=== PATIENT | male | born 1945 | race Caucasian/White ===

== ENCOUNTER → 2023-11-04 11:15 | Outpatient (REF) | payer OTHER, SELFPAY | LOC: HWRAD 11:15 | PROVIDERS: ATTENDING PHYSICIAN Nurse Practitioner Primary Care; FAMILY PHYSICIAN Internal Medicine Geriatric Medicine | DX: D46.9 Myelodysplastic syndrome, unspecified (principal); C15.5 Malignant neoplasm of lower third of esophagus; C78.7 Secondary malignant neoplasm of liver and intrahepatic bile duct; C78.00 Secondary malignant neoplasm of unspecified lung; D50.9 Iron deficiency anemia, unspecified | CPT/HCPCS: 71046 ==

== ENCOUNTER → 2023-11-13 09:12 | Outpatient (REF) | payer OTHER, SELFPAY | LOC: RCS 09:12 | PROVIDERS: ATTENDING PHYSICIAN Internal Medicine Hematology & Oncology; FAMILY PHYSICIAN Internal Medicine Geriatric Medicine | DX: D46.9 Myelodysplastic syndrome, unspecified (principal); C15.5 Malignant neoplasm of lower third of esophagus; C78.7 Secondary malignant neoplasm of liver and intrahepatic bile duct; C78.00 Secondary malignant neoplasm of unspecified lung; D50.9 Iron deficiency anemia, unspecified | CPT/HCPCS: 93306; 93356 ==

== ENCOUNTER → 2024-02-06 07:49 | Outpatient (REF) | payer OTHER, SELFPAY | LOC: WOUND 07:49 | PROVIDERS: ATTENDING PHYSICIAN Surgery; FAMILY PHYSICIAN Internal Medicine Geriatric Medicine | DX: S00.03XA Contusion of scalp, initial encounter (principal); R58 Hemorrhage, not elsewhere classified; I48.0 Paroxysmal atrial fibrillation; J44.9 Chronic obstructive pulmonary disease, unspecified; Z87.891 Personal history of nicotine dependence; W19.XXXA Unspecified fall, initial encounter | CPT/HCPCS: 99203 ==

== ENCOUNTER 2024-02-06 08:41 | Emergency (ER) | payer OTHER, SELFPAY ==
[2024-02-06 08:45] VITALS: BP 172/89
--- NOTE | 2024-02-06 09:57 | ED.SKININJ ---
HPI-Injury
General
Chief Complaint: Skin Problem
Source: patient and spouse
Exam Limitations: none
Time Seen by Provider: 02/06/24 09:39
Nursing documentation reviewed up to this point in time: agreed with
Travel History
Have you had any contact with someone who has COVID-19?: No
Do you have any symptoms of coronavirus? Fever > 100 degrees, chills, cough, shortness of breath, sore throat, loss of taste or smell, muscle aches, or headache?: No
History of Present Illness-Injury
Initial Injury comments:
78-year-old male with history of atrial fibs on [facility] presents with a hematoma of the left posterior scalp.
1 month ago had an injury where he basically 'scalped' himself in the area with large flap laceration and was seen at [facility], sutures applied, he was hospitalized and went to rehab in [facility], sutures removed and has been doing well since
until 01/19 when the area started swelling. Has been followed by [facility] and today, because it was oozing blood, C sent him here for evaluation. Pt and state this a.m. it was 'dripping blood' denies significant bleeding otherwise.
Past History
Past History
ED Past Medical History: Arrthythmia (atrial fibrillation), CAD, COPD, HTN, Other (streptococcal sepsis, paraspinal abscess), Other (GI bleed s/p polypectomy 2017 s/p embolization of ileocecal branch of SMA) and Other (gout); Negative Cancer
ED Past Surgical History: Orthopedic (C7 cadaveric implant, laminectomy anterior approach) and Other (Parathyroid adenoma resection); Negative Cardiac
Social History
Tobacco: Former smoker
Alcohol: Occasional
Drug: None
Personal:
Living: with family
Employment: Employed
Family History
Family History: CAD and Cancer; Negative Diabetes, Hypertension or Asthma
Review of Systems
Review of Systems
Allergies reviewed?: Yes
All Other Systems: ROS reviewed and negative except as documented in HPI and ROS
Constitutional: Denies fever or fatigue
Respiratory: Denies trouble breathing
Cardiac: Denies chest pain
ABD/GI: Denies abdominal pain or nausea
Skin: Reports other (hematoma scalp, not getting bigger in past 24 hours. Oozing small amount this a.m. prompting this visit)
Neurological: Denies dizzy or headache
Phy Exam
Physical Exam
Physical Exam:
GENERAL: No acute distress. A&Ox3.
CONSTITUTIONAL: Afebrile.
EYES: PERRL, conjunctivae normal
ENMT: moist mucus membranes, Pharynx nl
RESPIRATORY: Regular respirations, nonlabored, lungs clear.
CARDIOVASCULAR: Regular rate and rhythm, no murmurs, no rubs.
GI: Soft, nontender, normal BS
MUSCULOSKELETAL: Moves with ease. Well perfused.
SKIN: Warm, dry, pink, there is a 4 cm high by 5 cm wide hematoma on the left posterior scalp
PSYCH: Normal mood and affect. Well kept, interactive and appropriate
NEUROLOGIC: Awake, alert and oriented. No focal neurological deficits
Course
Vital Signs
Initial and Last Documented VS:
Initial Vital Signs
Temp Pulse Resp BP Pulse Ox
98.0 F 74 20 172/89 96
02/06/24 08:45 02/06/24 08:45 02/06/24 08:45 02/06/24 08:45 02/06/24 08:45
Last Documented Vital Signs
Temp Pulse Resp BP Pulse Ox
98 F 70 19 158/89 95
02/06/24 10:07 02/06/24 10:07 02/06/24 10:07 02/06/24 10:07 02/06/24 10:07
MDM/Problems Addressed
Differential Diagnosis Includes:
hematoma, cellulitis
MDM/Problems Addressed:
78-year-old male with history of atrial fibs on Eliquis presents with a hematoma of the left posterior scalp.
1 month ago had an injury where he basically 'scalped' himself in the area with large flap laceration and was seen at [facility], sutures applied, he was hospitalized and went to rehab in [facility], sutures removed and has been doing well since
until 01/19 when the area started swelling. Has been followed by [facility] and today, because it was oozing blood, C sent him here for evaluation. Pt and state this a.m. it was 'dripping blood' denies significant bleeding otherwise.
Both state the wound is no bigger in past 24 hours.
Explained how to hold pressure on bleeding wound x 3 and return if unable to control bleeding
Both are comfortable going home with these instructions
No need for intervention at this time such as imaging, or wound revision
*Critical Care Note
Total Time (30-74mins, 75-104mins- exclusive of procedures): Not Applicable
ED Attending Note
-
Portions of this chart may have been created with voice recognition software.� Occasional wrong word or��sound alike� substitutions may have occurred due to the inherent limitations of voice recognition software.
Discharge Plan
Departure
Patient Disposition: Home (Routine Discharge)
Date of Disposition: 02/06/24
Time of Disposition: 09:53
Patient with high blood pressure during this ER visit?: No
Condition: Good
Discharge Problem:
Bleeding from wound, Hematoma of scalp
Instructions: Hematoma
Prescriptions:
No Action
allopurinol 300 MG tablet
300 mg PO DAILY
cholecalciferol (vitamin D3) 2,000 UNITS tablet
2,000 units PO DAILY
Eliquis 5 MG tablet
5 mg PO BID 0RF
cyanocobalamin (vitamin B-12) 1,000 MCG tablet
1,000 mcg PO DAILY
albuterol sulfate [Proventil HFA] 90 MCG/PUFF HFA aerosol inhaler
1 puff inhalation Q4HPRN PRN (Reason: copd)
multivitamin with folic acid [Tab-A-Estrella] 1 TABLET tablet
1 tab PO DAILY
pantoprazole 40 MG tablet,delayed release (DR/EC)
40 mg PO DAILY Qty: 30 0RF
polyethylene glycol 3350 17 GRAMS powder in packet
17 grams PO DAILY
carvedilol 12.5 MG tablet
12.5 mg PO BID
furosemide 20 MG tablet
20 mg PO DAILY
acetaminophen 500 mg Tablet
1,000 mg PO BID
sucralfate 100 mg/mL suspension
10 ml PO DAILY
ferrous sulfate 220 mg (44 mg iron)/5 mL elixir
299.2 mg PO BID
Trelegy Ellipta 200-62.5-25 mcg Blister With Device
1 inh INHALATION R DAILY
tamsulosin 0.4 mg Capsule
0.4 mg PO DAILY Qty: 30 0RF
ciprofloxacin HCl 500 mg tablet
500 mg PO BID Qty: 14 0RF
Referrals:
Marlen Jarrell MD [Family Provider] - As needed
Activity Restrictions/Additional Instructions:
As we discussed, since no bleeding now, just leave it alone and observe.
For the next 2 days cold compress 15 minutes every hour while awake to constrict blood vessels and avoid bleeding
If after 2 days no further bleeding warm compress 15 minutes 4 times a day to bring fresh blood to the area and carry the old clotted blood away.
Whenever it oozes blood, stop the warm compress and do the cold compress as described above for the next 24 hours
Return here at any time if the area is getting bigger or won't stop bleeding with direct pressure for 15 minutes straight x 3 tries as we discussed
Interventions
Interventions:
*ED COVID-19 Vaccine History Last Done: 02/06/24 08:56
*Nursing Disposition Last Done: 02/06/24 10:07
ED-Skin Assessment Last Done: 02/06/24 09:22
Discharge Date and Time
Discharge Date/Time: 02/06/24 10:10
Print Language: CITIZEN OF [place]
[2024-02-06 10:07] VITALS: BP 158/89
== END 2024-02-06 10:10 | disposition home or self-care (01) ==
LOC: EMR 08:41
PROVIDERS: EMERGENCY PHYSICIAN Emergency Medicine; FAMILY PHYSICIAN Internal Medicine Geriatric Medicine
DX: S00.03XA Contusion of scalp, initial encounter (principal); S00.00XA Unspecified superficial injury of scalp, initial encounter; R58 Hemorrhage, not elsewhere classified; X58.XXXA Exposure to other specified factors, initial encounter; Z87.891 Personal history of nicotine dependence
CPT/HCPCS: 99282

== ENCOUNTER → 2024-02-24 08:46 | Outpatient (REF) | payer OTHER, SELFPAY | LOC: HWRAD 08:46 | PROVIDERS: ATTENDING PHYSICIAN Internal Medicine Hematology & Oncology; FAMILY PHYSICIAN Internal Medicine Geriatric Medicine | DX: D46.9 Myelodysplastic syndrome, unspecified (principal); C15.5 Malignant neoplasm of lower third of esophagus; C78.7 Secondary malignant neoplasm of liver and intrahepatic bile duct; C78.00 Secondary malignant neoplasm of unspecified lung; D50.9 Iron deficiency anemia, unspecified | CPT/HCPCS: 71260; 74177; Q9967 ==

== ENCOUNTER 2024-03-15 18:28 | Emergency (ER) | payer OTHER, SELFPAY ==
[2024-03-15 18:45] VITALS: BP 155/91
[2024-03-15 18:59] LABS: % Basophils 0.9 % (0-2); % Eosinophils 3.2 % (0-6); % Immature Granulocytes 0.5 % (0-0.5); % Lymphocytes 31.5 % (20.5-51.1); % Monocytes 9.4 % (1.7-9.3); % Neutrophils 54.5 % (42.2-75.2); Absolute Basophils 0.1 10^3/uL (0-0.2); Absolute Eosinophils 0.2 10^3/uL (0-0.7); Absolute Lymphocytes 1.8 10^3/uL (1.2-3.4); Absolute Monocytes 0.6 10^3/uL (0.1-0.6); Absolute Neutrophils 3.2 10^3/uL (1.4-6.5); Hematocrit 36.9 % (39.0-52.0); Hemoglobin 12.3 g/dL (13.0-18.0); Mean Corp Hgb Conc. 33.3 g/dL (33.0-37.0); Mean Corpuscular Hgb 32.5 pg (27.0-31.0); Mean Corpuscular Volume 97.4 fL (80.0-94.0); Mean Platelet Volume 12.4 fL (7.4-10.4); Nucleated Red Blood Cells % 0.9 % (-); Platelet Count 103 10^3/uL (130-400); Red Blood Cell Count 3.79 10^6/uL (4.70-6.10); Red Cell Dist. Width 17.1 % (11.5-14.5); White Blood Cell Count 5.9 10^3/uL (4.8-10.8)
[2024-03-15 19:19] LABS: ALT (SGPT) 13 U/L (0-50); AST (SGOT) 28 U/L (17-59); Albumin 4.2 g/dl (3.5-5.0); Alkaline Phosphatase 74 U/L (38-126); Blood Urea Nitrogen 21 mg/dl (9-20); Carbon Dioxide 27 mmol/L (22-30); Chloride 104 mmol/L (98-107); Glucose 107 mg/dl (70-99); Potassium 3.8 mmol/L (3.5-5.1); Sodium 139 mmol/L (135-145); Total Bilirubin 1.9 mg/dl (0.2-1.3); Total Protein 6.8 g/dl (6.3-8.2); eGFR > 60.00
--- NOTE | 2024-03-15 21:18 | ED.GENMED ---
History of Present Illness
General
Chief Complaint: Skin Problem
Source: patient and spouse
Exam Limitations: none
Time Seen by Provider: 03/15/24 20:41
Nursing documentation reviewed up to this point in time: agreed with
History of Present Illness
History of Present Illness:
Patient who recently completed 10-day course of doxycycline for left lower leg infection, presents to ED secondary to continual ankle swelling, along with painful swelling noted on top of his foot as well as right lower leg. In addition, patient
also has bruising noted over his left second and third toe, without any known trauma, but does not report any pain. Patient has history of atrial fibrillation and is taking Eliquis daily. Denies fever or chills. Denies nausea or vomiting. Denies
loss of appetite. Patient and report that initial skin opening with infection, now has resolved over lateral aspect of his left lower leg.
Past History
Past History
ED Past Medical History: Arrthythmia (atrial fibrillation), CAD, COPD, HTN, Other (streptococcal sepsis, paraspinal abscess), Other (GI bleed s/p polypectomy 2017 s/p embolization of ileocecal branch of SMA) and Other (gout); Negative Cancer
ED Past Surgical History: Orthopedic (C7 cadaveric implant, laminectomy anterior approach) and Other (Parathyroid adenoma resection); Negative Cardiac
Social History
Tobacco: Former smoker
Alcohol: Occasional
Drug: None
Personal:
Living: with family
Employment: Employed
Family History
Family History: CAD and Cancer; Negative Diabetes, Hypertension or Asthma
Review of Systems
Review of Systems
Allergies reviewed?: Yes
All Other Systems: ROS reviewed and negative except as documented in HPI and ROS
Constitutional: Reports no symptoms; Denies fever or chills
ABD/GI: Reports no symptoms
Musculoskeletal: Reports other (Foot pain with swelling)
Skin: Reports no symptoms
Neurological: Reports no symptoms
Phy Exam
Physical Exam
Physical Exam:
Physical Exam
General: no apparent distress, not acutely ill. afebrile
Head: nc/at. eomi
Neck: supple. no meningeal signs.
Neuro: alert and oriented. no focal neurological deficits
Skin: ecchymosis noted over dorsal aspect of left 2nd/3rd phalanx, without tenderness.
Psychiatric: well kept. interactive and cooperative
Extremities: LLE edema with mild erythema noted over b/l malleolus with tender lymph nodes. no calf tenderness.
Course
Orders/Labs/Results
Orders:
Orders
03/15/24 18:54
Complete Blood Count/With Diff Urgent
Comprehensive Metabolic Panel Urgent
03/15/24 21:29
Doxycycline [Vibramycin] 50 mg PO NOW STA
Abnormal Lab Results
03/15/24
18:54
RBC 3.79 L 10^6/uL
(4.70-6.10)
Hgb 12.3 L g/dL
(13.0-18.0)
Hct 36.9 L %
(39.0-52.0)
MCV 97.4 H fL
(80.0-94.0)
MCH 32.5 H pg
(27.0-31.0)
RDW 17.1 H %
(11.5-14.5)
Plt Count 103 L 10^3/uL
(130-400)
MPV 12.4 H fL
(7.4-10.4)
Monocytes % 9.4 H %
(1.7-9.3)
BUN 21 H mg/dl
(9-20)
Glucose 107 H mg/dl
(70-99)
Total Bilirubin 1.9 H mg/dl
(0.2-1.3)
03/15/24 18:54
03/15/24 18:54
Vital Signs
Initial and Last Documented VS:
Initial Vital Signs
Temp Pulse Resp BP Pulse Ox
98.4 F 80 16 155/91 98
03/15/24 18:45 03/15/24 18:45 03/15/24 18:45 03/15/24 18:45 03/15/24 18:45
Last Documented Vital Signs
Temp Pulse Resp BP Pulse Ox
98.4 F 72 18 169/85 98
03/15/24 18:45 03/15/24 21:47 03/15/24 21:47 03/15/24 21:47 03/15/24 21:47
MDM/Problems Addressed
MDM/Problems Addressed:
Ecchymosis noted over his left toes, likely secondary to minor trauma, in light of patient taking Eliquis. Tender lymph nodes noted along with mild erythema and swelling over the left lower extremity, consistent with likely incompletely treated
infection. As such, decision made to extend doxycycline for another 7 days, along with PCP follow-up later this week.
*Critical Care Note
Total Time (30-74mins, 75-104mins- exclusive of procedures): Not Applicable
ED Attending Note
-
Portions of this chart may have been created with voice recognition software.� Occasional wrong word or��sound alike� substitutions may have occurred due to the inherent limitations of voice recognition software.
Discharge Plan
Departure
Patient Disposition: Home (Routine Discharge)
Date of Disposition: 03/15/24
Time of Disposition: 21:22
Patient with high blood pressure during this ER visit?: Yes
Discharge Problem:
Cellulitis
Instructions: Cellulitis (Skin Infection), Adult (DC)
Prescriptions:
New
doxycycline hyclate 100 mg tablet
100 mg PO BID Qty: 13 0RF
No Action
allopurinol 300 MG tablet
300 mg PO DAILY
cholecalciferol (vitamin D3) 2,000 UNITS tablet
2,000 units PO DAILY
Eliquis 5 MG tablet
5 mg PO BID 0RF
cyanocobalamin (vitamin B-12) 1,000 MCG tablet
1,000 mcg PO DAILY
albuterol sulfate [Proventil HFA] 90 MCG/PUFF HFA aerosol inhaler
1 puff inhalation Q4HPRN PRN (Reason: copd)
multivitamin with folic acid [Tab-A-Estrella] 1 TABLET tablet
1 tab PO DAILY
pantoprazole 40 MG tablet,delayed release (DR/EC)
40 mg PO DAILY Qty: 30 0RF
polyethylene glycol 3350 17 GRAMS powder in packet
17 grams PO DAILY
carvedilol 12.5 MG tablet
12.5 mg PO BID
furosemide 20 MG tablet
20 mg PO DAILY
acetaminophen 500 mg Tablet
1,000 mg PO BID
sucralfate 100 mg/mL suspension
10 ml PO DAILY
ferrous sulfate 220 mg (44 mg iron)/5 mL elixir
299.2 mg PO BID
Trelegy Ellipta 200-62.5-25 mcg Blister With Device
1 inh INHALATION R DAILY
tamsulosin 0.4 mg Capsule
0.4 mg PO DAILY Qty: 30 0RF
ciprofloxacin HCl 500 mg tablet
500 mg PO BID Qty: 14 0RF
Referrals:
Marlen Jarrell MD [Family Provider] -
Activity Restrictions/Additional Instructions:
As discussed, please follow-up with your primary care physician for reevaluation later this week. Your prescription has been sent electronically to [facility] pharmacy on [address] in [place].
Interventions
Interventions:
*Risk Screen - Suicide Last Done: 03/15/24 19:45
*General Assessment Last Done: 03/15/24 19:45
*Neglect/Abuse Screening Last Done: 03/15/24 19:45
ED- Fall Risk Assessment Last Done: 03/15/24 22:05
*ED COVID-19 Vaccine History Last Done: 03/15/24 19:45
*Nursing Disposition Last Done: 03/15/24 22:05
ED-Skin Assessment Last Done: 03/15/24 19:45
Discharge Date and Time
Discharge Date/Time: 03/15/24 22:06
Print Language: [place]
[2024-03-15 21:47] VITALS: BP 169/85
[2024-03-15] MEDS: VIBRAMYCIN 50 MG PO (21:57)
== END 2024-03-15 22:06 | disposition home or self-care (01) ==
LOC: EMR 18:28
PROVIDERS: EMERGENCY PHYSICIAN Emergency Medicine; FAMILY PHYSICIAN Internal Medicine Geriatric Medicine
DX: L03.116 Cellulitis of left lower limb (principal); Z79.01 Long term (current) use of anticoagulants; I10 Essential (primary) hypertension; Z87.891 Personal history of nicotine dependence
CPT/HCPCS: 99283; 80053; 85025

== ENCOUNTER → 2024-04-05 08:27 | Outpatient (REF) | payer OTHER, SELFPAY | LOC: RCS 08:27 | PROVIDERS: ATTENDING PHYSICIAN Nurse Practitioner Family; FAMILY PHYSICIAN Internal Medicine Geriatric Medicine; OTHER PHYSICIAN Internal Medicine Cardiovascular Disease; REFERRING PHYSICIAN Internal Medicine Hematology & Oncology | DX: D46.9 Myelodysplastic syndrome, unspecified (principal); C15.5 Malignant neoplasm of lower third of esophagus; C78.7 Secondary malignant neoplasm of liver and intrahepatic bile duct; C78.00 Secondary malignant neoplasm of unspecified lung; D50.9 Iron deficiency anemia, unspecified | CPT/HCPCS: 93306 ==

== ENCOUNTER → 2024-07-06 10:56 | Outpatient (REF) | payer OTHER, SELFPAY | LOC: HWRAD 10:56 | PROVIDERS: ATTENDING PHYSICIAN Internal Medicine Hematology & Oncology; FAMILY PHYSICIAN Internal Medicine Geriatric Medicine | DX: D46.9 Myelodysplastic syndrome, unspecified (principal); C15.5 Malignant neoplasm of lower third of esophagus; C78.7 Secondary malignant neoplasm of liver and intrahepatic bile duct; C78.00 Secondary malignant neoplasm of unspecified lung; D50.9 Iron deficiency anemia, unspecified | CPT/HCPCS: 71260; 74177; Q9967 ==

== ENCOUNTER → 2024-07-13 10:57 | Outpatient (REF) | payer OTHER, SELFPAY | LOC: HWRCS 10:57 | PROVIDERS: ATTENDING PHYSICIAN Nurse Practitioner Primary Care; FAMILY PHYSICIAN Internal Medicine Geriatric Medicine | DX: D46.9 Myelodysplastic syndrome, unspecified (principal); C15.5 Malignant neoplasm of lower third of esophagus; C78.7 Secondary malignant neoplasm of liver and intrahepatic bile duct; D50.9 Iron deficiency anemia, unspecified; C78.00 Secondary malignant neoplasm of unspecified lung | CPT/HCPCS: 93306 ==

== ENCOUNTER 2024-07-25 23:45 | Emergency (ER) | payer OTHER, SELFPAY ==
[2024-07-25 23:48] VITALS: BP 165/96
[2024-07-25 23:52] VITALS: BMI 28.3
[2024-07-26] VITALS: BP 166/94
[2024-07-26 00:56] LABS: Urine Albumin 3+ (Neg - Trace); Urine Bilirubin Negative (Negative); Urine Character Bloody (Clear); Urine Color Red; Urine Glucose Negative (Negative); Urine Ketone Trace (Negative); Urine Leukocyte Negative (Negative); Urine Nitrite Negative (Negative); Urine Occult Blood 4+ (Negative); Urine Specific Gravity 1.015 (<1.030); Urine Urobilinogen Negative (Neg - 1+)
[2024-07-26 01:00] VITALS: BP 174/105
[2024-07-26 01:04] LABS: Urine Red Blood Cell >100 /HPF (0-2)
--- NOTE | 2024-07-26 01:40 | ED.GENMED ---
History of Present Illness
General
Chief Complaint: Urinary Symptoms
Source: patient, spouse and previous hospital records
Time Seen by Provider: 07/26/24 01:24
Nursing documentation reviewed up to this point in time: agreed with
History of Present Illness
History of Present Illness:
This is a 78-year-old gentleman who resides at [facility] independent living with his . He has history of paroxysmal atrial fibrillation chronically maintained on Eliquis. History of esophageal carcinoma as well as myelodysplastic syndrome,
currently well-controlled on immunotherapy which he receives every 3 weeks.
He does have a history of urinary tract infections and was treated for UTI in December of this year as well as January and then May. He does follow with urology and was recently started on Hiprex 2 days ago after being evaluated by urologist last
week and noting strong/foul smelling urine over the past week or 2 ago. He was unable to provide a urine sample during visit with the urologist last week.
He presents tonight with complaints of gross hematuria, dark red to maroon in color which began around 6 PM. He denies passing clots, denies difficulty urinating, no dysuria nor hesitancy, no abdominal pain nor back pain or flank pain. He has not
had a fever nor chills. No dizziness nor lightheadedness.
He has had no falls.
Past History
Past History
ED Past Medical History: Arrthythmia (atrial fibrillation), CAD, COPD, HTN, Other (streptococcal sepsis, paraspinal abscess), Other (GI bleed s/p polypectomy 2017 s/p embolization of ileocecal branch of SMA) and Other (gout); Negative Cancer
ED Past Surgical History: Orthopedic (C7 cadaveric implant, laminectomy anterior approach) and Other (Parathyroid adenoma resection); Negative Cardiac
Social History
Tobacco: Former smoker
Alcohol: Occasional
Drug: None
Personal:
Living: with family
Employment: Retired
Family History
Family History: CAD and Cancer; Negative Diabetes, Hypertension or Asthma
Phy Exam
Physical Exam
Physical Exam:
GENERAL: 78-year-old gentleman appears somewhat older than stated age, bright and alert, pleasant, appears in no acute distress. is accompanying.
EYE: Conjunctiva dark pink, anicteric
NECK: Supple, nontender, no meningismus, no significant adenopathy.
ENT: oral mucosa is moist. No rhinorrhea.
CARDIAC: Regular rate and rhythm. no murmur.
LUNGS: Clear breath sounds bilaterally, no acute respiratory distress, no wheezes/rales/rhonchi
ABDOMEN: Soft, nondistended, without focal tenderness, no r/g, no cvat. normoactive BS.
NEUROLOGICAL: Alert and oriented x3, no focal neuro deficits.
SKIN: Warm and dry, normal color, skin intact. No rash.
MUSCULOSKELETAL: No C/C/E. peripheral pulses are full and equal b/l. No palpable tenderness.
PSYCH: Normal and appropriate interaction.
Course
Orders/Labs/Results
Orders:
Orders
07/26/24 00:51
Urinalysis Reflex To Culture Urgent
Date Specimen was Collected: 07/26/24
Time Specimen was Collected: 00:50
Urine Microscopic Reflex Cult Urgent
07/26/24 01:39
Doxycycline [Vibramycin] 100 mg PO NOW STA
Abnormal Lab Results
07/26/24
00:51
Urine Ketones Trace A
(Negative)
Ur Occult Blood Reflex 4+ A
(Negative)
Urine RBC >100 A /HPF
(0-2)
Urine Albumin (Reflex) 3+ A
(Neg - Trace)
Vital Signs
Initial and Last Documented VS:
Initial Vital Signs
Temp Pulse Resp BP Pulse Ox
97.9 F 75 18 165/96 96
07/25/24 23:48 07/25/24 23:48 07/25/24 23:48 07/25/24 23:48 07/25/24 23:48
Last Documented Vital Signs
Temp Pulse Resp BP Pulse Ox
97.9 F 75 18 174/105 96
07/25/24 23:48 07/25/24 23:48 07/25/24 23:48 07/26/24 01:00 07/26/24 01:30
MDM/Problems Addressed
Differential Diagnosis Includes:
Patient presents with acute, gross hematuria. Passing dark maroon urine without evidence of clots.
He does have history of UTIs and according to urine has had a foul odor over the past week or 2. I suspect that gross hematuria may be hemorrhagic cystitis in nature.
He is maintained on Eliquis thus at increased risk for bleeding however reassuring that he has had no obstructive symptoms. And no symptoms of upper tract infection, no fever nor flank pain, no abdominal pain.
No symptoms of symptomatic anemia and overall is well in appearance.
Urinalysis shows greater than 100 RBCs. Unable to evaluate for WBCs/bacteria due to number of RBCs.
Urine culture is pending.
Will treat for potential UTI with a 1 week course of doxycycline.
Discussed importance of remaining well-hydrated on a daily basis.
Prompt follow-up with urology for recheck.
Return precautions discussed.
Chronic conditions affecting care: HTN, Arrhythmia and Immunosuppressed (Myelodysplastic disorder, esophageal CA-maintained on immunotherapy)
*Pulse Oximetry
Patient hypoxic: no
*Critical Care Note
Total Time (30-74mins, 75-104mins- exclusive of procedures): Not Applicable
ED Attending Note
-
Portions of this chart may have been created with voice recognition software.� Occasional wrong word or��sound alike� substitutions may have occurred due to the inherent limitations of voice recognition software.
Discharge Plan
Departure
Patient Disposition: Home (Routine Discharge)
Date of Disposition: 07/26/24
Time of Disposition: 01:41
Patient with high blood pressure during this ER visit?: No
Condition: Good
Discharge Problem:
Gross hematuria
Instructions: Blood in the Urine (Hematuria), Adult (DC)
Prescriptions:
New
doxycycline monohydrate 100 mg capsule
100 mg PO BID Qty: 14 1RF
No Action
allopurinol 300 MG tablet
300 mg PO DAILY
cholecalciferol (vitamin D3) 2,000 UNITS tablet
2,000 units PO DAILY
Eliquis 5 MG tablet
5 mg PO BID 0RF
cyanocobalamin (vitamin B-12) 1,000 MCG tablet
1,000 mcg PO DAILY
albuterol sulfate [Proventil HFA] 90 MCG/PUFF HFA aerosol inhaler
1 puff inhalation Q4HPRN PRN (Reason: copd)
multivitamin with folic acid [Tab-A-Estrella] 1 TABLET tablet
1 tab PO DAILY
pantoprazole 40 MG tablet,delayed release (DR/EC)
40 mg PO DAILY Qty: 30 0RF
polyethylene glycol 3350 17 GRAMS powder in packet
17 grams PO DAILY
carvedilol 12.5 MG tablet
12.5 mg PO BID
furosemide 20 MG tablet
20 mg PO DAILY
acetaminophen 500 mg Tablet
1,000 mg PO BID
sucralfate 100 mg/mL suspension
10 ml PO DAILY
ferrous sulfate 220 mg (44 mg iron)/5 mL elixir
299.2 mg PO BID
Trelegy Ellipta 200-62.5-25 mcg Blister With Device
1 inh INHALATION R DAILY
tamsulosin 0.4 mg Capsule
0.4 mg PO DAILY Qty: 30 0RF
ciprofloxacin HCl 500 mg tablet
500 mg PO BID Qty: 14 0RF
doxycycline hyclate 100 mg tablet
100 mg PO BID Qty: 13 0RF
Referrals:
Marlen Jarrell MD [Family Provider] -
Activity Restrictions/Additional Instructions:
Stay well-hydrated on a daily basis.
You have been prescribed doxycycline 100 mg to take twice daily over the next week for presumed urinary tract infection.
Urine culture is pending. This should be resulted within the next 2 to 3 days.
Follow-up with your neurologist this week for recheck.
If you develop fever or inability to void accompanied with lower abdominal pain/pressure, prompt return to the ER for further evaluation.
Interventions
Interventions:
*Risk Screen - Suicide Last Done: 07/25/24 23:48
*General Assessment Last Done: 07/25/24 23:48
*Neglect/Abuse Screening Last Done: 07/25/24 23:48
*ED COVID-19 Vaccine History Last Done: 07/25/24 23:48
ED-Male Genitourinary Assessment Last Done: 07/25/24 23:54
Discharge Date and Time
Print Language: [place]
[2024-07-26] MEDS: VIBRAMYCIN 100 MG PO (01:49)
== END 2024-07-26 02:10 | disposition home or self-care (01) ==
LOC: EMR 23:45
PROVIDERS: EMERGENCY PHYSICIAN Emergency Medicine; FAMILY PHYSICIAN Internal Medicine Geriatric Medicine
DX: R31.0 Gross hematuria (principal); I10 Essential (primary) hypertension; I48.0 Paroxysmal atrial fibrillation; Z79.01 Long term (current) use of anticoagulants; Z87.891 Personal history of nicotine dependence; D46.9 Myelodysplastic syndrome, unspecified; Z87.440 Personal history of urinary (tract) infections
CPT/HCPCS: 99283; 81003; 81015

== ENCOUNTER 2024-08-22 14:36 | Inpatient (IN) | payer OTHER, SELFPAY ==
[2024-08-22] VITALS (11 sets, daily range): BP systolic 100–139; BP diastolic 53–67; BMI 30.1
--- NOTE | 2024-08-22 11:01 | ED.GENMED ---
History of Present Illness
General
Chief Complaint: Urinary Symptoms
Source: patient
Time Seen by Provider: 08/22/24 10:51
History of Present Illness
History of Present Illness:
79yoM with a history of esophageal cancer, myelodysplastic syndrome, atrial fibrillation, COPD, and frequent UTIs presenting via EMS for evaluation of a fever. Patient arrives from [facility]. A majority of history is provided by at
bedside. Patient has a history of frequent UTIs and just finished a 10-day course of Levaquin on 08/07/2024. Patient has been generally weak recently. He started to seem disoriented beginning last night. states he was having trouble with
some coordination earlier today which prompted her to call EMS. His blood pressure has apparently been low since yesterday and his home antihypertensive dose was held last night. Patient was febrile to 101 for EMS and he was noted to be
hypotensive. He received 300 cc IV fluid bolus with improvement of his blood pressure. Patient's only current complaint is a cough.
Past History
Past History
ED Past Medical History: Arrthythmia (atrial fibrillation), CAD, COPD, HTN, Other (streptococcal sepsis, paraspinal abscess), Other (GI bleed s/p polypectomy 2017 s/p embolization of ileocecal branch of SMA) and Other (gout); Negative Cancer
ED Past Surgical History: Orthopedic (C7 cadaveric implant, laminectomy anterior approach) and Other (Parathyroid adenoma resection); Negative Cardiac
Social History
Tobacco: Former smoker
Alcohol: Occasional
Drug: None
Personal:
Living: with family
Employment: Retired
Family History
Family History: CAD and Cancer; Negative Diabetes, Hypertension or Asthma
Phy Exam
General Physical Exam
General Presentation: no apparent distress
General Skin: warm and dry
General Habitus: elderly
General Mental: alert
ENT Exam
ENT Exam: normocephalic
Cardiovascular Exam
Cardiovascular Exam: regular rate/rhythm
Pulmonary Exam
Pulmonary Exam: lungs clear, no respiratory distress, no rales, no crackles and no rhonchi
Gastrointestinal Exam
Gastrointestinal Exam: non tender, soft and non distended
Neurological Exam
Neurological Exam: alert
Skin Exam
Skin Exam: normal color and warm/dry
Psychiatric Exam
Psychiatric Exam: normal mood/affect
Sepsis
Sepsis Screening
Sepsis Assessment: Sepsis
Sepsis Screen
Sepsis Screen: Sepsis
Date: 08/22/24
Time: 16:12
Course
Orders/Labs/Results
Orders:
Orders
08/22/24 10:58
Cardiac Monitoring- Treatment ONCE
Straight cath- Treatment ONCE
08/22/24 10:59
Electrocardiogram (*1) Urgent
Reason for Study: Other
Other Reason for Exam: sepsis
EKG- Treatment ONCE
CR Chest - 2 Views Urgent
Comment:
Reason For Exam: Cough, fever
08/22/24 11:04
COVID-19 Antigen Urgent
Source: Nasal Swab
Complete Blood Count/With Diff Urgent
Lactate Level [Lactic Acid] Urgent
Troponin I Urgent
Blood Culture Q30M
EVARISTO Source: Blood/Venous
Specimen Description:
Blood Culture Q30M
EVARISTO Source: Blood/Venous
Specimen Description:
Influenza A+B Rapid Molecular Urgent
EVARISTO Source: Nasal Swab
Specimen Description:
08/22/24 11:08
Urinalysis Reflex To Culture Urgent
Date Specimen was Collected: 08/22/24
Time Specimen was Collected: 11:06
Urine Microscopic Reflex Cult Urgent
Urine Culture Urgent
EVARISTO Source: U
Specimen Description:
Date Specimen was Collected: 08/22/24
Time Specimen was Collected: 11:06
08/22/24 12:14
CefTRIAXone [Rocephin] 2,000 mg IV NOW STA
08/22/24 12:26
Cefepime HCl [Maxipime] 2,000 mg IV NOW STA
08/22/24 12:36
Comprehensive Metabolic Panel Routine
08/22/24 14:03
Admit/Transfer Patient As Directed
Co-Sign Provider:
Level of Care: Inpatient admission
Assign to:: Medical/Surgical
Physician / Group: yudith
Diagnosis: sepsis uti
Reason for Hospitalization: sepsis uti
Expected length of stay greater than two midnights?: Yes
ELOS- Estimated Length of Stay in days: 2
I certify the patient meets the requirements for IP care: Yes
08/22/24 14:04
Code Status As Directed
Resuscitation Status: Do not resuscitate
Reached after discussion with pt or family/Healthcare POA: Yes
DNR Bracelet Application ONCE
PRN Pain Medication Management As Directed
May give lesser potent ordered pain med per pt: Yes
preference::
Protocol:: Medication orders for pain may be administered in a
manner that supports deferring to patient preference
when the pt is:
- Requesting an ordered lesser potent pain medication.
Least to most potent pain medications are defined
as: acetaminophen < NSAID < tramadol < opioids
(morphine, oxycodone, hydromorphone).
- Requesting a lesser dose of the same medication IF
ORDERED.
- Requesting a less intrusive route of administration
if both routes are prescribed by the provider (PO <
IV).
08/22/24 Dinner
Regular
At Your Request: Full Participation
08/22/24 15:12
Acetaminophen [Tylenol] 650 mg PO Q4HPRN PRN
08/22/24 16:01
0.9% Sodium Chloride 1000 ml [Nss] 1,000 ml IV 70 mls/hr
CefTRIAXone [Rocephin] 1,000 mg IV Q24H
08/22/24 16:01
Activity As Directed
Activity Level: As Tolerated
Pneumatic Compression Sleeves As Directed
Type: Knee high
Vital Signs As Directed
Frequency: Per unit guidelines
DX Deep Vein Thrombosis Video Routine
08/22/24 18:00
Cholecalciferol (Vitamin D3) [VITAMIN D3 (cholecalciferol)] 50 mcg PO DAILY
Multivitamin [Theragran] 1 tablet PO DAILY
alfuzosin 10 mg PO QPM
08/22/24 20:00
Carvedilol [Coreg] 3.125 mg PO BID
08/23/24 06:00
Complete Blood Count/With Diff IN AM
Comprehensive Metabolic Panel IN AM
08/23/24 08:00
Allopurinol [Zyloprim] 300 mg PO DAILY
Cyanocobalamin [Vitamin B-12] 1,000 mcg PO DAILY
Finasteride [Proscar] 5 mg PO DAILY
Midodrine [ProAmatine] 2.5 mg PO DAILY
Pantoprazole [Protonix] 40 mg PO DAILY
ferrous sulfate 299.2 mg PO DAILY
zuluzijarhh-mwaakspil-uwwfuohm [Trelegy Ellipta] 1 inh INH R DAILY
psyllium 1 packet PO DAILY
Abnormal Lab Results
08/22/24 08/22/24 08/22/24
11:04 11:08 12:36
RBC 2.80 L 10^6/uL
(4.70-6.10)
Hgb 9.9 L g/dL
(13.0-18.0)
Hct 32.0 L %
(39.0-52.0)
MCV 114.3 H fL
(80.0-94.0)
MCH 35.4 H pg
(27.0-31.0)
MCHC 30.9 L g/dL
(33.0-37.0)
RDW 16.4 H %
(11.5-14.5)
Plt Count 107 L 10^3/uL
(130-400)
MPV 12.3 H fL
(7.4-10.4)
Abs Immat Gran (auto) 0.1 H 10^3/uL
(0-0.05)
Absolute Neuts (auto) 9.3 H 10^3/uL
(1.4-6.5)
Absolute Lymphs (auto) 0.5 L 10^3/uL
(1.2-3.4)
Immature Gran % 0.8 H %
(0-0.5)
Neutrophils % 87.9 H %
(42.2-75.2)
Lymphocytes % 4.6 L %
(20.5-51.1)
BUN 37 H mg/dl
(9-20)
Glucose 105 H mg/dl
(70-99)
Total Bilirubin 4.6 H mg/dl
(0.2-1.3)
Total Protein 6.0 L g/dl
(6.3-8.2)
Albumin 3.4 L g/dl
(3.5-5.0)
Ur Occult Blood Reflex 4+ A
(Negative)
Urine Nitrite (Reflex) Positive A
(Negative)
Urine Bilirubin 1+ A
(Negative)
Leukocyte Esterase Rfl 2+ A
(Negative)
Urine RBC >100 A /HPF
(0-2)
Urine WBC (Reflex) 50-60 A /HPF
(0-5)
Urine Bacteria (Reflex) Moderate A
(Negative)
Urine Albumin (Reflex) 2+ A
(Neg - Trace)
08/22/24 11:04
08/22/24 12:36
Vital Signs
Initial and Last Documented VS:
Initial Vital Signs
Pulse Resp BP Pulse Ox
86 26 105/53 95
08/22/24 10:52 08/22/24 10:52 08/22/24 10:52 08/22/24 10:52
Last Documented Vital Signs
Pulse Resp BP Pulse Ox
88 20 139/67 95
08/22/24 15:45 08/22/24 15:45 08/22/24 15:30 08/22/24 15:45
MDM/Problems Addressed
Differential Diagnosis Includes:
79yoM here with generalized weakness and disorientation starting last night. Hx of frequent UTIs. He was febrile to 101 on EMS arrival and hypotensive. He received 300cc IV fluid bolus prehospital. BP 105/53 on arrival. Rectal temp 101.2 on arrival.
He is non-toxic appearing. Differential diagnosis includes but is not limited to: UTI, pneumonia, viral illness, sepsis
Initial ED plan: Check septic workup including blood cultures, COVID/result, UA, and chest x-ray.
*Critical Care Note
Total Time (30-74mins, 75-104mins- exclusive of procedures): Not Applicable
Update Note
Update Note:
White count and lactate normal. UA is nitrite positive with 2+ leukocytes. Chest x-ray is clear. IV cefepime ordered and patient admitted for further management.
ED Attending Note
-
Portions of this chart may have been created with voice recognition software.� Occasional wrong word or��sound alike� substitutions may have occurred due to the inherent limitations of voice recognition software.
Discharge Plan
Departure
Patient Disposition: Admit
Date of Disposition: 08/22/24
Time of Disposition: 13:28
Presentation/result/management discussed w/ accepting MD/DO: Hospitalist
Discharge Problem:
Urinary tract infection, Fever
Interventions
Interventions:
*Risk Screen - Suicide Last Done: 08/22/24 10:58
*General Assessment Last Done: 08/22/24 10:58
*Neglect/Abuse Screening Last Done: 08/22/24 10:58
ED- Fall Risk Assessment Last Done: 08/22/24 11:01
*ED COVID-19 Vaccine History Last Done: 08/22/24 10:58
*Nursing Disposition Last Done: 08/22/24 15:58
ED-Male Genitourinary Assessment Last Done: 08/22/24 11:02
Discharge Date and Time
Discharge Date/Time: 08/22/24 16:07
[2024-08-22 11:36] LABS: % Basophils 0.6 % (0-2); % Eosinophils 0.4 % (0-6); % Immature Granulocytes 0.8 % (0-0.5); % Lymphocytes 4.6 % (20.5-51.1); % Monocytes 5.7 % (1.7-9.3); % Neutrophils 87.9 % (42.2-75.2); Absolute Basophils 0.1 10^3/uL (0-0.2); Absolute Immature Granulocytes 0.1 10^3/uL (0-0.05); Absolute Lymphocytes 0.5 10^3/uL (1.2-3.4); Absolute Monocytes 0.6 10^3/uL (0.1-0.6); Absolute Neutrophils 9.3 10^3/uL (1.4-6.5); Hemoglobin 9.9 g/dL (13.0-18.0); Mean Corp Hgb Conc. 30.9 g/dL (33.0-37.0); Mean Corpuscular Hgb 35.4 pg (27.0-31.0); Mean Corpuscular Volume 114.3 fL (80.0-94.0); Mean Platelet Volume 12.3 fL (7.4-10.4); Nucleated Red Blood Cells % 0.2 % (-); Platelet Count 107 10^3/uL (130-400); Red Cell Dist. Width 16.4 % (11.5-14.5); White Blood Cell Count 10.5 10^3/uL (4.8-10.8)
[2024-08-22 11:56] LABS: COVID-19 Antigen Negative (Negative)
[2024-08-22 12:01] LABS: Lactic Acid 1.4 mmol/L (0.7-2.0)
[2024-08-22 12:06] LABS: Urine Albumin 2+ (Neg - Trace); Urine Bilirubin 1+ (Negative); Urine Character Slightly Cloudy (Clear); Urine Color Yellow; Urine Glucose Negative (Negative); Urine Ketone Negative (Negative); Urine Leukocyte 2+ (Negative); Urine Nitrite Positive (Negative); Urine Occult Blood 4+ (Negative); Urine Urobilinogen Negative (Neg - 1+)
[2024-08-22 12:21] LABS: Urine Squamous Cell None seen /LPF (Few)
[2024-08-22 12:22] LABS: Urine Bacteria Moderate (Negative); Urine Red Blood Cell >100 /HPF (0-2); Urine White Cell 50-60 /HPF (0-5)
[2024-08-22] MEDS: MAXIPIME 2000 MG IV (12:28)
[2024-08-22 13:05] LABS: ALT (SGPT) 13 U/L (0-50); AST (SGOT) 22 U/L (17-59); Albumin 3.4 g/dl (3.5-5.0); Alkaline Phosphatase 70 U/L (38-126); Blood Urea Nitrogen 37 mg/dl (9-20); Calcium 8.4 mg/dl (8.4-10.2); Carbon Dioxide 26 mmol/L (22-30); Chloride 104 mmol/L (98-107); Estimated Creatinine Clearance 63 ml/min; Glucose 105 mg/dl (70-99); Potassium 3.8 mmol/L (3.5-5.1); Sodium 136 mmol/L (135-145); Total Bilirubin 4.6 mg/dl (0.2-1.3); eGFR > 60.00
[2024-08-22 13:40] LABS: Troponin I < 0.012 ng/ml
--- NOTE | 2024-08-22 14:07 | HPS.HSE ---
Family Physician
-
Family Physician: Marlen Jarrell
Chief Complaint
-
confusion, fever
History of Present Illness
79-year-old male history of paroxysmal atrial fibrillation on Eliquis, hypertension, myelodysplastic syndrome, COPD, metastatic esophageal cancer, nephrolithiasis, iron deficiency anemia, GERD, frequent UTIs, gout, GI bleeding status post
polypectomy 2017, embolization of ileocecal branch of SMA, presenting for fever, disorientation and weakness. Patient arrives from [facility].
Patient has a history of frequent UTIs just finished 10-day course of Levaquin on 08/07. Patient has been generally weak and started feeling disoriented starting last night. states that he was having trouble with coordination earlier today
prompted her to call EMS. Blood pressure has been low since yesterday and he did not take antihypertensive medication last night. He had fever 101 for EMS and was noted to be hypotensive. He received 300 cc of IV fluids improvement in blood
pressure.
Patient complaining of burning with urination. He had episode of bloody urination in the ER. He had blood in the urine he had urine infection at the end of July. No vomiting or diarrhea.
Patient complains of cough at this time which is chronic. No sore throat. No chest pain or shortness of breath.
Patient does not smoke or drink alcohol
Medical History
Past Medical History
Past Medical History: Reports Other (paroxysmal atrial fibrillation on Eliquis, hypertension, myelodysplastic syndrome, COPD, metastatic esophageal cancer, nephrolithiasis, iron deficiency anemia, GERD, frequent UTIs, gout, GI bleeding status post
polypectomy 2017, embolization of ileocecal branch of SMA)
Past Surgical History: Reports Other ( Orthopedic (C7 cadaveric implant, laminectomy anterior approach) and Other (Parathyroid adenoma resection))
Social History
Tobacco: Non-smoker
Alcohol: None
Drug: None
Family History
Family History: Not pertinent
Allergies / Home Medications
Allergies reflects when Allergies were last updated in [facility].
Home Medications with original date entered in [facility]
Allergy/Medication List:
Allergies
Allergy/AdvReac Type Severity Reaction Status Date / Time
No Known Allergies Allergy Verified 07/25/24 23:48
Home Medications
allopurinol 300 mg tablet 300 mg PO DAILY Gout 09/02/10
cholecalciferol (vitamin D3) 50 mcg (2,000 unit) tablet 2,000 units PO DAILY Supplement 12/28/18
apixaban 5 mg tablet (Eliquis) 5 mg PO BID 01/07/19
cyanocobalamin (vitamin B-12) 1,000 mcg tablet 1,000 mcg PO DAILY Supplement 02/01/20
multivitamin with folic acid 400 mcg tablet (Tab-A-Estrella) 1 tab PO DAILY Supplement 04/14/20
pantoprazole 40 mg tablet,delayed release 40 mg PO DAILY #30 tabs 06/05/21
furosemide 20 mg tablet 20 mg PO DAILYPRN PRN swelling 12/12/21
acetaminophen 500 mg tablet 1,000 mg PO TID PAIN/FEVER 06/08/22
ferrous sulfate 220 mg (44 mg iron)/5 mL oral elixir 299.2 mg PO DAILY Supplement 06/08/22
fluticasone fur. 200 mcg-umeclid 62.5 mcg-vilant 25 mcg inhalat.powder (Trelegy Ellipta) 1 inh inhalation R DAILY Lung/breathing issues 06/08/22
alfuzosin 10 mg tablet,extended release 24 hr 10 mg PO QPM 08/22/24
carvedilol 3.125 mg tablet (Coreg) 3.125 mg PO BID 08/22/24
finasteride 5 mg tablet 5 mg PO DAILY 08/22/24
methenamine hippurate 1 gram tablet 1 g PO QPM 08/22/24
midodrine 2.5 mg tablet 2.5 mg PO DAILY 08/22/24
psyllium 1 packet PO DAILY 08/22/24
Review of Systems
-
History Source: Patient
A 12 point ROS was completed and negative except as noted: Yes
Constitutional: Reports No Symptoms
EENT: Reports No Symptoms
Respiratory: Reports No Symptoms
Cardiac: Reports No Symptoms
Abdomen/GI: Reports No Symptoms
: Reports See HPI
Musculoskeletal: Reports No Symptoms
Skin: Reports No Symptoms
Neurological: Reports No Symptoms
Endocrine: Reports No Symptoms
Hematologic/Lymphatic: Reports No Symptoms
Psych: Reports No Symptoms
Physical Exam
Vital Signs
Vital Signs
Pulse Resp BP Pulse Ox
88 26 118/58 95
08/22/24 13:15 08/22/24 13:15 08/22/24 13:00 08/22/24 13:15
Physical Exam
General: Well Developed, Well Nourished and No Apparent Distress
HEENT: NormoCephalic, Moist mucous membranes and Atraumatic
Respiratory: Clear
Cardiac: S1/S2 and Regular Rhythm; No Murmur or Rub
GI: Soft, Non Tender, Non Distended and Normal Bowel Sounds; No Organomegaly
Rectal: Deferred by Provider
Musculoskeletal: No Clubbing, No Cyanosis and No Edema
Skin: No Rash
Neuro: Nonfocal/grossly intact
Laboratory Results
-
08/22/24 11:04
08/22/24 12:36
Laboratory Results
Lactic Acid 1.4 mmol/L (0.7-2.0) 08/22/24 11:04
Total Bilirubin 4.6 mg/dl (0.2-1.3) H 08/22/24 12:36
AST 22 U/L (17-59) 08/22/24 12:36
ALT 13 U/L (0-50) 08/22/24 12:36
Alkaline Phosphatase 70 U/L (38-126) 08/22/24 12:36
Troponin I < 0.012 ng/ml 08/22/24 11:04
Data Reviewed
-
Lab Data: Labs Reviewed by me
Old Records: Reviewed
Impression/Plan
-
IMPRESSION:
PLAN:
# Sepsis (fever, tachypnea, hypotension,) secondary to urinary tract infection with hematuria
-IV fluids
-Check urine culture, blood cultures
-Hold Lasix
-Ceftriaxone
-Hold Eliquis for now
BPH
-Continue alfuzosin, finasteride
Chronic cough
COPD
-Chest x-ray unremarkable
-COVID and influenza negative
-Continue Trelegy Ellipta
History of myelodysplastic syndrome
Chronic thrombocytopenia
-Platelets of 107 improved from as low as 55
History of iron deficiency anemia
-Hemoglobin stable
Paroxysmal atrial fibrillation
-Hold Eliquis for now
-Continue Coreg
Chronic lower extremity edema
-Hold Lasix
Essential hypertension
History of orthostatic hypotension
-Continue midodrine
Metastatic esophageal cancer
Nephrolithiasis
GERD
-Continue Protonix
Gout
-Continue allopurinol
History of GI bleeding status post polypectomy in 2017, embolization of ileocecal branch of SMA
DNR/DNI
DVT prophylaxis�SCDs
Regular diet
[2024-08-22] MEDS: TYLENOL 650 MG PO (15:24)
[2024-08-22] MEDS: NSS 1000 IV (17:00)
[2024-08-22] MEDS: VITAMIN D3 (cholecalciferol) 50 MCG PO (17:11)
[2024-08-22] MEDS: FLOMAX 0.4 MG PO (17:11)
[2024-08-22] MEDS: THERAGRAN 1 TABLET PO (17:11)
[2024-08-22] MEDS: METAMUCIL, KONSYL 1 PACKET PO (17:12)
[2024-08-22] MEDS: STERILE WATER FOR INJECTION 10 ML IV (21:16)
[2024-08-22] MEDS: COREG 3.125 MG PO (21:16)
[2024-08-22] MEDS: ROCEPHIN 1000 MG IV (21:16)
[2024-08-23] MEDS: TYLENOL 650 MG PO ×2 (00:09→15:15)
[2024-08-23] MEDS: NSS 1000 IV ×2 (05:34→20:25)
[2024-08-23 06:00] VITALS: BMI 28.9
[2024-08-23 06:56] LABS: % Basophils 0.5 % (0-2); % Eosinophils 0.5 % (0-6); % Immature Granulocytes 0.8 % (0-0.5); % Lymphocytes 6.9 % (20.5-51.1); % Monocytes 3.9 % (1.7-9.3); % Neutrophils 87.4 % (42.2-75.2); Absolute Basophils 0.1 10^3/uL (0-0.2); Absolute Eosinophils 0.1 10^3/uL (0-0.7); Absolute Immature Granulocytes 0.1 10^3/uL (0-0.05); Absolute Lymphocytes 0.7 10^3/uL (1.2-3.4); Absolute Monocytes 0.4 10^3/uL (0.1-0.6); Absolute Neutrophils 8.6 10^3/uL (1.4-6.5); Hematocrit 29.6 % (39.0-52.0); Hemoglobin 9.5 g/dL (13.0-18.0); Mean Corp Hgb Conc. 32.1 g/dL (33.0-37.0); Mean Corpuscular Hgb 35.3 pg (27.0-31.0); Nucleated Red Blood Cells % 0 % (-); Red Blood Cell Count 2.69 10^6/uL (4.70-6.10); Red Cell Dist. Width 15.9 % (11.5-14.5); White Blood Cell Count 9.8 10^3/uL (4.8-10.8)
[2024-08-23 07:07] LABS: ALT (SGPT) 13 U/L (0-50); AST (SGOT) 24 U/L (17-59); Albumin 3.1 g/dl (3.5-5.0); Alkaline Phosphatase 67 U/L (38-126); Blood Urea Nitrogen 37 mg/dl (9-20); Calcium 8.2 mg/dl (8.4-10.2); Carbon Dioxide 28 mmol/L (22-30); Chloride 105 mmol/L (98-107); Estimated Creatinine Clearance 62 ml/min; Glucose 101 mg/dl (70-99); Potassium 3.9 mmol/L (3.5-5.1); Sodium 139 mmol/L (135-145); Total Bilirubin 3.2 mg/dl (0.2-1.3); Total Protein 5.7 g/dl (6.3-8.2); eGFR > 60.00
[2024-08-23 07:41] LABS: Mean Platelet Volume 12.3 fL (7.4-10.4); Platelet Count 75 10^3/uL (130-400)
[2024-08-23 07:50] VITALS: BP 139/71
[2024-08-23] MEDS: SYMBICORT 160/4.5 MCG INHALER 2 PUFF INH ×2 (08:11→20:08)
[2024-08-23] MEDS: SPIRIVA RESPIMAT 2.5 MCG 2 PUFF INH (08:11)
--- NOTE | 2024-08-23 09:07 | W.PN.HOSP.TC ---
Today's Communication/Plan
-
IV antibiotics. ID eval
Assessment / Plan
Assessment / Plan
Physical exam:
General: Acute on chronically ill
HEENT: Normocephalic, Atraumatic and Moist Mucous Membranes
Respiratory: Clear to Auscultation; Negative Wheezes, Rales or Rhonchi
Cardiac: Regular Rhythm and S1/S2
GI: Soft, Nontender and Nondistended
Musculoskeletal: No Clubbing, No Cyanosis and No Edema
Neuro: Awake, Alert and Oriented
Psych: Calm
A/P:
Sepsis due to ESBL E. coli bacteremia and UTI in a patient immunocompromised:
Start IV ertapenem today
Stop ceftriaxone
Follow-up final sensitivity on cultures
ID consult
Hematuria:
Holding Eliquis
Monitoring hemoglobin
Metastatic esophageal cancer:
Last chemotherapy a few weeks ago
Follows up with oncology as outpatient
Myelodysplastic syndrome:
Monitor cbc
Paroxysmal atrial fibrillation:
Holding a/c
Cont rate control
DVT prophylaxis:
SCDs
CODE STATUS:
DNR
Total time spent on today's encounter was 52 minutes which included time spent in counseling the patient/family regarding diagnosis and treatment plan as listed above, goals of care, and symptom management. Case was discussed with nursing staff,
specialists, and care coordinators/case management. All labs and imaging personally reviewed by me. Remainder the time spent in detailed review of previous records, lab data, imaging, and other medical provider documentation.
Anticipated Discharge: > 48 hours
Subjective/Interval History
-
Date of Service: August 23, 2024
Patient feels weak overall. Had some transient hematuria. Afebrile today.
Objective Data
-
Labs:
Laboratory Results
08/23/24
06:13
WBC 9.8
Hgb 9.5 L
Hct 29.6 L
Plt Count 75 L D
Sodium 139
Potassium 3.9
Chloride 105
Carbon Dioxide 28
BUN 37 H
Creatinine 1.0
Glucose 101 H
Calcium 8.2 L
Total Bilirubin 3.2 H
AST 24
ALT 13
Alkaline Phosphatase 67
Vital Signs:
Vital Signs
Temp Pulse Resp BP Pulse Ox
100.1 F 94 15 139/71 94
08/23/24 07:50 08/23/24 08:12 08/23/24 08:12 08/23/24 07:50 08/23/24 08:12
I&O
08/22/24 08/23/24 08/24/24
06:59 06:59 06:59
Output Total 200 / 200
Balance -200 / -200
[2024-08-23] MEDS: ZYLOPRIM 300 MG PO (09:52)
[2024-08-23] MEDS: PROTONIX 40 MG PO (09:52)
[2024-08-23] MEDS: METAMUCIL, KONSYL 1 PACKET PO (09:52)
[2024-08-23] MEDS: VITAMIN B-12 1000 MCG PO (09:53)
[2024-08-23] MEDS: PROSCAR 5 MG PO (09:53)
[2024-08-23] MEDS: FEOSOL 325 MG PO (09:53)
[2024-08-23] MEDS: THERAGRAN 1 TABLET PO (09:53)
[2024-08-23] MEDS: ProAmatine 2.5 MG PO (09:53)
[2024-08-23] MEDS: COREG 3.125 MG PO ×2 (09:53→20:24)
[2024-08-23] MEDS: VITAMIN D3 (cholecalciferol) 50 MCG PO (09:54)
--- NOTE | 2024-08-23 12:39 | CM ---
CM reviewed chart, patient seen bedside, initial assessment completed. Patient resides at [facility] with his . Patient reports using a walker for ambulation, denies VN, reports history of [facility] in past. Patient
PCP Marlen Jarrell, pharmacy [facility] ([facility] Patient has prescription coverage. Message left with [facility] to confirm patient is from ID. CM will continue to follow for all discharge planning needs.
Plan; return to [facility] when stable.
[2024-08-23] MEDS: INVANZ 60 MG IV (13:13)
--- NOTE | 2024-08-23 13:40 | CON.ID ---
Consultation
-
Date/Time Consultation Requested: 08/23/24 12:53
Date/Time Consultation Performed: 08/23/24 13:41
Requesting Provider: Dr Alcazar
Performing Provider: Dr Landin
Reason for Consultation: ESBL ecoli bacteremia/uti
Chief Complaint / Past History
Chief Complaint
confusion, fever
History of Present Illness
Mr Ngo is a 79 year old male with history of MDS, metastatic esophageal cancer, COPD who presented here 08/22 for dysuria, weakness and disorientation. No vomiting or diarrhea. He also noted hypotension at home and held his home
antihypertensives. Then he developed a fever to 101 and called EMS. He has [address] en route with EMS. Has a chronic cough which is unchanged. o chest pain or shortness of breath.
Since arrival here he has been febrile to 100.8, bp stable, HRs normal, wbc initially 10.5 and today 9.8, hgb 9.5, plt 75, L shift is noted, cr 1.0 t bili 3.2, ast 23, alt 13, alk phos 67, urine >100 rbc and 50-60 wbc/hpf with moderate bacteria,
covid ag negative, CXR: bibasilar atelectasis, previous CT c/a/p 07/06/24: nonobstructing lower pole right renal calculus, 08/22 urine culture 100 K E coli, 08/22 blood cultures ESBL E coli; 06/08 100K e coli sesnsitive to quinolones, resistant to
bactrim, Noted to have blood in the urine.
Past History
Additional Past Medical History:
paroxysmal atrial fibrillation on Eliquis, hypertension, myelodysplastic syndrome, COPD, metastatic esophageal cancer, nephrolithiasis, iron deficiency anemia, GERD, frequent UTIs, gout, GI bleeding status post polypectomy 2017, embolization of
ileocecal branch of SMA
Additional Past Surgical History:
(C7 cadaveric implant, laminectomy anterior approach) and Other (Parathyroid adenoma resection)
Allergy History:
No Known Allergies Allergy (Verified 07/25/24 23:48)
Medications Reviewed: Yes
Social History
Tobacco: Non-Smoker
Alcohol: None
Drug: None
Family History
Family History: Not Pertinent
Review of Systems
Review of Systems
General: Fever
All systems: All other systems were reviewed and were negative
Vital Signs
Temp Pulse Resp BP Pulse Ox
99.8 F 94 15 139/71 94
08/23/24 13:07 08/23/24 08:12 08/23/24 08:12 08/23/24 07:50 08/23/24 08:12
Physical Exam
Physical Exam
Constitutional: No Acute Distress and Chronically Ill
Cardiovascular: Regular Rate and S1/S2; Negative Murmur or Rub
Pulmonary: Clear and Symmetric; Negative Wheezes, Rales or Rhonchi
Gastrointestinal: Soft, Non Tender, Non Distended and Normal Bowel Sounds
Skin: Warm, Dry and Jaundice; Negative Rash
Lab / Diagnostic Study Results
08/23/24 06:13
08/23/24 06:13
Abs Immat Gran (auto) 0.1 10^3/uL (0-0.05) H 08/23/24 06:13
Absolute Neuts (auto) 8.6 10^3/uL (1.4-6.5) H 08/23/24 06:13
Absolute Lymphs (auto) 0.7 10^3/uL (1.2-3.4) L 08/23/24 06:13
Absolute Monos (auto) 0.4 10^3/uL (0.1-0.6) 08/23/24 06:13
Absolute Basos (auto) 0.1 10^3/uL (0-0.2) 08/23/24 06:13
Immature Gran % 0.8 % (0-0.5) H 08/23/24 06:13
Neutrophils % 87.4 % (42.2-75.2) H 08/23/24 06:13
Lymphocytes % 6.9 % (20.5-51.1) L 08/23/24 06:13
Monocytes % 3.9 % (1.7-9.3) 08/23/24 06:13
Eosinophils % 0.5 % (0-6) 08/23/24 06:13
Basophils % 0.5 % (0-2) 08/23/24 06:13
Lactic Acid 1.4 mmol/L (0.7-2.0) 08/22/24 11:04
Ur Squamous Epith Cells None seen /LPF (Few) 08/22/24 11:08
Microbiology Results
Micro:
08/22/24 11:08 Urine Culture - Preliminary
Urine Escherichia coli
08/22/24 11:04 Blood Culture - Preliminary
Blood/Venous Escherichia coli - ESBL
Gram Stain - Preliminary
08/22/24 11:04 Blood Culture - Preliminary
Blood/Venous Positive culture in progress
Gram Stain - Final
08/22/24 11:04 Influenza Types A & B (ALFREDA) - Final
Nasal Swab Negative for Influenza A & B, NAAT
Negative results must be combined with clinical observations
and patient history.
Nucleic Acid Amplification test (NAAT)performed on the
[employer] NOW platform.
Assessment / Plan
ESBL E coli UTI
ESBL E coli bacteremia due to UTI
Fever - resolved
H/o of nonobstructing renal stone
Mild Jaundice
Port in place
- awaiting final sensitivities on the E coli
- source is urine
- has a port - currently accessed and functional
- repeat blood cultures x2 in the am
- QTc 435
- agree with ertapenem
[2024-08-23 15:32] VITALS: BP 116/55
[2024-08-23] MEDS: FLOMAX 0.4 MG PO (18:10)
[2024-08-23] MEDS: DESENEX/MITRAZOL/ZEASORB 1 APPLIC TOPICAL (20:25)
[2024-08-23 23:00] VITALS: BP 130/73
[2024-08-23 23:34] VITALS: BP 130/73
[2024-08-24 05:42] LABS: % Basophils 0.7 % (0-2); % Eosinophils 0.2 % (0-6); % Immature Granulocytes 0.9 % (0-0.5); % Lymphocytes 10.1 % (20.5-51.1); % Monocytes 5.3 % (1.7-9.3); % Neutrophils 83.4 % (42.2-75.2); Absolute Lymphocytes 0.5 10^3/uL (1.2-3.4); Absolute Monocytes 0.2 10^3/uL (0.1-0.6); Absolute Neutrophils 3.6 10^3/uL (1.4-6.5); Hematocrit 26.3 % (39.0-52.0); Hemoglobin 8.7 g/dL (13.0-18.0); Mean Corpuscular Hgb 35.4 pg (27.0-31.0); Mean Corpuscular Volume 107.3 fL (80.0-94.0); Mean Platelet Volume 11.9 fL (7.4-10.4); Nucleated Red Blood Cells % 0 % (-); Platelet Count 77 10^3/uL (130-400); Red Blood Cell Count 2.46 10^6/uL (4.70-6.10); Red Cell Dist. Width 15.7 % (11.5-14.5); White Blood Cell Count 4.4 10^3/uL (4.8-10.8)
[2024-08-24 05:59] LABS: Blood Urea Nitrogen 33 mg/dl (9-20); Calcium 7.9 mg/dl (8.4-10.2); Carbon Dioxide 24 mmol/L (22-30); Chloride 108 mmol/L (98-107); Estimated Creatinine Clearance 69 ml/min; Glucose 116 mg/dl (70-99); Potassium 3.8 mmol/L (3.5-5.1); Sodium 139 mmol/L (135-145); eGFR > 60.00
[2024-08-24 06:00] VITALS: BMI 28.9
[2024-08-24] MEDS: SYMBICORT 160/4.5 MCG INHALER 2 PUFF INH ×2 (07:40→20:14)
[2024-08-24] MEDS: SPIRIVA RESPIMAT 2.5 MCG 2 PUFF INH (07:40)
[2024-08-24 07:58] VITALS: BP 122/66
[2024-08-24] MEDS: THERAGRAN 1 TABLET PO (08:06)
[2024-08-24] MEDS: METAMUCIL, KONSYL 1 PACKET PO (08:06)
[2024-08-24] MEDS: ZYLOPRIM 300 MG PO (08:08)
[2024-08-24] MEDS: VITAMIN D3 (cholecalciferol) 50 MCG PO (08:08)
[2024-08-24] MEDS: VITAMIN B-12 1000 MCG PO (08:08)
[2024-08-24] MEDS: COREG 3.125 MG PO ×2 (08:08→20:24)
[2024-08-24] MEDS: PROTONIX 40 MG PO (08:08)
[2024-08-24] MEDS: FEOSOL 325 MG PO (08:08)
[2024-08-24] MEDS: ProAmatine 2.5 MG PO (08:09)
[2024-08-24] MEDS: PROSCAR 5 MG PO (08:09)
[2024-08-24] MEDS: DESENEX/MITRAZOL/ZEASORB 1 APPLIC TOPICAL ×2 (08:10→20:24)
--- NOTE | 2024-08-24 09:00 | PN.CDI ---
CDI
- -
CDI:
Physician Documentation Request
Admit Date: 08/22/24 14:36
Dear Doctor Ottoniel,
Clinical Indicators:
Patient admitted with sepsis and UTI.
08/23 ED Report, 'Patient has been generally weak recently. He started to seem disoriented beginning last night. states he was having trouble with some coordination earlier today which prompted her to call EMS'
08/22, 08/23 Nursing Assessments: Confused, slow speech
08/23 PN, 'Patient feels weak overall.'
Based on the above, could you clarify which, if any of the following, is the most likely etiology of the confusion/altered mental status.
Acute Metabolic Encephalopathy due to UTI/sepsis.
Weakness only
Other
Use of terms such as suspected, likely, concern for, or probable (associated with a specific diagnosis that is being evaluated, monitored, or treated as if it exists) are acceptable and can be coded in the inpatient setting, when documented at the
time of discharge.
Thank you,
Heather Gill RN BSN
CDI Specialist
available via tiger text
Please use your independent medical judgment in providing your response.
[2024-08-24] MEDS: INVANZ 60 MG IV (09:53)
[2024-08-24] MEDS: NSS 1000 IV (09:55)
--- NOTE | 2024-08-24 09:58 | W.PN.ID1 ---
Date of Service
Date of Service: August 24, 2024
Today's Communication
c/w ertapenem
add oral vanc bid
Assessment / Plan
ESBL E coli UTI
ESBL E coli bacteremia due to UTI
Fever - resolved
H/o of nonobstructing renal stone
Mild Jaundice
MDS
H/o esophageal cancer - metastatic
Port in place
- awaiting final sensitivities on the E coli
- source is urine
- has a port - currently accessed and functional
- colonized with C difficile - will start prophylaxis - oral vanc 125 mg po bid
- repeat blood cultures x2 no growth to date
- QTc 435
- agree with ertapenem
Chief Complaint
-: Fever and Bacteremia
Subjective / Review of Systems
fevers resolved overnight
bp stable
no events overnight
Vital Signs / Physical Exam
Vital Signs
Vital Signs
Temp Pulse Resp BP Pulse Ox
98.1 F 79 18 122/66 94
08/24/24 07:58 08/24/24 08:09 08/24/24 07:58 08/24/24 08:09 08/24/24 07:58
Physical Exam
Constitutional: No Acute Distress
Cardiovascular: Regular Rate and S1/S2; Negative Murmur or Rub
Pulmonary: Clear and Symmetric; Negative Wheezes or Rales
Gastrointestinal: Soft, Non Tender, Non Distended and Normal Bowel Sounds
Skin: Warm and Dry; Negative Rash or Jaundice
Objective Data
Lab Data
Lab Results
08/24/24 05:15
08/24/24 05:15
Estimated Creat Clear 69 ml/min 08/24/24 05:15
Lactic Acid 1.4 mmol/L (0.7-2.0) 08/22/24 11:04
Total Bilirubin 3.2 mg/dl (0.2-1.3) H 08/23/24 06:13
AST 24 U/L (17-59) 08/23/24 06:13
ALT 13 U/L (0-50) 08/23/24 06:13
Alkaline Phosphatase 67 U/L (38-126) 08/23/24 06:13
Most recent labs reviewed.
Micro Results:
08/24/24 07:49 Blood Culture - Pending
Blood/Venous
08/24/24 07:02 Blood Culture - Pending
Blood/Venous
08/22/24 11:08 Urine Culture - Preliminary
Urine Escherichia coli
08/22/24 11:04 Blood Culture - Preliminary
Blood/Venous Escherichia coli - ESBL
Gram Stain - Preliminary
08/22/24 11:04 Blood Culture - Preliminary
Blood/Venous Positive culture in progress
Gram Stain - Final
08/22/24 11:04 Influenza Types A & B (ALFREDA) - Final
Nasal Swab Negative for Influenza A & B, NAAT
Negative results must be combined with clinical observations
and patient history.
Nucleic Acid Amplification test (NAAT)performed on the
[employer] platform.
--- NOTE | 2024-08-24 10:46 | W.PN.HOSP.TC ---
Addendum entered and electronically signed by Terry Alcazar MD 08/24/24 16:47:
Acute Metabolic Encephalopathy due to UTI/sepsis.
Original Note:
Today's Communication/Plan
-
IV antibiotics. Resume anticoagulation.
Assessment / Plan
Assessment / Plan
Physical exam:
General: Acute on chronically ill
HEENT: Normocephalic, Atraumatic and Moist Mucous Membranes
Respiratory: Clear to Auscultation; Negative Wheezes, Rales or Rhonchi
Cardiac: Regular Rhythm and S1/S2
GI: Soft, Nontender and Nondistended
Musculoskeletal: No Clubbing, No Cyanosis and No Edema
Neuro: Awake, Alert and Oriented
Psych: Calm
A/P:
Sepsis due to ESBL E. coli bacteremia and UTI in a patient immunocompromised:
Started IV ertapenem yesterday on 08/23
Stopped ceftriaxone
Follow-up final sensitivity on cultures
ID consult appreciated
Discussed with at bedside yesterday
Hematuria:
Improved
Holding Eliquis but can resume tonight
Monitoring hemoglobin
Metastatic esophageal cancer:
Last chemotherapy a few weeks ago
Follows up with oncology as outpatient
Myelodysplastic syndrome:
Monitor cbc
Paroxysmal atrial fibrillation:
Holding a/c
Cont rate control
DVT prophylaxis:
SCDs plus Eliquis
CODE STATUS:
DNR
Total time spent on today's encounter was 52 minutes which included time spent in counseling the patient/family regarding diagnosis and treatment plan as listed above, goals of care, and symptom management. Case was discussed with nursing staff,
specialists, and care coordinators/case management. All labs and imaging personally reviewed by me. Remainder the time spent in detailed review of previous records, lab data, imaging, and other medical provider documentation.
Anticipated Discharge: 24 - 48 hours
Subjective/Interval History
-
Date of Service: August 24, 2024
Patient feels better overall. Tmax yesterday of 102.2 Fahrenheit. Afebrile today.
Objective Data
-
Labs:
Laboratory Results
08/24/24
05:15
WBC 4.4 L
Hgb 8.7 L
Hct 26.3 L
Plt Count 77 L
Sodium 139
Potassium 3.8
Chloride 108 H
Carbon Dioxide 24
BUN 33 H
Creatinine 0.9
Glucose 116 H
Calcium 7.9 L
Vital Signs:
Vital Signs
Temp Pulse Resp BP Pulse Ox
98.1 F 79 18 122/66 94
08/24/24 07:58 08/24/24 08:09 08/24/24 07:58 08/24/24 08:09 08/24/24 07:58
I&O
08/23/24 08/24/24 08/25/24
06:59 06:59 06:59
Intake Total 2650 / 2650
Output Total 200 / 200
Balance -200 / -200 2650 / 2650
--- NOTE | 2024-08-24 11:01 | CM ---
CM reviewed chart, patient seen bedside with . CM offered VN to patient, patient and declining at this time, report they will contact their PCP to order VN services at [facility] if they change their mind. confirms patient has a
walker, wheelchair, and shower chair at home. Patient remains on IV antibiotics. CM will continue to follow for all discharge planning needs.
Plan; home with
--- NOTE | 2024-08-24 14:49 | PTCARENOTE ---
patient having multiple loose stools, MD Alcazar notified, new orders for stool collection, rule out CDIFF. will continue to monitor.
[2024-08-24 15:42] VITALS: BP 126/67
[2024-08-24] MEDS: FLOMAX 0.4 MG PO (17:20)
[2024-08-24] MEDS: FIRVANQ 125 MG PO (20:19)
[2024-08-24] MEDS: ELIQUIS 5 MG PO (20:24)
[2024-08-24 23:45] VITALS: BP 120/64
[2024-08-25 05:16] VITALS: BMI 28.9
[2024-08-25 05:30] LABS: % Basophils 0.3 % (0-2); % Eosinophils 1.9 % (0-6); % Immature Granulocytes 1.1 % (0-0.5); % Lymphocytes 15.1 % (20.5-51.1); % Monocytes 6.3 % (1.7-9.3); % Neutrophils 75.3 % (42.2-75.2); Absolute Eosinophils 0.1 10^3/uL (0-0.7); Absolute Lymphocytes 0.6 10^3/uL (1.2-3.4); Absolute Monocytes 0.2 10^3/uL (0.1-0.6); Absolute Neutrophils 2.9 10^3/uL (1.4-6.5); Hematocrit 27.6 % (39.0-52.0); Hemoglobin 8.9 g/dL (13.0-18.0); Mean Corp Hgb Conc. 32.2 g/dL (33.0-37.0); Mean Corpuscular Volume 108.7 fL (80.0-94.0); Mean Platelet Volume 12.3 fL (7.4-10.4); Nucleated Red Blood Cells % 0 % (-); Platelet Count 69 10^3/uL (130-400); Red Blood Cell Count 2.54 10^6/uL (4.70-6.10); Red Cell Dist. Width 15.6 % (11.5-14.5); White Blood Cell Count 3.8 10^3/uL (4.8-10.8)
[2024-08-25 05:43] LABS: Blood Urea Nitrogen 31 mg/dl (9-20); Calcium 7.9 mg/dl (8.4-10.2); Carbon Dioxide 22 mmol/L (22-30); Chloride 110 mmol/L (98-107); Estimated Creatinine Clearance 88 ml/min; Glucose 107 mg/dl (70-99); Potassium 3.5 mmol/L (3.5-5.1); Sodium 137 mmol/L (135-145); eGFR > 60.00
[2024-08-25 07:31] VITALS: BP 129/66
[2024-08-25] MEDS: SYMBICORT 160/4.5 MCG INHALER 2 PUFF INH ×2 (08:15→19:57)
[2024-08-25] MEDS: SPIRIVA RESPIMAT 2.5 MCG 2 PUFF INH (08:15)
--- NOTE | 2024-08-25 09:10 | W.PN.HOSP.TC ---
Today's Communication/Plan
-
IV antibiotics
Assessment / Plan
Assessment / Plan
Physical exam:
General: Acute on chronically ill
HEENT: Normocephalic, Atraumatic and Moist Mucous Membranes
Respiratory: Clear to Auscultation; Negative Wheezes, Rales or Rhonchi
Cardiac: Regular Rhythm and S1/S2
GI: Soft, Nontender and Nondistended
Musculoskeletal: No Clubbing, No Cyanosis and No Edema
Neuro: Awake, Alert and Oriented
Psych: Calm
A/P:
Sepsis due to ESBL E. coli bacteremia and UTI in a patient immunocompromised:
Started IV ertapenem on 08/23
Isolation
Stopped ceftriaxone
Follow-up blood cultures from 08/24 no growth
ID consult appreciated
Discussed with at bedside today on 08/25
PT OT eval
Acute diarrhea:
Norovirus +
C. difficile antigen positive and toxin negative
Supportive care
Isolation
On Vancomycin prophylactically 125 mg twice a day per ID.
Hematuria:
Resolved
Tolerating Eliquis
Monitoring hemoglobin
Metastatic esophageal cancer:
Last chemotherapy a few weeks ago
Follows up with oncology as outpatient
Myelodysplastic syndrome:
Monitor cbc
Paroxysmal atrial fibrillation:
Restarted a/c of Eliquis 5 mg twice a day
Cont rate control, carvedilol 3.125 mg twice a day
DVT prophylaxis:
SCDs plus Eliquis
CODE STATUS:
DNR
Total time spent on today's encounter was 52 minutes which included time spent in counseling the patient/family regarding diagnosis and treatment plan as listed above, goals of care, and symptom management. Case was discussed with nursing staff,
specialists, and care coordinators/case management. All labs and imaging personally reviewed by me. Remainder the time spent in detailed review of previous records, lab data, imaging, and other medical provider documentation.
Anticipated Discharge: 24 - 48 hours
Subjective/Interval History
-
Date of Service: August 25, 2024
Patient with some diarrhea. Generalized weakness. Afebrile.
Objective Data
-
Labs:
Laboratory Results
08/25/24
04:24
WBC 3.8 L
Hgb 8.9 L
Hct 27.6 L
Plt Count 69 L
Sodium 137
Potassium 3.5
Chloride 110 H
Carbon Dioxide 22
BUN 31 H
Creatinine 0.7
Glucose 107 H
Calcium 7.9 L
Vital Signs:
Vital Signs
Temp Pulse Resp BP Pulse Ox
97.8 F 73 16 129/66 96
08/25/24 07:31 08/25/24 08:17 08/25/24 08:17 08/25/24 07:31 08/25/24 08:17
I&O
08/24/24 08/25/24 08/26/24
06:59 06:59 06:59
Intake Total 2650 / 2650 1919
Balance 2650 / 2650 1919
[2024-08-25] MEDS: ProAmatine 2.5 MG PO (09:30)
[2024-08-25] MEDS: THERAGRAN 1 TABLET PO (09:31)
[2024-08-25] MEDS: ELIQUIS 5 MG PO ×2 (09:31→21:49)
[2024-08-25] MEDS: ZYLOPRIM 300 MG PO (09:31)
[2024-08-25] MEDS: VITAMIN D3 (cholecalciferol) 50 MCG PO (09:31)
[2024-08-25] MEDS: FEOSOL 325 MG PO (09:31)
[2024-08-25] MEDS: COREG 3.125 MG PO ×2 (09:31→21:50)
[2024-08-25] MEDS: METAMUCIL, KONSYL 1 PACKET PO (09:32)
[2024-08-25] MEDS: VITAMIN B-12 1000 MCG PO (09:32)
[2024-08-25] MEDS: FIRVANQ 125 MG PO ×2 (09:32→21:50)
[2024-08-25] MEDS: PROSCAR 5 MG PO (09:32)
[2024-08-25] MEDS: PROTONIX 40 MG PO (09:32)
[2024-08-25] MEDS: DESENEX/MITRAZOL/ZEASORB 1 APPLIC TOPICAL ×2 (09:36→21:49)
[2024-08-25] MEDS: INVANZ 60 MG IV (09:37)
--- NOTE | 2024-08-25 10:41 | CM ---
CM reviewed chart, patient positive Norovirus. Patient seen bedside with , requesting PT to evaluate patient, TT to Hospitalist with request. Patient remains on IV antibiotics. CM will continue to follow for all discharge planning needs.
Plan; return to [facility] [place] with when stable, watch for PT recommendations, watch for IV antibiotic needs.
[2024-08-25 15:41] VITALS: BP 138/75
[2024-08-25] MEDS: FLOMAX 0.4 MG PO (17:19)
--- NOTE | 2024-08-25 17:42 | W.PN.ID1 ---
Date of Service
Date of Service: August 25, 2024
Today's Communication
- c/w ertapenem until norovirus resolved, then likely switch to bactrim
Assessment / Plan
ESBL E coli UTI
ESBL E coli bacteremia due to UTI
Fever - resolved
H/o of nonobstructing renal stone
Mild Jaundice
MDS
H/o esophageal cancer - metastatic
Port in place
- norovirus - supportive care
- enhanced contact precautions
- awaiting final sensitivities on the E coli
- source is urine
- has a port - currently accessed and functional
- colonized with C difficile - will start prophylaxis - oral vanc 125 mg po bid
- repeat blood cultures x2 no growth to date
- QTc 435
- c/w ertapenem until norovirus resolved, then likely switch to bactrim
Chief Complaint
-: Fever and Bacteremia
Subjective / Review of Systems
afebrile
bp stable
developed diarrhea - there is a norovirus outbreak on this floor, found to have norovirus
Vital Signs / Physical Exam
Vital Signs
Vital Signs
Temp Pulse Resp BP Pulse Ox
98.4 F 76 20 138/75 97
08/25/24 15:41 08/25/24 15:41 08/25/24 15:41 08/25/24 15:41 08/25/24 15:41
Physical Exam
Constitutional: No Acute Distress
Cardiovascular: Regular Rate
Pulmonary: Symmetric and Non Labored
Gastrointestinal: Non Distended
Neurological: Awake
Objective Data
Lab Data
Lab Results
08/25/24 04:24
08/25/24 04:24
Estimated Creat Clear 88 ml/min 08/25/24 04:24
Lactic Acid 1.4 mmol/L (0.7-2.0) 08/22/24 11:04
Total Bilirubin 3.2 mg/dl (0.2-1.3) H 08/23/24 06:13
AST 24 U/L (17-59) 08/23/24 06:13
ALT 13 U/L (0-50) 08/23/24 06:13
Alkaline Phosphatase 67 U/L (38-126) 08/23/24 06:13
Most recent labs reviewed.
Urine Culture Final 08/25/24-854
CC: 100,000 CFU/ML Escherichia coli - ESBL MDRO
Isolation Precautions Required
Called to [id number] on 08/25/24 at 0854 by [place] [id number]
*Presumptive Multi drug resistant organism isolated.
Suggest Infectious Disease consult.
Organism 1 Escherichia coli - ESBL
1. Escherichia coli - ESBL
M.I.C. RX
--------- ---
Amoxicillin/Potas. Clavulanate 16/8 I
Ampicillin >16 R
Ampicillin/Sulbactam >16/8 R
Aztreonam >16 R
Cefazolin >16 R
Cefepime >16 R
Ceftazidime >16 R
Ceftriaxone >2 R
Ertapenem <=0.5 S
Ciprofloxacin >2 R
Gentamicin >8 R
Meropenem <=1 S
Nitrofurantoin-Urine Only <=32 S
Piperacillin/Tazobactam 64 I
Tetracycline >8 R
Tobramycin >8 R
Trimethoprim/Sulfamethoxazole <=2/38 S
Micro Results:
08/25/24 05:16 - Final
Feces/Stool Positive for Norovirus GII
08/22/24 11:08 Urine Culture - Final
Urine Escherichia coli - ESBL
08/22/24 11:04 Blood Culture - Final
Blood/Venous Escherichia coli - ESBL
Gram Stain - Final
08/22/24 11:04 Blood Culture - Preliminary
Blood/Venous Escherichia coli - ESBL
Gram Stain - Preliminary
08/24/24 07:49 Blood Culture - Preliminary
Blood/Venous No Growth in 24 hours- Final report to follow
08/24/24 07:02 Blood Culture - Preliminary
Blood/Venous No Growth in 24 hours- Final report to follow
08/24/24 14:56 C. difficile GDH Antigen & Toxins - Final
Feces/Stool C. difficile antigen positive, toxin negative.
Clostridium difficile present, but toxin not detected.
Patient may be a carrier, colonized with nontoxinogenic
strain or the level of toxin in sample is below detection
limits. This information should be used in conjunction with
the patient's clinical history.
08/22/24 11:04 Influenza Types A & B (ALFREDA) - Final
Nasal Swab Negative for Influenza A & B, NAAT
Negative results must be combined with clinical observations
and patient history.
Nucleic Acid Amplification test (NAAT)performed on the
[employer] platform.
[2024-08-26] VITALS: BP 134/74
[2024-08-26 06:00] VITALS: BMI 28.6
[2024-08-26] MEDS: SPIRIVA RESPIMAT 2.5 MCG 2 PUFF INH (07:14)
[2024-08-26] MEDS: SYMBICORT 160/4.5 MCG INHALER 2 PUFF INH ×2 (07:14→19:48)
[2024-08-26] MEDS: FIRVANQ 125 MG PO ×2 (07:48→20:46)
[2024-08-26] MEDS: METAMUCIL, KONSYL 1 PACKET PO (07:48)
[2024-08-26] MEDS: PROSCAR 5 MG PO (07:49)
[2024-08-26] MEDS: ZYLOPRIM 300 MG PO (07:49)
[2024-08-26] MEDS: FEOSOL 325 MG PO (07:49)
[2024-08-26] MEDS: PROTONIX 40 MG PO (07:49)
[2024-08-26] MEDS: VITAMIN B-12 1000 MCG PO (07:49)
[2024-08-26] MEDS: VITAMIN D3 (cholecalciferol) 50 MCG PO (07:50)
[2024-08-26] MEDS: ELIQUIS 5 MG PO ×2 (07:50→20:46)
[2024-08-26] MEDS: THERAGRAN 1 TABLET PO (07:50)
[2024-08-26 07:57] VITALS: BP 141/68
[2024-08-26] MEDS: COREG 3.125 MG PO ×2 (07:58→20:46)
[2024-08-26] MEDS: ProAmatine PO (07:59)
[2024-08-26] MEDS: DESENEX/MITRAZOL/ZEASORB 1 APPLIC TOPICAL ×2 (08:14→20:49)
--- NOTE | 2024-08-26 08:39 | W.PN.HOSP.TC ---
Today's Communication/Plan
-
Antibiotics.
Assessment / Plan
Assessment / Plan
Physical exam:
General: Acute on chronically ill
HEENT: Normocephalic, Atraumatic and Moist Mucous Membranes
Respiratory: Clear to Auscultation; Negative Wheezes, Rales or Rhonchi
Cardiac: Regular Rhythm and S1/S2
GI: Soft, Nontender and Nondistended
Musculoskeletal: No Clubbing, No Cyanosis and No Edema
Neuro: Awake, Alert and Oriented
Psych: Calm
A/P:
Sepsis due to ESBL E. coli bacteremia and UTI in a patient immunocompromised:
Started IV ertapenem on 08/23
Isolation
Stopped ceftriaxone
Follow-up blood cultures from 08/24 no growth
ID consult appreciated
Discussed with at bedside yesterday
PT OT eval--> PT recommended skilled rehab yesterday
Acute diarrhea:
Norovirus +
C. difficile antigen positive and toxin negative
Supportive care
Isolation
On Vancomycin prophylactically 125 mg twice a day per ID.
Hematuria:
Resolved
Tolerating Eliquis
Monitoring hemoglobin
Metastatic esophageal cancer:
Last chemotherapy a few weeks ago
Follows up with oncology as outpatient
Myelodysplastic syndrome:
Monitor cbc
Paroxysmal atrial fibrillation:
Restarted a/c of Eliquis 5 mg twice a day
Cont rate control, carvedilol 3.125 mg twice a day
DVT prophylaxis:
SCDs plus Eliquis
CODE STATUS:
DNR
Anticipated Discharge: 24 - 48 hours
Subjective/Interval History
-
Date of Service: August 26, 2024
Patient with generalized weakness. Still having some diarrhea. Afebrile
Objective Data
-
Vital Signs:
Vital Signs
Temp Pulse Resp BP Pulse Ox
98.0 F 75 18 141/68 95
08/26/24 07:57 08/26/24 07:57 08/26/24 07:57 08/26/24 07:58 08/26/24 07:57
I&O
08/25/24 08/26/24 08/27/24
06:59 06:59 06:59
Intake Total 1919 580 / 580
Output Total 50 / 50
Balance 1919 530 / 530
[2024-08-26] MEDS: INVANZ 60 MG IV (09:50)
[2024-08-26 12:08] VITALS: BP 133/67
--- NOTE | 2024-08-26 14:42 | W.PN.ID1 ---
Date of Service
Date of Service: August 26, 2024
Today's Communication
- switched to bactrim through 09/05
- colonized with C difficile - c/w prophylaxis - oral vanc 125 mg po bid while on bactrim through 09/05
Assessment / Plan
ESBL E coli UTI
ESBL E coli bacteremia due to UTI
Fever - resolved
H/o of nonobstructing renal stone
Mild Jaundice
MDS
H/o esophageal cancer - metastatic
Port in place
- norovirus - supportive care
- enhanced contact precautions
- ESBL E coli
- source is urine
- repeat blood cultures clearing
- has a port - currently accessed and functional
- switched to bactrim through 09/05
- colonized with C difficile - c/w prophylaxis - oral vanc 125 mg po bid while on bactrim through 09/05
Chief Complaint
-: Fever and Bacteremia
Subjective / Review of Systems
afebrile
bp stable
stools becoming formed
Vital Signs / Physical Exam
Vital Signs
Vital Signs
Temp Pulse Resp BP Pulse Ox
98.0 F 75 18 141/68 95
08/26/24 07:57 08/26/24 07:57 08/26/24 07:57 08/26/24 07:58 08/26/24 07:57
Physical Exam
Constitutional: No Acute Distress
Cardiovascular: Regular Rate and S1/S2; Negative Murmur or Rub
Pulmonary: Clear and Symmetric; Negative Wheezes or Rales
Gastrointestinal: Soft, Non Tender, Non Distended and Normal Bowel Sounds
Skin: Warm and Dry; Negative Rash or Jaundice
Objective Data
Lab Data
Lab Results
08/25/24 04:24
08/25/24 04:24
Estimated Creat Clear 88 ml/min 08/25/24 04:24
Lactic Acid 1.4 mmol/L (0.7-2.0) 08/22/24 11:04
Total Bilirubin 3.2 mg/dl (0.2-1.3) H 08/23/24 06:13
AST 24 U/L (17-59) 08/23/24 06:13
ALT 13 U/L (0-50) 08/23/24 06:13
Alkaline Phosphatase 67 U/L (38-126) 08/23/24 06:13
Most recent labs reviewed.
Micro Results:
08/24/24 07:49 Blood Culture - Preliminary
Blood/Venous No Growth in 48 hours- Final report to follow
08/24/24 07:02 Blood Culture - Preliminary
Blood/Venous No Growth in 48 hours- Final report to follow
08/25/24 05:16 - Final
Feces/Stool Positive for Norovirus GII
08/22/24 11:08 Urine Culture - Final
Urine Escherichia coli - ESBL
08/22/24 11:04 Blood Culture - Final
Blood/Venous Escherichia coli - ESBL
Gram Stain - Final
08/22/24 11:04 Blood Culture - Preliminary
Blood/Venous Escherichia coli - ESBL
Gram Stain - Preliminary
08/24/24 14:56 C. difficile GDH Antigen & Toxins - Final
Feces/Stool C. difficile antigen positive, toxin negative.
Clostridium difficile present, but toxin not detected.
Patient may be a carrier, colonized with nontoxinogenic
strain or the level of toxin in sample is below detection
limits. This information should be used in conjunction with
the patient's clinical history.
08/22/24 11:04 Influenza Types A & B (ALFREDA) - Final
Nasal Swab Negative for Influenza A & B, NAAT
Negative results must be combined with clinical observations
and patient history.
Nucleic Acid Amplification test (NAAT)performed on the
[employer] platform.
[2024-08-26 15:00] VITALS: BP 139/74
--- NOTE | 2024-08-26 16:07 | CM ---
CM reviewed chart, positive for Norovirus. Call placed to patients , Carmina, to discuss PT/OT recommendation of SNF. agreeable to Ros[facility] Alonzo, referral placed in [facility], message to Monse, liaison at [facility] to determine bed
availability. aware that she may need to explore additional facilities if [facility] does not have any beds. CM will continue to follow for all discharge planning needs.
Plan; hopefully [facility] SNF pending bed availability/patient discharge.
[2024-08-26] MEDS: FLOMAX 0.4 MG PO (17:27)
[2024-08-26 23:30] VITALS: BP 146/76
[2024-08-27 06:00] VITALS: BMI 28.7
[2024-08-27 06:31] LABS: % Basophils 0.4 % (0-2); % Eosinophils 4.2 % (0-6); % Immature Granulocytes 3.1 % (0-0.5); % Lymphocytes 22.8 % (20.5-51.1); % Neutrophils 60.5 % (42.2-75.2); Absolute Eosinophils 0.2 10^3/uL (0-0.7); Absolute Immature Granulocytes 0.2 10^3/uL (0-0.05); Absolute Lymphocytes 1.1 10^3/uL (1.2-3.4); Absolute Monocytes 0.4 10^3/uL (0.1-0.6); Absolute Neutrophils 2.9 10^3/uL (1.4-6.5); Hematocrit 28.1 % (39.0-52.0); Hemoglobin 8.9 g/dL (13.0-18.0); Mean Corp Hgb Conc. 31.7 g/dL (33.0-37.0); Mean Corpuscular Volume 107.3 fL (80.0-94.0); Mean Platelet Volume 12.1 fL (7.4-10.4); Nucleated Red Blood Cells % 0 % (-); Platelet Count 106 10^3/uL (130-400); Red Blood Cell Count 2.62 10^6/uL (4.70-6.10); Red Cell Dist. Width 15.7 % (11.5-14.5); White Blood Cell Count 4.8 10^3/uL (4.8-10.8)
[2024-08-27 07:10] VITALS: BP 156/84
[2024-08-27 07:12] LABS: Blood Urea Nitrogen 18 mg/dl (9-20); Calcium 8.1 mg/dl (8.4-10.2); Carbon Dioxide 23 mmol/L (22-30); Chloride 109 mmol/L (98-107); Estimated Creatinine Clearance 103 ml/min; Glucose 91 mg/dl (70-99); Potassium 3.1 mmol/L (3.5-5.1); Sodium 139 mmol/L (135-145); eGFR > 60.00
[2024-08-27] MEDS: SYMBICORT 160/4.5 MCG INHALER 2 PUFF INH ×2 (08:07→20:19)
[2024-08-27] MEDS: SPIRIVA RESPIMAT 2.5 MCG 2 PUFF INH (08:07)
--- NOTE | 2024-08-27 09:07 | W.PN.HOSP.TC ---
Addendum entered and electronically signed by Terry Alcazar MD 08/27/24 15:31:
Hypokalemia
Original Note:
Today's Communication/Plan
-
Continue antibiotics. Discharge planning
Assessment / Plan
Assessment / Plan
Physical exam:
General: Chronically ill
HEENT: Normocephalic, Atraumatic and Moist Mucous Membranes
Respiratory: Clear to Auscultation; Negative Wheezes, Rales or Rhonchi
Cardiac: Regular Rhythm and S1/S2
GI: Soft, Nontender and Nondistended
Musculoskeletal: No Clubbing, No Cyanosis and No Edema
Neuro: Awake, Alert and Oriented
Psych: Calm
A/P:
Sepsis due to ESBL E. coli bacteremia and UTI in a patient immunocompromised:
Started IV ertapenem on 08/23 and currently on oral Bactrim.
Isolation
Stopped ceftriaxone
Follow-up blood cultures from 08/24 no growth
ID consult appreciated
Discussed with at bedside today
PT OT eval--> PT recommended skilled rehab
verification manager for discharge disposition
Acute diarrhea:
Norovirus +
C. difficile antigen positive and toxin negative
Supportive care
Isolation
On Vancomycin prophylactically 125 mg twice a day per ID.
Hematuria:
Resolved
Tolerating Eliquis
Monitoring hemoglobin
Metastatic esophageal cancer:
Last chemotherapy a few weeks ago
Follows up with oncology as outpatient
Myelodysplastic syndrome:
Monitor cbc
Paroxysmal atrial fibrillation:
Restarted a/c of Eliquis 5 mg twice a day
Cont rate control, carvedilol 3.125 mg twice a day
DVT prophylaxis:
SCDs plus Eliquis
CODE STATUS:
DNR
Anticipated Discharge: Today
Subjective/Interval History
-
Date of Service: August 27, 2024
No new complaints. Afebrile
Objective Data
-
Labs:
Laboratory Results
08/27/24 08/27/24
05:32 05:33
WBC 4.8
Hgb 8.9 L
Hct 28.1 L
Plt Count 106 L D
Sodium 139
Potassium 3.1 L
Chloride 109 H
Carbon Dioxide 23
BUN 18
Creatinine 0.6 L
Glucose 91
Calcium 8.1 L
Vital Signs:
Vital Signs
Temp Pulse Resp BP Pulse Ox
98.1 F 73 18 156/84 97
08/27/24 07:10 08/27/24 07:10 08/27/24 07:10 08/27/24 07:10 08/27/24 07:10
I&O
08/26/24 08/27/24 08/28/24
06:59 06:59 06:59
Intake Total 580 / 580
Output Total 50 / 50 150 / 150
Balance 530 / 530 -150 / -150
--- NOTE | 2024-08-27 10:12 | W.PN.ID1 ---
Date of Service
Date of Service: August 27, 2024
Today's Communication
- switched to bactrim through 09/05
- colonized with C difficile - c/w prophylaxis - oral vanc 125 mg po bid while on bactrim through 09/05
stable for dc from ID perspective
Assessment / Plan
ESBL E coli UTI
ESBL E coli bacteremia due to UTI
H/o of nonobstructing renal stone
MDS
H/o esophageal cancer - metastatic
Port in place
- norovirus - resolved - continue enhanced contact precautions while in house
- repeat blood cultures clearing
- switched to bactrim through 09/05
- colonized with C difficile - c/w prophylaxis - oral vanc 125 mg po bid while on bactrim through 09/05
stable for dc from ID perspective
Chief Complaint
-: Fever and Bacteremia
Subjective / Review of Systems
afebrile
bp stable
no events overnight
Vital Signs / Physical Exam
Vital Signs
Vital Signs
Temp Pulse Resp BP Pulse Ox
98.1 F 73 18 156/84 97
08/27/24 07:10 08/27/24 07:10 08/27/24 07:10 08/27/24 07:10 08/27/24 07:10
Physical Exam
Constitutional: No Acute Distress and Chronically Ill
Cardiovascular: Regular Rate
Pulmonary: Clear, Symmetric and Non Labored; Negative Wheezes or Rales
Gastrointestinal: Soft, Non Tender and Non Distended
Genito-Urinary: Negative Suprapubic Tenderness
Skin: Warm and Dry; Negative Rash or Jaundice
Neurological: Awake
Objective Data
Lab Data
Lab Results
08/27/24 05:32
08/27/24 05:33
Estimated Creat Clear 103 ml/min 08/27/24 05:33
Lactic Acid 1.4 mmol/L (0.7-2.0) 08/22/24 11:04
Total Bilirubin 3.2 mg/dl (0.2-1.3) H 08/23/24 06:13
AST 24 U/L (17-59) 08/23/24 06:13
ALT 13 U/L (0-50) 08/23/24 06:13
Alkaline Phosphatase 67 U/L (38-126) 08/23/24 06:13
Most recent labs reviewed.
Micro Results:
08/24/24 07:49 Blood Culture - Preliminary
Blood/Venous No Growth in 72 hours- Final report to follow
08/24/24 07:02 Blood Culture - Preliminary
Blood/Venous No Growth in 72 hours- Final report to follow
08/25/24 05:16 - Final
Feces/Stool Positive for Norovirus GII
08/22/24 11:08 Urine Culture - Final
Urine Escherichia coli - ESBL
08/22/24 11:04 Blood Culture - Final
Blood/Venous Escherichia coli - ESBL
Gram Stain - Final
08/22/24 11:04 Blood Culture - Preliminary
Blood/Venous Escherichia coli - ESBL
Gram Stain - Preliminary
08/24/24 14:56 C. difficile GDH Antigen & Toxins - Final
Feces/Stool C. difficile antigen positive, toxin negative.
Clostridium difficile present, but toxin not detected.
Patient may be a carrier, colonized with nontoxinogenic
strain or the level of toxin in sample is below detection
limits. This information should be used in conjunction with
the patient's clinical history.
08/22/24 11:04 Influenza Types A & B (ALFREDA) - Final
Nasal Swab Negative for Influenza A & B, NAAT
Negative results must be combined with clinical observations
and patient history.
Nucleic Acid Amplification test (NAAT)performed on the
[employer] platform.
[2024-08-27] MEDS: PROSCAR 5 MG PO (10:54)
[2024-08-27] MEDS: METAMUCIL, KONSYL 1 PACKET PO (10:54)
[2024-08-27] MEDS: FIRVANQ 125 MG PO ×2 (10:54→20:47)
[2024-08-27] MEDS: ELIQUIS 5 MG PO ×2 (10:55→20:46)
[2024-08-27] MEDS: BACTRIM DS 800 MG/160 MG 1 TABLET PO ×2 (10:55→20:47)
[2024-08-27] MEDS: ZYLOPRIM 300 MG PO (10:55)
[2024-08-27] MEDS: THERAGRAN 1 TABLET PO (10:55)
[2024-08-27] MEDS: PROTONIX 40 MG PO (10:55)
[2024-08-27] MEDS: FEOSOL 325 MG PO (10:55)
[2024-08-27] MEDS: KCL 40 MEQ PO (10:56)
[2024-08-27] MEDS: VITAMIN D3 (cholecalciferol) 50 MCG PO (10:56)
[2024-08-27] MEDS: VITAMIN B-12 1000 MCG PO (10:56)
[2024-08-27] MEDS: ProAmatine PO (10:57)
[2024-08-27] MEDS: COREG 3.125 MG PO ×2 (10:57→20:46)
[2024-08-27] MEDS: DESENEX/MITRAZOL/ZEASORB 1 APPLIC TOPICAL ×2 (10:57→20:47)
[2024-08-27 11:00] VITALS: BP 132/72
--- NOTE | 2024-08-27 12:50 | CM ---
Addendum entered by Leola Barros RN 08/27/24 16:29:
[facility] [phone] weekend contact.Needs Covid test . AMbulance set up for 10:30 am 08/28/24.
Original Note:
indicated ready for dc.
Spoke with Monse at [facility] . she said he has a bed tomorrow Sat.
He will need Covid test prior to dc.
Rosa messina [facility] will obtain auth for tomorrow.
Ambulance medical nec form completed.
[facility]
report [phone]
fax [phone]
PLAN To [facility] 08/28/24 after Covid test
--- NOTE | 2024-08-27 13:05 | PN.CDI ---
CDI
- -
CDI:
Physician Documentation Request
Admit Date: 08/22/24 14:36
Dear Doctor Ottoniel,
Clinical Indicators:
Patient admitted with sepsis and UTI.
08/27 KCl 40 meq po x 1 dose.
Potassium level:
08/27/24
05:33
Potassium 3.1 L
Based on the above, could you clarify in the progress notes, the appropriate diagnosis, if significant, that supports the above abnormalities and additional evaluation, monitoring and/or treatment rendered:
Hypokalemia
Abnormal lab value, clinically insignificant
Other
Use of terms such as suspected, likely, concern for, or probable (associated with a specific diagnosis that is being evaluated, monitored, or treated as if it exists) are acceptable and can be coded in the inpatient setting, when documented at the
time of discharge.
Thank you,
Heather Gill RN BSN
CDI Specialist
available via tiger text
Please use your independent medical judgment in providing your response.
[2024-08-27 15:00] VITALS: BP 149/75
[2024-08-27] MEDS: FLOMAX 0.4 MG PO (17:33)
[2024-08-27 17:59] LABS: COVID-19 Antigen Negative (Negative)
[2024-08-27 23:00] VITALS: BP 132/72
[2024-08-28 06:00] VITALS: BMI 27.6
[2024-08-28 07:15] VITALS: BP 144/77
[2024-08-28] MEDS: SYMBICORT 160/4.5 MCG INHALER 2 PUFF INH (07:54)
[2024-08-28] MEDS: SPIRIVA RESPIMAT 2.5 MCG 2 PUFF INH (07:54)
--- NOTE | 2024-08-28 09:09 | W.DCSUMMARY ---
Discharge Summary
Discharge Data
Date of Admission: 08/22/24
Date of Discharge: 08/28/24
-
Pending Results: No
Hospital Course
Patient is 79 years old male with history of metastatic esophageal cancer, MDS, presented to the hospital with sepsis due to ESBL E. coli UTI and bacteremia. He was treated with IV antibiotics. ID was consulted. He had follow-up blood cultures
that were sterile. He also had some diarrhea and he had C. difficile antigen positive but toxin negative and norovirus positive. He was also treated with oral vancomycin prophylactically. Patient hemodynamic improved substantially and he has
remained afebrile. ID has cleared him for discharge. PT OT recommended rehab and he has been accepted to skilled rehab. He will be discharged in relatively stable condition today.
Discharge duration: 35 minutes
Discharge Plan
-
Patient Disposition: [facility]
Discharge Diagnosis/Procedures: Sepsis. Spectrum beta-lactamase Escherichia coli bacteremia and urinary tract infection. Metastatic esophageal cancer. Myelodysplastic syndrome. Paroxysmal atrial fibrillation.
Diet: Low Cholesterol
Activity: As tolerated
Blood Work: Please PCP to order CBC, BMP within 1 week
Referrals:
Marlen Jarrell MD [Family Provider] - in less than 1 week
Prescriptions:
New
sulfamethoxazole-trimethoprim 800-160 mg Tablet
1 tab PO BID 9 Days Qty: 18 0RF
vancomycin 50 mg/mL Recon Soln
125 mg PO BID 9 Days Qty: 45 0RF
Continued
allopurinol 300 MG tablet
300 mg PO DAILY
cholecalciferol (vitamin D3) 2,000 UNITS tablet
2,000 units PO DAILY
cyanocobalamin (vitamin B-12) 1,000 MCG tablet
1,000 mcg PO DAILY
multivitamin with folic acid [Tab-A-Estrella] 1 TABLET tablet
1 tab PO DAILY
pantoprazole 40 MG tablet,delayed release (DR/EC)
40 mg PO DAILY Qty: 30 0RF
furosemide 20 MG tablet
20 mg PO DAILYPRN PRN (Reason: swelling)
acetaminophen 500 mg Tablet
1,000 mg PO TID
ferrous sulfate 220 mg (44 mg iron)/5 mL elixir
299.2 mg PO DAILY
Trelegy Ellipta 200-62.5-25 mcg Blister With Device
1 inh INHALATION R DAILY
psyllium Packet
1 packet PO DAILY
carvedilol [Coreg] 3.125 mg Tablet
3.125 mg PO BID
methenamine hippurate 1 gram Tablet
1 g PO QPM
midodrine 2.5 mg Tablet
2.5 mg PO DAILY
finasteride 5 mg Tablet
5 mg PO DAILY
alfuzosin 10 mg Tablet Extended Release 24 Hr
10 mg PO QPM
Eliquis 5 MG tablet
5 mg PO BID
Discharge Orders:
Discharge Patient (As Directed); Ordered 08/27/24
Ordered By: Terry Alcazar
Discharge Date and Time
Discharge Date/Time: 08/28/24 10:49
Print Language: TURKMEN
[2024-08-28] MEDS: BACTRIM DS 800 MG/160 MG 1 TABLET PO (09:37)
[2024-08-28] MEDS: DESENEX/MITRAZOL/ZEASORB 1 APPLIC TOPICAL (09:38)
[2024-08-28] MEDS: FIRVANQ 125 MG PO (09:40)
[2024-08-28] MEDS: METAMUCIL, KONSYL 1 PACKET PO (09:40)
[2024-08-28] MEDS: FEOSOL 325 MG PO (09:40)
[2024-08-28] MEDS: ELIQUIS 5 MG PO (09:41)
[2024-08-28] MEDS: PROTONIX 40 MG PO (09:41)
[2024-08-28] MEDS: THERAGRAN 1 TABLET PO (09:41)
[2024-08-28] MEDS: VITAMIN B-12 1000 MCG PO (09:42)
[2024-08-28] MEDS: PROSCAR 5 MG PO (09:42)
[2024-08-28] MEDS: VITAMIN D3 (cholecalciferol) 50 MCG PO (09:42)
[2024-08-28] MEDS: ProAmatine 2.5 MG PO (09:49)
[2024-08-28] MEDS: ZYLOPRIM 300 MG PO (09:50)
[2024-08-28] MEDS: COREG 3.125 MG PO (09:50)
--- NOTE | 2024-08-28 09:58 | W.PN.HOSP.TC ---
Today's Communication/Plan
-
discharge planning today
Assessment / Plan
Assessment / Plan
Physical exam:
General: Chronically ill
HEENT: Normocephalic, Atraumatic and Moist Mucous Membranes
Respiratory: Clear to Auscultation; Negative Wheezes, Rales or Rhonchi
Cardiac: Regular Rhythm and S1/S2
GI: Soft, Nontender and Nondistended
Musculoskeletal: No Clubbing, No Cyanosis and No Edema
Neuro: Awake, Alert and Oriented
Psych: Calm
A/P:
Sepsis due to ESBL E. coli bacteremia and UTI in a patient immunocompromised:
Started IV ertapenem on 08/23 and currently on oral Bactrim.
Isolation
Stopped ceftriaxone
Follow-up blood cultures from 08/24 no growth
ID consult appreciated
Discussed with at bedside today
PT OT eval--> PT recommended skilled rehab
business process manager for discharge disposition
Acute diarrhea:
Norovirus +
C. difficile antigen positive and toxin negative
Supportive care
Isolation
On Vancomycin prophylactically 125 mg twice a day per ID.
Hematuria:
Resolved
Tolerating Eliquis
Monitoring hemoglobin
Metastatic esophageal cancer:
Last chemotherapy a few weeks ago
Follows up with oncology as outpatient
Myelodysplastic syndrome:
Monitor cbc
Paroxysmal atrial fibrillation:
Restarted a/c of Eliquis 5 mg twice a day
Cont rate control, carvedilol 3.125 mg twice a day
DVT prophylaxis:
SCDs plus Eliquis
CODE STATUS:
DNR
Anticipated Discharge: Today
Subjective/Interval History
-
Date of Service: August 28, 2024
no new complaints
Objective Data
-
Vital Signs:
Vital Signs
Temp Pulse Resp BP Pulse Ox
98.0 F 80 18 142/80 97
08/28/24 07:15 08/28/24 09:50 08/28/24 07:58 08/28/24 09:50 08/28/24 07:58
I&O
08/27/24 08/28/24 08/29/24
06:59 06:59 06:59
Intake Total 840 / 840
Output Total 150 / 150 650 / 650
Balance -150 / -150 190 / 190
--- NOTE | 2024-08-28 10:45 | PTCARENOTE ---
Ambulance came to transport patient to [facility] via stretcher. Report called to Rosita. Port de-accessed, iv removed, all belongings with pt including dentures.
--- NOTE | 2024-08-28 11:19 | CM ---
CM reviewed chart, patient scheduled for 10:30 a.m. transport to [facility]. CM will continue to follow for all discharge planning needs.
Plan; [facility], 10:30 a.m. ambulance transport
Rosario Alonzo
Report [phone]
== END 2024-08-28 10:49 | DRG 871 ==
LOC: 4 WEST ACU 14:36
PROVIDERS: Physician Assistant; ADMITTING PHYSICIAN Hospitalist; ATTENDING PHYSICIAN Hospitalist; CONSULT PHYSICIAN Student in an Organized Health Care Education/Training Program; EMERGENCY PHYSICIAN Student in an Organized Health Care Education/Training Program; FAMILY PHYSICIAN Internal Medicine Geriatric Medicine
DX: A41.51 Sepsis due to Escherichia coli [E. coli] (principal); G93.41 Metabolic encephalopathy; N39.0 Urinary tract infection, site not specified; C15.9 Malignant neoplasm of esophagus, unspecified; R17 Unspecified jaundice; D84.9 Immunodeficiency, unspecified; D46.9 Myelodysplastic syndrome, unspecified; I48.0 Paroxysmal atrial fibrillation; R65.20 Severe sepsis without septic shock; E87.6 Hypokalemia
CPT/HCPCS: 51701; 71046; 80048; 80053; 81003; 81015; 83605; 84484; 85025; 87040; 87086; 87088; 87149; 87186; 87205; 87324; 87449; 87502; 87798; 87811; 93005; 94640; 96374; 97116; 97163; 97166; 97535; 99285; J1335

== ENCOUNTER → 2024-10-11 15:40 | Outpatient (REF) | payer OTHER, SELFPAY | LOC: HWRAD 15:40 | PROVIDERS: ATTENDING PHYSICIAN Internal Medicine Geriatric Medicine | DX: R10.32 Left lower quadrant pain (principal) | CPT/HCPCS: 73502 ==

== ENCOUNTER 2024-10-13 18:49 | Observation (INO) | payer OTHER, SELFPAY ==
[2024-10-13] VITALS (20 sets, daily range): BP systolic 113–167; BP diastolic 66–90; PULSE 88; O2SAT 95; BMI 29.3
--- NOTE | 2024-10-13 12:02 | ED.GENMED ---
History of Present Illness
General
Chief Complaint: Abdominal Pain
Source: patient
Time Seen by Provider: 10/13/24 11:56
History of Present Illness
History of Present Illness:
79-year-old male with past medical history of atrial fibrillation, CHF, COPD, hypertension, hyperlipidemia presenting to the emergency department for evaluation of left-sided groin pain that started this past Friday evening, gradually worsened to
the point now patient is unable to ambulate secondary to the pain. Patient normally ambulates with a walker or cane but states he cannot even do this. Saw primary care provider but is unable to tell me about much details or what exactly the
primary care provider did, notes that he was given some type of medication for pain but unable to recollect what. Patient denies any falls despite noted areas of ecchymosis to his bilateral thighs and left upper extremity. He Is unsure about any
use of anticoagulants, Eliquis noted on his medication list. Patient without any other concerns at this time.
Past History
Past History
ED Past Medical History: Arrthythmia (atrial fibrillation), CAD, Cancer, CHF, COPD, CVA, HTN, Hypercholesterolemia, Other (streptococcal sepsis, paraspinal abscess), Other (GI bleed s/p polypectomy 2017 s/p embolization of ileocecal branch of SMA)
and Other (gout)
ED Past Surgical History: Orthopedic (C7 cadaveric implant, laminectomy anterior approach) and Other (Parathyroid adenoma resection); Negative Cardiac
Social History
Tobacco: Former smoker
Alcohol: Occasional
Drug: None
Personal:
Living: with family
Employment: Retired
Family History
Family History: CAD and Cancer; Negative Diabetes, Hypertension or Asthma
Review of Systems
Review of Systems
All Other Systems: ROS reviewed and negative except as documented in HPI and ROS
Phy Exam
Physical Exam
Physical Exam:
GENERAL: Alert , in no apparent distress, appears older than stated age, soft-spoken
HEAD: Normocephalic atraumatic
EYE: Clear conjunctiva
NECK: Supple
ENT: o/p clr, mildly dry mucous membranes
CARDIAC: Regular rate and rhythm .
LUNGS: Clear breath sounds bilaterally, no acute respiratory distress, no wheezes/rales/rhonchi
ABDOMEN: Soft, without focal tenderness, no r/g, no cvat
NEUROLOGICAL: Alert and oriented
SKIN: Warm and dry, scattered areas of older appearing ecchymosis to proximal left humerus and bilateral inner thighs
MUSCULOSKELETAL: trace non-pitting edema bilateral lower legs below the knee. Patient able to lift RLE off bed without assistance or difficulty. Patient is unable to ROM his LLE at the hip/pelvis/knee 2/2 pain/weakness. Extremities are otherwise
warm and well perfused. CR < 2 sec. Sensation grossly intact to light touch
PSYCH: Normal and appropriate interaction.
Course
Orders/Labs/Results
Orders:
Orders
10/13/24 12:00
Case Management Consult ONCE
Case Management Consult: Discharge Planning
CR Hip - LT w/wo Pel 2-3 Vw* Urgent
Comment:
Reason For Exam: pain, difficulty walking
Include a pelvis x-ray?: Yes
US Periph Venous LOWER Ext LT Urgent
Comment:
Reason For Exam: pain, ambulatory difficulties
10/13/24 12:02
Basic Metabolic Panel Urgent
Complete Blood Count/With Diff Urgent
Physical Therapy Consult [Pt Eval And Treat] Urgent
Activity Level: Ambulate
10/13/24 13:06
Urinalysis Reflex To Culture Urgent
Date Specimen was Collected: 10/13/24
Time Specimen was Collected: 12:22
Urine Microscopic Reflex Cult Urgent
Urine Culture Urgent
EVARISTO Source: U
Specimen Description:
Date Specimen was Collected: 10/13/24
Time Specimen was Collected: 12:22
10/13/24 14:29
CT Lower Ext W/o Iv Cont Lt Urgent
Comment:
Reason For Exam: left hip/pelvic pain
10/13/24 15:24
CefTRIAXone [Rocephin] 1,000 mg IV NOW STA
10/13/24 18:24
Admit/Transfer Patient As Directed
Co-Sign Provider:
Level of Care: Observation services
Assign to:: Telemetry
Physician / Group: Hospitalist
Diagnosis: Psoas/Iliacus Hematoma
Reason for Telemetry: Arrhythmia
Date to Stop Telemetry: 10/16/24
Time to Stop Telemetry: 11:00
ELOS- Estimated Length of Stay in days: 2
10/13/24 18:25
PRN Pain Medication Management As Directed
May give lesser potent ordered pain med per pt: Yes
preference::
Protocol:: Medication orders for pain may be administered in a
manner that supports deferring to patient preference
when the pt is:
- Requesting an ordered lesser potent pain medication.
Least to most potent pain medications are defined
as: acetaminophen < NSAID < tramadol < opioids
(morphine, oxycodone, hydromorphone).
- Requesting a lesser dose of the same medication IF
ORDERED.
- Requesting a less intrusive route of administration
if both routes are prescribed by the provider (PO <
IV).
10/13/24 18:30
Acetaminophen [Tylenol] 1,000 mg PO NOW STA
Acetaminophen [Tylenol] 500 mg .ROUTE .STK-MED ONE
10/13/24 18:54
Blood Culture Q30M
EVARISTO Source: Blood/Venous
Specimen Description:
Blood Culture Q30M
EVARISTO Source: Blood/Venous
Specimen Description:
10/13/24 20:44
Carvedilol [Coreg] 3.125 mg PO BID
Docusate Sodium [Colace] 100 mg PO DAILYPRN PRN
Polyethylene Glycol Powder [Miralax] 17 grams PO DAILYPRN PRN
10/13/24 20:44
Compression Sleeves [Pneumatic Compression Sleeves] As Directed
Type: Knee high
DX Deep Vein Thrombosis Video Routine
10/13/24 22:00
Acetaminophen [Tylenol] 1,000 mg PO TID
10/14/24 08:00
Allopurinol [Zyloprim] 300 mg PO DAILY
Cholecalciferol (Vitamin D3) [VITAMIN D3 (cholecalciferol)] 50 mcg PO DAILY
Cyanocobalamin [Vitamin B-12] 1,000 mcg PO DAILY
Ferrous Sulfate [Feosol] 325 mg PO DAILY
Finasteride [Proscar] 5 mg PO DAILY
Methenamine Hippurate [Hiprex] 1 gram PO DAILY
Midodrine [ProAmatine] 2.5 mg PO DAILY
Multivitamin [Theragran] 1 tablet PO DAILY
Pantoprazole [Protonix] 40 mg PO DAILY
fhazjcdwdck-brcsyhilb-cnfsxfak [Trelegy Ellipta] 1 inh INH R DAILY
10/14/24 18:00
Tamsulosin [Flomax] 0.4 mg PO QPM
10/16/24 11:00
DC Protocol for Telemetry ONCE
Abnormal Lab Results
10/13/24 10/13/24
12:02 13:06
RBC 2.97 L 10^6/uL
(4.70-6.10)
Hgb 9.9 L g/dL
(13.0-18.0)
Hct 30.5 L %
(39.0-52.0)
MCV 102.7 H fL
(80.0-94.0)
MCH 33.3 H pg
(27.0-31.0)
MCHC 32.5 L g/dL
(33.0-37.0)
RDW 15.3 H %
(11.5-14.5)
MPV 11.6 H fL
(7.4-10.4)
Abs Immat Gran (auto) 0.1 H 10^3/uL
(0-0.05)
Immature Gran % 1.4 H %
(0-0.5)
Lymphocytes % 20.0 L %
(20.5-51.1)
Monocytes % 9.6 H %
(1.7-9.3)
BUN 30 H mg/dl
(9-20)
Ur Occult Blood Reflex 4+ A
(Negative)
Leukocyte Esterase Rfl 1+ A
(Negative)
Urine RBC 50-60 A /HPF
(0-2)
Urine WBC (Reflex) 11-15 A /HPF
(0-5)
Urine Bacteria (Reflex) Few A
(Negative)
Urine Albumin (Reflex) 2+ A
(Neg - Trace)
10/13/24 12:02
10/13/24 12:02
Vital Signs
Initial and Last Documented VS:
Initial Vital Signs
Pulse Resp BP Pulse Ox
82 24 166/77 94
10/13/24 11:54 10/13/24 11:54 10/13/24 11:54 10/13/24 11:54
Last Documented Vital Signs
Temp Pulse Resp BP Pulse Ox
99.0 F 100 18 169/86 94
10/14/24 15:42 10/14/24 15:42 10/14/24 15:42 10/14/24 15:42 10/14/24 15:42
MDM/Problems Addressed
Differential Diagnosis Includes:
muscle strain, fracture, contusion, DVT, PVD/PAD, hernia, anemia, electrolyte derangement
MDM/Problems Addressed:
79-year-old male presenting the ER for evaluation of left hip/groin pain that has been ongoing since Friday evening. Patient denies any falls however there is noted areas of ecchymosis to the left upper extremity and bilateral inner thighs.
Patient having difficulty with range of motion in the left lower extremity at the level of the hip/pelvis and knee. Will obtain x-ray of the pelvis and hip to further evaluate. Ultrasound ordered to rule out DVT. Labs ordered. Patient lives at
home with his 's at [facility] but in the independent living facility. If patient is unable to ambulate he may need rehab to regain strength. Case management and physical therapy consultations ordered.
*Radiology
Radiology exam reviewed: radiology read reviewed (CT findings noted for left hip/pelvic hematoma)
*Pulse Oximetry
Patient hypoxic: no
*Critical Care Note
Total Time (30-74mins, 75-104mins- exclusive of procedures): Not Applicable
Data Reviewed
Review of Other/Old Records Reveals: Labs, Records and Discharge Summary (Recent admission here at the end of August. Was discharged at that time to half-way facility. patient with E. coli bacteremia/UTI. )
Patient Management
Discussion with other providers: Other (Physical therapy and case management)
Escalation/DeEscalation of care consider admission/obs:
1:45 PM: Patient's imaging is unremarkable for any acute pathologies. Lab findings noted for mild anemia however this is improved today from last visit. Chemistry unremarkable. Urinalysis concerning for possible urinary tract infection although
patient without any urinary symptoms. Awaiting physical therapy and case management consultation for ultimate disposition planning with ultimate anticipation that patient will need further rehab.
3:30 PM: Seen by physical therapy who recommends patient be admitted to rehab. I did add on a CT scan of patient's left lower extremity/pelvic area to ensure no fracture although patient and are insistent he did not have any falls. CT
findings noted however patient and still are adamant patient did not fall. Hemoglobin is improved from last discharge which is encouraging that patient is not having any active bleeding/no extravasation seen on CT. Case management came to see
the patient and they will be unable to place the patient to a rehab facility today, they will be able to get to rehab tomorrow. Plan for admission here until then for patient's safety. Will cover for possible UTI with Rocephin. Hospitalist team
accepts for continued evaluation and treatment.
ED Attending Note
-
Portions of this chart may have been created with voice recognition software.� Occasional wrong word or��sound alike� substitutions may have occurred due to the inherent limitations of voice recognition software.
Discharge Plan
Departure
Patient Disposition: Admit
Date of Disposition: 10/13/24
Time of Disposition: 15:24
Presentation/result/management discussed w/ accepting MD/DO: Hospitalist
Discharge Problem:
Weakness, Acute UTI
Interventions
Interventions:
*Risk Screen - Suicide Last Done: 10/14/24 00:40
*General Assessment Last Done: 10/13/24 11:59
*Neglect/Abuse Screening Last Done: 10/13/24 11:54
ED- Fall Risk Assessment Last Done: 10/13/24 11:54
*ED COVID-19 Vaccine History Last Done: 10/14/24 00:40
*Nursing Disposition Last Done: 10/14/24 00:02
NE-Barawb-Uzzsbkncml Assessment Last Done: 10/13/24 12:00
Discharge Date and Time
Discharge Date/Time: 10/14/24 00:04
[2024-10-13 12:16] LABS: % Basophils 0.6 % (0-2); % Eosinophils 1.7 % (0-6); % Immature Granulocytes 1.4 % (0-0.5); % Monocytes 9.6 % (1.7-9.3); % Neutrophils 66.7 % (42.2-75.2); Absolute Eosinophils 0.1 10^3/uL (0-0.7); Absolute Immature Granulocytes 0.1 10^3/uL (0-0.05); Absolute Lymphocytes 1.3 10^3/uL (1.2-3.4); Absolute Monocytes 0.6 10^3/uL (0.1-0.6); Absolute Neutrophils 4.4 10^3/uL (1.4-6.5); Hematocrit 30.5 % (39.0-52.0); Hemoglobin 9.9 g/dL (13.0-18.0); Mean Corp Hgb Conc. 32.5 g/dL (33.0-37.0); Mean Corpuscular Hgb 33.3 pg (27.0-31.0); Mean Corpuscular Volume 102.7 fL (80.0-94.0); Mean Platelet Volume 11.6 fL (7.4-10.4); Nucleated Red Blood Cells % 1.1 % (-); Platelet Count 148 10^3/uL (130-400); Red Blood Cell Count 2.97 10^6/uL (4.70-6.10); Red Cell Dist. Width 15.3 % (11.5-14.5); White Blood Cell Count 6.6 10^3/uL (4.8-10.8)
[2024-10-13 12:31] LABS: Blood Urea Nitrogen 30 mg/dl (9-20); Calcium 9.2 mg/dl (8.4-10.2); Carbon Dioxide 30 mmol/L (22-30); Chloride 100 mmol/L (98-107); Estimated Creatinine Clearance 77 ml/min; Glucose 97 mg/dl (70-99); Sodium 137 mmol/L (135-145); eGFR > 60.00
[2024-10-13 13:21] LABS: Urine Albumin 2+ (Neg - Trace); Urine Bilirubin Negative (Negative); Urine Character Slightly Cloudy (Clear); Urine Color Yellow; Urine Glucose Negative (Negative); Urine Ketone Negative (Negative); Urine Leukocyte 1+ (Negative); Urine Nitrite Negative (Negative); Urine Occult Blood 4+ (Negative); Urine Specific Gravity 1.025 (<1.030); Urine Urobilinogen 1+ (Neg - 1+)
[2024-10-13 13:53] LABS: Urine Squamous Cell 0-2 /LPF (Few)
[2024-10-13 13:54] LABS: Urine Bacteria Few (Negative); Urine Red Blood Cell 50-60 /HPF (0-2)
--- NOTE | 2024-10-13 14:58 | CM ---
Addendum entered by Lauren Mercado 10/13/24 16:23:
Plan; Skilled placement at [facility] [place] tomorrow. Needs COVID test completed.
Addendum entered by Lauren Mercado 10/13/24 15:02:
PCP: Dr Marlen Jarrell
Pharmacy: [facility].
Original Note:
art framing manager reviewed patient's chart and met with patient and spouse, patient lives with spouse at [facility] apartments, patient was independent with adl's and used a cane or walker with ambulation. Patient was seen by physical therapy and
recommendation is for skilled placement, options review with patient and spouse and they have selected [facility], referral sent to [facility]. Per admissions they can accept patient at the [facility], [place].
Plan; Skilled placement at [facility], will obtain Auth.
[2024-10-13] MEDS: ROCEPHIN 1000 MG IV (15:35)
--- NOTE | 2024-10-13 16:55 | HPS.HSE ---
Family Physician
-
Family Physician: Luis Angel Bobby MD
Chief Complaint
-
LLE Weakness/L Hip Pain
History of Present Illness
Tapan Ngo is a 79 yea old male with a past medical history of A-Fib, h/o esophageal cancer (s/p radiation 2020) with mets to Liver and Lung (s/p chemotherapy) on maintenance chemo, COPD, essential hypertension, hyperlipidemia, gout, BPH who
presented to the [facility] for complaints of worsening LLE weakness and Left Hip Pain since .
States that he was recently discharged to SNF where completed 2 weeks of PT following a hospital admission for complicated UTI/Norovirus. He returned from on September 11 with home PT/OT/VN. Per his , he continued to improved until this past
10/07/2024 when he began having weakness lifting his left leg and pain in the hip. They were not sure if the pain was related to the physical therapy and so they continued PT. However, the pain and weakness did not improve and on Friday they
spoke to a doctor who recommended he come in. Of note, the patient's began to notice red colored urine for which a UA was done by the nursing staff, but which did not show infection at that time. He has a history of ESBL UTI at . Today he
reports some dysuria. he denies discharge, ben blood in the urine, flank pain.
states he had a fall with PT back in August but nothing within the last few weeks. He is on a chronic maintenance chemo infusion, though the cannot recall the name.
He reports no recent fevers, chills, numbness/tingling, chest pain, shortness of breath, headache, lightheadedness, dizziness palpitations.
Medical History
Past Medical History
Past Medical History: Reports Arrhythmia, Cancer, COPD, HTN and Hypercholesterolemia
Additional Past Medical History:
Rest as above
Past Surgical History: Reports Other
Additional Past Surgical History:
Radiation for Esophageal Cancer
Social History
Tobacco: Former Smoker
Alcohol: Occasional
Drug: None
Personal:
Living: With Family
Employment: Retired
Family History
Family History: Not pertinent
Allergies / Home Medications
Allergies reflects when Allergies were last updated in [employer].
Home Medications with original date entered in [employer]
Allergy/Medication List:
Allergies
Allergy/AdvReac Type Severity Reaction Status Date / Time
No Known Allergies Allergy Verified 10/13/24 11:53
Home Medications
allopurinol 300 mg tablet 300 mg PO DAILY Gout 09/02/10
cholecalciferol (vitamin D3) 50 mcg (2,000 unit) tablet 2,000 units PO DAILY Supplement 12/28/18
cyanocobalamin (vitamin B-12) 1,000 mcg tablet 1,000 mcg PO DAILY Supplement 02/01/20
multivitamin with folic acid 400 mcg tablet (Tab-A-Estrella) 1 tab PO DAILY Supplement 04/14/20
pantoprazole 40 mg tablet,delayed release 40 mg PO DAILY #30 tabs 06/05/21
furosemide 20 mg tablet 20 mg PO DAILYPRN PRN swelling 12/12/21
acetaminophen 500 mg tablet 1,000 mg PO TID PAIN/FEVER 06/08/22
alfuzosin 10 mg tablet,extended release 24 hr 10 mg PO QPM Urinary Issue 08/22/24
carvedilol 3.125 mg tablet (Coreg) 3.125 mg PO BID Blood Pressure 08/22/24
finasteride 5 mg tablet 5 mg PO DAILY Urinary Issue 08/22/24
methenamine hippurate 1 gram tablet 1 g PO DAILY Urinary Issue 08/22/24
midodrine 2.5 mg tablet 2.5 mg PO DAILY Blood Pressure 08/22/24
apixaban 5 mg tablet (Eliquis) 5 mg PO BID Blood Clot Prevention/Tx 08/23/24
docusate sodium 100 mg capsule (Colace) 100 mg PO DAILYPRN PRN CONSTIPATION 10/13/24
ferrous sulfate 325 mg (65 mg iron) tablet 325 mg PO DAILY 10/13/24
fluticasone fur. 100 mcg-umeclid 62.5 mcg-vilant 25 mcg inhalat.powder (Trelegy Ellipta) 1 inh inhalation R DAILY 10/13/24
oxycodone 5 mg tablet 2.5 mg PO BIDPRN PRN severe pains 10/13/24
polyethylene glycol 3350 17 gram oral powder packet (Miralax) 17 g PO DAILYPRN PRN constipation 10/13/24
Review of Systems
-
History Source: Patient
A 12 point ROS was completed and negative except as noted: Yes
Constitutional: Denies Fever, Fatigue, Night Sweats or Chills
EENT: Denies Sore Throat or Runny Nose
Respiratory: Denies Cough or Trouble Breathing
Cardiac: Denies Chest Pain, Palpitations or Syncope
Abdomen/GI: Denies Abdominal Pain, Nausea, Vomiting or Diarrhea
: Reports Dysuria and Difficulty Voiding; Denies Frequency or Flank Pain
Musculoskeletal: Reports Joint Pain and Muscle Pain; Denies Joint Swelling or Edema
Skin: Denies Itching or Rash
Neurological: Denies Dizzy, Headache, Weakness or Numbness
Endocrine: Denies Polyuria or Polydipsia
Hematologic/Lymphatic: Denies Bleeding
Psych: Reports Calm
Physical Exam
Vital Signs
Vital Signs
Temp Pulse Resp BP Pulse Ox
98.3 F 89 22 146/76 95
10/13/24 11:55 10/13/24 16:30 10/13/24 16:30 10/13/24 15:30 10/13/24 16:30
Physical Exam
General: Well Developed, Well Nourished, No Apparent Distress, Comfortable and Conversant; No Pain
HEENT: NormoCephalic, Anicteric, Moist mucous membranes, Atraumatic, PERRLA, [place] Conjunctivae, Nose Appears Normal and Ears Appear Normal
Respiratory: Clear; No Wheezes, Rales or Rhonchi
Cardiac: S1/S2 and Irregular Rhythm; No Murmur or Rub
GI: Soft, Non Tender, Non Distended and Normal Bowel Sounds
Musculoskeletal: No Clubbing, No Cyanosis, No Edema and Other (Internal rotation and passive flexion from 120-90 degrees elicit painful response. Deep palpation to the L inguinal region elicits severe pain. patient is unable to elicit active motion
of the left leg due to pain. )
Skin: Warm, Dry and Other (BL ecchymotic macules on the posterior thigh which are nontender to palpation.)
Neuro: AO x 3 and Other (Sensation in BL LE intact and symmetrical.)
Laboratory Results
-
10/13/24 12:02
10/13/24 12:02
Impression/Plan
-
79 year old male
#Intramuscular Hematoma
#LLE Weakness
#L Hip Pain
- Hip XR negative for fx. LE Venous Doppler negative for DVT. CT showing 2.4x1.6x10cm hematoma posterior to L psoas & 5.1x6.6x10cm intramuscular hematoma of the L iliacus extending into the Iliopsoas muscle
- Holding Eliquis
- Seen by PT/OT, recommending acute rehab. manager personnel selection notified, authorization pending.
#UTI, symptomatic
- Patient complaining of dysuria, change in urine color. Prior colonization for ESBL in urine culture
- UA showing RBCs, WBCs, few bacteria. Culture pending.
- given x1 dose ceftriaxone in ED.
- ID consulted; rec blood cultures.
#H/o Chronic UTI - c/w methenamine
#Atrial Fibrillation, type unspecified
- Holding Eliquis now for bleeding.
- c/w
#Orthostatic Hypotension - c/w midodrine 2.5mg qd
#Questionable History of HF?
- states he has no history of heart failure, took Lasix for a short course and has not taken it since. Is not on it regularly. No signs of fluid overload on exam today. Last Echo in our system (07/2024) showed EF of 55-60%.
- Will hold Lasix.
#COPD - c/w Elipta
#Anemia, likely Iron Deficiency
- Hgb on admission 9.9, repeat 10.3. Holding Eliquis. Transfuse if Hgb <7
- C/w PO iron
# Essential Hypertension - c/w carvedilol
#Gout - c/w allopurinol
#Urinary Retention - C/w Flomax
#BPH - c/w Finasteride
#Vitamin D Deficiency - c/w vitamin D3
#Vitamin B12 Deficiency - c/w B12
Diet - Regular
GI PPx - c/w Protonix 40mg PO
DVT PPx - SCDs
Code Status - DNR
--- NOTE | 2024-10-13 17:36 | W.PN.UPDATE ---
Update Note
Progress Note Update
Seen and examined by me independently in collaboration with the FP resident Tapan Luciano.
Past medical history/social history/medication/allergies reviewed.
Lab data and imaging data reviewed.
Patient presents with left hip pain on movement and discovered to have a left psoas and iliacus muscle hematomas. He is on Eliquis. He denies any trauma. But there is bruising in the posterior left thigh and also medial left thigh. He thinks
that is because of transfers to the wheelchair. He is also currently involved with physical therapy. No prior history of spontaneous hematomas or obvious external bleeding. He has a large area of bruising in the left upper outer area which he had
when he bumped into the thinks recently. No recent changes to the dose of Eliquis.
He is currently on maintenance IV chemotherapy of unknown agent for his history of metastatic esophageal cancer. Will check with his oncologist tomorrow to see if there is any issues of spontaneous hematomas or if there is any history of mental
status is elsewhere.
In meantime we will hold Eliquis for at least 2 days. Manage pain with medication. Continue with physical therapy who are recommending rehab currently.
He is on AC for afib.
He also complains of dysuria and he is got a positive urinalysis. He has a history of recurrent UTIs on methenamine prophylaxis. He also has a history of ESBL E. coli which was recently isolated in the urine. While waiting for the culture I would
treat with antibiotics as his current symptomatic UTI. Consult ID for choice of antibiotics.
Discussed with regarding the findings, treatment plan.
DNR per patient wishes and at bedside confirms that.
[2024-10-13] MEDS: TYLENOL 1000 MG PO (18:32)
[2024-10-13 21:05] LABS: COVID-19 Antigen Negative (Negative)
[2024-10-13] MEDS: COREG 3.125 MG PO (23:10)
[2024-10-13] MEDS: TYLENOL PO (23:10)
[2024-10-14 00:37] VITALS: BP 146/82; BMI 27.7
[2024-10-14 03:37] VITALS: BP 144/79
[2024-10-14 07:17] VITALS: BP 146/77
[2024-10-14] MEDS: SYMBICORT 80/4.5 MCG INHALER 2 PUFF INH (07:59)
[2024-10-14] MEDS: SPIRIVA RESPIMAT 2.5 MCG 2 PUFF INH (07:59)
[2024-10-14 08:02] LABS: % Basophils 0.5 % (0-2); % Immature Granulocytes 1.2 % (0-0.5); % Monocytes 7.3 % (1.7-9.3); Absolute Eosinophils 0.1 10^3/uL (0-0.7); Absolute Immature Granulocytes 0.1 10^3/uL (0-0.05); Absolute Lymphocytes 0.8 10^3/uL (1.2-3.4); Absolute Monocytes 0.4 10^3/uL (0.1-0.6); Absolute Neutrophils 4.6 10^3/uL (1.4-6.5); Hematocrit 30.1 % (39.0-52.0); Hemoglobin 9.5 g/dL (13.0-18.0); Mean Corp Hgb Conc. 31.6 g/dL (33.0-37.0); Mean Corpuscular Hgb 32.8 pg (27.0-31.0); Mean Corpuscular Volume 103.8 fL (80.0-94.0); Mean Platelet Volume 11.9 fL (7.4-10.4); Nucleated Red Blood Cells % 1.2 % (-); Platelet Count 137 10^3/uL (130-400); Red Cell Dist. Width 15.3 % (11.5-14.5)
[2024-10-14] MEDS: VITAMIN D3 (cholecalciferol) 50 MCG PO (08:22)
[2024-10-14 08:23] LABS: ALT (SGPT) 22 U/L (0-50); AST (SGOT) 36 U/L (17-59); Albumin 3.2 g/dl (3.5-5.0); Alkaline Phosphatase 102 U/L (38-126); Blood Urea Nitrogen 22 mg/dl (9-20); Calcium 8.8 mg/dl (8.4-10.2); Carbon Dioxide 32 mmol/L (22-30); Chloride 102 mmol/L (98-107); Estimated Creatinine Clearance 80 ml/min; Glucose 93 mg/dl (70-99); Potassium 4.5 mmol/L (3.5-5.1); Sodium 138 mmol/L (135-145); Total Bilirubin 2.4 mg/dl (0.2-1.3); eGFR > 60.00
[2024-10-14] MEDS: TYLENOL 1000 MG PO ×2 (08:23→15:36)
[2024-10-14] MEDS: COREG 3.125 MG PO (08:23)
[2024-10-14] MEDS: FEOSOL 325 MG PO (08:23)
[2024-10-14] MEDS: PROTONIX 40 MG PO (08:27)
[2024-10-14] MEDS: ZYLOPRIM 300 MG PO (08:27)
[2024-10-14] MEDS: VITAMIN B-12 1000 MCG PO (08:27)
[2024-10-14] MEDS: PROSCAR 5 MG PO (08:27)
[2024-10-14] MEDS: ProAmatine 2.5 MG PO (08:27)
[2024-10-14] MEDS: THERAGRAN 1 TABLET PO (08:31)
[2024-10-14] MEDS: HIPREX 1 GRAM PO (08:31)
[2024-10-14 11:31] VITALS: BP 126/61
--- NOTE | 2024-10-14 11:33 | CM ---
CM reviewed chart, patient seen bedside with , discussed plan for discharge to [facility] today. Patient and agreeable, patient scheduled for 4:00 p.m. ambulance transport. Monse at [facility] updated. CM will continue to follow
for all discharge planning needs.
Plan; [facility], 4:00 p.m. ambulance transport
[facility]
Report: [phone]
--- NOTE | 2024-10-14 12:13 | W.PN.HOSP.TC ---
Today's Communication/Plan
-
DC
Assessment / Plan
Assessment / Plan
#Intramuscular Hematoma
#L Hip Pain-acute onset-atraumatic per history. Their questions around the atraumatic nature due to bruising of left inner thigh and posterior thigh. No falls according to patient.
- Hip XR negative for fx. LE Venous Doppler negative for DVT. CT showing 2.4x1.6x10cm hematoma posterior to L psoas & 5.1x6.6x10cm intramuscular hematoma of the L iliacus extending into the Iliopsoas muscle
- Holding Eliquis for 2 more days and resume.
- Seen by PT/OT, recommending acute rehab. telephonic nurse case manager notified, authorization obtained today.
-Follow-up H&H is stable
#UTI, symptomatic
- Patient complaining of dysuria, change in urine color. Prior colonization for ESBL in urine culture
- UA showing RBCs, WBCs, few bacteria. Urine culture is negative.
-Repeat UA in a week and if persistent abnormality follow-up with urologist.
#H/o Chronic UTI - c/w methenamine
#Atrial Fibrillation, type unspecified
- Holding Eliquis now for bleeding.
# History of orthostatic Hypotension - c/w midodrine 2.5mg qd
#Questionable History of HF?
- states he has no history of heart failure, took Lasix for a short course and has not taken it since. Is not on it regularly. No signs of fluid overload on exam today. Last Echo in our system (07/2024) showed EF of 55-60%.
- Will hold Lasix.
#COPD - c/w Elipta
#Anemia, likely Iron Deficiency
- Hgb on admission 9.9, repeat 10.3. Holding Eliquis. Transfuse if Hgb <7
- C/w PO iron
# Essential Hypertension - c/w carvedilol
#Gout - c/w allopurinol
#Urinary Retention - C/w Flomax
#BPH - c/w Finasteride
#Vitamin D Deficiency - c/w vitamin D3
#Vitamin B12 Deficiency - c/w B12
Diet - Regular
Code Status - DNR
Medically stable for discharge
Anticipated Discharge: Today
Subjective/Interval History
-
Date of Service: October 14, 2024
Still with pain on left hip flexion. No new symptoms.
Denies any back pain.
Denies any dizziness.
No dysuria complaints today. Denies any frequency. No fever chills
Objective Data
-
Labs:
Laboratory Results
10/14/24
07:32
WBC 6.0
Hgb 9.5 L
Hct 30.1 L
Plt Count 137
Sodium 138
Potassium 4.5
Chloride 102
Carbon Dioxide 32 H
BUN 22 H
Creatinine 0.8
Glucose 93
Calcium 8.8
Total Bilirubin 2.4 H
AST 36
ALT 22
Alkaline Phosphatase 102
Vital Signs:
Vital Signs
Temp Pulse Resp BP Pulse Ox
98.8 F 85 18 126/61 93
10/14/24 11:31 10/14/24 11:31 10/14/24 11:31 10/14/24 11:31 10/14/24 11:31
I&O
10/13/24 10/14/24 10/15/24
06:59 06:59 06:59
Output Total 200 / 200 300 / 300
Balance -200 / -200 -300 / -300
Review of Systems
-
Respiratory: Denies Trouble Breathing
Cardiac: Denies Chest Pain
Abdomen/GI: Denies Abdominal Pain, Nausea or Vomiting
Physical Exam
-
General: No Apparent Distress
HEENT: Moist Mucous Membranes
Respiratory: Clear to Auscultation
Cardiac: Regular Rhythm and S1/S2
GI: Soft, Nontender, Nondistended and Normal Bowel Sounds
Musculoskeletal: Edema, Left Lower Extrem (left ankle edema trace. Left inner and posterior thigh bruising like yesterday)
Neuro: AO x 3
Psych: Calm
Data Reviewed
-
Labs: Labs Reviewed by me
--- NOTE | 2024-10-14 12:24 | W.DCSUMMARY ---
Discharge Summary
Discharge Data
Date of Admission: 10/13/24
Date of Discharge: 10/14/24
-
Pending Results: No
Hospital Course
Primary diagnosis:
Left flank pain secondary left psoas and iliac us muscle hematoma-atraumatic; patient on Eliquis
Abnormal urinalysis
History of recurrent UTIs on antibiotic prophylaxis
Secondary diagnosis:
Atrial fibrillation type unspecified
History of orthostatic hypotension
History of CHF
COPD
Essential hypertension
History of esophageal cancer
Hospital course:
79-year-old gentleman presents with 4 days of left-sided hip pain and was having difficulty ambulating. Further testing revealed 2.4x1.6x10cm hematoma posterior to L psoas & 5.1x6.6x10cm intramuscular hematoma of the L iliacus extending into the
Iliopsoas muscle. He denies any falls or trauma but he had some evidence of bruising of left inner thigh and the left posterior mid thigh. He does use wheelchair unclear if he had any known fall related trauma. He is on Eliquis for atrial
fibrillation. His H&H was stable. His Eliquis was kept on hold and advised to keep it on hold till Friday and then resume.
He was complaining of some intermittent dysuria and had a urinalysis which was positive for some pyuria and hematuria but urine cultures were negative. He had no fever or white count. He has a history of chronic UTIs and on antibiotic prophylaxis
on follows with local urologist. Advised him to repeat another urine analysis 1 or 2 weeks and if hematuria or pyuria getting worse to follow-up with urology again.
He was seen by PT OT who recommended rehab and he was discharged today there.
Discharge Plan
-
Patient Disposition: Snf/SNF
Discharge Diagnosis/Procedures: Left leg pain secondary to left psoas and iliac us muscle hematomas suspect secondary to Eliquis
Diet: 2 Gram Sodium
Activity: As tolerated
Driving Restrictions: No driving
Bathing Restrictions: None
Others Tests: Urine analysis with culture in 1-2 weeks and if still abnormal see a urologist
Other Services: PT
Referrals:
Luis Angel Bobby MD [Family Provider] -
Prescriptions:
Continued
allopurinol 300 MG tablet
300 mg PO DAILY
cholecalciferol (vitamin D3) 2,000 UNITS tablet
2,000 units PO DAILY
cyanocobalamin (vitamin B-12) 1,000 MCG tablet
1,000 mcg PO DAILY
multivitamin with folic acid [Tab-A-Estrella] 1 TABLET tablet
1 tab PO DAILY
pantoprazole 40 MG tablet,delayed release (DR/EC)
40 mg PO DAILY Qty: 30 0RF
furosemide 20 MG tablet
20 mg PO DAILYPRN PRN (Reason: swelling)
acetaminophen 500 mg Tablet
1,000 mg PO TID
carvedilol [Coreg] 3.125 mg Tablet
3.125 mg PO BID
methenamine hippurate 1 gram Tablet
1 g PO DAILY
midodrine 2.5 mg Tablet
2.5 mg PO DAILY
finasteride 5 mg Tablet
5 mg PO DAILY
alfuzosin 10 mg Tablet Extended Release 24 Hr
10 mg PO QPM
polyethylene glycol 3350 [Miralax] 17 gram Powder In Packet
17 g PO DAILYPRN PRN (Reason: constipation)
ferrous sulfate 325 mg (65 mg iron) Tablet
325 mg PO DAILY
docusate sodium [Colace] 100 mg Capsule
100 mg PO DAILYPRN PRN (Reason: CONSTIPATION)
Trelegy Ellipta 100-62.5-25 mcg Blister With Device
1 inh INHALATION R DAILY
oxycodone 5 mg Tablet
2.5 mg PO BIDPRN PRN (Reason: severe pains) Qty: 6 0RF
Held
Eliquis 5 MG tablet
5 mg PO BID
Hold Instructions: Resume on 10/17/24. Restart on wednesday 10/18
Discharge Orders:
Discharge Patient (As Directed); Ordered 10/14/24
Ordered By: Santos Gonzalez
Discharge Date and Time
Print Language: DANISH
[2024-10-14 15:42] VITALS: BP 169/86
== END 2024-10-14 16:39 ==
LOC: 4 WEST ACU 18:49
PROVIDERS: Physician Assistant Medical; ADMITTING PHYSICIAN Internal Medicine; EMERGENCY PHYSICIAN Emergency Medicine; FAMILY PHYSICIAN Internal Medicine Geriatric Medicine
DX: S70.02XA Contusion of left hip, initial encounter (principal); X58.XXXA Exposure to other specified factors, initial encounter; Y93.9 Activity, unspecified; Y92.9 Unspecified place or not applicable; R10.32 Left lower quadrant pain; D64.9 Anemia, unspecified; N39.0 Urinary tract infection, site not specified; R53.1 Weakness; J44.9 Chronic obstructive pulmonary disease, unspecified; I10 Essential (primary) hypertension; E78.5 Hyperlipidemia, unspecified; C15.9 Malignant neoplasm of esophagus, unspecified; C78.7 Secondary malignant neoplasm of liver and intrahepatic bile duct; C78.00 Secondary malignant neoplasm of unspecified lung; I25.10 Atherosclerotic heart disease of native coronary artery without angina pectoris; E78.00 Pure hypercholesterolemia, unspecified; I95.1 Orthostatic hypotension; M85.80 Other specified disorders of bone density and structure, unspecified site; I70.90 Unspecified atherosclerosis; M51.369 Other intervertebral disc degeneration, lumbar region without mention of lumbar back pain or lower extremity pain; N40.1 Benign prostatic hyperplasia with lower urinary tract symptoms; R33.8 Other retention of urine; E55.9 Vitamin D deficiency, unspecified; E53.8 Deficiency of other specified B group vitamins; M10.9 Gout, unspecified; R26.2 Difficulty in walking, not elsewhere classified; Z82.49 Family history of ischemic heart disease and other diseases of the circulatory system; Z87.891 Personal history of nicotine dependence; Z86.73 Personal history of transient ischemic attack (TIA), and cerebral infarction without residual deficits; Z79.01 Long term (current) use of anticoagulants; Z92.21 Personal history of antineoplastic chemotherapy; Z87.440 Personal history of urinary (tract) infections; Z66 Do not resuscitate; Z11.52 Encounter for screening for COVID-19
CPT/HCPCS: 73502; 73700; 80048; 80053; 81003; 81015; 85025; 87040; 87086; 87502; 87811; 93971; 94640; 96374; 99285; G0378

== ENCOUNTER 2024-10-20 15:03 | Inpatient (IN) | payer OTHER, SELFPAY ==
[2024-10-20] VITALS (12 sets, daily range): BP systolic 132–153; BP diastolic 61–91; BMI 27.9; BMI 26.5
--- NOTE | 2024-10-20 08:41 | ED.GENMED ---
History of Present Illness
General
Chief Complaint: Abnormal Lab Value
Source: patient
Exam Limitations: none
Time Seen by Provider: 10/20/24 08:41
Nursing documentation reviewed up to this point in time: agreed with
History of Present Illness
History of Present Illness:
Patient is a 79-year-old male with past medical history of A-fib orthostatic hypotension CHF COPD esophageal cancer( stage IV on chemo followed by Dr. Moore) hypertension. Patient was last admitted October 13 and discharged Oct 14 for left flank
pain secondary to left psoas and iliac muscle hematoma from being on Eliquis. Patient was sent by Jayla'ladan Castrejon for elevated liver functions and jaundice.
Patient presents with alert he has no complaints. He denies feeling weak tired. He denies any black stools. He denies any abdominal pain nausea vomiting fever chills.
Past History
Past History
ED Past Medical History: Arrthythmia (atrial fibrillation), CAD, Cancer, CHF, COPD, CVA, HTN, Hypercholesterolemia, Other (streptococcal sepsis, paraspinal abscess), Other (GI bleed s/p polypectomy 2017 s/p embolization of ileocecal branch of SMA)
and Other (gout)
ED Past Surgical History: Orthopedic (C7 cadaveric implant, laminectomy anterior approach) and Other (Parathyroid adenoma resection); Negative Cardiac
Social History
Tobacco: Former smoker
Alcohol: Occasional
Drug: None
Personal:
Living: with family
Employment: Retired
Family History
Family History: CAD and Cancer; Negative Diabetes, Hypertension or Asthma
Review of Systems
Review of Systems
Allergies reviewed?: Yes
Other source history: family
All Other Systems: ROS reviewed and negative except as documented in HPI and ROS
Constitutional: Reports no symptoms; Denies fever, fatigue or chills
Respiratory: Reports no symptoms
Cardiac: Reports no symptoms
ABD/GI: Reports no symptoms; Denies abdominal pain, nausea, vomiting, diarrhea or black stools
: Reports no symptoms
Musculoskeletal: Reports no symptoms
Skin: Reports no symptoms
Neurological: Reports no symptoms
Psychiatric: Reports no symptoms
Phy Exam
General Physical Exam
General Presentation: no apparent distress
General age: appears stated age
General Skin: warm and dry
General Habitus: normal
General Mental: alert
General Hydration: appears well hydrated
Eye Exam
Eye Exam: other (Positive scleral icterus)
Eye Exam General: PERRL: bilateral and EOM intact: bilateral
Pupil Exam: Bilateral: round and reactive
Gastrointestinal Exam
Gastrointestinal Exam: non tender, soft and other (brown stools heme positive )
Neurological Exam
Neurological Exam: alert and oriented x3
Musculoskeletal Exam
Musculoskeletal Exam: full ROM
Skin Exam
Skin Exam: normal color, warm/dry and other (+ Jaundice)
Psychiatric Exam
Psychiatric Exam: normal mood/affect
Course
Orders/Labs/Results
Orders:
Orders
10/20/24 08:24
Acetaminophen Urgent
Comment: ADD ON
Ammonia Urgent
Complete Blood Count/With Diff Urgent
Comprehensive Metabolic Panel Urgent
Direct Bilirubin Urgent
Ferritin Urgent
Comment: ADD ON
Folate Urgent
Comment: ADD ON
Haptoglobin [S] Urgent
Comment: ADD ON
Iron Urgent
LDH Urgent
Comment: ADD ON
PTT Urgent
Prothrombin Time Urgent
Total Iron Binding Urgent
Vitamin B12 Urgent
Comment: ADD ON
10/20/24 09:32
US Abdomen Complete/Upper Urgent
Comment:
Reason For Exam: new onset jaundice
10/20/24 12:13
Urinalysis Reflex To Culture Urgent
Date Specimen was Collected: 10/20/24
Time Specimen was Collected: 12:12
Urine Microscopic Reflex Cult Urgent
Urine Culture Urgent
EVARISTO Source: U
Specimen Description:
Obtained by: Random
Date Specimen was Collected: 10/20/24
Time Specimen was Collected: 12:12
10/20/24 14:18
Add On- LAB Routine
Tests Added?: iron, ferritin, tibc, folate, vit b12
10/20/24 14:21
MR Abdomen W/o & W Contrast Routine
Comment: with MRCP
Reason For Exam: abnormal lfts, esophageal cancer
Recent pill cam endoscopy?: No
10/20/24 14:22
Admit/Transfer Patient As Directed
Co-Sign Provider:
Level of Care: Inpatient admission
Assign to:: Medical/Surgical
Physician / Group: Errol
Diagnosis: Jaundice, Anemia
Reason for Hospitalization: GI consult, Abd MRI
Expected length of stay greater than two midnights?: Yes
ELOS- Estimated Length of Stay in days: 3
I certify the patient meets the requirements for IP care: Yes
GASTROINTESTINAL CONSULT Routine
Consulting Provider: Florence Rivas
Was physician already notified: Yes
10/20/24 14:23
Add On- LAB Routine
Tests Added?: LDH, Haptoglobin
PRN Pain Medication Management As Directed
May give lesser potent ordered pain med per pt: Yes
preference::
Protocol:: Medication orders for pain may be administered in a
manner that supports deferring to patient preference
when the pt is:
- Requesting an ordered lesser potent pain medication.
Least to most potent pain medications are defined
as: acetaminophen < NSAID < tramadol < opioids
(morphine, oxycodone, hydromorphone).
- Requesting a lesser dose of the same medication IF
ORDERED.
- Requesting a less intrusive route of administration
if both routes are prescribed by the provider (PO <
IV).
10/20/24 14:27
Add On- LAB Routine
Tests Added?: tylenol
10/20/24 14:40
Code Status As Directed
Resuscitation Status: Do not resuscitate
Reached after discussion with pt or family/Healthcare POA: Yes
DNR Bracelet Application ONCE
10/20/24 Dinner
Low Fat
At Your Request: Full Participation
Comment: ok for low fat dinner pending need for NPO status for MRI then NPO 10/21
10/20/24 15:01
Add On- LAB Routine
Tests Added?: acetaminophen level
10/21/24 Breakfast
NPO
Allow oral meds: Yes
Allow clear liquids: 4hrs prior to procedure
Comment: may have unrestricted clear liquid up to 4 hrs prior to scheduled procedure
Comment: pending MRI results may need GI intervention
Abnormal Lab Results
10/20/24 10/20/24
08:24 12:13
RBC 2.52 L 10^6/uL
(4.70-6.10)
Hgb 8.1 L g/dL
(13.0-18.0)
Hct 24.9 L %
(39.0-52.0)
MCV 98.8 H fL
(80.0-94.0)
MCH 32.1 H pg
(27.0-31.0)
MCHC 32.5 L g/dL
(33.0-37.0)
RDW 16.1 H %
(11.5-14.5)
MPV 11.7 H fL
(7.4-10.4)
Abs Immat Gran (auto) 0.4 H 10^3/uL
(0-0.05)
Absolute Lymphs (auto) 1.0 L 10^3/uL
(1.2-3.4)
Immature Gran % 7.5 H %
(0-0.5)
Lymphocytes % 18.5 L %
(20.5-51.1)
PT 15.9 H Sec
(11.4-14.6)
APTT 45.5 H Sec
(23.4-35.0)
Creatinine 0.6 L mg/dL
(0.7-1.3)
Total Bilirubin 7.0 H mg/dl
(0.2-1.3)
Direct Bilirubin 4.2 H mg/dl
(0.0-0.4)
AST 255 H U/L
(17-59)
ALT 269 H U/L
(0-50)
Alkaline Phosphatase 1275 H U/L
(38-126)
Ammonia < 9 L umol/L
(9-30)
Total Protein 5.9 L g/dl
(6.3-8.2)
Albumin 3.1 L g/dl
(3.5-5.0)
Ur Occult Blood Reflex 4+ A
(Negative)
Urine Bilirubin 2+ A
(Negative)
Urine Urobilinogen 2+ A
(Neg - 1+)
Leukocyte Esterase Rfl 1+ A
(Negative)
Urine RBC 11-15 A /HPF
(0-2)
Urine Bacteria (Reflex) Few A
(Negative)
Urine Albumin (Reflex) 1+ A
(Neg - Trace)
10/20/24 08:24
10/20/24 08:24
Vital Signs
Initial and Last Documented VS:
Initial Vital Signs
Pulse Ox
95
10/20/24 07:58
Last Documented Vital Signs
Temp Pulse Resp BP Pulse Ox
97.8 F 77 19 132/86 95
10/20/24 08:04 10/20/24 15:00 10/20/24 15:00 10/20/24 15:00 10/20/24 15:00
Dredge Pumper consulted with Physician
Dredge Pumper consulted with physician?: Yes
Name of Physician Consulted: Manjeet
MDM/Problems Addressed
MDM/Problems Addressed:
Patient as documented is a 79-year-old male with esophageal cancer with metastasis to liver and lung presents with new onset jaundice. Along with new onset elevated LFTs. He is awake alert family reports he is more tired lethargic than normal but
he has no complaints. He denies any fevers and is afebrile with a normal white count hemoglobin is 8.1 stable; brown stool heme positive. Patient with normal INR, elevated bilirubin and LFTs. Ultrasound shows multiple gallstones as well as sludge
small pericholecystic fluid nonspecific no evidence of biliary ductal dilatation.
Pt will require admission .
D/c with hospitalist.
Chronic conditions affecting care:
Esophageal cancer with metastasis to liver and lung
*Critical Care Note
Total Time (30-74mins, 75-104mins- exclusive of procedures): Not Applicable
ED Attending Note
-
Portions of this chart may have been created with voice recognition software.� Occasional wrong word or��sound alike� substitutions may have occurred due to the inherent limitations of voice recognition software.
Discharge Plan
Departure
Patient Disposition: Admit
Date of Disposition: 10/20/24
Time of Disposition: 12:49
Admit to: Med/Surg
Admit to doctor: hospitalist
Presentation/result/management discussed w/ accepting MD/DO: Hospitalist
Patient with high blood pressure during this ER visit?: Yes
Condition: Fair
Covid-19: Not Applicable
Discharge Problem:
Jaundice, Elevated LFTs, Anemia
Interventions
Interventions:
*Risk Screen - Suicide Last Done: 10/20/24 08:04
*General Assessment Last Done: 10/20/24 08:04
*Neglect/Abuse Screening Last Done: 10/20/24 08:04
*ED COVID-19 Vaccine History Last Done: 10/20/24 08:12
[2024-10-20 08:54] LABS: Hematocrit 24.9 % (39.0-52.0); Hemoglobin 8.1 g/dL (13.0-18.0); Mean Corp Hgb Conc. 32.5 g/dL (33.0-37.0); Mean Corpuscular Hgb 32.1 pg (27.0-31.0); Mean Corpuscular Volume 98.8 fL (80.0-94.0); Mean Platelet Volume 11.7 fL (7.4-10.4); Platelet Count 174 10^3/uL (130-400); Red Blood Cell Count 2.52 10^6/uL (4.70-6.10); Red Cell Dist. Width 16.1 % (11.5-14.5); White Blood Cell Count 5.6 10^3/uL (4.8-10.8)
[2024-10-20 08:59] LABS: INR 1.22; PT 15.9 Sec (11.4-14.6)
[2024-10-20 09:00] LABS: APTT 45.5 Sec (23.4-35.0)
[2024-10-20 09:20] LABS: ALT (SGPT) 269 U/L (0-50); AST (SGOT) 255 U/L (17-59); Albumin 3.1 g/dl (3.5-5.0); Blood Urea Nitrogen 18 mg/dl (9-20); Calcium 8.4 mg/dl (8.4-10.2); Carbon Dioxide 27 mmol/L (22-30); Chloride 103 mmol/L (98-107); Direct Bilirubin 4.2 mg/dl (0.0-0.4); Estimated Creatinine Clearance 106 ml/min; Glucose 93 mg/dl (70-99); Potassium 3.7 mmol/L (3.5-5.1); Sodium 138 mmol/L (135-145); Total Protein 5.9 g/dl (6.3-8.2); eGFR > 60.00
[2024-10-20 09:28] LABS: Alkaline Phosphatase 1275 U/L (38-126)
[2024-10-20 09:39] LABS: % Basophils 0.9 % (0-2); % Eosinophils 2.9 % (0-6); % Immature Granulocytes 7.5 % (0-0.5); % Lymphocytes 18.5 % (20.5-51.1); % Monocytes 6.1 % (1.7-9.3); % Neutrophils 64.1 % (42.2-75.2); Absolute Basophils 0.1 10^3/uL (0-0.2); Absolute Eosinophils 0.2 10^3/uL (0-0.7); Absolute Immature Granulocytes 0.4 10^3/uL (0-0.05); Absolute Monocytes 0.3 10^3/uL (0.1-0.6); Absolute Neutrophils 3.6 10^3/uL (1.4-6.5); Nucleated Red Blood Cells % 0.4 % (-)
[2024-10-20 09:51] LABS: Ammonia < 9 umol/L (9-30)
[2024-10-20 12:33] LABS: Urine Albumin 1+ (Neg - Trace); Urine Bilirubin 2+ (Negative); Urine Character Clear (Clear); Urine Color Amber; Urine Glucose Negative (Negative); Urine Ketone Negative (Negative); Urine Leukocyte 1+ (Negative); Urine Nitrite Negative (Negative); Urine Occult Blood 4+ (Negative); Urine Specific Gravity 1.015 (<1.030); Urine Urobilinogen 2+ (Neg - 1+)
[2024-10-20 12:54] LABS: Urine Bacteria Few (Negative); Urine Squamous Cell 0-2 /LPF (Few)
--- NOTE | 2024-10-20 13:55 | HPS.HSE ---
Family Physician
-
Family Physician: Marlen Jarrell
Chief Complaint
-
Jaundice
History of Present Illness
Patient is a 79 y/o male past medical history of metastatic esophageal cancer, paroxysmal atrial fibrillation, and recent admission for iliopsoas muscle hematoma who presents with jaundice. Blood work performed as outpatient revealed elevated LFTs.
Patient reports feeling overall tired and weak. Dark urine is noted in the urinal at the bedside. He denies abdominal pain, nausea, vomiting or diarrhea.
Medical History
Past Medical History
Past Medical History: Reports Other
Additional Past Medical History:
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
Paroxysmal Atrial Fibrillation
Orthostatic Hypotension
COPD
GI Bleed secondary to polypectomy s/p embolization of ileocecal branch of SMA
GERD
Gout
BPH
Recurrent UTIs
Past Surgical History: Reports Other
Additional Past Surgical History:
C7 Cadaveric Implant
Laminectomy
Parathyroid Adenoma Resection
Social History
Tobacco: Former Smoker
Alcohol: Occasional
Drug: None
Personal:
Living: Other (Currently at [facility])
Employment: Retired
Family History
Family History: Not pertinent
Allergies / Home Medications
Allergies reflects when Allergies were last updated in [employer].
Home Medications with original date entered in [employer]
Allergy/Medication List:
Allergies
Allergy/AdvReac Type Severity Reaction Status Date / Time
No Known Allergies Allergy Verified 10/20/24 08:04
Home Medications
allopurinol 300 mg tablet 300 mg PO DAILY Gout 09/02/10
cyanocobalamin (vitamin B-12) 1,000 mcg tablet 1,000 mcg PO DAILY Supplement 02/01/20
multivitamin with folic acid 400 mcg tablet (Tab-A-Estrella) 1 tab PO DAILY Supplement 04/14/20
pantoprazole 40 mg tablet,delayed release 40 mg PO DAILY #30 tabs 06/05/21
furosemide 20 mg tablet 20 mg PO DAILYPRN PRN swelling 12/12/21
acetaminophen 500 mg tablet 1,000 mg PO TID PAIN/FEVER 06/08/22
alfuzosin 10 mg tablet,extended release 24 hr 10 mg PO DAILY@1999 Urinary Issue 08/22/24
carvedilol 3.125 mg tablet (Coreg) 3.125 mg PO BID Blood Pressure 08/22/24
finasteride 5 mg tablet 5 mg PO DAILY Urinary Issue 08/22/24
methenamine hippurate 1 gram tablet 1 g PO DAILY Urinary Issue 08/22/24
midodrine 2.5 mg tablet 2.5 mg PO TID Blood Pressure 08/22/24
apixaban 5 mg tablet (Eliquis) 5 mg PO BID Blood Clot Prevention/Tx 08/23/24
docusate sodium 100 mg capsule (Colace) 100 mg PO DAILYPRN PRN CONSTIPATION 10/13/24
ferrous sulfate 325 mg (65 mg iron) tablet 325 mg PO DAILY 10/13/24
fluticasone fur. 100 mcg-umeclid 62.5 mcg-vilant 25 mcg inhalat.powder (Trelegy Ellipta) 1 inh inhalation R DAILY 10/13/24
polyethylene glycol 3350 17 gram oral powder packet (Miralax) 17 g PO DAILYPRN PRN constipation 10/13/24
oxycodone 5 mg tablet 2.5 mg (1/2 x 5 mg) PO BIDPRN PRN severe pains #6 tabs 10/14/24
cholecalciferol (vitamin D3) 50 mcg (2,000 unit) tablet 50 mcg PO DAILY 10/20/24
Review of Systems
-
A 12 point ROS was completed and negative except as noted: Yes
Constitutional: Denies Fever or Chills
Respiratory: Denies Cough or Trouble Breathing
Cardiac: Denies Chest Pain or Palpitations
Abdomen/GI: Reports See HPI
Physical Exam
Vital Signs
Vital Signs
Temp Pulse Resp BP Pulse Ox
97.8 F 74 23 149/77 96
10/20/24 08:04 10/20/24 10:15 10/20/24 10:15 10/20/24 10:00 10/20/24 10:15
Physical Exam
General: Comfortable and Conversant
HEENT: NormoCephalic, Moist mucous membranes and Other (Sclera Icteric)
Respiratory: Clear and Non Labored Respirations
Cardiac: S1/S2 and Regular Rhythm
GI: Soft and Tender (Mild epigastric and RUQ without rebound or gaurding)
Rectal: Other (Brown heme positive stool per ED provider)
Genito-urinary: Other (Dark Brown/Tea colored urine)
Musculoskeletal: No Clubbing, No Cyanosis and No Edema
Skin: Warm, Dry and Jaundice
Neuro: Awake, Alert, Oriented and Nonfocal/grossly intact
Psych: Calm
Laboratory Results
-
10/20/24 08:24
10/20/24 08:24
Laboratory Results
PT 15.9 Sec (11.4-14.6) H 10/20/24 08:24
INR 1.22 10/20/24 08:24
APTT 45.5 Sec (23.4-35.0) H 10/20/24 08:24
Total Bilirubin 7.0 mg/dl (0.2-1.3) H 10/20/24 08:24
AST 255 U/L (17-59) H 10/20/24 08:24
ALT 269 U/L (0-50) H 10/20/24 08:24
Alkaline Phosphatase 1275 U/L (38-126) H 10/20/24 08:24
Data Reviewed
-
Ultrasound: Report Reviewed by me
Lab Data: Labs Reviewed by me
Impression/Plan
-
Jaundice / Abnormal LFTs, patient with known liver mets however LFTs are signficatnly elevated compared to last week
-Consult GI
-Check Abd MRI/MRCP
-Check Tylenol Level
Worsening Anemia
-Hgb down compared to last week
-Heme positive stool noted in ED, however patient has known esophageal cancer and is on anticoagulation - doubt active GI bleed
-Check iron studies
-Hold Eliquis
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
-Last treatment October 06
Paroxysmal Atrial Fibrillation
-Eliquis on hold due to worsening anemia
-Continue Coreg
Orthostatic Hypotension
-Continue midodrine
COPD
-Continue Trelegy
GERD
-Continue Protonix
Gout
-Continue allopurinol
Recurrent UTIs
-Continue methenamine
BPH
-Continue alfuzosin
DVT proph: SCDs
Code STatus: DNR
--- NOTE | 2024-10-20 14:18 | W.PN.UPDATE ---
Addendum entered and electronically signed by Tanvi Norton MD 10/20/24 14:50:
Patient taking 1000 mg of Tylenol 3 times daily. Hold Tylenol. Check Tylenol level.
Original Note:
Update Note
Progress Note Update
This is an addendum to the H&P written by Freya Jurado on 10/20/2024. Patient seen and examined independently with PA.
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
GI bleeding status post polypectomy 2016 and embolization of the cecal branch of SMA, brought in from [facility] for elevated LFTs and jaundice.
Patient recently admitted on October 13 for left flank pain secondary to left psoas/iliac muscle hematoma due to Eliquis.
Vital signs normal.
Labs show worsening anemia with hemoglobin 8.1.
Labs show significant transaminitis which were completely normal 6 days ago.
Abdominal distention with multiple small gallstones as well as sludge within the gallbladder. Small amount of pericholecystic fluid. Negative sonographic Hammonds's sign.
Presentation concerning for potential choledocholithiasis given gallstone/sludge seen on ultrasound as well as significant increase in LFTs in the span of 6 days. Patient could also have intrahepatic biliary obstruction from liver metastases.
Clear liquid diet. Hold Eliquis. Check MRCP. GI consulted.
Check iron studies, B12 and folate.
--- NOTE | 2024-10-20 14:59 | CON.GI ---
Addendum entered and electronically signed by Florence Rivas MD 10/20/24 16:39:
I saw and examined the patient.
The Resident's note was reviewed and I agree with the note.
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 Moore and was
doing very well until recently, history of MDS, history of alcoholic liver disease, compensated cirrhosis without ascites presenting with jaundice in the last couple of days.
He did very well through this treatment, no dysphagia, able to have regular food. No abdominal pain, nausea or vomiting, no heartburn or trouble swallowing. No constipation, bloody diarrhea. Weight has been stable. No NSAID use. He has been
taking Tylenol 650 mg, 4 tablets daily for knee pain. Occasional oxycodone use. Reviewing previous labs, total bilirubin has been intermittently elevated since 2021, range of 1.5-4.6, most recent bilirubin 10/14/2024 was 2.4. Today total bilirubin
was noted to be 7.0 with a direct bilirubin of 4.2, AST of 255, ALT of 269 and alkaline phosphatase of 102. These were all within normal limits 10/14/2024. He has had CT scans at least every 4 months with stable disease without any significant liver
lesions.
No fevers or chills. Abdominal ultrasound showing multiple gallstones and sludge, small amount of pericholecystic fluid, no evidence of biliary ductal dilation.
-Elevated LFTs, cholestatic pattern with total bilirubin alkaline phosphatase being significantly elevated. Abdominal ultrasound without any biliary ductal dilation.
Cannot rule out metastatic liver disease causing cholestatic pattern of LFT elevation.
No recent new medication.
Will check MRI/MRCP to evaluate for the above-if there is any evidence of common duct dilation, that would be an indication for ERCP.
-History of metastatic esophageal cancer, follows-up with Dr. Moore.
-History of MDS, stable
-History of alcoholic liver disease, has not been drinking for a few years.
INR is in normal range.
Original Note:
Consultation
-
Date/Time Consultation Requested: 10/20/2024
Date/Time Consultation Performed: 10/20/2024
Requesting Provider: Lisa Paul PA-C
Performing Provider: Janel Sheriff MD
Reason for Consultation: Abnormal lab levels with transaminitis and low hgb levels
Medical History
Chief Complaint / HPI
Chief Complaint: Developing jaundice
History of Present Illness:
Mr Ngo is a 79 year old male who has a PMH of stage IV esophageal cancer ( post status radiation-on chemo for every 3 weeks- followed by Dr. Moore), A-fib, orthostatic hypotension, CHF and COPD who presented to ER due recently developing jaundice
and having elevated LFTs. His lab results showed elevated AST to 255, ALT to 269, ALP to 1275 and decreased hgb to 8.1. The history mostly taken from his at bedside, She reported the jaundice was noticed yesterday and, she added that the
patient was not active since his last admission to the hospital on Oct 14 due iliac muscle hematoma from being on Eliquis. The patient denied chest pain,abdominal pain, heartburn, vomiting, feeling nauseous, diarrhea, constipation, dark colored
stools, dysuria. Patient`s reported more frequent normal formed stools since last week and reported he was diapered due not being able to ambulate after having hematoma in iliac muscle. He was started on midodrine recently to address his
orthostatic hypotension and has been taking thylenol 500 mg 2 pills TID to help his osteoarthritis pain.
Past Medical History
Past Medical History: Arrhythmias (atrial fibrillation), CAD, CHF, CVA, HTN, Hypercholesterolemia and Other ((streptococcal sepsis, paraspinal abscess), GI bleed s/p polypectomy 2017 s/p embolization of ileocecal branch of SMA)
Past Surgical History: Other (Orthopedic (C7 cadaveric implant, laminectomy anterior approach), Parathyroid adenoma resection)
Social History
Tobacco: Former Smoker (smoked for 22 years and stopped )
Alcohol: None
Drug: None
Personal:
Living: Senior Living
Employment: Retired
Family History
Family History: Other (sister: pancreatic cancer - father: Lymphoma )
Allergies / Home Medications
Allergy/AdvReac Type Severity Reaction Status Date / Time
No Known Allergies Allergy Verified 10/20/24 08:04
�Medication �Instructions �Recorded
allopurinol 300 mg tablet 300 mg PO DAILY Gout 09/02/10
cyanocobalamin (vitamin B-12) 1,000 mcg PO DAILY Supplement 02/01/20
1,000 mcg tablet
multivitamin with folic acid 400 1 tab PO DAILY Supplement 04/14/20
mcg tablet (Tab-A-Estrella)
pantoprazole 40 mg tablet,delayed 40 mg PO DAILY #30 tabs 06/05/21
release
furosemide 20 mg tablet 20 mg PO DAILYPRN PRN swelling 12/12/21
acetaminophen 500 mg tablet 1,000 mg PO TID PAIN/FEVER 06/08/22
alfuzosin 10 mg tablet,extended 10 mg PO DAILY@1999 Urinary Issue 08/22/24
release 24 hr
carvedilol 3.125 mg tablet (Coreg) 3.125 mg PO BID Blood Pressure 08/22/24
finasteride 5 mg tablet 5 mg PO DAILY Urinary Issue 08/22/24
methenamine hippurate 1 gram tablet 1 g PO DAILY Urinary Issue 08/22/24
midodrine 2.5 mg tablet 2.5 mg PO TID Blood Pressure 08/22/24
apixaban 5 mg tablet (Eliquis) 5 mg PO BID Blood Clot 08/23/24
Prevention/Tx
docusate sodium 100 mg capsule 100 mg PO DAILYPRN PRN CONSTIPATION 10/13/24
(Colace)
ferrous sulfate 325 mg (65 mg 325 mg PO DAILY 10/13/24
iron) tablet
fluticasone fur. 100 mcg-umeclid 1 inh inhalation R DAILY 10/13/24
62.5 mcg-vilant 25 mcg
inhalat.powder (Trelegy Ellipta)
polyethylene glycol 3350 17 gram 17 g PO DAILYPRN PRN constipation 10/13/24
oral powder packet (Miralax)
oxycodone 5 mg tablet 2.5 mg (1/2 x 5 mg) PO BIDPRN PRN 10/14/24
severe pains #6 tabs
cholecalciferol (vitamin D3) 50 50 mcg PO DAILY 10/20/24
mcg (2,000 unit) tablet
Review of Systems
-
History Source: Patient and Family ( )
Constitutional: Reports No Symptoms
EENT: Reports Other (sclera icteric )
Respiratory: Reports No Symptoms
Cardiac: Reports No Symptoms
Abdomen/GI: Reports Pain (mild pain to palpation )
: Reports No Symptoms
Musculoskeletal: Reports Joint Pain (left knee pain )
Skin: Reports Other (jaundice )
Neurological: Reports Other (grossly no focal weakness )
Vital Signs
Temp Pulse Resp BP Pulse Ox
97.8 F 74 23 149/77 96
10/20/24 08:04 10/20/24 10:15 10/20/24 10:15 10/20/24 10:00 10/20/24 10:15
Physical Exam
Exam
General: No Apparent Distress and Comfortable
HEENT: Normocephalic and Anicteric (Sclera Icteric and jaundice on over all body )
Respiratory: Clear
Cardiac: S1/S2 and Regular Rhythm
GI: Soft, Non Tender, Non Distended and Other (Mild pain on mid abdominal area to palpation )
Rectal: Hem Positive
Results
WBC 5.6 10^3/uL (4.8-10.8) 10/20/24 08:24
Hgb 8.1 g/dL (13.0-18.0) L 10/20/24 08:24
Hct 24.9 % (39.0-52.0) L 10/20/24 08:24
MCV 98.8 fL (80.0-94.0) H 10/20/24 08:24
Plt Count 174 10^3/uL (130-400) D 10/20/24 08:24
Absolute Neuts (auto) 3.6 10^3/uL (1.4-6.5) 10/20/24 08:24
PT 15.9 Sec (11.4-14.6) H 10/20/24 08:24
INR 1.22 10/20/24 08:24
APTT 45.5 Sec (23.4-35.0) H 10/20/24 08:24
Sodium 138 mmol/L (135-145) 10/20/24:24
Potassium 3.7 mmol/L (3.5-5.1) 10/20/24:24
Chloride 103 mmol/L (98-107) 10/20/24 08:24
Carbon Dioxide 27 mmol/L (22-30) 10/20/24 08:24
BUN 18 mg/dl (9-20) 10/20/24 08:24
Creatinine 0.6 mg/dL (0.7-1.3) L 10/20/24 08:24
Calcium 8.4 mg/dl (8.4-10.2) 10/20/24 08:24
Total Bilirubin 7.0 mg/dl (0.2-1.3) H 10/20/24 08:24
AST 255 U/L (17-59) H 10/20/24 08:24
ALT 269 U/L (0-50) H 10/20/24 08:24
Alkaline Phosphatase 1275 U/L (38-126) H 10/20/24 08:24
Diagnostic Image Results:
ABD US 10/20/2024:
IMPRESSION:
Multiple small gallstones as well as sludge within the gallbladder. Small amount of pericholecystic fluid, nonspecific. Negative sonographic Hammonds's sign. No evidence for biliary ductal dilation.
Slightly increased echogenicity of the liver diffusely, a nonspecific finding suggesting fatty infiltration and/or hepatocellular disease.
The pancreas is not adequately visualized, with shadowing from overlying bowel gas.
Multiple bilateral renal cysts. No evidence for pelvicalyceal dilation.
Chest /Abdomen/Pelvis CT: 07/06/2024:
Findings:
Chest: Redemonstration of a few scattered small posterior mediastinal lymph nodes adjacent to the thoracic esophagus measuring up to 6 mm in short axis diameter, grossly stable. Stable mild diffuse esophageal wall thickening. No pulmonary nodules,
areas of airspace disease, pleural effusions, pericardial effusions or new pathologically enlarged lymph nodes in the thorax. Stable mild fusiform aneurysmal dilatation of the ascending thoracic aorta measuring up to 4.5 cm. Severe coronary artery
calcifications redemonstrated.
Abdomen/pelvis: Hypoattenuating hepatic lesions, some of which are compatible with simple cysts and others which are too small to accurately characterize. Bilateral hypoattenuating renal lesions, some which are compatible with simple cysts and
others which are too small to accurately characterize, and for which no imaging follow-up is recommended. Stable 1.3 cm nonobstructing lower pole right renal calculus. No hydronephrosis. Tiny hypoattenuating splenic focus, likely a cyst. The adrenal
glands and pancreas are within normal limits. Gallbladder contains a few dependent small calcified stones. No abdominal aortic aneurysm.
No enlarged lymph nodes, free fluid, or free air. Bowel is without evidence of obstruction or adjacent inflammatory changes. Diverticulosis coli without evidence for diverticulitis. Normal appendix. Bladder unremarkable.
No suspicious osseous lesions.
IMPRESSION:
1. Stable appearance of mild diffuse esophageal wall thickening and stable small lymph nodes adjacent to the thoracic esophagus. No CT evidence for new or worsening metastatic disease in the chest, abdomen or pelvis.
Prior GI Procedures:
EGD:
01/10/2022
Findings:
A hiatal hernia was present.
There is no endoscopic evidence of mass in the entire esophagus or
cardia.
Diffuse erythematous mucosa with hematin and contact bleeding was found
at the gastroesophageal junction, in the cardia and in the gastric
fundus.
The exam of the stomach was otherwise normal.
Patchy moderately erythematous mucosa without active bleeding and with
no stigmata of bleeding was found in the duodenal bulb.
Impression: Etiology for anemia is likely multifactorial but does
have hemorrhagic appearing inflammation at the cardia
possibly due to radiation exacerbated by Eliquis. +MDS
+Chemo
- Hiatal hernia.
- No mass present at the GEJ or cardia.
- Hemorrhagic gastropathy in the cardia. Possibly
radiation induced. It was diffuse with no specific
area to treat.
Hemospray would be temporary and APC is for localized
areas. This was too diffuse.
- Erythematous duodenopathy.
- No specimens collected.
Recommendation: - Patient has a contact number available for
emergencies. The signs and symptoms of potential
delayed complications were discussed with the patient.
Return to normal activities tomorrow. Written
discharge instructions were provided to the patient.
- Resume previous diet.
- Continue present medications.
- Resume Eliquis (apixaban) at prior dose today. He
will likely ooze while on Eliquis.
- Any possibility of stopping Eliquis in the future?
- Use sucralfate suspension 1 gram PO QID and continue
daily ppi.
- The findings and recommendations were discussed with
the referring physician, Dr. Moore.
- Continue to monitor CBC and transfuse as needed.
EGD 06/09/2021
Findings:
There was an complete food impaction with turkey and greens in the
esophagus which was removed with a rashid net and tripod. some food was
pushed into the stomach. There was a partially circumferential mass from
the GEJ at 40 to 44 cm and then fully circumferential fron 44 to 45 cm
which was friable with some oozing. Biopsies weren't taken as he was on
eliquis.
The entire examined stomach was normal.
The in the duodenum was normal.
no biopsies taken due to eliquis
Impression: - Esophageal mass with food impaction (removed)
-Normal stomach.
- Normal duodenum.
- No specimens collected.
Recommendation: - admit to telemetry
- hold eliquis if possible
-CT abd/pelvis
-NPO for now
- repeat egd after eliquis washout
Colonoscopy 11/01/2016
Findings:
Red blood and clots was found in the entire colon.
Large amount of blood and large amount of clot noted throughout the
colon epically in the cecum. Clot removed with snare and suction. Active
arterial bleeding noted from region of clip. there was also bleeding
from another polyps site in cecum, this area was oozing.
Active bleeding was seen in the cecum, secondary to previous polypectomy
procedure. To stop active bleeding, one hemostatic clip was successfully
placed. After clip applied the bleeding did improve but oozing noted.
Coagulation for hemostasis using argon plasma was successful. Area was
successfully injected with 4 mL of a 1:10,000 solution of epinephrine
for hemostasis.
(In summary Large amount of clot in cecum and could see blood welling up
in cecum Area injected with 2 ml of 1: 50538 epinephrine to improve
visualization. Active bleeding noted from polypectomy site in the cecum.
there were 2 clips on this site. I applied another clip with improvement
in bleeding then Applied APC, then injected 2 cc of 1: 43920
epinephrine. Colon was blood and clot filled.)
Impression: - Preparation of the colon was poor.
- Blood in the entire examined colon.
- Bleeding in the cecum secondary to previous
polypectomy. Clip was placed. Treated with argon plasma
coagulation (APC). Injected.
- No specimens collected.
- Second polypectomy site in cecum, oozing, clip applied
with hemostasis
Assessment / Plan
-
Assessment
Impression: The patient is a 79 year old male who presented to ER after found having jaundice and elevated LFTs by his caring facility. The patient has a known stage 4 esophageal cancer diagnosed in 2020 and received radiation once at that time and
has been taking chemotherapy 3 weekly. He has follow up with CT scan every 4 months with his oncologist, Dr Whitman and was found metastasis in his lungs and liver. His last EGD was performed due anemia and hemorrhagic gastropathy was found in the
cardia which was considered related to radiation. Since then, the patient denied any problem with swallowing and reported he did not need any stent or tube for oral taking. He denied hematemesis, vomiting, nausea and dark colored stools. His
developed jaundice yesterday and was found elevated LFTs and slightly decreased hgb levels. His rectal exam found hem positive. A MRI/MRCP was ordered and he was consulted to GI team for a further evaluation.
Problem List
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
Transaminitis
Hx of GI Bleed secondary to polypectomy s/p embolization of ileocecal branch of SMA in 2016
GERD
Arrhythmia (Paroxysmal Atrial Fibrillation)
Orthostatic Hypotension
COPD
Gout
BPH
Recurrent UTIs
Left Knee pain
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
-Ongoing chemotherapy treatment every 3 weeks followed by oncologist
-Post radiation status in 2020
#Transaminitis possibly secondary to biliary ductal pressure by liver mass vs drug induced vs biliary duct stone or mass
-AST/ALT levels elevated to 255/269 (normal levels on 10/14/24)
-ALP elevated to 1275, TB 7.4 , DB 4.2
-MRI/MRCP was ordered
-Onco cons can be considered based on MRCP results
-No new medication expect midodrine
-Has been taking 3 gr Tylenol daily-levels are ordered
#Hx of GI Bleed secondary to polypectomy in 2017
-Hem positive stool
-No active signs of GI bleeding
-Hgb level is slightly decreased 8.1 (baseline around 9)
-Follow up hgb series Q12 H
-Continue PPI
-Hold Eliquis for now
GI team will follow the patient with MRI/MRCP results and will re-evaluate.
-
-
Thank you for consultation and allowing me to participate in the patient's care. Please call the delivery professional GI physician during the after hours with any questions or concerns.
[2024-10-20 15:52] LABS: Acetaminophen < 10 ug/ml (10-30); Iron 55 ug/dl (49-181); LDH 281 U/L (120-246)
[2024-10-20 16:00] LABS: Percent Saturation 22 % (20-50); Total Iron Binding Capacity 249 ug/dl (261-462)
[2024-10-20 17:14] LABS: Folate > 20.0 ng/ml (2.76-20); Vitamin B12 > 1000 pg/ml (239-931)
[2024-10-20] MEDS: ProAmatine 2.5 MG PO (18:26)
[2024-10-20] MEDS: COREG 3.125 MG PO (19:56)
[2024-10-20] MEDS: FLOMAX PO (20:01)
[2024-10-20] MEDS: SYMBICORT 80/4.5 MCG INHALER 2 PUFF INH (20:09)
[2024-10-21] VITALS (8 sets, daily range): BP systolic 108–150; BP diastolic 64–77; BMI 26.5
[2024-10-21 06:56] LABS: Hematocrit 25.7 % (39.0-52.0); Hemoglobin 8.5 g/dL (13.0-18.0); Mean Corp Hgb Conc. 33.1 g/dL (33.0-37.0); Mean Corpuscular Hgb 32.3 pg (27.0-31.0); Mean Corpuscular Volume 97.7 fL (80.0-94.0); Mean Platelet Volume 11.7 fL (7.4-10.4); Platelet Count 191 10^3/uL (130-400); Red Blood Cell Count 2.63 10^6/uL (4.70-6.10); Red Cell Dist. Width 16.9 % (11.5-14.5)
[2024-10-21] MEDS: PROTONIX 40 MG PO (07:31)
[2024-10-21] MEDS: PROSCAR 5 MG PO (07:31)
[2024-10-21] MEDS: FEOSOL 325 MG PO (07:31)
[2024-10-21] MEDS: VITAMIN D3 (cholecalciferol) 50 MCG PO (07:31)
[2024-10-21 07:32] LABS: ALT (SGPT) 223 U/L (0-50); AST (SGOT) 181 U/L (17-59); Blood Urea Nitrogen 17 mg/dl (9-20); Calcium 8.4 mg/dl (8.4-10.2); Carbon Dioxide 28 mmol/L (22-30); Chloride 104 mmol/L (98-107); Estimated Creatinine Clearance 106 ml/min; Glucose 87 mg/dl (70-99); Potassium 3.9 mmol/L (3.5-5.1); Sodium 138 mmol/L (135-145); Total Bilirubin 6.4 mg/dl (0.2-1.3); eGFR > 60.00
[2024-10-21] MEDS: HIPREX 1 GRAM PO (07:32)
[2024-10-21] MEDS: COREG 3.125 MG PO ×2 (07:32→20:46)
[2024-10-21] MEDS: ProAmatine 2.5 MG PO (07:32)
[2024-10-21] MEDS: ZYLOPRIM 300 MG PO (07:32)
[2024-10-21 07:42] LABS: Alkaline Phosphatase 1221 U/L (38-126)
[2024-10-21] MEDS: SYMBICORT 80/4.5 MCG INHALER 2 PUFF INH ×2 (08:25→19:19)
[2024-10-21] MEDS: SPIRIVA RESPIMAT 2.5 MCG 2 PUFF INH (08:25)
[2024-10-21] MEDS: ZOSYN 50 IV ×2 (12:06→20:08)
[2024-10-21] MEDS: ProAmatine PO ×2 (12:07→15:55)
--- NOTE | 2024-10-21 12:08 | CM ---
Patient seen at bedside with Carmina
IA completed
Dx: Jaundice, Anemia
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
Patient came from [facility]
Resides at [facility] with
PLOF: wheelchair, walker
DME: Wheelchair, walker, cane, shower chair, grab bars
[facility]
Referral placed in [facility]port for Return [facility]
Denies insecurities
PCP: Marlen Jarrell
Pharmacy: [facility], [facility]
PLAN: follow hospital progression, anticipate return to [facility]
--- NOTE | 2024-10-21 13:11 | W.PN.UPDATE ---
Update Note
Progress Note Update
Abdominal MRI reviewed
There is layering biliary sludge and gallstones. The gallbladder is borderline distended measuring 5.0 cm with pericholecystic free fluid suspicious for cholecystitis. A HIDA scan may be considered for further evaluation.
There is a 3 mm filling defect within the inferior aspect of the bile duct, consistent with a nonobstructing stone. There is no evidence of biliary duct dilation. The common bile duct measures 6 mm.
As per RN at [facility], patient's last Eliquis was 10/19-PM
For EUS/ERCP today.
Consider surgical consult as we for possible cholecystitis.
--- NOTE | 2024-10-21 13:29 | W.PN.HOSP.TC ---
Today's Communication/Plan
-
see outlined plan
Assessment / Plan
Assessment / Plan
Assessment:
Elevated LFTs, cholestatic pattern with elevated bilirubin, clinical jaundice
- MRI abdomen: There is layering biliary sludge and gallstones. The gallbladder is borderline distended measuring 5.0 cm with pericholecystic free fluid suspicious for cholecystitis. A HIDA scan may be considered for further evaluation. There is a 3
mm filling defect within the inferior aspect of the bile duct, consistent with a nonobstructing stone. There is no evidence of biliary duct dilation. The common bile duct measures 6 mm.
- GI consulted; for EUS/ERCP today
- start empiric Zosyn
GB sludge, Gallstones with possible acute cholecystitis
- seen on MRI
- GS consulted
Chronic anemia, known iron deficiency anemia
- anemia indices normal
- heme+ stool likely from known esophageal cancer and exacerbated by anticoagulation
- monitor Hb
- transfuse if <7.0
Intramuscular Hematoma - POA from 1 week prior
L Hip Pain, traumatic - POA from 1 week prior
- evaluated in hospital 1 week ago
- CT: showing 2.4x1.6x10 cm hematoma posterior to L psoas & 5.1x6.6x10 cm intramuscular hematoma of the L iliacus extending into the Iliopsoas muscle
- PT/OT and pain control
- follow Hb
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
- Last treatment October 06
Paroxysmal Atrial Fibrillation
? Hx of HFpEF Chronically
Essential HTN
- Eliquis on hold due to procedures
- continue Coreg
- hold prn Lasix
Orthostatic Hypotension
- continue midodrine
COPD
- continue Trelegy
GERD
- continue Protonix
Gout
- continue allopurinol
Recurrent UTIs
- continue methenamine
BPH with hx of urinary retention
- continue alfuzosin/flomax/finasteride
Chronic UTI
- on Hiprex
- gram negative bacilli on Ucx: already on Zosyn, day 1
DVT ppx: SCDs
Code: DNR/DNI
Anticipated Discharge: > 48 hours
Subjective/Interval History
-
Date of Service: October 21, 2024
no complaints
Objective Data
-
Labs:
Laboratory Results
10/21/24
06:18
WBC 6.0
Hgb 8.5 L
Hct 25.7 L
Plt Count 191
Sodium 138
Potassium 3.9
Chloride 104
Carbon Dioxide 28
BUN 17
Creatinine 0.6 L
Glucose 87
Calcium 8.4
Total Bilirubin 6.4 H
AST 181 H
ALT 223 H
Alkaline Phosphatase 1221 H
Vital Signs:
Vital Signs
Temp Pulse Resp BP Pulse Ox
98.3 F 74 18 147/77 95
10/21/24 08:00 10/21/24 08:00 10/21/24 08:00 10/21/24 08:00 10/21/24 08:00
I&O
10/20/24 10/21/24 10/22/24
06:59 06:59 06:59
Intake Total 240 / 240
Output Total 300 / 300
Balance 240 / 240 -300 / -300
Physical Exam
-
General: No Apparent Distress
HEENT: Normocephalic and Atraumatic
Respiratory: Negative Wheezes
Cardiac: Regular Rhythm and S1/S2
GI: Soft and Nontender
Musculoskeletal: No Edema
Neuro: AO x 3
Psych: Calm
Data Reviewed
-
Total Time Spent with Patient (in minutes): 44
Labs: Labs Reviewed by me
[2024-10-21] MEDS: COREG PO (20:08)
[2024-10-21] MEDS: FLOMAX PO (20:08)
[2024-10-22] VITALS (10 sets, daily range): BP systolic 109–142; BP diastolic 56–72; BMI 26.2
[2024-10-22] MEDS: ZOSYN 50 IV ×4 (01:00→17:51)
[2024-10-22] MEDS: ROXICODONE 2.5 MG PO ×2 (05:31→17:59)
[2024-10-22] MEDS: SPIRIVA RESPIMAT 2.5 MCG 2 PUFF INH (07:41)
[2024-10-22] MEDS: SYMBICORT 80/4.5 MCG INHALER 2 PUFF INH ×2 (07:41→18:08)
[2024-10-22 08:21] LABS: % Basophils 0.1 % (0-2); % Immature Granulocytes 3.9 % (0-0.5); % Lymphocytes 9.5 % (20.5-51.1); % Neutrophils 79.5 % (42.2-75.2); Absolute Immature Granulocytes 0.3 10^3/uL (0-0.05); Absolute Lymphocytes 0.8 10^3/uL (1.2-3.4); Absolute Monocytes 0.6 10^3/uL (0.1-0.6); Absolute Neutrophils 6.5 10^3/uL (1.4-6.5); Hematocrit 27.5 % (39.0-52.0); Hemoglobin 9.2 g/dL (13.0-18.0); Mean Corp Hgb Conc. 33.5 g/dL (33.0-37.0); Mean Corpuscular Hgb 32.7 pg (27.0-31.0); Mean Corpuscular Volume 97.9 fL (80.0-94.0); Mean Platelet Volume 11.5 fL (7.4-10.4); Nucleated Red Blood Cells % 0.2 % (-); Platelet Count 193 10^3/uL (130-400); Red Blood Cell Count 2.81 10^6/uL (4.70-6.10); Red Cell Dist. Width 16.9 % (11.5-14.5); Reticulocyte Count 4.5 % (0.4-2.8); White Blood Cell Count 8.1 10^3/uL (4.8-10.8)
[2024-10-22 09:01] LABS: Carbon Dioxide 28 mmol/L (22-30)
--- NOTE | 2024-10-22 09:21 | CON.GS ---
Consultation
-
Date/Time Consultation Requested: 10/21/2024 5 PM
Date/Time Consultation Performed: 10/22/2024 9 AM
Requesting Provider: Hospitalist
Performing Provider: Dr. Wilson
Reason for Consultation: Cholelithiasis
Medical History
-
Chief Complaint: Jaundice
History of Present Illness:
This is a 79-year-old male with a history of stage IV esophageal cancer status post radiation chemotherapy, A-fib on Eliquis, CHF and COPD who presented to our ER with developing jaundice and found to have elevated LFTs with a bilirubin of 7. An
abdominal ultrasound showed multiple small gallstones and sludge within the gallbladder but his sonographic Hammonds sign was negative. A subsequent MRI demonstrated choledocholithiasis as well as a slightly dilated CBD. He was evaluated by GI and
taken for an EUS/ERCP with successful clearance of the cystic duct. General surgery consulted for interval laparoscopic cholecystectomy. This morning he states that he is having a little bit of right upper quadrant pain. A lipase is pending. He
still remains jaundice and his bilirubin today is pending. The patient denies Fever, Chest Pain, Shortness Of Breath, Nausea, Vomiting, changes in urinary and bowel habits, unintentional weight loss, jaundice, icterus, acolic stools (prior to this
admission).
Past Medical History
Past Medical History: Other (Atrial fibrillation, CAD, CHF, CVA, hypertension, metastatic esophageal cancer)
Past Surgical History: Other (No prior abdominal surgeries)
Social History
Tobacco: Non-Smoker
Alcohol: None
Drug: None
Personal:
Living: With Family
Family History
Family History: Reviewed & Not Pertinent
Allergies / Home Medications
Allergy/AdvReac Type Severity Reaction Status Date / Time
No Known Allergies Allergy Verified 10/20/24 08:04
�Medication �Instructions �Recorded �Confirmed �Type
allopurinol 300 mg tablet 300 mg PO DAILY Gout 09/02/10 10/20/24 History
cyanocobalamin (vitamin B-12) 1,000 mcg PO DAILY Supplement 02/01/20 10/20/24 History
1,000 mcg tablet
multivitamin with folic acid 400 1 tab PO DAILY Supplement 04/14/20 10/20/24 History
mcg tablet (Tab-A-Estrella)
pantoprazole 40 mg tablet,delayed 40 mg PO DAILY #30 tabs 06/05/21 10/20/24 Rx
release
furosemide 20 mg tablet 20 mg PO DAILYPRN PRN swelling 12/12/21 10/20/24 History
acetaminophen 500 mg tablet 1,000 mg PO TID pain/fever 06/08/22 10/20/24 History
alfuzosin 10 mg tablet,extended 10 mg PO DAILY@1999 Urinary Issue 08/22/24 10/20/24 History
release 24 hr
carvedilol 3.125 mg tablet (Coreg) 3.125 mg PO BID Blood Pressure 08/22/24 10/20/24 History
finasteride 5 mg tablet 5 mg PO DAILY Urinary Issue 08/22/24 10/20/24 History
methenamine hippurate 1 gram tablet 1 g PO DAILY Urinary Issue 08/22/24 10/20/24 History
midodrine 2.5 mg tablet 2.5 mg PO TID Blood Pressure 08/22/24 10/20/24 History
apixaban 5 mg tablet (Eliquis) 5 mg PO BID Blood Clot 08/23/24 10/20/24 History
Prevention/Tx
docusate sodium 100 mg capsule 100 mg PO DAILYPRN PRN constipation 10/13/24 10/20/24 History
(Colace)
ferrous sulfate 325 mg (65 mg 325 mg PO DAILY Supplement 10/13/24 10/20/24 History
iron) tablet
fluticasone fur. 100 mcg-umeclid 1 inh inhalation R DAILY 10/13/24 10/20/24 History
62.5 mcg-vilant 25 mcg Lung/Breathing Issues
inhalat.powder (Trelegy Ellipta)
polyethylene glycol 3350 17 gram 17 g PO DAILYPRN PRN constipation 10/13/24 10/20/24 History
oral powder packet (Miralax)
oxycodone 5 mg tablet 2.5 mg (1/2 x 5 mg) PO BIDPRN PRN 10/14/24 10/20/24 Rx
severe pains #6 tabs
cholecalciferol (vitamin D3) 50 50 mcg PO DAILY Supplement 10/20/24 10/20/24 History
mcg (2,000 unit) tablet
Review of Systems
-
History Source: Patient
All other systems: Negative unless noted
A 10 point review of systems was completed, and was negative except as per HPI.
Physical Exam
Vital Signs
Temp Pulse Resp BP Pulse Ox
98.0 F 67 16 136/72 96
10/22/24 07:17 10/22/24 07:44 10/22/24 07:44 10/22/24 07:17 10/22/24 07:44
10/21/24 10/22/24 10/23/24
06:59 06:59 06:59
Actual Weight 86.228 kg 85.02 kg
Body Mass Index (BMI) 26.2
Lab Results
10/22/24 07:54
10/22/24 07:54
WBC 8.1 10^3/uL (4.8-10.8) 10/22/24 07:54
Hgb 9.2 g/dL (13.0-18.0) L 10/22/24 07:54
Hct 27.5 % (39.0-52.0) L 10/22/24 07:54
Plt Count 193 10^3/uL (130-400) 10/22/24 07:54
Abs Immat Gran (auto) 0.3 10^3/uL (0-0.05) H 10/22/24 07:54
Neutrophils % 79.5 % (42.2-75.2) H 10/22/24 07:54
Physical Exam
General: Well Developed
HEENT: Normocephalic
Respiratory: Non Labored Respirations
GI: Soft and Tender (Mild right upper quadrant tenderness)
Skin: Jaundice
Data Reviewed
-
MRI: Image Personally Visualized and interpreted, Report Reviewed by me and Discussed with Patient
Labs: Labs Reviewed by me
Total Time Spent with Patient (in minutes): 20
Assessment / Plan
-
This is a 79-year-old male with a history of atrial fibrillation on Eliquis last dose Friday, metastatic esophageal cancer stable who presents with jaundice found to have choledocholithiasis now status post successful ERCP.
Will plan for interval laparoscopic cholecystectomy today.
N.p.o., IV fluids, IV antibiotics ordered.
Risks/Benefits/Alternatives, expected postoperative course and possible complications (bleeding, infection, injury to surrounding structures, acute/chronic pain) discussed at length. Patient wishes to proceed with surgery. All questions answered.
Consent obtained.
I spent 75 minutes in total for the care of this patient today including direct patient care and counseling, reviewing labs, imaging, coordination of care, as well as documentation.
--- NOTE | 2024-10-22 09:30 | W.SUR.PREOP ---
Pre-Operative Surgical Note
-
I have examined this patient prior to the performance of the scheduled procedure.
The patient's condition is unchanged from the time of the current History and
Physical and the patient is able to undergo the scheduled procedure.
--- NOTE | 2024-10-22 09:55 | W.PN.GI.CBS2 ---
Addendum entered and electronically signed by Franki Baer MD 10/22/24 14:29:
I saw and evaluated the patient. I reviewed the resident�s note and agree with findings and plan as documented in the resident�s note. 79 yo M here with pmh stage IV esophageal Ca here with jaundice/abnoraml LFTs found to have elevated bili, CBD
stone/cholecystitis on MRI/MRCP underwent EUS/ERCP yesterday with balloon extraction/sphincterotomy. Pt seen early this am had abd pain so I added on lipase which was normal. C/o ongoing jaundice as well. D/w surgery who did CCY today no IOC
performed since ERCP done yesterday. TB did rise today.
Will continue to monitor ensure bili/pain improves, continue antibiotics.
Eliquis resumption per surgery/Dr. Briones.
Original Note:
Today's Communication / Plan
-
-Plan for cholecystectomy
-Follow up LFTs, TB
Assessment / Plan
-
Assessment
Impression: The patient is a 79 year old male who presented to ER after found having jaundice and elevated LFTs by his caring facility. The patient has a known stage 4 esophageal cancer diagnosed in 2020 and received radiation once at that time and
has been taking chemotherapy 3 weekly. He has follow up with CT scan every 4 months with his oncologist, Dr Whitman and was found metastasis in his lungs and liver. His last EGD was performed due anemia and hemorrhagic gastropathy was found in the
cardia which was considered related to radiation. Since then, the patient denied any problem with swallowing and reported he did not need any stent or tube for oral taking. He denied hematemesis, vomiting, nausea and dark colored stools. His
developed jaundice yesterday and was found elevated LFTs and slightly decreased hgb levels. His rectal exam found hem positive. A MRI/MRCP was ordered and he was consulted to GI team for a further evaluation. MRI/MRCP showed pericholecystic free
fluid suspicious for cholecystitis and EUS/ERCP was performed on . EUS showed one stone in the common bile duct and pancreatic parenchymal abnormalities. Following, choledocholithiasis was found via ERCP. A complete removal was accomplished
by biliary sphincterotomy and balloon extraction was performed during the ERCP procedure.
Problem List
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
Transaminitis
Hx of GI Bleed secondary to polypectomy s/p embolization of ileocecal branch of SMA in 2016
GERD
Arrhythmia (Paroxysmal Atrial Fibrillation)
Orthostatic Hypotension
COPD
Gout
BPH
Recurrent UTIs
Left Knee pain
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
-Ongoing chemotherapy treatment every 3 weeks followed by oncologist
-Post radiation status in 2020
#Transaminitis possibly secondary to choledocholithiasis
-AST/ALT levels elevated to 531/335 from 255/269
-ALP elevated to 1511, TB elevated to 100
-MRI/MRCP showed pericholecystic free fluid suspicious for cholecystitis
-EUS/ERCP was performed on 10/21/24: A stone was removed from CBD and was applied biliary sphincterotomy and balloon extraction
-Underwent cholecystectomy on 10/22/24
-Has been taking 3 gr Tylenol daily-levels <10
-Check liver enzymes AST, ALT, alkaline phosphatase, bilirubin daily
#Hx of GI Bleed secondary to polypectomy in 2017
-Hem positive stool
-No active signs of GI bleeding
-Hgb level 9.2 (baseline around 9)
-Follow up hgb series daily
-Continue PPI
-EGD on 10/21/24: Erythema at the gastroesophageal junction and Erythematous mucosa in the proximalgastric body was found
-Hold Eliquis for now
GI team will follow the patient
Subjective
Subjective
Date of Service: October 22, 2024
Patient was seen in his bed and seems chronically ill. He is awake and alert and oriented to person and place not the time.
Objective
Data Reviewed
Laboratory Data:
Laboratory Results
10/22/24 07:54
10/22/24 07:54
Laboratory Results
PT 15.9 Sec (11.4-14.6) H 10/20/24 08:24
INR 1.22 10/20/24 08:24
APTT 45.5 Sec (23.4-35.0) H 10/20/24 08:24
Total Bilirubin 6.4 mg/dl (0.2-1.3) H 10/21/24 06:18
AST 181 U/L (17-59) H 10/21/24 06:18
ALT 223 U/L (0-50) H 10/21/24 06:18
Alkaline Phosphatase 1221 U/L (38-126) H 10/21/24 06:18
Vital Signs and I&O:
Vital Signs
Temp Pulse Resp BP Pulse Ox
98.0 F 67 16 136/72 96
10/22/24 07:17 10/22/24 07:44 10/22/24 07:44 10/22/24 07:17 10/22/24 07:44
I&O
10/21/24 10/22/24 10/23/24
06:59 06:59 06:59
Intake Total 240 / 240 320 / 320
Output Total 1325 / 1325
Balance 240 / 240 -1005 / -1005
Physical Exam
Physical Exam
HEENT: Other (scleral icterus and Jaundice )
Cardiology: Normal Sinus Rhythm, S1 and S2
Pulmonary: Clear
GI: Soft, Non Distended, Non Tender and Other (mild discomfort to palpation on the upper right side abdominal area )
Extremities: No Edema
Neuro: Other (generalized weakness)
[2024-10-22 10:16] LABS: ALT (SGPT) 335 U/L (0-50); AST (SGOT) 531 U/L (17-59); Alkaline Phosphatase 1511 U/L (38-126); Blood Urea Nitrogen 26 mg/dl (9-20); Calcium 8.5 mg/dl (8.4-10.2); Chloride 101 mmol/L (98-107); Estimated Creatinine Clearance 71 ml/min; Glucose 141 mg/dl (70-99); LDH 426 U/L (120-246); Lipase 45 U/L (23-300); Sodium 136 mmol/L (135-145); Total Protein 5.9 g/dl (6.3-8.2); eGFR > 60.00
--- NOTE | 2024-10-22 11:06 | W.PN.HOSP.TC ---
Addendum entered and electronically signed by Farheen Young MD 10/22/24 11:15:
Bactrim x 2 weeks with concurrent Vancomycin for hx of C. Diff
Original Note:
Today's Communication/Plan
-
lap carlos today
continue Zosyn
ESBL in urine - Bactrim started
Assessment / Plan
Assessment / Plan
Assessment:
Elevated LFTs, cholestatic pattern with elevated bilirubin, clinical jaundice
- MRI abdomen: There is layering biliary sludge and gallstones. The gallbladder is borderline distended measuring 5.0 cm with pericholecystic free fluid suspicious for cholecystitis. A HIDA scan may be considered for further evaluation. There is a 3
mm filling defect within the inferior aspect of the bile duct, consistent with a nonobstructing stone. There is no evidence of biliary duct dilation. The common bile duct measures 6 mm.
- GI following
- s/p EUS/ERCP 10/21: s/p biliary sphincterotomy and balloon extraction of stone and sludge
- GS consulted for interval lap carlos today
- continue Zosyn, day 2
Chronic anemia, known iron deficiency anemia
- anemia indices normal
- heme+ stool likely from known esophageal cancer and exacerbated by anticoagulation
- monitor Hb
- transfuse if <7.0
Intramuscular Hematoma - POA from 1 week prior
L Hip Pain, traumatic - POA from 1 week prior
- evaluated in hospital 1 week ago
- CT: showing 2.4x1.6x10 cm hematoma posterior to L psoas & 5.1x6.6x10 cm intramuscular hematoma of the L iliacus extending into the Iliopsoas muscle
- PT/OT and pain control
- follow Hb
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
- Last treatment October 06
Paroxysmal Atrial Fibrillation
? Hx of HFpEF Chronically
Essential HTN
- Eliquis on hold due to procedures
- continue Coreg
- hold prn Lasix
Orthostatic Hypotension
- continue midodrine
COPD
- continue Trelegy
GERD
- continue Protonix
Gout
- continue allopurinol
Recurrent UTIs
- continue methenamine
BPH with hx of urinary retention
- continue alfuzosin/Flomax/finasteride
Chronic UTI
- on Hiprex
- urine culture here with ESBL
- start Bactrim DS x 1 week - monitor BMP
DVT ppx: SCDs
Code: DNR/DNI
Anticipated Discharge: > 48 hours
Subjective/Interval History
-
Date of Service: October 22, 2024
seen earlier
mild RUQ pain
for lap carlos today
Objective Data
-
Labs:
Laboratory Results
10/22/24
07:54
WBC 8.1
Hgb 9.2 L
Hct 27.5 L
Plt Count 193
Sodium 136
Potassium 4.0
Chloride 101
Carbon Dioxide 28
BUN 26 H
Creatinine 0.9
Glucose 141 H
Calcium 8.5
Total Bilirubin 10.0 H D
AST 531 H*
ALT 335 H
Alkaline Phosphatase 1511 H
Vital Signs:
Vital Signs
Temp Pulse Resp BP Pulse Ox
98.0 F 67 16 136/72 96
10/22/24 07:17 10/22/24 07:44 10/22/24 07:44 10/22/24 07:17 10/22/24 07:44
I&O
10/21/24 10/22/24 10/23/24
06:59 06:59 06:59
Intake Total 240 / 240 320 / 320
Output Total 1325 / 1325
Balance 240 / 240 -1005 / -1005
Physical Exam
-
General: No Apparent Distress
HEENT: Normocephalic and Atraumatic
Respiratory: Wheezes
Cardiac: Regular Rhythm and S1/S2
GI: Soft and Nontender
Neuro: AO x 3
Psych: Calm
Data Reviewed
-
Total Time Spent with Patient (in minutes): 42
Labs: Labs Reviewed by me
--- NOTE | 2024-10-22 11:42 | W.IMMPOSTOP ---
Surgical Immed Post Op Note
-
Primary Surgeon: Eliot Wilson MD
Assisting Surgeon: None
Pre-op Diagnosis: Choledocholithiasis
Post-op Diagnosis: Acute cholecystitis
Procedure Performed: Laparoscopic cholecystectomy
Anesthesia Type: General
Specimen / Cultures:
1. Gallbladder fluid for Gram stain and culture
2. Gallbladder and contents
Estimated Blood Loss: 51 cc
Complications: None
Operative Findings: Acutely inflamed gallbladder in a patient with baseline liver dysfunction and recent Eliquis use. Raw surface bleeding noted throughout the case, improved slightly with TXA 1 g x 2 doses. Critical view of safety obtained prior
to ligation of the cystic duct and artery with clips. The duct was reinforced with a 0 PDS Endoloop. A bleeding vessel in the fossa of the gallbladder about midway up was clipped and Floseal was used at the end of the case to help ensure
hemostasis.
POST OP PLAN:
Imaging: None
Labs: Routine AM
Diet: Okay for clears
Analgesia: Tylenol, Dilaudid, avoid Toradol
Neuro/vascular checks: q4h
AC/AP: Hold Therapeutic AC for 72 hours, Ok for DVT PPx
Activity: Ad Aida
Wound/Incisions/Drains: Routine
Abx: Will continue antibiotics x 4 days
Dispo: RNF
--- NOTE | 2024-10-22 11:45 | OR.RPT ---
Operative Report
Operative Report
Patient Name: Tapan Ngo
: 1945
Date of Operation: 10/22/2024
Preoperative Diagnosis: Choledocholithiasis
Postoperative Diagnosis: Acute cholecystitis
Procedure(s):
Laparoscopic Cholecystectomy with Cholangiogram
Surgeon(s):
Dr. Wilson
Cq Developer(s):
None
Anesthesia: General
Estimated Blood Loss: 51 cc
Urine Output: None
Drains/Lines/Implants: None
Specimens:
1. Gallbladder and contents
HPI/Surgical Indications:
This is a 79-year-old male with a history of metastatic esophageal cancer who presents with a 4-day history of jaundice found to have choledocholithiasis and then underwent successful ERCP on 08/20/2025. Risks/Benefits/Alternatives were discussed
at length, and the patient agreed to proceed with cholecystectomy.
Operative Findings: Acutely inflamed gallbladder in a patient with baseline liver dysfunction and recent Eliquis use. Raw surface bleeding noted throughout the case, improved slightly with TXA 1 g x 2 doses. Critical view of safety obtained prior
to ligation of the cystic duct and artery with clips. The duct was reinforced with a 0 PDS Endoloop. A bleeding vessel in the fossa of the gallbladder about midway up was clipped and Floseal was used at the end of the case to help ensure
hemostasis.
Procedure Description:
The patient was brought to the Operating Room and placed in the supine position with the arms out. Following uneventful induction of general endotracheal anesthesia. The abdomen was prepped and draped in the usual sterile fashion. A timeout was
performed confirming the procedure, consent, and that IV antibiotics were infused and sequential compression devices were confirmed to be on. The abdomen was entered using an infraumbilical open Derik technique with a 12 mm balloon-tipped trocar.
Pneumoperitoneum to 15 mmHg pressure was obtained without difficulty and we confirmed that no injury had occurred during our entry. The patient was positioned in reverse Trendelenberg and rotated with the right side up slightly. Three (3) 5mm
trocars were then placed along the right subcostal margin. The gallbladder was notably distended and inflamed so the gallbladder was emptied using a decompressing needle through the fundus of the gallbladder with evacuation of hydrops before A
locking grasping forceps was placed on the fundus of the gallbladder where it was then retracted cephalad and to the right. Using appropriate grasping instruments, the peritoneum overlying the triangle of Calot was incised and extended superiorly on
both the anterior and posterior gallbladder au. Raw surface bleeding was noted throughout the case and a 4 x 4 sponge was inserted to assist with hemostasis. The infundibulum was dissected off the cystic plate. The cystic triangle was dissected
until a critical view of safety was achieved. The cystic artery was medialized, dissected and controlled with 2 proximal clips and 1 distal and divided. The cystic duct/gallbladder junction in turn was identified, dissected circumferentially and a
clip was placed. As the patient already had his duct cleared and in an effort to minimize bleeding we elected not to perform cholangiogram in this case. The duct was incised to ensure good free flow of bile and that no residual filling defects or
stones were in the cystic duct. The duct was then ligated with a clip followed by a 0 PDS Endoloop. After ensuring both the artery and duct were divided, the gallbladder was freed from the liver using electrocautery. There was no spillage of bile
or stones. The gallbladder bed was inspected and excellent hemostasis was obtained with electrocautery. To ensure hemostasis Floseal was also instilled over our areas of dissection. The gallbladder along with a 4 x 4 Ray-Kisha was extracted through
the 12 mm trocar site using an endocatch bag. The abdomen was again irrigated and excellent hemostasis was assured. All remaining trocars were then removed and the pneumoperitoneum was evacuated. The 12 mm trocar site was closed using 0 PDS
suture. All trocar sites were closed at the skin level using 4-0 Monocryl followed by Dermabond. Overall, the patient tolerated the procedure well and was taken to the Recovery Room postoperatively in stable condition.
I was the attending physician and performed the procedure with no assistance. I was present for all portions of the case
Eliot Wilson MD
--- NOTE | 2024-10-22 12:30 | PTCARENOTE ---
Pt received from PACU. VVS, AAOx3. Pt complaining of pain in shoulders and tenderness in abdomen. 4 lap site clean dry and intact with bruising around the sites. Pt denies nausea. @bedside. Call ahn within reach, will continue to monitor.
[2024-10-22] MEDS: ProAmatine PO (12:55)
[2024-10-22] MEDS: ProAmatine 2.5 MG PO ×2 (13:02→17:51)
[2024-10-22] MEDS: PROSCAR 5 MG PO (13:18)
[2024-10-22] MEDS: ZYLOPRIM 300 MG PO (13:18)
[2024-10-22] MEDS: PROTONIX 40 MG PO (13:18)
[2024-10-22] MEDS: HIPREX PO (13:19)
[2024-10-22] MEDS: VITAMIN D3 (cholecalciferol) 50 MCG PO (13:19)
[2024-10-22] MEDS: FEOSOL 325 MG PO (13:19)
[2024-10-22] MEDS: COREG 3.125 MG PO (13:29)
[2024-10-22] MEDS: TYLENOL 500 MG PO ×2 (15:28→20:47)
[2024-10-22] MEDS: BACTRIM DS 800 MG/160 MG 1 TABLET PO (20:47)
[2024-10-22] MEDS: FLOMAX 0.4 MG PO (20:47)
[2024-10-22] MEDS: COREG PO (20:48)
[2024-10-22] MEDS: FIRVANQ 125 MG PO (20:48)
[2024-10-23] MEDS: ZOSYN 50 IV ×5 (01:12→23:54)
[2024-10-23] MEDS: FLUSH (NSS) 2 FLUSH IV ×2 (01:13→05:42)
[2024-10-23 03:56] VITALS: BP 112/72
[2024-10-23 05:21] VITALS: BMI 26.6
[2024-10-23] MEDS: ROXICODONE 2.5 MG PO (05:53)
[2024-10-23 06:42] LABS: Haptoglobin 167 mg/dL (30-200)
[2024-10-23 07:18] VITALS: BP 119/67
[2024-10-23] MEDS: SPIRIVA RESPIMAT 2.5 MCG 2 PUFF INH (08:14)
[2024-10-23] MEDS: SYMBICORT 80/4.5 MCG INHALER 2 PUFF INH (08:14)
[2024-10-23 08:43] LABS: % Basophils 0.1 % (0-2); % Eosinophils 0.2 % (0-6); % Immature Granulocytes 2.2 % (0-0.5); % Lymphocytes 9.9 % (20.5-51.1); % Monocytes 5.2 % (1.7-9.3); % Neutrophils 82.4 % (42.2-75.2); Absolute Immature Granulocytes 0.2 10^3/uL (0-0.05); Absolute Lymphocytes 0.9 10^3/uL (1.2-3.4); Absolute Monocytes 0.5 10^3/uL (0.1-0.6); Absolute Neutrophils 7.3 10^3/uL (1.4-6.5); Hematocrit 24.9 % (39.0-52.0); Hemoglobin 8.1 g/dL (13.0-18.0); Mean Corp Hgb Conc. 32.5 g/dL (33.0-37.0); Mean Corpuscular Volume 98.4 fL (80.0-94.0); Mean Platelet Volume 11.6 fL (7.4-10.4); Nucleated Red Blood Cells % 0.3 % (-); Platelet Count 173 10^3/uL (130-400); Red Blood Cell Count 2.53 10^6/uL (4.70-6.10); Red Cell Dist. Width 17.8 % (11.5-14.5); White Blood Cell Count 8.8 10^3/uL (4.8-10.8)
[2024-10-23 09:12] LABS: ALT (SGPT) 533 U/L (0-50); Albumin 3.1 g/dl (3.5-5.0); Blood Urea Nitrogen 24 mg/dl (9-20); Calcium 8.3 mg/dl (8.4-10.2); Carbon Dioxide 29 mmol/L (22-30); Chloride 100 mmol/L (98-107); Estimated Creatinine Clearance 71 ml/min; Glucose 103 mg/dl (70-99); Potassium 3.8 mmol/L (3.5-5.1); Sodium 136 mmol/L (135-145); Total Bilirubin 11.9 mg/dl (0.2-1.3); Total Protein 5.9 g/dl (6.3-8.2); eGFR > 60.00
[2024-10-23 09:19] LABS: AST (SGOT) 714 U/L (17-59); Alkaline Phosphatase 1365 U/L (38-126)
[2024-10-23] MEDS: PROSCAR 5 MG PO (09:52)
[2024-10-23] MEDS: PROTONIX 40 MG PO (09:52)
[2024-10-23] MEDS: FEOSOL 325 MG PO (09:52)
[2024-10-23] MEDS: BACTRIM DS 800 MG/160 MG 1 TABLET PO ×2 (09:52→21:14)
[2024-10-23] MEDS: COREG PO ×2 (09:53→21:19)
[2024-10-23] MEDS: ProAmatine 2.5 MG PO ×3 (09:53→16:54)
[2024-10-23] MEDS: TYLENOL 500 MG PO ×3 (09:53→21:14)
[2024-10-23] MEDS: VITAMIN D3 (cholecalciferol) 50 MCG PO (09:54)
[2024-10-23] MEDS: FIRVANQ 125 MG PO ×2 (09:54→21:19)
--- NOTE | 2024-10-23 11:13 | W.PN.HOSP.TC ---
Today's Communication/Plan
-
monitor LFTs daily; if still rising; MRCP tomorrow
holding Eliquis for now
continue IV Zosyn
continue Bactrim + Vanco
Assessment / Plan
Assessment / Plan
Assessment:
Elevated LFTs, cholestatic pattern with elevated bilirubin, clinical jaundice
- MRI abdomen: There is layering biliary sludge and gallstones. The gallbladder is borderline distended measuring 5.0 cm with pericholecystic free fluid suspicious for cholecystitis. A HIDA scan may be considered for further evaluation. There is a 3
mm filling defect within the inferior aspect of the bile duct, consistent with a nonobstructing stone. There is no evidence of biliary duct dilation. The common bile duct measures 6 mm.
- GI following
- s/p EUS/ERCP 10/21: s/p biliary sphincterotomy and balloon extraction of stone and sludge
- s/p lap carlos 10/22
- diet: Clears; advance diet as per GS
- continue Zosyn, day 11/11
Chronic anemia, known iron deficiency anemia
- anemia indices normal
- heme+ stool likely from known esophageal cancer and exacerbated by anticoagulation
- monitor Hb
- transfuse if <7.0
Intramuscular Hematoma - POA from 1 week prior
L Hip Pain, traumatic - POA from 1 week prior
- evaluated in hospital 1 week ago
- CT: showing 2.4x1.6x10 cm hematoma posterior to L psoas & 5.1x6.6x10 cm intramuscular hematoma of the L iliacus extending into the Iliopsoas muscle
- PT/OT and pain control
- follow Hb
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
- Last treatment October 06
Paroxysmal Atrial Fibrillation
? Hx of HFpEF Chronically
Essential HTN
- Eliquis on hold until cleared for resumption by GI/GS
- continue Coreg
- hold prn Lasix
Orthostatic Hypotension
- continue midodrine
COPD
- continue Trelegy
GERD
- continue Protonix
Gout
- continue allopurinol
Recurrent UTIs
- continue methenamine
BPH with hx of urinary retention
- continue alfuzosin/Flomax/finasteride
Chronic UTI
- on Hiprex
- urine culture here with ESBL
- continue Bactrim DS x 2 weeks (+ concurrent PO Vanco BID for hx of C. Diff colonization)
DVT ppx: SCDs
Code: DNR/DNI
Anticipated Discharge: > 48 hours
Subjective/Interval History
-
Date of Service: October 23, 2024
denies any new complaints at present
Objective Data
-
Labs:
Laboratory Results
10/23/24
08:19
WBC 8.8
Hgb 8.1 L
Hct 24.9 L
Plt Count 173
Sodium 136
Potassium 3.8
Chloride 100
Carbon Dioxide 29
BUN 24 H
Creatinine 0.9
Glucose 103 H
Calcium 8.3 L
Total Bilirubin 11.9 H
AST 714 H*
ALT 533 H*
Alkaline Phosphatase 1365 H
Vital Signs:
Vital Signs
Temp Pulse Resp BP Pulse Ox
97.5 F 66 16 119/67 96
10/23/24 07:18 10/23/24 08:23 10/23/24 08:23 10/23/24 07:18 10/23/24 08:23
I&O
10/22/24 10/23/24 10/24/24
06:59 06:59 06:59
Intake Total 320 / 320 200 / 200
Output Total 1325 / 1325 600 / 600
Balance -1005 / -1005 -400 / -400
Physical Exam
-
General: No Apparent Distress
HEENT: Normocephalic and Atraumatic
Respiratory: Negative Wheezes
Cardiac: Regular Rhythm and S1/S2
GI: Soft and Nontender
Musculoskeletal: No Edema
Neuro: AO x 3
Hematologic / Lymphatic: No Lymphadenopathy
Psych: Calm
Data Reviewed
-
Total Time Spent with Patient (in minutes): 41
Labs: Labs Reviewed by me
[2024-10-23 11:35] VITALS: BP 121/61
--- NOTE | 2024-10-23 11:47 | W.PN.GS2 ---
Today's Communication / Plan
-
Okay for regular diet.
Continue antibiotics x 4 days.
Continue to trend CBC and CMP. If bilirubin continues to be significantly elevated or rises would consider an MRCP to ensure there is no residual choledocholithiasis.
General surgery will continue to follow
Assessment / Plan
-
This is a 79-year-old male with known metastatic esophageal cancer who presents with a 4-day history of jaundice found to have choledocholithiasis and underwent successful ERCP on 08/20/2025. Now he is postoperative day 1 from a laparoscopic
cholecystectomy. Some bleeding noted intraoperatively but otherwise uneventful. Doing well, expected postoperative course.
Hemoglobin 8.1 from 9.2 but appears to be similar to his baseline ~8.
Afebrile vital signs stable.
LFTs remain elevated and bilirubin up to 11
Okay for regular diet.
Continue antibiotics x 4 days.
Continue to trend CBC and CMP. If bilirubin continues to be significantly elevated or rises would consider an MRCP to ensure there is no residual choledocholithiasis.
General surgery will continue to follow
Time Spent
Total Time Spent with Patient (in minutes): 20
Subjective Data
-
Date of Service: October 23, 2024
Interval Events:
No acute events overnight. Slept well. Complaining of some right shoulder pain and abdominal pain but overall pain Controlled. Denies Nausea/Vomiting, +bowel function. Tolerating diet.
Objective Data
-
Intake and Output
10/22/24 10/23/24 10/24/24
06:59 06:59 06:59
Intake Total 320 / 320 200 / 200
Output Total 1325 / 1325 600 / 600
Balance -1005 / -1005 -400 / -400
Intake:
Oral fluids 120 / 120
IV fluids (Total) 50 / 50 50 / 50
LR 50 / 50
Normosol 50 / 50
IV piggybacks 150 / 150 150 / 150
Output:
Urine, Voided 1325 / 1325 600 / 600
Other:
How many times incontinent 1
SMALL amount urine
How many times incontinent 1 1
MODERATE amount urine
How many times incontinent 3 1
SATURATED amount urine
Vital Signs
Temp Pulse Resp BP Pulse Ox
97.8 F 69 18 121/61 96
10/23/24 11:35 10/23/24 11:35 10/23/24 11:35 10/23/24 11:35 10/23/24 11:35
Lab Results
10/23/24 08:19
10/23/24 08:19
Calcium 8.3 mg/dl (8.4-10.2) L 10/23/24 08:19
Total Bilirubin 11.9 mg/dl (0.2-1.3) H 10/23/24 08:19
Direct Bilirubin 4.2 mg/dl (0.0-0.4) H 10/20/24 08:24
AST 714 U/L (17-59) H* 10/23/24 08:19
ALT 533 U/L (0-50) H* 10/23/24 08:19
Alkaline Phosphatase 1365 U/L (38-126) H 10/23/24 08:19
Total Protein 5.9 g/dl (6.3-8.2) L 10/23/24 08:19
Albumin 3.1 g/dl (3.5-5.0) L 10/23/24 08:19
Physical Exam
-
GENERAL/NEURO: Awake, Alert, no distress
CHEST: Unlabored breathing on RA
ABDOMEN: Soft, appropriately Tender, Non-Distended, incisions clean dry and intact.
Patient has a webb catheter: No
Patient has a central line: No
[2024-10-23 11:52] VITALS: BP 117/66; BP 121/68; BP 83/48; PULSE 76; O2SAT 96
[2024-10-23] MEDS: ZYLOPRIM 300 MG PO (12:19)
--- NOTE | 2024-10-23 14:46 | W.PN.GI.CBS2 ---
Today's Communication / Plan
-
trend lfts, if bili does not improve plan mrcp in am
Assessment / Plan
-
79 yo M here with pmh stage IV esophageal Ca here with jaundice/abnoraml LFTs found to have elevated bili, CBD stone/cholecystitis on MRI/MRCP underwent EUS/ERCP 10/21 with balloon extraction/sphincterotomy. Pt seen early this am had abd pain so I
added on lipase which was normal. C/o ongoing jaundice as well. Surgery who did CCY 10/22 no IOC performed since ERCP done yesterday. TB continues to rise as does AST/ALT (AP elevated stable).
Will continue to monitor ensure bili/pain improves, continue antibiotics.
Hold Eliquis for now.
If LFTs continue to rise d/w surgery and hospitalist plan MRCP tmwr.
OK regular diet.
D/w pt and at bedside as well updated re: plan.
Subjective
Subjective
Date of Service: October 23, 2024
some ruq discomfort tolerating diet
Objective
Data Reviewed
Laboratory Data:
Laboratory Results
10/23/24 08:19
10/23/24 08:19
Laboratory Results
PT 15.9 Sec (11.4-14.6) H 10/20/24 08:24
INR 1.22 10/20/24 08:24
APTT 45.5 Sec (23.4-35.0) H 10/20/24 08:24
Total Bilirubin 11.9 mg/dl (0.2-1.3) H 10/23/24 08:19
AST 714 U/L (17-59) H* 10/23/24 08:19
ALT 533 U/L (0-50) H* 10/23/24 08:19
Alkaline Phosphatase 1365 U/L (38-126) H 10/23/24 08:19
Lipase 45 U/L (23-300) 10/22/24 07:54
Vital Signs and I&O:
Vital Signs
Temp Pulse Resp BP Pulse Ox
97.8 F 69 18 121/61 96
10/23/24 11:35 10/23/24 11:35 10/23/24 11:35 10/23/24 11:35 10/23/24 11:35
I&O
10/22/24 10/23/24 10/24/24
06:59 06:59 06:59
Intake Total 320 / 320 200 / 200
Output Total 1325 / 1325 600 / 600
Balance -1005 / -1005 -400 / -400
Physical Exam
Physical Exam
HEENT: Anicteric
Cardiology: Normal Sinus Rhythm
Pulmonary: Clear
GI: Non Distended and Non Tender
[2024-10-23 15:25] VITALS: BP 119/63
[2024-10-23] MEDS: SYMBICORT 80/4.5 MCG INHALER INH (20:26)
[2024-10-23] MEDS: FLOMAX 0.4 MG PO (21:14)
[2024-10-23 23:25] VITALS: BP 117/58
[2024-10-24] MEDS: ZOSYN 50 IV ×3 (05:40→20:35)
[2024-10-24] MEDS: FLUSH (NSS) 2 FLUSH IV (05:41)
[2024-10-24 06:00] VITALS: BMI 26.3
[2024-10-24 08:25] LABS: % Basophils 0.1 % (0-2); % Immature Granulocytes 3.4 % (0-0.5); % Lymphocytes 10.9 % (20.5-51.1); % Monocytes 4.8 % (1.7-9.3); % Neutrophils 79.8 % (42.2-75.2); Absolute Eosinophils 0.1 10^3/uL (0-0.7); Absolute Immature Granulocytes 0.2 10^3/uL (0-0.05); Absolute Lymphocytes 0.7 10^3/uL (1.2-3.4); Absolute Monocytes 0.3 10^3/uL (0.1-0.6); Absolute Neutrophils 5.4 10^3/uL (1.4-6.5); Hematocrit 24.2 % (39.0-52.0); Hemoglobin 7.9 g/dL (13.0-18.0); Mean Corp Hgb Conc. 32.6 g/dL (33.0-37.0); Mean Corpuscular Hgb 32.2 pg (27.0-31.0); Mean Corpuscular Volume 98.8 fL (80.0-94.0); Mean Platelet Volume 11.7 fL (7.4-10.4); Nucleated Red Blood Cells % 0 % (-); Platelet Count 166 10^3/uL (130-400); Red Blood Cell Count 2.45 10^6/uL (4.70-6.10); Red Cell Dist. Width 18.4 % (11.5-14.5); White Blood Cell Count 6.8 10^3/uL (4.8-10.8)
[2024-10-24] MEDS: ROXICODONE 2.5 MG PO (08:34)
[2024-10-24] MEDS: SYMBICORT 80/4.5 MCG INHALER 2 PUFF INH ×2 (08:36→19:38)
[2024-10-24] MEDS: SPIRIVA RESPIMAT 2.5 MCG 2 PUFF INH (08:36)
[2024-10-24 08:39] VITALS: BP 139/87
[2024-10-24 09:12] LABS: ALT (SGPT) 490 U/L (0-50); AST (SGOT) 531 U/L (17-59); Albumin 2.8 g/dl (3.5-5.0); Blood Urea Nitrogen 24 mg/dl (9-20); Calcium 8.3 mg/dl (8.4-10.2); Carbon Dioxide 29 mmol/L (22-30); Chloride 101 mmol/L (98-107); Estimated Creatinine Clearance 80 ml/min; Glucose 88 mg/dl (70-99); Potassium 3.9 mmol/L (3.5-5.1); Sodium 136 mmol/L (135-145); Total Bilirubin 13.5 mg/dl (0.2-1.3); Total Protein 5.6 g/dl (6.3-8.2); eGFR > 60.00
[2024-10-24 09:27] LABS: Alkaline Phosphatase 1421 U/L (38-126)
--- NOTE | 2024-10-24 09:56 | W.PN.HOSP.TC ---
Today's Communication/Plan
-
gentle IVF
IV Vanco for GB culture with staph
ID consult
MRCP with rising bili
follow GI/GS recs
d/w
Assessment / Plan
Assessment / Plan
Assessment:
Elevated LFTs, cholestatic pattern with elevated bilirubin, clinical jaundice
- MRI abdomen: There is layering biliary sludge and gallstones. The gallbladder is borderline distended measuring 5.0 cm with pericholecystic free fluid suspicious for cholecystitis. A HIDA scan may be considered for further evaluation. There is a 3
mm filling defect within the inferior aspect of the bile duct, consistent with a nonobstructing stone. There is no evidence of biliary duct dilation. The common bile duct measures 6 mm.
- GI following
- s/p EUS/ERCP 10/21: s/p biliary sphincterotomy and balloon extraction of stone and sludge
- s/p lap carlos 10/22
- diet: per GS
- continue Zosyn, day 4
- with rising bilirubin; check MRCP today, discussed with GS/GI services
- GB culture growing staph aureus - added IV Vanco
- ID consulted
Chronic anemia, known iron deficiency anemia
- anemia indices normal
- heme+ stool likely from known esophageal cancer and exacerbated by anticoagulation
- monitor Hb
- transfuse if <7.0
Intramuscular Hematoma - POA from 1 week prior
L Hip Pain, traumatic - POA from 1 week prior
- evaluated in hospital 1 week ago
- CT: showing 2.4x1.6x10 cm hematoma posterior to L psoas & 5.1x6.6x10 cm intramuscular hematoma of the L iliacus extending into the Iliopsoas muscle
- PT/OT and pain control
- follow Hb
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
- Last treatment October 06
Paroxysmal Atrial Fibrillation
? Hx of HFpEF Chronically
Essential HTN
- Eliquis on hold until cleared for resumption by GI/GS
- continue Coreg
- hold prn Lasix
Orthostatic Hypotension
- continue midodrine
COPD
- continue Trelegy
GERD
- continue Protonix
Gout
- continue allopurinol
Recurrent UTIs
- continue methenamine
BPH with hx of urinary retention
- continue alfuzosin/Flomax/finasteride
Chronic UTI
- on Hiprex
- urine culture here with ESBL
- continue Bactrim DS x 2 weeks (+ concurrent PO Vanco BID for hx of C. Diff colonization)
- ID consulted
DVT ppx: SCDs
Code: DNR/DNI
Anticipated Discharge: > 48 hours
Subjective/Interval History
-
Date of Service: October 24, 2024
more tender today, denies N/V
Bilirubin elevated
requesting IVF
Objective Data
-
Labs:
Laboratory Results
10/24/24
08:03
WBC 6.8
Hgb 7.9 L
Hct 24.2 L
Plt Count 166
Sodium 136
Potassium 3.9
Chloride 101
Carbon Dioxide 29
BUN 24 H
Creatinine 0.8
Glucose 88
Calcium 8.3 L
Total Bilirubin 13.5 H
AST 531 H*
ALT 490 H
Alkaline Phosphatase 1421 H
Vital Signs:
Vital Signs
Temp Pulse Resp BP Pulse Ox
99.7 F 68 20 139/87 97
10/24/24 08:39 10/24/24 08:39 10/24/24 08:39 10/24/24 08:39 10/24/24 08:39
I&O
10/23/24 10/24/24 10/25/24
06:59 06:59 06:59
Intake Total 200 / 200 750 / 750
Output Total 600 / 600 750 / 750
Balance -400 / -400 0 / 0
Physical Exam
-
General: No Apparent Distress
HEENT: Normocephalic and Atraumatic
Respiratory: Clear to Auscultation; Negative Wheezes
Cardiac: Regular Rhythm and S1/S2
GI: Nondistended and Tender (diffusely)
Genito-urinary: No Costovertebral Tender
Neuro: AO x 3
Psych: Calm
Data Reviewed
-
Total Time Spent with Patient (in minutes): 42
Labs: Labs Reviewed by me
--- NOTE | 2024-10-24 10:12 | PHA.VAN.IN ---
Assessment
- Assessment
Renal Function: Appears similar to baseline (Scr 0.8)
AUC Dosing Plan
- Dosing Variables
Dosing Weight (kg): 85.36
Dosing CrCl (ml/min): 80
Vd coefficient (L/kg): 0.7
- Empiric Dosing
Initial / Loading Dose: Vanco Loading 2000mg Given on 10/24/24 at 1046
Maintenance Regimen: Vanco Maintenance 1000mg Q12H Starting 10/25/24 0600
Estimated AUC (mcg*h/mL): 490
Estimated Peak (mcg*h/mL): 29.2
Estimated Trough (mcg/ml): 13.4
Estimated Half Life (H): 9.79
- Monitoring
No levels ordered at this time: Consider in the next few days
Pharmacokinetics Vancomycin I
- -
Patient Age: 79
Patient Sex: Male
Vancomycin Day #: 1
Indication: Gi / Intra-Abdominal
Requesting Provider: CORBY
Pertinent Antimicrobial Allergies:
No Known Drug Allergies
Height / Weight:
Height 5 ft 11 in
Actual Weight 85.36 kg
Pertinent Past Medical History: Piperacillin/Tazobactam, Bactrim, Oral Vanco (C.Diff ppx)
- Vital Signs / Lab Results
Temp Pulse Resp BP Pulse Ox
99.7 F 68 20 139/87 97
10/24/24 08:39 10/24/24 08:39 10/24/24 08:39 10/24/24 08:39 10/24/24 08:39
Lab Results - Hematology
10/22/24 10/23/24 10/24/24
07:54 08:19 08:03
WBC 8.1 8.8 6.8
Lab Results - Chemistry
10/22/24 10/23/24 10/24/24
07:54 08:19 08:03
BUN 26 H 24 H 24 H
Creatinine 0.9 0.9 0.8
Estimated Creat Clear 71 71 80
Albumin 3.0 L 3.1 L 2.8 L
Microbiology Results
10/22/24 10:25 Wound Culture - Preliminary
Gallbladder Staphylococcus aureus
Gram Stain - Preliminary
10/22/24 10:25 Anaerobic Culture - Preliminary
Gallbladder Culture pending. Anaerobic cultures are examined after 3
days incubation. Additional information to follow.
10/20/24 12:13 Urine Culture - Final
Urine Escherichia coli - ESBL
[2024-10-24] MEDS: FLUSH (NSS) 1 FLUSH IV (10:45)
[2024-10-24] MEDS: PROTONIX 40 MG PO (10:45)
[2024-10-24] MEDS: VANCOCIN 540 MG IV (10:46)
[2024-10-24] MEDS: TYLENOL 500 MG PO ×3 (10:59→21:33)
[2024-10-24] MEDS: ProAmatine 2.5 MG PO ×2 (10:59→16:52)
[2024-10-24] MEDS: ZYLOPRIM 300 MG PO (10:59)
[2024-10-24] MEDS: VITAMIN D3 (cholecalciferol) 50 MCG PO (10:59)
[2024-10-24] MEDS: PROSCAR 5 MG PO (10:59)
[2024-10-24] MEDS: FEOSOL 325 MG PO (10:59)
[2024-10-24] MEDS: DESENEX/MITRAZOL/ZEASORB 1 APPLIC TOPICAL ×2 (11:04→20:34)
[2024-10-24] MEDS: COREG PO ×2 (11:04→20:34)
[2024-10-24] MEDS: ProAmatine PO (11:09)
[2024-10-24] MEDS: BACTRIM DS 800 MG/160 MG 1 TABLET PO (11:14)
[2024-10-24] MEDS: FIRVANQ 125 MG PO (11:14)
--- NOTE | 2024-10-24 13:53 | CON.ID ---
Consultation
-
Date/Time Consultation Requested: 10/24/2024 0926
Date/Time Consultation Performed: 10/24/2024 1344
Requesting Provider: Dr. Young
Performing Provider: Dr. Newman
Reason for Consultation: Positive billiary cultures.
Chief Complaint / Past History
History of Present Illness
Tapan Ngo is a 79-year-old man being evaluated at the request of Dr. Young regarding positive biliary cultures. History is obtained from chart review, along with patient interview.
The patient presented to the emergency room on 10/20/2024, having been sent in from [facility] regarding elevated LFTs and noted jaundice. In the ER, he denied any complaints, specifically he denied any abdominal pain, nausea, vomiting, fever or
chills.
Hospital course was significant for an abdominal ultrasound showing gallstones and sludge. He ultimately was taken for an EUS/ERCP, with clearance of the cystic duct. He underwent lap carlos on 10/22. Cultures from the gallbladder now reveal Staph
aureus.. Bilirubin continues to rise. Infectious Diseases is asked to comment on further antimicrobial management.
Past History
Additional Past Medical History:
Stage IV esophageal cancer
A-fib (on Eliquis)
CAD
Cancer
CHF
COPD
Hx CVA
HTN
Dyslipidemia
Hx paraspinal abscess
Gout
Additional Past Surgical History:
C7 cadaveric implant with laminectomy
Parathyroid adenoma resection
Lap carlos
Allergy History:
No Known Allergies Allergy (Verified 10/20/24 08:04)
Medications Reviewed: Yes
Current Antibiotics:
Zosyn 3.375 g IV every 6 hours
Bactrim DS 1 tablet twice daily
Vancomycin 1 g IV every 12 hours
Vancomycin p.o. 125 mg twice daily
Social History
Tobacco: Former Smoker
Alcohol: Occasional
Drug: None
Personal:
Living: With Family
Employment: Retired
Family History
Family History: Not Pertinent
Review of Systems
Vital Signs
Temp Pulse Resp BP Pulse Ox
99.7 F 81 20 115/62 97
10/24/24 08:39 10/24/24 11:04 10/24/24 08:39 10/24/24 11:04 10/24/24 08:39
Physical Exam
Physical Exam
Constitutional: No Acute Distress, Chronically Ill and Non-toxic
Head: Normocephalic
Eyes: Pupils Equal, Pupils Round and Erythema (Scleral icterus)
Oral: No Thrush
Cardiovascular: Regular Rate and S1/S2; Negative S3/S4
Pulmonary: Clear; Negative Wheezes or Rales
Gastrointestinal: Soft, Tender (Mild; diffuse), Non Distended, Normal Bowel Sounds, No Rebound and No Guarding
Extremities: Negative Edema or Cyanosis
Skin: Jaundice (Marked)
Neurological: Awake and Alert
Psychological: Calm
.
Lab / Diagnostic Study Results
10/24/24 08:03
10/24/24 08:03
Abs Immat Gran (auto) 0.2 10^3/uL (0-0.05) H 10/24/24 08:03
Absolute Neuts (auto) 5.4 10^3/uL (1.4-6.5) 10/24/24 08:03
Absolute Lymphs (auto) 0.7 10^3/uL (1.2-3.4) L 10/24/24 08:03
Absolute Monos (auto) 0.3 10^3/uL (0.1-0.6) 10/24/24 08:03
Absolute Basos (auto) 0.0 10^3/uL (0-0.2) 10/24/24 08:03
Immature Gran % 3.4 % (0-0.5) H 10/24/24 08:03
Neutrophils % 79.8 % (42.2-75.2) H 10/24/24 08:03
Lymphocytes % 10.9 % (20.5-51.1) L 10/24/24 08:03
Monocytes % 4.8 % (1.7-9.3) 10/24/24 08:03
Eosinophils % 1.0 % (0-6) 10/24/24 08:03
Basophils % 0.1 % (0-2) 10/24/24 08:03
PT 15.9 Sec (11.4-14.6) H 10/20/24 08:24
INR 1.22 10/20/24 08:24
Ur Squamous Epith Cells 0-2 /LPF (Few) 10/20/24 12:13
Microbiology Results
Micro:
10/22/24 10:25 Wound Culture - Preliminary
Gallbladder S aureus-Methicillin Sensitive
Gram Stain - Preliminary
10/22/24 10:25 Anaerobic Culture - Preliminary
Gallbladder Culture pending. Anaerobic cultures are examined after 3
days incubation. Additional information to follow.
10/20/24 12:13 Urine Culture - Final
Urine Escherichia coli - ESBL
Imaging:
08/09/2025 MRI abdomen with and without contrast: There is layering biliary sludge and gallstones. The gallbladder is borderline distended measuring 5.0 cm with pericholecystic free fluid suspicious for cholecystitis. A HIDA scan may be considered
for further evaluation. There is a 3 mm filling defect within the inferior aspect of the bile duct, consistent with a nonobstructing stone. There is no evidence of biliary duct dilation. The common bile duct measures 6 mm. Hepatomegaly. Small
right and trace left pleural effusions with adjacent atelectasis. There is a 1.2 cm focus of enhancement adjacent to the right 12th rib, possible metastatic focus in the setting of known esophageal cancer.
Assessment / Plan
Cholecystitis
- Gb with S. aureus (sensitivities pending)
Marked bilirubinemia
Bacteriuria with ESBL E. coli (urinalysis at that point with no pyuria)
Transaminitis
Anemia
Stage IV esophageal cancer
A-fib (on Eliquis)
CAD
Cancer
CHF
COPD
Hx CVA
HTN
Dyslipidemia
Hx paraspinal abscess
Gout
Recommendation:
Continue with Zosyn for now.
Agree with empiric addition of vancomycin pending for Staph aureus susceptibilities.
Discontinue further enteral Vanco and Bactrim for the present.
Monitor white count and temperature curve.
Trend LFTs and bilirubin
Further recommendations as additional data is returned.
[2024-10-24] MEDS: LR 1000 IV (15:02)
--- NOTE | 2024-10-24 15:48 | W.PN.GS2 ---
Today's Communication / Plan
-
MRCP
Assessment / Plan
-
This is a 79-year-old male with known metastatic esophageal cancer who presents with a 4-day history of jaundice found to have choledocholithiasis and underwent successful ERCP on 08/20/2025. Now he is postoperative day 2 from a laparoscopic
cholecystectomy. Some bleeding noted intraoperatively but otherwise uneventful. Elevated bilirubinemia.
MRI ordered
Continue antibiotics
Okay for clears
MRI reviewed, no overt collection in the fossa other than expected postoperative changes. There is a layering density within the common bile duct concerning for hematoma which is consistent with his intraoperative findings. This hematoma could be
occluding the common bile duct.
Findings discussed with hospitalist and gastroenterology. GI will plan for an ERCP tomorrow.
I discussed these findings also with the patient's over phone. All questions answered, she is agreeable to plan of care above.
Time Spent
Total Time Spent with Patient (in minutes): 20
Subjective Data
-
Date of Service: October 24, 2024
Interval Events:
No acute events overnight. Worsening abdominal pain, bilirubin up to 13
Objective Data
-
Intake and Output
10/23/24 10/24/24 10/25/24
06:59 06:59 06:59
Intake Total 200 / 200 750 / 750
Output Total 600 / 600 750 / 750
Balance -400 / -400 0 / 0
Intake:
Oral fluids 510 / 510
IV fluids (Total) 50 / 50
Normosol 50 / 50
IV piggybacks 150 / 150 240 / 240
Output:
Urine, Voided 600 / 600 750 / 750
Other:
How many times incontinent 1 1
MODERATE amount urine
How many times incontinent 1 2
SATURATED amount urine
Vital Signs
Temp Pulse Resp BP Pulse Ox
99.7 F 81 20 115/62 97
10/24/24 08:39 10/24/24 11:04 10/24/24 08:39 10/24/24 11:04 10/24/24 08:39
Lab Results
10/24/24 08:03
10/24/24 08:03
Calcium 8.3 mg/dl (8.4-10.2) L 10/24/24 08:03
Total Bilirubin 13.5 mg/dl (0.2-1.3) H 10/24/24 08:03
Direct Bilirubin 4.2 mg/dl (0.0-0.4) H 10/20/24 08:24
AST 531 U/L (17-59) H* 10/24/24 08:03
ALT 490 U/L (0-50) H 10/24/24 08:03
Alkaline Phosphatase 1421 U/L (38-126) H 10/24/24 08:03
Total Protein 5.6 g/dl (6.3-8.2) L 10/24/24 08:03
Albumin 2.8 g/dl (3.5-5.0) L 10/24/24 08:03
Physical Exam
-
GENERAL/NEURO: Awake, Alert, mild distress
CHEST: Unlabored breathing on RA
ABDOMEN: Soft, mildly tender in the right upper quadrant, nondistended. Incisions are clean dry and intact. Significant jaundice.
Patient has a webb catheter: No
Patient has a central line: No
[2024-10-24 16:24] VITALS: BP 117/59
--- NOTE | 2024-10-24 16:40 | W.PN.GI.CBS2 ---
Today's Communication / Plan
-
ercp tmwr
Assessment / Plan
-
79 yo M here with pmh stage IV esophageal Ca here with jaundice/abnoraml LFTs found to have elevated bili, CBD stone/cholecystitis on MRI/MRCP underwent EUS/ERCP 10/21 with balloon extraction/sphincterotomy. Surgery who did CCY 10/22 no IOC performed
since ERCP done 10/21. TB continues to rise so MRCP was done:
'Postsurgical changes, as described.
Mild intrahepatic ductal dilatation. Mild distention of the common hepatic duct and common bile duct. Low T2 signal intensity along the dependent margin of the common hepatic duct, as well as occupying the entire lumen of the common bile duct; one
possible consideration would be thrombus. The differential may include extensive sludge, which would be unusual in this case. This does not have the typical appearance of air within the lumen, or choledocholithiasis.'
D/w surgery, radiology, hospitalist. Concerning for hematoma in the CBD. Plan for ERCP with stent hopefully tomorrow afternoon d/w Dr. Briones. I d/w Carmina and updated her on the phone.
Continue antibiotics.
Hold Eliquis for now.
Clear liquid diet today NPO after midnight.
Monitor Hb.
Subjective
Subjective
Date of Service: October 24, 2024
Pt still with pain, bili continues to rise
Objective
Data Reviewed
Laboratory Data:
Laboratory Results
10/24/24 08:03
10/24/24 08:03
Laboratory Results
PT 15.9 Sec (11.4-14.6) H 10/20/24 08:24
INR 1.22 10/20/24 08:24
APTT 45.5 Sec (23.4-35.0) H 10/20/24 08:24
Total Bilirubin 13.5 mg/dl (0.2-1.3) H 10/24/24 08:03
AST 531 U/L (17-59) H* 10/24/24 08:03
ALT 490 U/L (0-50) H 10/24/24 08:03
Alkaline Phosphatase 1421 U/L (38-126) H 10/24/24 08:03
Lipase 45 U/L (23-300) 10/22/24 07:54
Vital Signs and I&O:
Vital Signs
Temp Pulse Resp BP Pulse Ox
97.5 F 80 20 117/59 93
10/24/24 16:24 10/24/24 16:24 10/24/24 16:24 10/24/24 16:24 10/24/24 16:24
I&O
10/23/24 10/24/24 10/25/24
06:59 06:59 06:59
Intake Total 200 / 200 750 / 750
Output Total 600 / 600 750 / 750
Balance -400 / -400 0 / 0
Physical Exam
Physical Exam
HEENT: Other (jaundice)
GI: Tender
[2024-10-24] MEDS: FLOMAX 0.4 MG PO (20:34)
[2024-10-24 23:25] VITALS: BP 98/63
[2024-10-25] MEDS: ZOSYN 50 IV ×4 (01:35→20:22)
[2024-10-25 04:43] LABS: % Basophils 0.6 % (0-2); % Eosinophils 1.7 % (0-6); % Immature Granulocytes 4.6 % (0-0.5); % Monocytes 5.2 % (1.7-9.3); % Neutrophils 73.9 % (42.2-75.2); Absolute Eosinophils 0.1 10^3/uL (0-0.7); Absolute Immature Granulocytes 0.3 10^3/uL (0-0.05); Absolute Lymphocytes 0.9 10^3/uL (1.2-3.4); Absolute Monocytes 0.3 10^3/uL (0.1-0.6); Absolute Neutrophils 4.7 10^3/uL (1.4-6.5); Hematocrit 23.2 % (39.0-52.0); Hemoglobin 7.7 g/dL (13.0-18.0); Mean Corp Hgb Conc. 33.2 g/dL (33.0-37.0); Mean Corpuscular Hgb 32.2 pg (27.0-31.0); Mean Corpuscular Volume 97.1 fL (80.0-94.0); Mean Platelet Volume 12.2 fL (7.4-10.4); Nucleated Red Blood Cells % 0.3 % (-); Platelet Count 165 10^3/uL (130-400); Red Blood Cell Count 2.39 10^6/uL (4.70-6.10); White Blood Cell Count 6.3 10^3/uL (4.8-10.8)
[2024-10-25 05:01] LABS: AST (SGOT) 422 U/L (17-59); Albumin 2.8 g/dl (3.5-5.0); Blood Urea Nitrogen 21 mg/dl (9-20); Calcium 8.3 mg/dl (8.4-10.2); Carbon Dioxide 28 mmol/L (22-30); Chloride 101 mmol/L (98-107); Estimated Creatinine Clearance 71 ml/min; Glucose 85 mg/dl (70-99); Potassium 4.1 mmol/L (3.5-5.1); Sodium 136 mmol/L (135-145); Total Bilirubin 13.5 mg/dl (0.2-1.3); Total Protein 5.6 g/dl (6.3-8.2); eGFR > 60.00
[2024-10-25 05:13] LABS: ALT (SGPT) 424 U/L (0-50); Alkaline Phosphatase 1621 U/L (38-126)
[2024-10-25] MEDS: VANCOCIN 200 IV (05:58)
[2024-10-25 07:54] VITALS: BP 129/64
[2024-10-25] MEDS: SPIRIVA RESPIMAT 2.5 MCG 2 PUFF INH (07:59)
[2024-10-25] MEDS: SYMBICORT 80/4.5 MCG INHALER 2 PUFF INH ×2 (07:59→19:52)
[2024-10-25] MEDS: PROTONIX 40 MG PO (08:24)
[2024-10-25] MEDS: PROSCAR 5 MG PO (08:26)
[2024-10-25] MEDS: COREG 3.125 MG PO (08:26)
[2024-10-25] MEDS: VITAMIN D3 (cholecalciferol) 50 MCG PO (08:26)
[2024-10-25] MEDS: ZYLOPRIM 300 MG PO (08:26)
[2024-10-25] MEDS: FEOSOL 325 MG PO (08:26)
[2024-10-25] MEDS: TYLENOL 500 MG PO ×3 (08:26→21:40)
[2024-10-25] MEDS: ProAmatine PO ×3 (08:27→17:02)
[2024-10-25] MEDS: DESENEX/MITRAZOL/ZEASORB 1 APPLIC TOPICAL ×2 (09:03→20:19)
--- NOTE | 2024-10-25 12:11 | W.PN.HOSP.TC ---
Today's Communication/Plan
-
continue Zosyn
repeat ERCP today for CBD signal seen on MRCP
continue IVF
Assessment / Plan
Assessment / Plan
Assessment:
Elevated LFTs, cholestatic pattern with elevated bilirubin, clinical jaundice
- MRI abdomen: There is layering biliary sludge and gallstones. The gallbladder is borderline distended measuring 5.0 cm with pericholecystic free fluid suspicious for cholecystitis. A HIDA scan may be considered for further evaluation. There is a 3
mm filling defect within the inferior aspect of the bile duct, consistent with a nonobstructing stone. There is no evidence of biliary duct dilation. The common bile duct measures 6 mm.
- s/p EUS/ERCP 10/21: s/p biliary sphincterotomy and balloon extraction of stone and sludge
- s/p lap carlos 10/22
- with ongoing high LFTs, MRCP on 10/24 concerning for signal occupying lumen of CBD, possibly hematoma vs thrombus
- repeat ERCP today
- continue Zosyn, day 5
- GB culture from OR growing MSSA
- GI following
- GS following
- ID following
Chronic anemia, known iron deficiency anemia
- anemia indices normal
- heme+ stool likely from known esophageal cancer and exacerbated by anticoagulation
- monitor Hb
- transfuse if <7.0
Intramuscular Hematoma - POA from 1 week prior
L Hip Pain, traumatic - POA from 1 week prior
- evaluated in hospital 1 week ago
- CT: showing 2.4x1.6x10 cm hematoma posterior to L psoas & 5.1x6.6x10 cm intramuscular hematoma of the L iliacus extending into the Iliopsoas muscle
- PT/OT and pain control
- follow Hb
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
- Last treatment October 06
Paroxysmal Atrial Fibrillation
? Hx of HFpEF Chronically
Essential HTN
- Eliquis on hold until cleared for resumption by GI/GS
- continue Coreg
- hold prn Lasix
Orthostatic Hypotension
- continue midodrine
COPD
- continue Trelegy
GERD
- continue Protonix
Gout
- continue allopurinol
Recurrent UTIs
- continue methenamine
BPH with hx of urinary retention
- continue alfuzosin/Flomax/finasteride
Chronic UTI
- on Hiprex
- urine culture here with ESBL; UA without Pyuria; not treating per ID
DVT ppx: SCDs
Code: DNR/DNI
Anticipated Discharge: > 48 hours
Subjective/Interval History
-
Date of Service: October 25, 2024
stable degree of tenderness per patient
NPO for ERCP repeat today
Objective Data
-
Labs:
Laboratory Results
10/25/24
04:16
WBC 6.3
Hgb 7.7 L
Hct 23.2 L
Plt Count 165
Sodium 136
Potassium 4.1
Chloride 101
Carbon Dioxide 28
BUN 21 H
Creatinine 0.9
Glucose 85
Calcium 8.3 L
Total Bilirubin 13.5 H
AST 422 H
ALT 424 H
Alkaline Phosphatase 1621 H
Vital Signs:
Vital Signs
Temp Pulse Resp BP Pulse Ox
97.6 F 79 16 129/64 94
10/25/24 07:54 10/25/24 08:27 10/25/24 08:07 10/25/24 08:27 10/25/24 08:07
I&O
10/24/24 10/25/24 10/26/24
06:59 06:59 06:59
Intake Total 750 / 750 1430 / 1430
Output Total 750 / 750 1654 / 1654 450 / 450
Balance 0 / 0 -224 / -224 -450 / -450
Physical Exam
-
General: No Apparent Distress
HEENT: Normocephalic, Atraumatic and Other (scleral icterus)
Cardiac: Regular Rhythm and S1/S2
Genito-urinary: No Costovertebral Tender
Skin: Jaundice
Neuro: AO x 3
Psych: Calm
Data Reviewed
-
Total Time Spent with Patient (in minutes): 45
Labs: Labs Reviewed by me
[2024-10-25 13:09] VITALS: BP 126/66; PULSE 82; O2SAT 96
[2024-10-25 13:16] VITALS: BP 126/66; PULSE 82; O2SAT 96
[2024-10-25] MEDS: LR IV (13:33)
--- NOTE | 2024-10-25 14:13 | CM ---
CM reveiwed pt with Dr Young
Plan for ERCP today
Pt will benefit from post-procedure PT/OT evals
Will need auth to return to [facility]
update to SNF via [facility]
Discharge Disposition- anticipate return to [facility] pending auth
--- NOTE | 2024-10-25 14:32 | W.PN.ID1 ---
Date of Service
Date of Service: October 25, 2024
Today's Communication
Continue antibiotics.
Assessment / Plan
Cholecystitis
- Gallbladder cx with S. aureus (MSSA)
Marked bilirubinemia
Bacteriuria with ESBL E. coli (urinalysis at that point with no pyuria)
Transaminitis
Anemia
Stage IV esophageal cancer
A-fib (on Eliquis)
CAD
Cancer
CHF
COPD
Hx CVA
HTN
Dyslipidemia
Hx paraspinal abscess
Gout
Recommendation:
Continue with Zosyn for now.
D/C further vanco
Monitor white count and temperature curve.
Trend LFTs and bilirubin
Await ERCP
����������������������������������������������������������
Chief Complaint
-: Other (Acute cholecystitis)
Subjective / Review of Systems
Review of Systems: No Fever and No Chills
Vital Signs / Physical Exam
Vital Signs
Vital Signs
Temp Pulse Resp BP Pulse Ox
97.6 F 85 16 130/69 94
10/25/24 07:54 10/25/24 13:30 10/25/24 08:07 10/25/24 13:30 10/25/24 08:07
Physical Exam
Constitutional: No Acute Distress, Comfortable, Chronically Ill and Non-toxic
Cardiovascular: Regular Rate
Pulmonary: Clear, Symmetric and Non Labored; Negative Wheezes or Rales
Gastrointestinal: Soft, Non Tender and Non Distended
Genito-Urinary: Suprapubic Tenderness
Skin: Warm, Dry and Jaundice
Neurological: Awake and Alert
Psychological: Calm
Objective Data
Lab Data
Lab Results
10/25/24 04:16
10/25/24 04:16
PT 15.9 Sec (11.4-14.6) H 10/20/24 08:24
INR 1.22 10/20/24 08:24
APTT 45.5 Sec (23.4-35.0) H 10/20/24 08:24
Estimated Creat Clear 71 ml/min 10/25/24 04:16
Total Bilirubin 13.5 mg/dl (0.2-1.3) H 10/25/24 04:16
AST 422 U/L (17-59) H 10/25/24 04:16
ALT 424 U/L (0-50) H 10/25/24 04:16
Alkaline Phosphatase 1621 U/L (38-126) H 10/25/24 04:16
Most recent labs reviewed.
Micro Results:
10/22/24 10:25 Anaerobic Culture - Preliminary
Gallbladder NO ANAEROBES ISOLATED
10/22/24 10:25 Wound Culture - Preliminary
Gallbladder S aureus-Methicillin Sensitive
Gram Stain - Preliminary
10/20/24 12:13 Urine Culture - Final
Urine Escherichia coli - ESBL
df
Wound/abscess/other Cult Preliminary 10/24/24-1159
Few S aureus-Methicillin Sensitive
1. S aureus-Methicillin Sensitive
M.I.C. RX
--------- ---
Amoxicillin/Potas. Clavulanate <=4/2 S
Ampicillin <=2 R
Clindamycin <=0.5 S
Gentamicin <=4 S
Erythromycin >4 R
Levofloxacin <=1 S
Oxacillin 0.5 S
Tetracycline <=4 S
Trimethoprim/Sulfamethoxazole <=0.5/9.5 S
Vancomycin 2 S
Imaging:
08/09/2025 MRI abdomen with and without contrast: There is layering biliary sludge and gallstones. The gallbladder is borderline distended measuring 5.0 cm with pericholecystic free fluid suspicious for cholecystitis. A HIDA scan may be considered
for further evaluation. There is a 3 mm filling defect within the inferior aspect of the bile duct, consistent with a nonobstructing stone. There is no evidence of biliary duct dilation. The common bile duct measures 6 mm. Hepatomegaly. Small
right and trace left pleural effusions with adjacent atelectasis. There is a 1.2 cm focus of enhancement adjacent to the right 12th rib, possible metastatic focus in the setting of known esophageal cancer.
--- NOTE | 2024-10-25 15:19 | W.PN.GI.CBS2 ---
Today's Communication / Plan
-
ercp dr ch
Assessment / Plan
-
79 yo M here with pmh stage IV esophageal Ca here with jaundice/abnoraml LFTs found to have elevated bili, CBD stone/cholecystitis on MRI/MRCP underwent EUS/ERCP 10/21 with balloon extraction/sphincterotomy. Surgery who did CCY 10/22 no IOC performed
since ERCP done 10/21. TB continues to rise so MRCP was done:
'Postsurgical changes, as described.
Mild intrahepatic ductal dilatation. Mild distention of the common hepatic duct and common bile duct. Low T2 signal intensity along the dependent margin of the common hepatic duct, as well as occupying the entire lumen of the common bile duct; one
possible consideration would be thrombus. The differential may include extensive sludge, which would be unusual in this case. This does not have the typical appearance of air within the lumen, or choledocholithiasis.'
D/w surgery, radiology, hospitalist 10/24. Concerning for hematoma in the CBD. Plan for ERCP with stent hopefully tomorrow afternoon d/w Dr. Ch - I d/w Dr. Ch today he is not sure if ERCP will go today or tomorrow. I d/w Carmina and son at
bedside with patient and updated them.
Continue antibiotics.
Hold Eliquis for now.
NPO possible procedure.
Monitor Hb.
D/w surgery today as well.
Subjective
Subjective
Date of Service: October 25, 2024
jaundiced ongoing abd pain
Objective
Data Reviewed
Laboratory Data:
Laboratory Results
10/25/24 04:16
10/25/24 04:16
Laboratory Results
PT 15.9 Sec (11.4-14.6) H 10/20/24 08:24
INR 1.22 10/20/24 08:24
APTT 45.5 Sec (23.4-35.0) H 10/20/24 08:24
Total Bilirubin 13.5 mg/dl (0.2-1.3) H 10/25/24 04:16
AST 422 U/L (17-59) H 10/25/24 04:16
ALT 424 U/L (0-50) H 10/25/24 04:16
Alkaline Phosphatase 1621 U/L (38-126) H 10/25/24 04:16
Lipase 45 U/L (23-300) 10/22/24 07:54
Vital Signs and I&O:
Vital Signs
Temp Pulse Resp BP Pulse Ox
97.6 F 85 16 130/69 94
10/25/24 07:54 10/25/24 13:30 10/25/24 08:07 10/25/24 13:30 10/25/24 08:07
I&O
10/24/24 10/25/24 10/26/24
06:59 06:59 06:59
Intake Total 750 / 750 1430 / 1430
Output Total 750 / 750 1654 / 1654 450 / 450
Balance 0 / 0 -224 / -224 -450 / -450
Physical Exam
Physical Exam
HEENT: Other (icteric)
Cardiology: Normal Sinus Rhythm
Pulmonary: Clear
GI: Non Distended and Non Tender
[2024-10-25 15:30] VITALS: BP 135/69
[2024-10-25] MEDS: LR 500 IV (16:44)
[2024-10-25] MEDS: COREG PO (20:18)
[2024-10-25] MEDS: FLOMAX 0.4 MG PO (20:22)
--- NOTE | 2024-10-25 20:49 | W.PN.SURGUPD ---
Surgical Update
Surgical Update
Brief General Surgery note:
Bilirubin remains elevated. Hemoglobin softly downtrending.
GI to perform ERCP tomorrow
Surgery will follow peripherally.
[2024-10-25 23:30] VITALS: BP 117/61
[2024-10-26] VITALS (7 sets, daily range): BP systolic 98–140; BP diastolic 48–68; BMI 26.5
[2024-10-26] MEDS: ZOSYN 50 IV ×4 (01:17→19:44)
[2024-10-26] MEDS: SYMBICORT 80/4.5 MCG INHALER 2 PUFF INH (07:51)
[2024-10-26] MEDS: SPIRIVA RESPIMAT 2.5 MCG 2 PUFF INH (07:51)
[2024-10-26] MEDS: TYLENOL 500 MG PO ×3 (08:00→21:24)
[2024-10-26] MEDS: PROSCAR 5 MG PO (08:00)
[2024-10-26] MEDS: PROTONIX 40 MG PO (08:00)
[2024-10-26] MEDS: FEOSOL 325 MG PO (08:00)
[2024-10-26] MEDS: ZYLOPRIM 300 MG PO (08:00)
[2024-10-26] MEDS: VITAMIN D3 (cholecalciferol) 50 MCG PO (08:01)
[2024-10-26] MEDS: COREG PO ×2 (08:01→19:43)
[2024-10-26] MEDS: ProAmatine 2.5 MG PO ×2 (08:02→16:22)
[2024-10-26] MEDS: LR 1000 IV (08:46)
[2024-10-26] MEDS: DESENEX/MITRAZOL/ZEASORB 1 APPLIC TOPICAL ×2 (08:49→19:44)
[2024-10-26 09:48] LABS: Hematocrit 22.3 % (39.0-52.0); Hemoglobin 7.4 g/dL (13.0-18.0); Mean Corp Hgb Conc. 33.2 g/dL (33.0-37.0); Mean Corpuscular Hgb 32.3 pg (27.0-31.0); Mean Corpuscular Volume 97.4 fL (80.0-94.0); Mean Platelet Volume 12.2 fL (7.4-10.4); Platelet Count 171 10^3/uL (130-400); Red Blood Cell Count 2.29 10^6/uL (4.70-6.10); Red Cell Dist. Width 20.1 % (11.5-14.5); White Blood Cell Count 6.6 10^3/uL (4.8-10.8)
[2024-10-26 10:13] LABS: ALT (SGPT) 313 U/L (0-50); AST (SGOT) 290 U/L (17-59); Albumin 2.6 g/dl (3.5-5.0); Blood Urea Nitrogen 19 mg/dl (9-20); Carbon Dioxide 27 mmol/L (22-30); Chloride 102 mmol/L (98-107); Estimated Creatinine Clearance 80 ml/min; Glucose 99 mg/dl (70-99); Potassium 3.9 mmol/L (3.5-5.1); Sodium 134 mmol/L (135-145); Total Bilirubin 13.8 mg/dl (0.2-1.3); Total Protein 5.3 g/dl (6.3-8.2); eGFR > 60.00
[2024-10-26 10:24] LABS: Alkaline Phosphatase 1848 U/L (38-126)
--- NOTE | 2024-10-26 11:18 | W.PN.HOSP.TC ---
Today's Communication/Plan
-
continue Abx
for repeat ERCP today
Assessment / Plan
Assessment / Plan
Assessment:
Elevated LFTs, cholestatic pattern with elevated bilirubin, clinical jaundice
- MRI abdomen: There is layering biliary sludge and gallstones. The gallbladder is borderline distended measuring 5.0 cm with pericholecystic free fluid suspicious for cholecystitis. A HIDA scan may be considered for further evaluation. There is a 3
mm filling defect within the inferior aspect of the bile duct, consistent with a nonobstructing stone. There is no evidence of biliary duct dilation. The common bile duct measures 6 mm.
- s/p EUS/ERCP 10/21: s/p biliary sphincterotomy and balloon extraction of stone and sludge
- s/p lap carlos 10/22
- with ongoing high LFTs, MRCP on 10/24 concerning for signal occupying lumen of CBD, possibly hematoma vs thrombus. for Repeat ERCP today
- continue Zosyn, day 6. GB culture from OR growing MSSA
- GI following
- GS following peripherally
- ID following
Chronic anemia, known iron deficiency anemia
- anemia indices normal
- heme+ stool likely from known esophageal cancer and exacerbated by anticoagulation
- monitor Hb
- transfuse if <7.0
Intramuscular Hematoma - POA from 1 week prior
L Hip Pain, traumatic - POA from 1 week prior
- evaluated in hospital 1 week ago
- CT: showing 2.4x1.6x10 cm hematoma posterior to L psoas & 5.1x6.6x10 cm intramuscular hematoma of the L iliacus extending into the Iliopsoas muscle
- PT/OT and pain control
- follow Hb
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
- Last treatment October 06
Paroxysmal Atrial Fibrillation
? Hx of HFpEF Chronically
Essential HTN
- Eliquis on hold until cleared for resumption by GI/GS
- continue Coreg
- hold prn Lasix
Orthostatic Hypotension
- continue midodrine
COPD
- continue Trelegy
GERD
- continue Protonix
Gout
- continue allopurinol
Recurrent UTIs
- continue methenamine
BPH with hx of urinary retention
- continue alfuzosin/Flomax/finasteride
Chronic UTI
- on Hiprex
- urine culture here with ESBL; UA without Pyuria; not treating per ID
DVT ppx: SCDs
Code: DNR/DNI
Anticipated Discharge: > 48 hours
Subjective/Interval History
-
Date of Service: October 26, 2024
RUQ pain stable
denies any other complaints
for ERCP today
Objective Data
-
Labs:
Laboratory Results
10/26/24
09:37
WBC 6.6
Hgb 7.4 L
Hct 22.3 L
Plt Count 171
Sodium 134 L
Potassium 3.9
Chloride 102
Carbon Dioxide 27
BUN 19
Creatinine 0.8
Glucose 99
Calcium 8.0 L
Total Bilirubin 13.8 H
AST 290 H
ALT 313 H
Alkaline Phosphatase 1848 H
Vital Signs:
Vital Signs
Temp Pulse Resp BP Pulse Ox
97.3 F 72 16 117/61 96
10/26/24 07:39 10/26/24 08:02 10/26/24 07:57 10/26/24 08:02 10/26/24 07:57
I&O
10/25/24 10/26/24 10/27/24
06:59 06:59 06:59
Intake Total 1430 / 1430 720 / 720
Output Total 1654 / 1654 2350 / 2350
Balance -224 / -224 -1630 / -1630
Physical Exam
-
General: No Apparent Distress
HEENT: Normocephalic, Atraumatic and Other (scleral icterus)
Respiratory: Negative Wheezes
Cardiac: Regular Rhythm and S1/S2
GI: Soft and Nontender
Genito-urinary: No Costovertebral Tender
Skin: Jaundice
Neuro: AO x 3
Psych: Calm
Data Reviewed
-
Total Time Spent with Patient (in minutes): 44
Labs: Labs Reviewed by me
[2024-10-26] MEDS: ProAmatine PO (12:37)
[2024-10-26] MEDS: FLOMAX 0.4 MG PO (19:44)
[2024-10-26] MEDS: SYMBICORT 80/4.5 MCG INHALER INH (20:19)
[2024-10-27] VITALS (8 sets, daily range): BP systolic 119–166; BP diastolic 60–85; PULSE 73; O2SAT 99; BMI 26.5
[2024-10-27] MEDS: ZOSYN IV ×2 (02:11→03:16)
--- NOTE | 2024-10-27 02:54 | DOWNTIME ---
There was a [employer] [facility] Downtime on 10/27/2024 from 0100 to 10/27/2023 at 0235 . Downtime documentation of patient's care, including medication administrations, has been reconciled in the electronic record per guidelines. Refer to the
patient's paper chart under the miscellaneous tab to see printed paper medication records and downtime forms.
[2024-10-27 06:04] LABS: Hematocrit 20.2 % (39.0-52.0); Hemoglobin 6.9 g/dL (13.0-18.0); Mean Corp Hgb Conc. 34.2 g/dL (33.0-37.0); Mean Corpuscular Hgb 32.5 pg (27.0-31.0); Mean Corpuscular Volume 95.3 fL (80.0-94.0); Mean Platelet Volume 12.1 fL (7.4-10.4); Platelet Count 159 10^3/uL (130-400); Red Blood Cell Count 2.12 10^6/uL (4.70-6.10); Red Cell Dist. Width 20.8 % (11.5-14.5); White Blood Cell Count 6.2 10^3/uL (4.8-10.8)
[2024-10-27 06:17] LABS: ALT (SGPT) 238 U/L (0-50); AST (SGOT) 143 U/L (17-59); Albumin 2.5 g/dl (3.5-5.0); Blood Urea Nitrogen 19 mg/dl (9-20); Carbon Dioxide 28 mmol/L (22-30); Chloride 103 mmol/L (98-107); Estimated Creatinine Clearance 80 ml/min; Glucose 94 mg/dl (70-99); Potassium 3.8 mmol/L (3.5-5.1); Sodium 135 mmol/L (135-145); Total Bilirubin 7.5 mg/dl (0.2-1.3); Total Protein 5.2 g/dl (6.3-8.2); eGFR > 60.00
[2024-10-27 06:27] LABS: Alkaline Phosphatase 1499 U/L (38-126)
[2024-10-27] MEDS: SPIRIVA RESPIMAT 2.5 MCG 2 PUFF INH (07:57)
[2024-10-27] MEDS: SYMBICORT 80/4.5 MCG INHALER 2 PUFF INH ×2 (07:57→20:38)
[2024-10-27] MEDS: ZOSYN 50 IV (08:50)
--- NOTE | 2024-10-27 09:11 | W.PN.GI.CBS2 ---
Today's Communication / Plan
-
Adv to low fat diet
LFTs downtrending
Agree with transfusion of 1u PRBC for delayed response to prior sphincterotomy bleeding
If hbg stable ok to resume eliquis tomorrow
GI will sign off please call for ?
Assessment / Plan
-
Tapan is a 79 yo M here with pmh stage IV esophageal Ca here with jaundice/abnormal LFTs found to have elevated bili, CBD stone/cholecystitis on MRI/MRCP underwent EUS/ERCP 10/21 with balloon extraction/sphincterotomy. Surgery who did CCY 10/22 no
IOC performed since ERCP done 10/21.
Impression
- Jaundice and elevated LFTs
ERCP 10/26 with post sphincterotomy bleeding s/p cautery and possible blood from cystic duct s/p stent into R hepatic duct
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
- Stage 4 esophageal cancer
- Osteoarthritis
- Afib
- CHF
- COPD
Recommendations
- Adv to low fat diet
- LFTs improved today significantly
- No abd pain post ERCP
- Agree with transfusion of 1u PRBC today (this is delayed response from prior sphinterotomy bleeding now cauterized)
- If hbg stable anticipate resumption of eliquis tomorrow 10/28
- Will FU with Dr Briones in 6 wks for stent management
GI will sign off please call for ?
Subjective
Subjective
Date of Service: October 27, 2024
He denies abd pain. No nausea/vomiting. Does not walk much due to OA.
Objective
Data Reviewed
Laboratory Data:
Laboratory Results
10/27/24 05:41
10/27/24 05:41
Laboratory Results
PT 15.9 Sec (11.4-14.6) H 10/20/24 08:24
INR 1.22 10/20/24 08:24
APTT 45.5 Sec (23.4-35.0) H 10/20/24 08:24
Total Bilirubin 7.5 mg/dl (0.2-1.3) H 10/27/24 05:41
AST 143 U/L (17-59) H 10/27/24 05:41
ALT 238 U/L (0-50) H 10/27/24 05:41
Alkaline Phosphatase 1499 U/L (38-126) H 10/27/24 05:41
Lipase 45 U/L (23-300) 10/22/24 07:54
Vital Signs and I&O:
Vital Signs
Temp Pulse Resp BP Pulse Ox
97.3 F 71 16 151/78 99
10/27/24 07:41 10/27/24 08:02 10/27/24 08:02 10/27/24 07:41 10/27/24 08:02
I&O
10/26/24 10/27/24 10/28/24
06:59 06:59 06:59
Intake Total 720 / 720 50 / 50
Output Total 2350 / 2350
Balance -1630 / -1630 50 / 50
Physical Exam
Physical Exam
GEN: No acute distress, conversant, pleasant
HEENT: ++icteric, extraocular movements intact, clear oropharynx without exudates, jaundiced
GI: soft, non-distended, well healed surgical scars not tender to palpation, normal active bowel sounds, no hepatosplenomegaly
EXT: warm, well perfused, no edema bilaterally prabhu urine in webb
NEURO: AAOx3, non-focal
[2024-10-27] MEDS: PROSCAR 5 MG PO (09:39)
[2024-10-27] MEDS: VITAMIN D3 (cholecalciferol) 50 MCG PO (09:39)
[2024-10-27] MEDS: TYLENOL 500 MG PO ×3 (09:39→21:02)
[2024-10-27] MEDS: PROTONIX 40 MG PO (09:39)
[2024-10-27] MEDS: FEOSOL 325 MG PO (09:40)
[2024-10-27] MEDS: COREG 3.125 MG PO (09:42)
[2024-10-27] MEDS: ZYLOPRIM 300 MG PO (09:43)
[2024-10-27] MEDS: ProAmatine 2.5 MG PO ×2 (09:45→15:43)
[2024-10-27] MEDS: DESENEX/MITRAZOL/ZEASORB 1 APPLIC TOPICAL ×2 (09:48→20:21)
--- NOTE | 2024-10-27 11:10 | CM ---
Addendum entered by Fanny Ruiz 10/27/24 14:10:
Pending updated PT/OT assessment prior to auth from [facility]. Please fax clinicals to [phone]/call for report [phone]. CM will continue to follow for discharge planning needs and complete transportation forms as well as provide IMM
form for to review.
Addendum entered by Fanny Ruiz 10/27/24 13:39:
Per [facility] bed available tomorrow. CM updated patient and reviewed IMM. Patient aware of need for PT/OT assessment yet. CM will continue to follow for discharge planning needs.
Plan; [facility]. patient will need ambulance for transport.
Original Note:
CM spoke with liaison at [facility]. Patient accepted for transfer when medically appropriate, updated clinicals sent to [facility] and CM spoke with liaison who indicated that beds would be available for tomorrow. CM will continue to follow for
discharge planning needs.
Plan; SNF; [facility] when medically appropriate
--- NOTE | 2024-10-27 11:47 | W.PN.HOSP.TC ---
Today's Communication/Plan
-
transfuse 1 unit PRBC; follow Hb
Resume Eliquis in 24 hours if Hb stable per GI
continue Abx per ID
Assessment / Plan
Assessment / Plan
Assessment:
Elevated LFTs, cholestatic pattern with elevated bilirubin, clinical jaundice
- MRI abdomen: There is layering biliary sludge and gallstones. The gallbladder is borderline distended measuring 5.0 cm with pericholecystic free fluid suspicious for cholecystitis. A HIDA scan may be considered for further evaluation. There is a 3
mm filling defect within the inferior aspect of the bile duct, consistent with a nonobstructing stone. There is no evidence of biliary duct dilation. The common bile duct measures 6 mm.
- s/p EUS/ERCP 10/21: s/p biliary sphincterotomy and balloon extraction of stone and sludge
- s/p lap carlos 10/22
- with ongoing high LFTs, MRCP on 10/24 concerning for signal occupying lumen of CBD, possibly hematoma vs thrombus.
- s/p repeat ERCP 10/26 with post sphincterotomy bleeding s/p cautery and possible blood from cystic duct s/p stent into R hepatic duct. Will need f/u Dr. Briones in 6 weeks
- continue Zosyn, day 7. GB culture from OR growing MSSA
- Diet: Low fat
- ID following
- GI signed off
- GS following peripherally
acute blood loss anemia (post sphincterotomy bleeding in bile duct) on top of Chronic anemia, known iron deficiency anemia
- anemia indices normal
- heme+ stool likely from known esophageal cancer and exacerbated by anticoagulation
- monitor Hb
- Hb 6.9 today; 1 unit PRBC ordered.
Intramuscular Hematoma - POA from 1 week prior
L Hip Pain, traumatic - POA from 1 week prior
- evaluated in hospital 1 week ago
- CT: showing 2.4x1.6x10 cm hematoma posterior to L psoas & 5.1x6.6x10 cm intramuscular hematoma of the L iliacus extending into the Iliopsoas muscle
- PT/OT and pain control
- follow Hb
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
- Last treatment October 06
Paroxysmal Atrial Fibrillation
? Hx of HFpEF Chronically
Essential HTN
- Eliquis on hold; resume 10/28 if Hb stable per GI.
- continue Coreg
- hold prn Lasix
Orthostatic Hypotension
- continue midodrine
COPD
- continue Trelegy
GERD
- continue Protonix
Gout
- continue allopurinol
Recurrent UTIs
- continue methenamine
BPH with hx of urinary retention
- continue alfuzosin/Flomax/finasteride
Chronic UTI
- on Hiprex
- urine culture here with ESBL; UA without Pyuria; not treating per ID
DVT ppx: SCDs
Code: DNR/DNI
Anticipated Discharge: 24 - 48 hours
Subjective/Interval History
-
Date of Service: October 27, 2024
s/p repeat ERCP yesterday with intervention on bile duct bleeding
Hb 6.9 today, 1 unit ordered
Objective Data
-
Labs:
Laboratory Results
10/27/24
05:41
WBC 6.2
Hgb 6.9 L*
Hct 20.2 L*
Plt Count 159
Sodium 135
Potassium 3.8
Chloride 103
Carbon Dioxide 28
BUN 19
Creatinine 0.8
Glucose 94
Calcium 8.0 L
Total Bilirubin 7.5 H
AST 143 H
ALT 238 H
Alkaline Phosphatase 1499 H
Vital Signs:
Vital Signs
Temp Pulse Resp BP Pulse Ox
97.7 F 70 14 166/81 99
10/27/24 11:20 10/27/24 11:20 10/27/24 11:20 10/27/24 11:20 10/27/24 08:02
I&O
10/26/24 10/27/24 10/28/24
06:59 06:59 06:59
Intake Total 720 / 720 50 / 50 0 / 0
Output Total 2350 / 2350
Balance -1630 / -1630 50 / 50 0 / 0
Physical Exam
-
General: No Apparent Distress
HEENT: Normocephalic, Atraumatic and Other (improving scleral icterus)
Respiratory: Clear to Auscultation; Negative Wheezes
Cardiac: Regular Rhythm and S1/S2
Genito-urinary: No Costovertebral Tender
Musculoskeletal: No Edema
Skin: Jaundice (decreased in 24 hours)
Neuro: AO x 3
Hematologic / Lymphatic: No Lymphadenopathy
Psych: Calm
Data Reviewed
-
Total Time Spent with Patient (in minutes): 42
Labs: Labs Reviewed by me
--- NOTE | 2024-10-27 12:28 | W.PN.ID1 ---
Date of Service
Date of Service: October 27, 2024
Today's Communication
Continue antibiotics. Transition to cephalexin. See below�
Assessment / Plan
Cholecystitis
- Gallbladder cx with S. aureus (MSSA)
Marked bilirubinemia
Bacteriuria with ESBL E. coli (urinalysis at that point with no pyuria)
Transaminitis
Anemia
Stage IV esophageal cancer
A-fib (on Eliquis)
CAD
Cancer
CHF
COPD
Hx CVA
HTN
Dyslipidemia
Hx paraspinal abscess
Gout
Recommendation:
Currently Zosyn (day #7)
Gallbladder cultures with MSSA.
Transition to oral cefazolin, to continue for another 5 to 7 days.
Trend LFTs and bilirubin
����������������������������������������������������������
Chief Complaint
-: Other (Acute cholecystitis)
Subjective / Review of Systems
Review of Systems: No Fever and No Chills
Vital Signs / Physical Exam
Vital Signs
Vital Signs
Temp Pulse Resp BP Pulse Ox
97.7 F 70 14 166/81 99
10/27/24 11:20 10/27/24 11:20 10/27/24 11:20 10/27/24 11:20 10/27/24 08:02
Physical Exam
Constitutional: No Acute Distress, Comfortable and Non-toxic
Eyes: Other (Scleral icterus)
Cardiovascular: Regular Rate
Pulmonary: Clear, Symmetric and Non Labored; Negative Wheezes or Rales
Gastrointestinal: Soft, Non Tender and Non Distended
Skin: Warm, Dry and Jaundice
Neurological: Awake and Alert
Psychological: Calm
Objective Data
Lab Data
Lab Results
10/27/24 05:41
10/27/24 05:41
PT 15.9 Sec (11.4-14.6) H 10/20/24 08:24
INR 1.22 10/20/24 08:24
APTT 45.5 Sec (23.4-35.0) H 10/20/24 08:24
Estimated Creat Clear 80 ml/min 10/27/24 05:41
Total Bilirubin 7.5 mg/dl (0.2-1.3) H 10/27/24 05:41
AST 143 U/L (17-59) H 10/27/24 05:41
ALT 238 U/L (0-50) H 10/27/24 05:41
Alkaline Phosphatase 1499 U/L (38-126) H 10/27/24 05:41
Most recent labs reviewed.
Micro Results:
10/22/24 10:25 Wound Culture - Final
Gallbladder S aureus-Methicillin Sensitive
Gram Stain - Final
10/22/24 10:25 Anaerobic Culture - Final
Gallbladder NO ANAEROBES ISOLATED
10/20/24 12:13 Urine Culture - Final
Urine Escherichia coli - ESBL
df
Wound/abscess/other Cult Preliminary 10/24/24-1158
Few S aureus-Methicillin Sensitive
1. S aureus-Methicillin Sensitive
M.I.C. RX
--------- ---
Amoxicillin/Potas. Clavulanate <=4/2 S
Ampicillin <=2 R
Clindamycin <=0.5 S
Gentamicin <=4 S
Erythromycin >4 R
Levofloxacin <=1 S
Oxacillin 0.5 S
Tetracycline <=4 S
Trimethoprim/Sulfamethoxazole <=0.5/9.5 S
Vancomycin 2 S
Imaging:
08/09/2025 MRI abdomen with and without contrast: There is layering biliary sludge and gallstones. The gallbladder is borderline distended measuring 5.0 cm with pericholecystic free fluid suspicious for cholecystitis. A HIDA scan may be considered
for further evaluation. There is a 3 mm filling defect within the inferior aspect of the bile duct, consistent with a nonobstructing stone. There is no evidence of biliary duct dilation. The common bile duct measures 6 mm. Hepatomegaly. Small
right and trace left pleural effusions with adjacent atelectasis. There is a 1.2 cm focus of enhancement adjacent to the right 12th rib, possible metastatic focus in the setting of known esophageal cancer.
Care Review
Plan reviewed with: Physician (Hospitalist)
[2024-10-27] MEDS: ProAmatine PO (12:34)
[2024-10-27] MEDS: KEFLEX 500 MG PO ×3 (12:41→21:02)
--- NOTE | 2024-10-27 14:18 | PTCARENOTE ---
1 unit PRBC transfused w/o incident. VSS.
[2024-10-27] MEDS: NSS 1000 IV (14:47)
[2024-10-27] MEDS: FLOMAX 0.4 MG PO (20:17)
[2024-10-27] MEDS: COREG PO (20:28)
[2024-10-28 04:04] LABS: COVID-19 Antigen Negative (Negative)
[2024-10-28 06:00] VITALS: BMI 26.0
[2024-10-28 06:25] LABS: Hemoglobin 7.9 g/dL (13.0-18.0); Mean Corp Hgb Conc. 34.3 g/dL (33.0-37.0); Mean Corpuscular Hgb 32.8 pg (27.0-31.0); Mean Corpuscular Volume 95.4 fL (80.0-94.0); Mean Platelet Volume 12.3 fL (7.4-10.4); Platelet Count 175 10^3/uL (130-400); Red Blood Cell Count 2.41 10^6/uL (4.70-6.10); Red Cell Dist. Width 20.9 % (11.5-14.5); White Blood Cell Count 5.3 10^3/uL (4.8-10.8)
[2024-10-28 06:42] LABS: ALT (SGPT) 182 U/L (0-50); AST (SGOT) 83 U/L (17-59); Albumin 2.8 g/dl (3.5-5.0); Blood Urea Nitrogen 15 mg/dl (9-20); Calcium 8.1 mg/dl (8.4-10.2); Carbon Dioxide 28 mmol/L (22-30); Chloride 103 mmol/L (98-107); Estimated Creatinine Clearance 106 ml/min; Glucose 95 mg/dl (70-99); Potassium 3.8 mmol/L (3.5-5.1); Sodium 136 mmol/L (135-145); Total Bilirubin 5.4 mg/dl (0.2-1.3); Total Protein 5.5 g/dl (6.3-8.2); eGFR > 60.00
[2024-10-28 06:52] LABS: Alkaline Phosphatase 1313 U/L (38-126)
[2024-10-28 07:12] VITALS: BP 158/75
[2024-10-28] MEDS: SPIRIVA RESPIMAT 2.5 MCG 2 PUFF INH (07:57)
[2024-10-28] MEDS: SYMBICORT 80/4.5 MCG INHALER 2 PUFF INH (07:58)
[2024-10-28] MEDS: FEOSOL 325 MG PO (08:44)
[2024-10-28] MEDS: VITAMIN D3 (cholecalciferol) 50 MCG PO (08:44)
[2024-10-28] MEDS: PROSCAR 5 MG PO (08:44)
[2024-10-28] MEDS: PROTONIX 40 MG PO (08:44)
[2024-10-28] MEDS: ZYLOPRIM 300 MG PO (08:44)
[2024-10-28] MEDS: ProAmatine 2.5 MG PO ×2 (08:44→12:07)
[2024-10-28] MEDS: COREG 3.125 MG PO (08:44)
[2024-10-28] MEDS: DESENEX/MITRAZOL/ZEASORB 1 APPLIC TOPICAL (08:45)
[2024-10-28] MEDS: TYLENOL 500 MG PO (08:45)
[2024-10-28] MEDS: KEFLEX 500 MG PO ×2 (08:45→12:07)
--- NOTE | 2024-10-28 10:15 | W.PN.HOSP.TC ---
Today's Communication/Plan
-
monitor vitals
see plan
dc on PO abx
restart eliquis
discussed with spouse at bedside
time of discharge 37 minutes
Assessment / Plan
Assessment / Plan
Assessment:
Elevated LFTs, cholestatic pattern with elevated bilirubin, clinical jaundice
- MRI abdomen: There is layering biliary sludge and gallstones. The gallbladder is borderline distended measuring 5.0 cm with pericholecystic free fluid suspicious for cholecystitis. A HIDA scan may be considered for further evaluation. There is a 3
mm filling defect within the inferior aspect of the bile duct, consistent with a nonobstructing stone. There is no evidence of biliary duct dilation. The common bile duct measures 6 mm.
- s/p EUS/ERCP 10/21: s/p biliary sphincterotomy and balloon extraction of stone and sludge
- s/p lap carlos 10/22
- with ongoing high LFTs, MRCP on 10/24 concerning for signal occupying lumen of CBD, possibly hematoma vs thrombus.
- s/p repeat ERCP 10/26 with post sphincterotomy bleeding s/p cautery and possible blood from cystic duct s/p stent into R hepatic duct. Will need f/u Dr. Briones in 6 weeks
- now on PO abx. last day 11/02. GB culture from OR growing MSSA
- Diet: Low fat
- ID following
- GI signed off
- GS following peripherally
acute blood loss anemia (post sphincterotomy bleeding in bile duct) on top of Chronic anemia, known iron deficiency anemia
- anemia indices normal
- heme+ stool likely from known esophageal cancer and exacerbated by anticoagulation
- monitor Hb
- s/p 1 unit prbc 10/27; no bleeding; hgb now 7.9
dc today
Intramuscular Hematoma - POA from 1 week prior
L Hip Pain, traumatic - POA from 1 week prior
- evaluated in hospital 1 week ago
- CT: showing 2.4x1.6x10 cm hematoma posterior to L psoas & 5.1x6.6x10 cm intramuscular hematoma of the L iliacus extending into the Iliopsoas muscle
- PT/OT and pain control
- follow Hb
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
- Last treatment October 06
Paroxysmal Atrial Fibrillation
? Hx of HFpEF Chronically
Essential HTN
-restart eliquis
- continue Coreg
- hold prn Lasix
Orthostatic Hypotension
- continue midodrine
COPD
- continue Trelegy
GERD
- continue Protonix
Gout
- continue allopurinol
Recurrent UTIs
- continue methenamine
BPH with hx of urinary retention
- continue alfuzosin/Flomax/finasteride
Chronic UTI
- on Hiprex
- urine culture here with ESBL; UA without Pyuria; not treating per ID
DVT ppx: SCDs
Code: DNR/DNI
General: No Apparent Distress
HEENT: Normocephalic, Atraumatic and Other (improving scleral icterus)
Respiratory: Clear to Auscultation; Negative Wheezes
Cardiac: Regular Rhythm and S1/S2
Genito-urinary: No Costovertebral Tender
Musculoskeletal: No Edema
Skin: Jaundice (decreased in 24 hours)
Neuro: AO x 3
Psych: Calm
Anticipated Discharge: Today
Subjective/Interval History
-
Date of Service: October 28, 2024
denies nausea
Objective Data
-
Labs:
Laboratory Results
10/28/24
05:23
WBC 5.3
Hgb 7.9 L
Hct 23.0 L
Plt Count 175
Sodium 136
Potassium 3.8
Chloride 103
Carbon Dioxide 28
BUN 15
Creatinine 0.6 L
Glucose 95
Calcium 8.1 L
Total Bilirubin 5.4 H
AST 83 H
ALT 182 H
Alkaline Phosphatase 1313 H
Vital Signs:
Vital Signs
Temp Pulse Resp BP Pulse Ox
98.4 F 72 16 158/75 95
10/28/24 07:12 10/28/24 08:44 10/28/24 08:04 10/28/24 08:44 10/28/24 08:04
I&O
10/27/24 10/28/24 10/29/24
06:59 06:59 06:59
Intake Total 50 50 1690 / 1690
Output Total 2810 / 2810
Balance 50 50 -1120 / -1120
--- NOTE | 2024-10-28 10:18 | W.DCSUMMARY ---
Discharge Summary
Discharge Data
Date of Admission: 10/20/24
Date of Discharge: 10/28/24
-
Pending Results: No
Hospital Course
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
and choledochal lithiasis. Patient underwent EUS/ERCP with biliary sphincterectomy and balloon extraction of the stone and sludge. Patient later went for laparoscopic cholecystectomy. Patient also had ongoing high LFTs so MRCP was done which
showed possible hematoma versus thrombus. Patient underwent repeat ERCP on 10/26 which showed postsphincterotomy bleeding status post cauterization. Patient instructed to follow-up with Dr. Briones outpatient. Initially patient was started on IV
antibiotics were later transitioned to p.o. antibiotics to complete the course upon discharge. On this hospitalization patient also had acute blood loss anemia and required blood transfusion. Prior to discharge patient hemoglobin was 7.9 and was
instructed to repeat hemoglobin at rehab. Patient was also evaluated by physical therapy recommended SNF. Once his symptoms continue to improve and he was able to tolerate diet, he was then discharged to rehab with instructions to follow-up with
all his physicians outpatient.
Discharge Plan
-
Patient Disposition: Senior Living/SNF
Discharge Diagnosis/Procedures: Elevated LFTs, Cholecystitis with choledocholithiasis s/p ERCP 10/21, lap carlos 10/22
Acute blood loss anemia
Intramuscular hematoma
Paroxysmal Atrial fibrillation
Condition: Fair
Diet: Low Fat
Activity: As tolerated
Driving Restrictions: As prior to admission
Bathing Restrictions: None
Blood Work: cbc and cmp at SNF
Activity Restrictions/Additional Instructions:
Instructions following Laparoscopic Cholecystectomy
Please call [phone] if you have any questions or concerns after your surgery.
Wound Care:
Your incisions are covered with skin glue which will come off on its own in 5-10 days.
It is ok to shower the day after your surgery. Do not scrub the incisions, let soap and water wash over them and pat dry.
� Bruising around your incisions is normal.
� Using ice packs will help minimize this swelling.
� No swimming or soaking incisions for 1 week.
� Your stitches will dissolve and do not need to be removed.
Urinary retention:
If you are unable to urinate 6-8 hours after your surgery, please call [phone] to discuss further management.
Activity:
No heavy lifting more than 15 pounds for the next 3 weeks, then you may gradually lift heavier objects as tolerated by discomfort. Otherwise activity as tolerated by your comfort level.
Pain Management:
Use Tylenol, ibuprofen and ice packs to treat your pain.
� You may take 650 milligrams of Tylenol (Max 3 grams per day) every 6 hours, and 600 mg of ibuprofen also every 6 hours. (you can alternate them every 3 hours)
� You may use an ice pack to your incision as needed.
� If you still have pain not controlled by these measures, take your prescription pain medication as prescribed.
Medications:
You may resume your home medications.
You may restart your Eliquis on 10/25/2024 at your normal dose and time.
Bowel Medications:
Prescription pain medication can make you constipated. If you take this medication, also take colace 100 mg twice daily (this is over the counter). If this is not sufficient, you may take Miralax (polyethylene glycol) to help move your bowels.
Diet:
After your procedure, there are no dietary restrictions. However, you may notice some loose stools with fatty meals for up to 4 weeks after surgery. If this is the case, please adjust to a low fat diet as needed.
Driving restrictions:
No driving if you are taking prescription pain medication or if you think your normal reaction time and attentiveness has been slowed by your surgery.
Things to Look out for:
Worsening Abdominal pain, fever, jaundice, redness or drainage from incision
Call Doctor for:
Please call if you notice worsening redness or drainage from incision(s) lasting longer than 5 days after your surgery, any foul-smelling drainage from the incision, pain not controlled by pain medications, persistent nausea and vomiting, or for any
fevers greater than 101.3 F. The number for questions/concerns is [phone]
Follow-up:
A follow-up appointment will be scheduled with your surgeon in 3-4 weeks. Please call prior to your appointment if you have any questions or concerns. [phone]
LAST DAY ANTIBIOTICS 11/02/24
Referrals:
Alejandro Briones MD [Active] - 12/06/24 7:30 am (follow up with Dr. Briones as scheduled )
Eliot Wilson MD [Active] -
Marlen Jarrell MD [Family Provider] - in less than 1 week
Prescriptions:
New
miconazole nitrate [Miconazorb AF] 2 % Powder
1 applic topical BID Qty: 0 0RF
cephalexin 500 mg Capsule
500 mg PO QID Qty: 0 0RF
Continued
allopurinol 300 MG tablet
300 mg PO DAILY
cyanocobalamin (vitamin B-12) 1,000 MCG tablet
1,000 mcg PO DAILY
multivitamin with folic acid [Tab-A-Estrella] 1 TABLET tablet
1 tab PO DAILY
pantoprazole 40 MG tablet,delayed release (DR/EC)
40 mg PO DAILY Qty: 30 0RF
furosemide 20 MG tablet
20 mg PO DAILYPRN PRN (Reason: swelling)
carvedilol [Coreg] 3.125 mg Tablet
3.125 mg PO BID
midodrine 2.5 mg Tablet
2.5 mg PO TID
Patient Comments:
used for orthostatic hypotension
finasteride 5 mg Tablet
5 mg PO DAILY
alfuzosin 10 mg Tablet Extended Release 24 Hr
10 mg PO DAILY@1999
Eliquis 5 MG tablet
5 mg PO BID
polyethylene glycol 3350 [Miralax] 17 gram Powder In Packet
17 g PO DAILYPRN PRN (Reason: constipation)
ferrous sulfate 325 mg (65 mg iron) Tablet
325 mg PO DAILY
docusate sodium [Colace] 100 mg Capsule
100 mg PO DAILYPRN PRN (Reason: constipation )
Trelegy Ellipta 100-62.5-25 mcg Blister With Device
1 inh INHALATION R DAILY
cholecalciferol (vitamin D3) 50 mcg (2,000 unit) Tablet
50 mcg PO DAILY
oxycodone 5 mg Tablet
2.5 mg PO BIDPRN PRN (Reason: severe pains) Qty: 6 0RF
Changed
acetaminophen 500 mg Tablet
500 mg PO TID Qty: 0 0RF
Held
methenamine hippurate 1 gram Tablet
1 g PO DAILY
Hold Instructions: restart when done with antibiotic
Discharge Orders:
Discharge Patient (As Directed); Ordered 10/28/24
Ordered By: Tariq Fernandez
Discharge Date and Time
Discharge Date/Time: 10/28/24 13:27
Print Language: MALAWIAN
[2024-10-28 12:06] VITALS: BP 119/64
== END 2024-10-28 13:27 | DRG 418 ==
LOC: 3 WEST ACU 15:03
PROVIDERS: Internal Medicine; Internal Medicine Gastroenterology; Physician Assistant Medical; Radiology Diagnostic Radiology; ADMITTING PHYSICIAN Hospitalist; ATTENDING PHYSICIAN Internal Medicine; CONSULT PHYSICIAN Internal Medicine Gastroenterology; CONSULT PHYSICIAN Internal Medicine Infectious Disease; EMERGENCY PHYSICIAN Student in an Organized Health Care Education/Training Program; FAMILY PHYSICIAN Internal Medicine Geriatric Medicine; OTHER PHYSICIAN Surgery
PROC: 0FC98ZZ Extirpation of Matter from Common Bile Duct, Via Natural or Artificial Opening Endoscopic (ICD-10-PCS; 2024-10-21)
PROC: 0DB48ZX Excision of Esophagogastric Junction, Via Natural or Artificial Opening Endoscopic, Diagnostic (ICD-10-PCS; 2024-10-21)
PROC: 0DJ08ZZ Inspection of Upper Intestinal Tract, Via Natural or Artificial Opening Endoscopic (ICD-10-PCS; 2024-10-21)
PROC: BF101ZZ Fluoroscopy of Bile Ducts using Low Osmolar Contrast (ICD-10-PCS; 2024-10-21)
PROC: 0W3P8ZZ Control Bleeding in Gastrointestinal Tract, Via Natural or Artificial Opening Endoscopic (ICD-10-PCS; 2024-10-26)
PROC: 0F798DZ Dilation of Common Bile Duct with Intraluminal Device, Via Natural or Artificial Opening Endoscopic (ICD-10-PCS; 2024-10-26)
PROC: 30243N1 Transfusion of Nonautologous Red Blood Cells into Central Vein, Percutaneous Approach (ICD-10-PCS; 2024-10-27)
PROC: 0FT44ZZ Resection of Gallbladder, Percutaneous Endoscopic Approach (ICD-10-PCS; 2024-10-27)
DX: K80.62 Calculus of gallbladder and bile duct with acute cholecystitis without obstruction (principal); C15.9 Malignant neoplasm of esophagus, unspecified; C78.7 Secondary malignant neoplasm of liver and intrahepatic bile duct; C78.00 Secondary malignant neoplasm of unspecified lung; I50.32 Chronic diastolic (congestive) heart failure; Z16.12 Extended spectrum beta lactamase (ESBL) resistance; D62 Acute posthemorrhagic anemia; K91.840 Postprocedural hemorrhage of a digestive system organ or structure following a digestive system procedure; I48.0 Paroxysmal atrial fibrillation; I95.1 Orthostatic hypotension; I11.0 Hypertensive heart disease with heart failure; E89.0 Postprocedural hypothyroidism; J44.89 Other specified chronic obstructive pulmonary disease; N28.1 Cyst of kidney, acquired; I25.10 Atherosclerotic heart disease of native coronary artery without angina pectoris; I71.21 Aneurysm of the ascending aorta, without rupture; N20.0 Calculus of kidney; K57.30 Diverticulosis of large intestine without perforation or abscess without bleeding; K44.9 Diaphragmatic hernia without obstruction or gangrene; M10.9 Gout, unspecified; K21.9 Gastro-esophageal reflux disease without esophagitis; N40.1 Benign prostatic hyperplasia with lower urinary tract symptoms; K74.60 Unspecified cirrhosis of liver; K70.9 Alcoholic liver disease, unspecified; R33.9 Retention of urine, unspecified; E78.00 Pure hypercholesterolemia, unspecified; M19.90 Unspecified osteoarthritis, unspecified site; K86.9 Disease of pancreas, unspecified; R82.71 Bacteriuria; B96.20 Unspecified Escherichia coli [E. coli] as the cause of diseases classified elsewhere; K22.89 Other specified disease of esophagus; K31.89 Other diseases of stomach and duodenum; D50.9 Iron deficiency anemia, unspecified; Y83.8 Other surgical procedures as the cause of abnormal reaction of the patient, or of later complication, without mention of misadventure at the time of the procedure; Y92.239 Unspecified place in hospital as the place of occurrence of the external cause; S70.02XA Contusion of left hip, initial encounter; X58.XXXA Exposure to other specified factors, initial encounter; Y93.9 Activity, unspecified; Y92.9 Unspecified place or not applicable; Z66 Do not resuscitate; Z92.21 Personal history of antineoplastic chemotherapy; Z87.891 Personal history of nicotine dependence; Z98.1 Arthrodesis status; Z87.440 Personal history of urinary (tract) infections; Z80.0 Family history of malignant neoplasm of digestive organs; Z80.7 Family history of other malignant neoplasms of lymphoid, hematopoietic and related tissues; Z79.01 Long term (current) use of anticoagulants; Z11.52 Encounter for screening for COVID-19; Z86.73 Personal history of transient ischemic attack (TIA), and cerebral infarction without residual deficits; Z92.3 Personal history of irradiation
CPT/HCPCS: 88304; 88305; 74181; 74183; 74330; 76000; 76700; 80053; 80143; 81003; 81015; 82140; 82248; 82607; 82728; 82746; 83010; 83540; 83550; 83615; 83690; 85025; 85027; 85045; 85610; 85730; 86850; 86880; 86900; 86901; 86920; 87070; 87075; 87077; 87086; 87147; 87186; 87205; 87811; 94640; 97163; 97167; 97530; 97535; 99284; A9575; C1769; C2617; P9016

== ENCOUNTER → 2024-11-20 08:07 | Outpatient (REF) | payer OTHER, SELFPAY | LOC: RCS 08:07 | PROVIDERS: ATTENDING PHYSICIAN Internal Medicine Hematology & Oncology; FAMILY PHYSICIAN Internal Medicine Geriatric Medicine | DX: D46.9 Myelodysplastic syndrome, unspecified (principal); C15.5 Malignant neoplasm of lower third of esophagus; C78.00 Secondary malignant neoplasm of unspecified lung; D50.9 Iron deficiency anemia, unspecified | CPT/HCPCS: 93306 ==

== ENCOUNTER → 2024-11-29 07:04 | Outpatient (REF) | payer OTHER, SELFPAY | LOC: RAD 07:04 | PROVIDERS: ATTENDING PHYSICIAN Nurse Practitioner Primary Care; FAMILY PHYSICIAN Internal Medicine Geriatric Medicine; OTHER PHYSICIAN Internal Medicine Hematology & Oncology | DX: D46.9 Myelodysplastic syndrome, unspecified (principal); C15.5 Malignant neoplasm of lower third of esophagus; C78.7 Secondary malignant neoplasm of liver and intrahepatic bile duct; C78.00 Secondary malignant neoplasm of unspecified lung; D50.9 Iron deficiency anemia, unspecified | CPT/HCPCS: 71260; 74177; Q9967 ==

== ENCOUNTER 2024-12-14 06:31 | Day surgery (SDC) | payer OTHER, SELFPAY ==
[2024-12-14 08:38] VITALS: BMI 26.2
[2024-12-14 08:39] VITALS: BMI 26.2
[2024-12-14 08:44] VITALS: BP 173/87
[2024-12-14 09:55] VITALS: BP 116/70
[2024-12-14 10:01] VITALS: BP 157/78
[2024-12-14 10:15] VITALS: BP 157/73
== END 2024-12-14 10:45 | disposition home or self-care (01) ==
LOC: SDS 06:31
PROVIDERS: ATTENDING PHYSICIAN Internal Medicine Gastroenterology
DX: K22.89 Other specified disease of esophagus (principal); Z46.59 Encounter for fitting and adjustment of other gastrointestinal appliance and device; K31.89 Other diseases of stomach and duodenum; Z79.01 Long term (current) use of anticoagulants
CPT/HCPCS: 43247

== ENCOUNTER → 2025-03-14 09:03 | Outpatient (REF) | payer MEDICARE, SELFPAY | LOC: RAD 09:03 | PROVIDERS: ATTENDING PHYSICIAN Internal Medicine Hematology & Oncology; FAMILY PHYSICIAN Internal Medicine Geriatric Medicine | DX: D46.9 Myelodysplastic syndrome, unspecified (principal); C15.5 Malignant neoplasm of lower third of esophagus; C78.7 Secondary malignant neoplasm of liver and intrahepatic bile duct; C78.00 Secondary malignant neoplasm of unspecified lung; D50.9 Iron deficiency anemia, unspecified | CPT/HCPCS: 71260; 74177; Q9967 ==

== ENCOUNTER → 2025-03-21 09:52 | Outpatient (REF) | payer MEDICARE, SELFPAY | LOC: RCS 09:52 | PROVIDERS: ATTENDING PHYSICIAN Internal Medicine Hematology & Oncology; FAMILY PHYSICIAN Internal Medicine Geriatric Medicine | DX: D46.9 Myelodysplastic syndrome, unspecified (principal); C15.5 Malignant neoplasm of lower third of esophagus; C78.7 Secondary malignant neoplasm of liver and intrahepatic bile duct; C78.00 Secondary malignant neoplasm of unspecified lung; D50.9 Iron deficiency anemia, unspecified | CPT/HCPCS: 93306 ==

== ENCOUNTER 2025-04-03 23:11 | Inpatient (IN) | payer OTHER, SELFPAY ==
[2025-04-03 20:18] VITALS: BP 130/82
[2025-04-03 20:37] LABS: Hematocrit 35.1 % (39.0-52.0); Hemoglobin 11.8 g/dL (13.0-18.0); Mean Corp Hgb Conc. 33.6 g/dL (33.0-37.0); Mean Corpuscular Volume 105.1 fL (80.0-94.0); Red Cell Dist. Width 16.5 % (11.5-14.5)
--- NOTE | 2025-04-03 20:37 | ED.GENMED ---
History of Present Illness
General
Chief Complaint: Heart Rate Problem
Source: patient
Time Seen by Provider: 04/03/25 20:25
History of Present Illness
History of Present Illness:
This patient is a 79-year-old male is currently being treated for metastatic esophageal/lung cancer who presents emergency department with a 3-day history of dyspnea. He denies associated fever chills, sore throat, rhinorrhea but he does note a
recent cough that is productive but without hemoptysis. He denies orthopnea, chest pain or pressure, palpitations, abdominal pain, nausea, vomiting. He is unaware if he has worsening or new leg swelling. Patient denies other complaints.
Past History
Past History
ED Past Medical History: Arrthythmia (atrial fibrillation), CAD, Cancer, CHF, COPD, CVA, HTN, Hypercholesterolemia, Other (streptococcal sepsis, paraspinal abscess), Other (GI bleed s/p polypectomy 2017 s/p embolization of ileocecal branch of SMA)
and Other (gout)
ED Past Surgical History: Orthopedic (C7 cadaveric implant, laminectomy anterior approach) and Other (Parathyroid adenoma resection); Negative Cardiac
Social History
Tobacco: Former smoker
Alcohol: Occasional
Drug: None
Personal:
Living: with family
Employment: Retired
Family History
Family History: CAD and Cancer; Negative Diabetes, Hypertension or Asthma
Phy Exam
Physical Exam
Physical Exam:
GENERAL: Alert , in no apparent distress, watching TV, cachectic
EYE: pupils equal and reactive, conjunctiva pink
NECK: Supple, no significant adenopathy.
ENT: o/p clr, mm slightly dry
CARDIAC: Irregularly irregular, tachycardic
LUNGS: Clear breath sounds bilaterally, no acute respiratory distress, no stridor, very very slight wheezing noted, no rales or rhonchi, no obvious cough
ABDOMEN: Soft, without focal tenderness, no r/g, no cvat
NEUROLOGICAL: Alert and oriented, no focal neuro deficits
SKIN: Warm and dry, skin intact.
MUSCULOSKELETAL: 2+ bilateral lower edema, well perfused.
PSYCH: Normal and appropriate interaction.
Course
Orders/Labs/Results
Orders:
Orders
04/03/25 20:15
Electrocardiogram (*1) Urgent
Reason for Study: Chest Pain
Cardiac Monitoring- Treatment ONCE
EKG- Treatment ONCE
IV Insert/Care/Rem.- Treatment PRN
O2 Therapy [RESP] Urgent
Titrate/Wean O2 to maintain O2 sat greater than (%): 90
Special Instructions: Maintain sats >/=90%
Pulse Ox/spot Check [RESP] Urgent
Quantity: 1
Special Instructions: ON ROOM AIR
04/03/25 20:24
Complete Blood Count/With Diff Urgent
Comprehensive Metabolic Panel Urgent
NT-proBNP Urgent
Comment: ADDON
Troponin I Urgent
04/03/25 20:36
CR Chest - 2 Views Urgent
Comment:
Reason For Exam: cough, hx lung ca
Pulse Ox/cont/shift [RESP] Urgent
Quantity: 1
04/03/25 20:39
Add On- LAB Urgent
Tests Added?: pro BNP
04/03/25 20:45
COVID-19 Antigen Urgent
Source: Nasal Swab
Urinalysis Reflex To Culture Urgent
Date Specimen was Collected: 04/03/25
Time Specimen was Collected: 20:39
Urine Microscopic Reflex Cult Urgent
Influenza A+B Rapid Molecular Urgent
EVARSITO Source: Nasal Swab
Specimen Description:
Urine Culture Urgent
EVARISTO Source: U
Specimen Description:
Date Specimen was Collected: 04/03/25
Time Specimen was Collected: 20:39
04/03/25 22:00
Diltiazem HCl [Cardizem] 10 mg IV NOW STA
04/03/25 22:42
Admit/Transfer Patient As Directed
Co-Sign Provider:
Level of Care: Inpatient admission
Assign to:: IVU
Physician / Group: yudith
Diagnosis: afib rvr
Reason for Hospitalization: afib rvr
Expected length of stay greater than two midnights?: Yes
ELOS- Estimated Length of Stay in days: 2
I certify the patient meets the requirements for IP care: Yes
04/03/25 22:43
Code Status As Directed
Resuscitation Status: Do not resuscitate
Reached after discussion with pt or family/Healthcare POA: Yes
DNR Bracelet Application ONCE
PRN Pain Medication Management As Directed
May give lesser potent ordered pain med per pt: Yes
preference::
Protocol:: Medication orders for pain may be administered in a
manner that supports deferring to patient preference
when the pt is:
- Requesting an ordered lesser potent pain medication.
Least to most potent pain medications are defined
as: acetaminophen < NSAID < tramadol < opioids
(morphine, oxycodone, hydromorphone).
- Requesting a lesser dose of the same medication IF
ORDERED.
- Requesting a less intrusive route of administration
if both routes are prescribed by the provider (PO <
IV).
04/04/25 00:45
CARDIOLOGY CONSULT Routine
Consulting Provider: Willis Cross
Was physician already notified: No
Reason for consult: symptomatic afib
Consult Notification Routine
Specialty to Notify: Cardiology
Date consulting provider notified: 04/04/25
Time consulting provider notified: 07:46
Notified:: Provider
VTE Contraindication Routine
VTE Mechanical Device Contraindication: Medical Contraindication
Pharmocologic Contraindication: Medical Contraindication
Activity As Directed
Activity Level: As Tolerated
Vital Signs As Directed
Frequency: Per unit guidelines
04/04/25 02:49
Complete Blood Count/With Diff IN AM
Comprehensive Metabolic Panel IN AM
Troponin I Q6H
04/04/25 Breakfast
Cholesterol Lowering
At Your Request: Full Participation
Cholesterol Lowering: Sodium, 2 Gram
Abnormal Lab Results
04/03/25 04/03/25
20:24 20:45
RBC 3.34 L 10^6/uL
(4.70-6.10)
Hgb 11.8 L g/dL
(13.0-18.0)
Hct 35.1 L %
(39.0-52.0)
MCV 105.1 H fL
(80.0-94.0)
MCH 35.3 H pg
(27.0-31.0)
RDW 16.5 H %
(11.5-14.5)
Plt Count 52 L 10^3/uL
(130-400)
MPV 12.1 H fL
(7.4-10.4)
Chloride 109 H mmol/L
(98-107)
BUN 32 H mg/dl
(9-20)
Glucose 100 H mg/dl
(70-99)
Total Bilirubin 2.7 H mg/dl
(0.2-1.3)
Troponin I 0.071 H* ng/ml
Ur Occult Blood Reflex 4+ A
(Negative)
Leukocyte Esterase Rfl 1+ A
(Negative)
Urine RBC 60-70 A /HPF
(0-2)
Urine Bacteria (Reflex) Few A
(Negative)
Urine Albumin (Reflex) 3+ A
(Neg - Trace)
04/03/25 20:24
04/03/25 20:24
Vital Signs
Initial and Last Documented VS:
Initial Vital Signs
Pulse Resp
110 26
04/03/25 20:17 04/03/25 20:17
Last Documented Vital Signs
Temp Pulse Resp BP Pulse Ox
97.5 F 90 18 106/65 95
04/05/25 11:25 04/05/25 11:25 04/05/25 11:25 04/05/25 07:36 04/05/25 11:25
*Pulse Oximetry
SaO2: 98
Oxygen Mode of Delivery: Room air
Patient hypoxic: no
*Critical Care Note
Total Time (30-74mins, 75-104mins- exclusive of procedures): Not Applicable
Update Note
Update Note:
Patient presents to the Emergency Department with _dyspnea
Number and Complexity of Problems Addressed at the Encounter
� Chronic conditions affecting care:
� Acute Exacerbation and/or Progression of Chronic Illness:
� Differential Diagnosis includes: But not limited to pneumonia, bronchitis, heart failure, PE, ACS, pleurisy, effusion, etc. etc.
Amount and/or Complexity of Data to be Reviewed and Analyzed
� I performed an independent evaluation of and my interpretation is:
EKG: Read by me, atrial fibrillation with RVR, LAD, no acute ischemia noted
CT:
Xrays: Read by me NAD
Laboratory Studies: Anemia noted but improved from prior, new thrombocytopenia, nonspecific BUN elevation, troponin elevated at 0.071
Other:
� Review of other/old records reveals:
� Clinical information was obtained by an independent historian:/son
� Prescriptions/Medications Considered but not given:
� Further testing considered but not performed: Consideration for workup for PE however patient is fully anticoagulated making this diagnosis far less likely.
Risk of Complications and/or Morbidity or Mortality of Patient Management
� Social determinants of health affecting care:
� Discussion with other providers (PCP, Hospitalists, Consultants, etc):
� Escalation of care including admission/observation vs risk of discharge considered: Patient denies chest pain, and there is no signs of acute infarct on ECG however troponin elevation noted. His dyspnea may be an anginal
equivalent, but given lack of chest pain or STEMI on ECG he is not a candidate for immediate intervention/catheterization tonight. I am intentionally cautious about giving patient aspirin given his thrombocytopenia, weighing risks and benefits will
withhold now with careful consideration while hospitalized.
now at bedside she states that patient only mentions shortness of breath earlier today describes just not feeling right as well as having trouble catching his breath. No new symptoms or observations noted by her. Discussed with all of them
findings today including troponin elevation which could represent an anginal equivalent. In addition, he has a rapid ventricular rate with his associated chronic A-fib, dose of Cardizem ordered. Will discuss with hospitalist for admission
ED Attending Note
-
Portions of this chart may have been created with voice recognition software.� Occasional wrong word or��sound alike� substitutions may have occurred due to the inherent limitations of voice recognition software.
Discharge Plan
Departure
Patient Disposition: Admit
Date of Disposition: 04/03/25
Time of Disposition: 22:01
Admit to: Telemetry
Presentation/result/management discussed w/ accepting MD/DO: Hospitalist
Condition: Fair
Discharge Problem:
Dyspnea
Interventions
Interventions:
*Risk Screen - Suicide Last Done: 04/03/25 20:19
*General Assessment Last Done: 04/03/25 20:19
*Neglect/Abuse Screening Last Done: 04/03/25 20:19
*ED- Fall Risk Assessment Last Done: 04/03/25 20:19
*ED COVID-19 Vaccine History Last Done: 04/03/25 20:19
*Nursing Disposition Last Done: 04/04/25 01:00
ED- Cardiac Assessment Last Done: 04/03/25 23:25
ED- Pulmonary Assessment Last Done: 04/03/25 23:25
Discharge Date and Time
Discharge Date/Time: 04/04/25 01:00
[2025-04-03 20:56] LABS: Nucleated Red Blood Cells % 0.4 % (-); Platelet Count 52 10^3/uL (130-400)
[2025-04-03 21:00] VITALS: BP 122/88
[2025-04-03 21:00] LABS: Urine Character Cloudy (Clear)
[2025-04-03 21:03] LABS: ALT (SGPT) 27 U/L (0-50); AST (SGOT) 39 U/L (17-59); Albumin 4.1 g/dl (3.5-5.0); Alkaline Phosphatase 68 U/L (38-126); Blood Urea Nitrogen 32 mg/dl (9-20); Calcium 9.2 mg/dl (8.4-10.2); Carbon Dioxide 25 mmol/L (22-30); Chloride 109 mmol/L (98-107); Glucose 100 mg/dl (70-99); Potassium 4.4 mmol/L (3.5-5.1); Sodium 139 mmol/L (135-145); Total Protein 6.8 g/dl (6.3-8.2); eGFR > 60.00
[2025-04-03 21:06] LABS: Urine Red Blood Cell 60-70 /HPF (0-2)
[2025-04-03 21:13] LABS: Troponin I 0.071 ng/ml
[2025-04-03 21:20] LABS: COVID-19 Antigen Negative (Negative)
[2025-04-03] MEDS: CARDIZEM 10 MG IV (22:05)
[2025-04-03 22:09] VITALS: BP 93/60
--- NOTE | 2025-04-03 22:45 | HPS.HSE ---
Family Physician
-
Family Physician: NOT KNOW UNKNOWN - PT DOES
Chief Complaint
-
shortness of breath
History of Present Illness
79-year-old male past medical history of paroxysmal atrial fibrillation on Eliquis, CAD, CHF, essential hypertension, orthostatic hypotension, COPD, CVA, stage IV esophageal cancer with metastases to liver and lung status post chemotherapy, gout,
history of GI bleeding status post polypectomy 2017 and embolization of the cecal branch of SMA, iron deficiency anemia, intramuscular hematoma, recurrent UTIs, BPH, chronic UTI, prior thrombocytopenia, presenting with 3 days of dyspnea.
Patient states that he is having shortness of breath intermittently for past 3 days. Shortness of breath is not related to exertion and can occur at rest. He has chronic cough which is at baseline. No chest pain. No palpitations. No dizziness.
He has chronic lower extremity edema which is at baseline. He denies any weight gain and in fact may have lost a few pounds. He denies any fevers or chills.
His urine was noted to be darker today. He denies any blood in the urine.
He sees Dr. Royal as his radiologic therapist. He follows with [facility].
He has had thrombocytopenia in the past.
He is a former smoker. Drinks minimal alcohol these days.
Medical History
Past Medical History
Past Medical History: Reports Other (paroxysmal atrial fibrillation on Eliquis, CAD, CHF, essential hypertension, orthostatic hypotension, COPD, CVA, stage IV esophageal cancer with metastases to liver and lung status post chemotherapy, gout,
history of GI bleeding status post polypectomy 2017 and embolization of the cecal branch of SM)
Past Surgical History: Reports Other (embolization of ileocecal branch of SMA, Orthopedic (C7 cadaveric implant, laminectomy anterior approach) and Other (Parathyroid adenoma resection)
Social History
Tobacco: Former Smoker
Alcohol: Occasional
Drug: None
Family History
Family History: Not pertinent
Allergies / Home Medications
Allergies reflects when Allergies were last updated in [facility].
Home Medications with original date entered in [facility]
Allergy/Medication List:
Allergies
Allergy/AdvReac Type Severity Reaction Status Date / Time
No Known Allergies Allergy Verified 12/14/24 08:27
Home Medications
allopurinol 300 mg tablet 300 mg PO DAILY Gout 09/02/10
cyanocobalamin (vitamin B-12) 1,000 mcg tablet 1,000 mcg PO DAILY Supplement 02/01/20
multivitamin with folic acid 400 mcg tablet (Tab-A-Estrella) 1 tab PO DAILY Supplement 04/14/20
pantoprazole 40 mg tablet,delayed release 40 mg PO DAILY #30 tabs 06/05/21
alfuzosin 10 mg tablet,extended release 24 hr 10 mg PO DAILY@1999 Urinary Issue 08/22/24
carvedilol 3.125 mg tablet (Coreg) 3.125 mg PO BID Blood Pressure 08/22/24
finasteride 5 mg tablet 5 mg PO DAILY Urinary Issue 08/22/24
methenamine hippurate 1 gram tablet 1 g PO DAILY Urinary Issue 08/22/24
Held on 10/28/24. Instructions: restart when done with antibiotic
apixaban 5 mg tablet (Eliquis) 5 mg PO BID Blood Clot Prevention/Tx 08/23/24
docusate sodium 100 mg capsule (Colace) 100 mg PO DAILYPRN PRN constipation 10/13/24
ferrous sulfate 325 mg (65 mg iron) tablet 325 mg PO DAILY Supplement 10/13/24
fluticasone fur. 100 mcg-umeclid 62.5 mcg-vilant 25 mcg inhalat.powder (Trelegy Ellipta) 1 inh inhalation R DAILY Lung/Breathing Issues 10/13/24
polyethylene glycol 3350 17 gram oral powder packet (Miralax) 17 g PO DAILYPRN PRN constipation 10/13/24
cholecalciferol (vitamin D3) 50 mcg (2,000 unit) tablet 50 mcg PO DAILY Supplement 10/20/24
acetaminophen 500 mg tablet 500 mg PO TID pain/fever #0 tabs 10/28/24
miconazole nitrate 2 % topical powder (Miconazorb AF) 1 applic topical BID #0 grams 10/28/24
albuterol 90 mcg/actuation aerosol inhaler 90 mcg inhalation PRN PRN SOB 12/14/24
midodrine 5 mg tablet 5 mg PO TID 12/14/24
Review of Systems
-
History Source: Patient
A 12 point ROS was completed and negative except as noted: Yes
Constitutional: Reports No Symptoms
EENT: Reports No Symptoms
Respiratory: Reports See HPI
Cardiac: Reports See HPI
Abdomen/GI: Reports No Symptoms
: Reports No Symptoms
Musculoskeletal: Reports No Symptoms
Skin: Reports No Symptoms
Neurological: Reports No Symptoms
Endocrine: Reports No Symptoms
Hematologic/Lymphatic: Reports No Symptoms
Psych: Reports No Symptoms
Physical Exam
Vital Signs
Vital Signs
Temp Pulse Resp BP Pulse Ox
97.7 F 105 22 93/60 94
04/03/25 20:22 04/03/25 22:15 04/03/25 22:15 04/03/25 22:09 04/03/25 22:15
Physical Exam
General: Well Developed, Well Nourished and No Apparent Distress
HEENT: NormoCephalic, Moist mucous membranes and Atraumatic
Respiratory: Clear
Cardiac: S1/S2, Irregular Rhythm and Peripheral Edema; No Murmur or Rub
GI: Soft, Non Tender, Non Distended and Normal Bowel Sounds; No Organomegaly
Rectal: Deferred by Provider
Musculoskeletal: No Clubbing, No Cyanosis and No Edema
Skin: No Rash
Neuro: Nonfocal/grossly intact
Laboratory Results
-
04/03/25 20:24
04/03/25 20:24
Laboratory Results
Total Bilirubin 2.7 mg/dl (0.2-1.3) H 04/03/25 20:24
AST 39 U/L (17-59) 04/03/25 20:24
ALT 27 U/L (0-50) 04/03/25 20:24
Alkaline Phosphatase 68 U/L (38-126) 04/03/25 20:24
Troponin I 0.071 ng/ml H* 04/03/25 20:24
Data Reviewed
-
Lab Data: Labs Reviewed by me
Old Records: Reviewed
Impression/Plan
-
IMPRESSION:
PLAN:
# Dyspnea secondary to symptomatic atrial fibrillation with RVR with possible component of CHF exacerbation
-Heart rate up to 133, was given Cardizem bolus with improvement in symptoms and heart rate
-Blood pressure initially 130s but decreased to 90/60 after receiving Cardizem
-Cardiac BNP of 3300, hold off on diuresis for now given blood pressure 90/60 improvement in symptoms
-Chest x-ray does not appear to show pulmonary edema, although report pending
-Cardiology consulted
# Nonischemic myocardial injury secondary to atrial fibrillation with RVR
-Troponin of 0.07
- EKG show atrial fibrillation with RVR heart rate 124
- Trend troponins
# Thrombocytopenia likely from chemotherapy
- Platelets of 52 from 175 in October
- Consult hematology if continues to decline
# Microscopic hematuria
# History of recurrent UTIs
-Urinalysis shows 60-70 RBC, 3-5 WBC, negative nitrates,
- No urinary symptoms
- Outpatient follow-up with urology, would not treat for UTI
Stage IV esophageal cancer with metastases to liver and lung status post chemotherapy
- Undergoing chemotherapy
Chronic anemia
History of iron deficiency anemia
- Hemoglobin stable at 11.8
CAD
Chronic HFpEF
Essential hypertension
- Continue Coreg
Orthostatic hypotension
- Continue midodrine
COPD
- Continue albuterol, Trelegy
History of CVA
Gout
- Continue allopurinol
History of GI bleeding status post polypectomy in 2017 and embolization of the cecal branch of SMA
History of intravascular
BPH
- Continue alfuzosin, finasteride
Former smoker
DNR/DNI
DVT prophylaxis�Eliquis
Cardiac diet
[2025-04-03 23:00] VITALS: BP 116/73
[2025-04-04] VITALS (10 sets, daily range): BP systolic 91–130; BP diastolic 52–96; BMI 26.4
[2025-04-04 03:12] LABS: Hematocrit 34.3 % (39.0-52.0); Hemoglobin 11.7 g/dL (13.0-18.0); Mean Corp Hgb Conc. 34.1 g/dL (33.0-37.0); Mean Corpuscular Volume 104.3 fL (80.0-94.0); Nucleated Red Blood Cells % 0.4 % (-); Platelet Count 59 10^3/uL (130-400); Red Cell Dist. Width 16.6 % (11.5-14.5)
[2025-04-04 03:22] LABS: ALT (SGPT) 24 U/L (0-50); AST (SGOT) 29 U/L (17-59); Albumin 3.7 g/dl (3.5-5.0); Alkaline Phosphatase 70 U/L (38-126); Blood Urea Nitrogen 26 mg/dl (9-20); Calcium 8.6 mg/dl (8.4-10.2); Carbon Dioxide 24 mmol/L (22-30); Chloride 111 mmol/L (98-107); Estimated Creatinine Clearance 91 ml/min; Glucose 93 mg/dl (70-99); Potassium 3.9 mmol/L (3.5-5.1); Sodium 140 mmol/L (135-145); Total Protein 6.1 g/dl (6.3-8.2); eGFR > 60.00
[2025-04-04 03:37] LABS: Troponin I 0.070 ng/ml
--- NOTE | 2025-04-04 03:57 | PTCARENOTE ---
Received pt from ER into 2253 admitted with A Fib w RVR. Pt is AAOx3 A Fib rates 110-120 denies cp or SOB. POC discussed with pt. Call ahn within reach.
[2025-04-04] MEDS: SYMBICORT 80/4.5 MCG INHALER 2 PUFF INH ×2 (07:37→19:48)
[2025-04-04] MEDS: SPIRIVA RESPIMAT 2.5 MCG 2 PUFF INH (07:37)
--- NOTE | 2025-04-04 07:44 | CON.CAR ---
Addendum entered and electronically signed by Willis Cross DO 04/04/25 11:49:
I saw and examined the patient.
The Information Services Consultant's note was reviewed and I agree with the note.
Comment:
Plan:
He has hx of PAFib, stage IV esophageal cancer, MDS, HTN and noted dyspnea on exertion prompting eval. He was found to be in rapid AFib and given one dose of IV Cardizem in ER which was not continued after he developed hypotension. His HR improved
some. He denies cp.
Start IV Cardizem for better rate control.
Cont Eliquis.
If he remains in symptomatic AFib over next 24 hrs continue cardioversion in AM if platelet ct and H/H remain stable.
Recent echo reviewed, no need to repeat. EF is preserved.
Consider IV lasix if wt trends up. His wt is down 9 lbs from office earlier this year. Cont to monitor volume status. He takes lasix as needed as outpt.
Medical therapy of nonMI troponin.
Outpt follow up with Dr Juan.
Original Note:
Consultation
Consultation Request
Date/Time Consultation Requested: 04/04/2025
Date/Time Consultation Performed: 04/04/2025
Requesting Provider: Dr. Norton
Performing Provider: Radha Lanza PA-C for Dr. Cross
Reason for Consultation: Afib
Medical History
-
History of Present Illness:
HPI: Tapan is a 79 year old male with PMH of paroxysmal atrial fibrillation, HTN, orthostasis, MDS, and stage IV esophageal cancer. He had been doing well from a cardiac standpoint, however a few days ago notes that he started to have trouble
breathing. He denies any chest pain, palpitations, dizziness, lightheadedness, or LE edema. He has been following weight and denies any weight gain. Weight is actually down 9lbs compared to last OV from 09/2024. In ER, he was found to be in rapid
atrial fibrillation. He has known h/o paroxysmal atrial fibrillation, however has not had any recent episodes. He was given a dose of 10mg IV cardizem in ER and became hypotensive with improvement in his heart rates. He notes he has been compliant
as OP wit his Eliquis and denies any missed or skipped doses.
PMH:
Paroxysmal atrial fibrillation
Chronic Eliquis AC
HTN
Orthostasis
MDS
Stage 4 esophageal cancer
h/o GIB
Past Medical History
Past Medical History: Other (In HPI)
Past Surgical History: Other (Parathyroidectomy, hernia repair, cataract extraction)
Social History
Tobacco: Former Smoker
Alcohol: Occasional
Drug: None
Personal:
Employment: Retired
Family History
Family History: CAD and Cancer
Allergies / Home Medications
Allergy/AdvReac Type Severity Reaction Status Date / Time
No Known Allergies Allergy Verified 12/14/24 08:27
�Medication �Instructions �Recorded �Confirmed �Type
allopurinol 300 mg tablet 300 mg PO DAILY Gout 09/02/10 04/04/25 History
cyanocobalamin (vitamin B-12) 1,000 mcg PO DAILY Supplement 02/01/20 04/04/25 History
1,000 mcg tablet
multivitamin with folic acid 400 1 tab PO DAILY Supplement 04/14/20 04/04/25 History
mcg tablet (Tab-A-Estrella)
pantoprazole 40 mg tablet,delayed 40 mg PO DAILY #30 tabs 06/05/21 04/04/25 Rx
release
alfuzosin 10 mg tablet,extended 10 mg PO DAILY@1999 Urinary Issue 08/22/24 04/04/25 History
release 24 hr
carvedilol 3.125 mg tablet (Coreg) 3.125 mg PO BID Blood Pressure 08/22/24 04/04/25 History
finasteride 5 mg tablet 5 mg PO DAILY Urinary Issue 08/22/24 04/04/25 History
methenamine hippurate 1 gram tablet 1 g PO DAILY Urinary Issue 08/22/24 04/04/25 History
Held on 10/28/24.
Instructions: restart when
done with antibiotic
apixaban 5 mg tablet (Eliquis) 5 mg PO BID Blood Clot 08/23/24 04/04/25 History
Prevention/Tx
docusate sodium 100 mg capsule 100 mg PO DAILYPRN PRN constipation 10/13/24 04/04/25 History
(Colace)
ferrous sulfate 325 mg (65 mg 325 mg PO DAILY Supplement 10/13/24 04/04/25 History
iron) tablet
fluticasone fur. 100 mcg-umeclid 1 inh inhalation R DAILY 10/13/24 04/04/25 History
62.5 mcg-vilant 25 mcg Lung/Breathing Issues
inhalat.powder (Trelegy Ellipta)
polyethylene glycol 3350 17 gram 17 g PO DAILYPRN PRN constipation 10/13/24 04/04/25 History
oral powder packet (Miralax)
cholecalciferol (vitamin D3) 50 50 mcg PO DAILY Supplement 10/20/24 04/04/25 History
mcg (2,000 unit) tablet
acetaminophen 500 mg tablet 500 mg PO TID pain/fever #0 tabs 10/28/24 04/04/25 Rx
miconazole nitrate 2 % topical 1 applic topical BID #0 grams 10/28/24 04/04/25 Rx
powder (Miconazorb AF)
albuterol 90 mcg/actuation aerosol 90 mcg inhalation PRN PRN SOB 12/14/24 04/04/25 History
inhaler
midodrine 5 mg tablet 5 mg PO TID 12/14/24 04/04/25 History
Review of Systems
-
History Source: Patient
All other systems: Negative unless noted
Physical Exam
Vital Signs
Temp Pulse Resp BP Pulse Ox
97.8 F 119 18 127/96 97
04/04/25 05:00 04/04/25 07:40 04/04/25 07:40 04/04/25 05:09 04/04/25 07:40
Lab Results
04/04/25 02:49
04/04/25 02:49
Troponin I 0.070 ng/ml H* 04/04/25 02:49
Uiu-R-Iqyvbiyiamm Pept Cancelled 04/03/25 20:37
Physical Exam
General: Well Developed, Well Nourished and No Apparent Distress
HEENT: Normocephalic, Anicteric and Moist Mucous Membranes
Respiratory: Clear and Non Labored Respirations
Cardiac: S1/S2 and Irregular Rhythm
Musculoskeletal: No Clubbing, No Cyanosis and No Edema
Skin: Warm and Dry
Neuro: AO x 3 and Nonfocal/Grossly Intact
Psych: Calm
Impression / Plan
-
PCP: Dr. Jarrell
Baling Machine Tender: Dr. Juan
Impression:
Presented with SOB
Paroxysmal atrial fibrillation w/ RVR
Elevated troponin
Chronic Eliquis AC
HTN
Orthostasis
MDS
Stage 4 esophageal cancer
h/o GIB
Echo 11/20/2024: EF 50-55%, GLS -17.5%, mild MR, mild AR, mild TR, estimated PAP 25-30 mmHg
Echo 03/21/2025: EF 55-60%, GLS -14.5%, mild cLVH, mild MR, mild AR
Plan:
-Presented with a few days of dyspnea. Found to be in rapid afib on arrival to ER.
-Continues on uninterrupted AC with Eliquis 5mg BID. Denies any missed/skipped doses. Hgb stable at 11.7. Does receive iron infusions as OP.
-Thrombocytopenia noted w/ platelet count 59,000. Will need to follow closely if considering CV.
-Will start cardizem gtt for rate control. Given a single dose of IV cardizem 10mg in ER. HRs remain rapid in the 120s to 130s this AM.
-Continue coreg 3.125mg BID. Uptitration has been limited as OP due to hypotension/orthostasis requiring midodrine.
-Continue midodrine at current dose 5mg TID.
-K 3.9. Check TSH.
-Echo 03/21 noted preserved EF with mild MR and mild AR as noted above. No need to repeat at this time.
-Elevated troponin of 0.071, stable on repeat at 0.070. Suspect nonischemic myocardial injury in the setting of rapid atrial fibrillation.
-ProBNP 3200. Chest xray noted small b/l pleural effusions. Weight has been downtrending. Could consider gentle diuresis. On lasix only prn as OP.
HPI: Tapan is a 79 year old male with PMH of paroxysmal atrial fibrillation, HTN, orthostasis, MDS, and stage IV esophageal cancer. He had been doing well from a cardiac standpoint, however a few days ago notes that he started to have trouble
breathing. He denies any chest pain, palpitations, dizziness, lightheadedness, or LE edema. He has been following weight and denies any weight gain. Weight is actually down 9lbs compared to last OV from 09/2024. In ER, he was found to be in rapid
atrial fibrillation. He has known h/o paroxysmal atrial fibrillation, however has not had any recent episodes. He was given a dose of 10mg IV cardizem in ER and became hypotensive with improvement in his heart rates. He notes he has been compliant
as OP wit his Eliquis and denies any missed or skipped doses.
Data Reviewed
-
EKG: Tracing Personally Visualized and interpreted
Radiology: Report Reviewed by me
Labs: Labs Reviewed by me
Old Records: Reviewed
--- NOTE | 2025-04-04 08:00 | PTCARENOTE ---
Assumed care of pt from prev nursing shift; Pt AAOx3 w/no c/o CP or SOB. Pt's speech slurred & mildly garbled at baseline. Assisted pt w/denture care & placing them back in & pt's speech slightly improved. Pt's HR in the 110's to 140's, w/BP 130/78
this AM. Pt in Rapid Afib on telemetry monitoring. Pt repositioned for comfort. Call ahn within reach & plan of care ongoing.
[2025-04-04] MEDS: ELIQUIS 5 MG PO ×2 (09:33→19:38)
[2025-04-04] MEDS: PROTONIX 40 MG PO (09:33)
[2025-04-04] MEDS: COREG 3.125 MG PO ×2 (09:33→19:39)
[2025-04-04] MEDS: DESENEX/MITRAZOL/ZEASORB 1 APPLIC TOPICAL ×2 (09:33→21:57)
[2025-04-04] MEDS: CARDIZEM 125 IV (09:34)
[2025-04-04] MEDS: ZYLOPRIM 300 MG PO (09:34)
[2025-04-04] MEDS: PROSCAR 5 MG PO (09:34)
[2025-04-04] MEDS: FLUSH (NSS) 1 FLUSH IV (09:35)
--- NOTE | 2025-04-04 09:45 | PTCARENOTE ---
Pt started on IV Cardizem drip through patent IV line as ordered. BP before starting infusing stable at 126/79. Pt's , Carmina , now at bedside. Pt requesting R SQ port be accessed for bloodwork & IV infusions. VAT notified.
--- NOTE | 2025-04-04 10:18 | CM ---
Reviewed chart. Met with and Mrs. Ngo to review discharge plans. He states prior to admission he resides with his spouse in an apartment with elevator access. He is on the fourth floor. He states he has been there for six years. Prior to
admission he ambulates with a walker but currently spends most the time in a wheelchair. He states he has been in the [facility] for SNF/Rehab. He states he also had [facility] in the past. Currently he is going to outpatient therapy. He states
he has a walker, rollator and wheelchair at home. He states he has a prescription plan and sues [facility]. Will need to see his current functional level to see if he he will have any skilled care needs. Medical work-up in progress.
The discharge plan is to return home with his spouse and resumption of outpatient therapy verses VNA Services when medically stable.
--- NOTE | 2025-04-04 15:35 | W.PN.HOSP.TC ---
Today's Communication/Plan
-
Assessment / Plan
Assessment / Plan
General: No Apparent Distress, Comfortable and Conversant
HEENT: NormoCephalic, Moist mucous membranes, Atraumatic
Respiratory: Clear and Non Labored Respirations
Cardiac: S1/S2 and Regular Rhythm; No Rub or Gallop
GI: Soft, Non Tender, Non Distended and Normal Bowel Sounds
Musculoskeletal: No Edema, no deformity
Skin: Warm and dry
: NO Gaffney
Neuro: Awake, Alert, Nonfocal/grossly intact
Psych: Calm and Intact Judgment/Insight
Mr. 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
CVA who presented with shortness of breath. He was found to be in rapid A-fib in the ED. He he was given a dose of IV Cardizem with proved his heart rate but subsequently became hypotensive. His blood pressure has now improved and he has been
started on a Cardizem drip. He has been admitted for further evaluation and management.
A-fib with RVR:
- Continue diltiazem drip
- Will continue to monitor on telemetry, if remains in symptomatic A-fib then will need to consider electrical cardioversion as long as hemoglobin and platelet levels remain stable
- No repeat echo needed at this time, recent echo on 03/21/2025
- Elevated troponin is likely nonischemic injury due to rapid A-fib
Pancytopenia:
- Suspect due to MDS and chemotherapy
- Monitor, transfuse as needed
DVT prophylaxis: Eliquis
CODE STATUS: DNR
Total time spent on today's encounter was 47 minutes
Anticipated Discharge: > 48 hours
Subjective/Interval History
-
Date of Service: April 04, 2025
Patient was seen and examined at bedside this morning. Heart rate moderately well-controlled on diltiazem drip.
Objective Data
-
Vital Signs:
Vital Signs
Temp Pulse Resp BP Pulse Ox
97.5 F 87 18 109/68 95
04/04/25 15:27 04/04/25 15:27 04/04/25 15:27 04/04/25 11:19 04/04/25 15:27
I&O
04/03/25 04/04/25 04/05/25
06:59 06:59 06:59
Output Total 300 / 300 300 / 300
Balance -300 / -300 -300 / -300
Review of Systems
-
History Source: Patient
All other systems: Reviewed and negative
Physical Exam
-
General: No Apparent Distress
[2025-04-04] MEDS: LASIX 20 MG IV (16:06)
[2025-04-04] MEDS: FLUSH (NSS) 2 FLUSH IV (16:07)
[2025-04-04] MEDS: FLOMAX 0.4 MG PO (19:39)
[2025-04-04] MEDS: TYLENOL 650 MG PO (19:39)
[2025-04-05] VITALS (15 sets, daily range): BP systolic 82–118; BP diastolic 59–83; PULSE 101; O2SAT 95; BMI 26.3
[2025-04-05 04:46] LABS: Hematocrit 37.3 % (39.0-52.0); Hemoglobin 12.2 g/dL (13.0-18.0); Mean Corp Hgb Conc. 32.7 g/dL (33.0-37.0); Mean Corpuscular Volume 104.5 fL (80.0-94.0); Platelet Count 61 10^3/uL (130-400); Red Cell Dist. Width 16.5 % (11.5-14.5)
[2025-04-05 05:06] LABS: Blood Urea Nitrogen 26 mg/dl (9-20); Calcium 9.2 mg/dl (8.4-10.2); Carbon Dioxide 26 mmol/L (22-30); Chloride 109 mmol/L (98-107); Estimated Creatinine Clearance 80 ml/min; Glucose 96 mg/dl (70-99); Potassium 3.9 mmol/L (3.5-5.1); Sodium 141 mmol/L (135-145); eGFR > 60.00
--- NOTE | 2025-04-05 05:37 | PTCARENOTE ---
Pt Afib on monitor. VSS. Pt with chronic left knee pain, PRN Tylenol given. Cardizem gtt cont. per order. NPO for CV
[2025-04-05] MEDS: SPIRIVA RESPIMAT 2.5 MCG 2 PUFF INH (07:30)
[2025-04-05] MEDS: SYMBICORT 80/4.5 MCG INHALER 2 PUFF INH ×2 (07:30→21:33)
[2025-04-05] MEDS: CARDIZEM 125 IV (08:40)
[2025-04-05] MEDS: ELIQUIS 5 MG PO ×2 (08:44→19:53)
[2025-04-05] MEDS: PROTONIX 40 MG PO (08:47)
[2025-04-05] MEDS: COREG 3.125 MG PO ×3 (08:47→23:04)
[2025-04-05] MEDS: ZYLOPRIM 300 MG PO (08:47)
[2025-04-05] MEDS: PROSCAR 5 MG PO (08:47)
[2025-04-05] MEDS: DESENEX/MITRAZOL/ZEASORB 1 APPLIC TOPICAL ×2 (08:48→19:54)
[2025-04-05] MEDS: TYLENOL 650 MG PO (08:59)
--- NOTE | 2025-04-05 10:14 | W.PN.CARDCBS ---
Addendum entered and electronically signed by Diogenes Frias MD 04/05/25 11:24:
I saw and examined the patient.
The Folding Machine Setter's note was reviewed and I agree with the note.
Comment: Briefly, 79-year-old man presenting with acute heart failure with preserved ejection fraction and rapid atrial fibrillation
Symptomatically seems to be improving
Rates have been controlled in atrial fibrillation with Cardizem drip
Plan to increase home Coreg dose and wean diltiazem for goal heart rate less than 110 bpm
Continue Eliquis for risk reduction of cardioembolic stroke
Tentative plan for direct-current cardioversion tomorrow if he remains in atrial fibrillation
Plan for additional dose of IV Lasix today to optimize his volume status prior to cardioversion
Chronic orthostasis makes standing diuretic dosing challenging, likely continue as needed oral Lasix on discharge
Not reporting any chest discomfort
Troponin elevation was low-level and flat
Suspect nonischemic myocardial injury troponin elevation is due to acute heart failure and rapid A-fib
Original Note:
Today's Communication / Plan
-
IV lasix again today
cancel CV, reschedule for 04/06 if breathing improved
continue IV cardizem gtt, consider increasing coreg dose to 6.25mg AM and 3.125mg PM
Impression / Plan
-
PCP: Dr. Jarrell
Aluminum Boat Inspector: Dr. Juan
Impression:
Presented with SOB
Paroxysmal atrial fibrillation w/ RVR
Acute HFpEF
Elevated troponin, suspected nonischemic myocardial injury
Chronic Eliquis AC
HTN
Orthostasis
MDS
Stage 4 esophageal cancer
h/o GIB
Echo 11/20/2024: EF 50-55%, GLS -17.5%, mild MR, mild AR, mild TR, estimated PAP 25-30 mmHg
Echo 03/21/2025: EF 55-60%, GLS -14.5%, mild cLVH, mild MR, mild AR
Plan:
- Presented with a few days of dyspnea. Found to be in rapid afib on arrival to ER.
- ProBNP 3200. Chest xray noted small b/l pleural effusions. Reports he remains with cough and shortness of breath this morning, did improve slightly with dose of IV Lasix yesterday. Will give IV Lasix again today and assess response. On Lasix as
needed only as outpatient
- Given above, will cancel cardioversion today, and make n.p.o. in a.m. for possible cardioversion tomorrow
- Continue Eliquis 5 mg twice daily, no missed doses as an outpatient reported. Hemoglobin stable at 12.2, platelets stable at 61K, which is baseline per oncology. He does receive iron infusions as an outpatient
- Continue IV Cardizem gtt at 5. Would consider increasing Coreg dosing to 6.25 mg every morning and 3.125 mg every afternoon. He does have history of orthostasis maintained on midodrine 5 mg 3 times daily
- TSH WNL
- Echo 03/21/25 noted preserved EF with mild MR and mild AR as noted above. No need to repeat at this time.
- Elevated troponin of 0.071, stable on repeat at 0.070. Suspect nonischemic myocardial injury in the setting of rapid atrial fibrillation.
- PT evaluation
- d/w patient and at bedside. d/w metallurgy laboratory technician charge nurse. d/w PT
HPI: Tapan is a 79 year old male with PMH of paroxysmal atrial fibrillation, HTN, orthostasis, MDS, and stage IV esophageal cancer. He had been doing well from a cardiac standpoint, however a few days ago notes that he started to have trouble
breathing. He denies any chest pain, palpitations, dizziness, lightheadedness, or LE edema. He has been following weight and denies any weight gain. Weight is actually down 9lbs compared to last OV from 09/2024. In ER, he was found to be in rapid
atrial fibrillation. He has known h/o paroxysmal atrial fibrillation, however has not had any recent episodes. He was given a dose of 10mg IV cardizem in ER and became hypotensive with improvement in his heart rates. He notes he has been compliant
as OP wit his Eliquis and denies any missed or skipped doses.
Progress Note - Aluminum Boat Inspector
Subjective
Date of Service: April 05, 2025
Remains with cough, shortness of breath
Objective
Labs:
04/05/25 03:52
04/05/25 03:52
Labs
Hgb 12.2 g/dL (13.0-18.0) L 04/05/25 03:52
Hct 37.3 % (39.0-52.0) L 04/05/25 03:52
Plt Count 61 10^3/uL (130-400) L 04/05/25 03:52
Sodium 141 mmol/L (135-145) 04/05/25 03:52
Potassium 3.9 mmol/L (3.5-5.1) 04/05/25 03:52
BUN 26 mg/dl (9-20) H 04/05/25 03:52
Creatinine 0.8 mg/dL (0.7-1.3) 04/05/25 03:52
Glucose 96 mg/dl (70-99) 04/05/25 03:52
Troponins
04/03/25 04/04/25 04/04/25
20:24 02:49 06:45
Troponin I 0.071 H* 0.070 H* Cancelled
04/04/25 04/04/25
12:45 18:45
Troponin I Cancelled Cancelled
Vital Signs and I&O:
Vital Signs
Temp Pulse Resp BP Pulse Ox
97.6 F 99 17 106/65 93
04/05/25 08:01 04/05/25 07:36 04/05/25 08:01 04/05/25 07:36 04/05/25 08:01
Vital Signs
Temp Pulse Resp BP Pulse Ox
97.6 F 99 17 106/65 93
04/05/25 08:01 04/05/25 07:36 04/05/25 08:01 04/05/25 07:36 04/05/25 08:01
Intake & Output
04/03/25 04/04/25 04/05/25 04/06/25
07:59 07:59 07:59 07:59
Intake Total 530 / 530
Output Total 300 / 300 1700 / 1700 100 / 100
Balance -300 / -300 -1170 / -1170 -100 / -100
Physical Exam
Physical Exam
GEN: No distress, awake, alert, oriented x3.
HEENT: supple, anicteric, mmm, EOMI
LUNGS: Few crackles B/L bases, no wheezes
CV: Irreg, S1/S2, no murmur
ABD: soft, BS+, NT/ND
EXT: No cyanosis, clubbing, edema
NEURO: Gross non-focal
SKIN: Warm, pink, dry. No rash. R chest port
: webb
[2025-04-05] MEDS: LASIX 20 MG IV (10:29)
--- NOTE | 2025-04-05 12:54 | CM ---
Reviewed chart. Met with and Mrs. Ngo to review discharge plans. They are hoping he will be able to go directly back to the apartment. We reviewed VNA Services verses continuing with his outpatient therapy. They will let med know. Prior
to admission he resides with his spouse in an apartment at [facility]. They have been there for six years. Prior to admission he was ambulating with a walker. Currently he is spending most of his time in a wheelchair. He has
been in the [facility] in the past for SNF/Rehab. He also has had [facility] Services in the past. Currently he is going to outpatient rehab. He has a walker, rollator and wheelchair at home. He has a prescription plan and uses [facility].
Will need to see his current functional level to see if he will have any skilled care needs. Medical work-up in progress. The discharge plan is to return home with his spouse and resumption or outpatient rehab. verses VNA Services when medically
stable.
--- NOTE | 2025-04-05 17:00 | PTCARENOTE ---
Pt received this am in afib, rate in the 70's to 100's. Pt denies any sob, room air sat 95%. Pt assisted oob during PT session. Pt tolerated well oob for several hours. Assisted back to bed with the walker and 2 assists. Pt at the bedside all
day. Pt with no c/o.
--- NOTE | 2025-04-05 17:00 | PTCARENOTE ---
Pt received this am in afib, rate in the 70's to 100's/
--- NOTE | 2025-04-05 17:10 | W.PN.HOSP.TC ---
Today's Communication/Plan
-
Assessment / Plan
Assessment / Plan
General: No Apparent Distress, Comfortable and Conversant
HEENT: NormoCephalic, Moist mucous membranes, Atraumatic
Respiratory: Mild crackles right base, Non Labored Respirations
Cardiac: S1/S2, A-fib with heart rate fluctuating between 80 and 100
GI: Soft, Non Tender, Non Distended and Normal Bowel Sounds
Musculoskeletal: No Edema, no deformity
Skin: Warm and dry
Neuro: Awake, Alert, Nonfocal/grossly intact
Psych: Calm and cooperative
Mr. 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
CVA who presented with shortness of breath. He was found to be in rapid A-fib in the ED. He he was given a dose of IV Cardizem with proved his heart rate but subsequently became hypotensive. His blood pressure has now improved and he has been
started on a Cardizem drip. He has been admitted for further evaluation and management.
A-fib with RVR:
- Continue diltiazem drip
- Increase carvedilol and wean diltiazem drip as able
- Started on anticoagulation with Eliquis
- Will continue to monitor on telemetry, if remains in symptomatic A-fib then will need to consider electrical cardioversion as long as hemoglobin and platelet levels remain stable
- No repeat echo needed at this time, recent echo on 03/21/2025
- Elevated troponin is likely nonischemic injury due to rapid A-fib
Right pleural effusion:
- With mild dyspnea, not hypoxic
- Given a dose of Lasix, will monitor
- Scheduled Lasix may be challenging due to orthostasis requiring midodrine
Pancytopenia:
- Suspect due to MDS and chemotherapy, currently appears stable
- Monitor, transfuse as needed
DVT prophylaxis: Eliquis
CODE STATUS: DNR
Total time spent on today's encounter was 45 minutes
Anticipated Discharge: > 48 hours
Subjective/Interval History
-
Date of Service: April 05, 2025
Patient was seen and examined at bedside this morning. Remains in uncontrolled A-fib. He is feeling dyspneic and was given a dose of IV Lasix. Repeat chest x-ray shows small right pleural effusion the other new or increased compared to prior from
2 days ago.
Objective Data
-
Vital Signs:
Vital Signs
Temp Pulse Resp BP Pulse Ox
97.8 F 82 18 95/70 95
04/05/25 15:20 04/05/25 15:22 04/05/25 15:20 04/05/25 15:22 04/05/25 16:08
I&O
04/04/25 04/05/25 04/06/25
06:59 06:59 06:59
Intake Total 530 / 530
Output Total 300 / 300 1700 / 1700 650 / 650
Balance -300 / -300 -1170 / -1170 -650 / -650
Review of Systems
-
History Source: Patient
All other systems: Reviewed and negative
Respiratory: Reports Trouble Breathing
Physical Exam
-
General: Appears Chronically Ill
[2025-04-05] MEDS: SYMBICORT 80/4.5 MCG INHALER INH (18:36)
[2025-04-05] MEDS: FLOMAX 0.4 MG PO (19:53)
[2025-04-05] MEDS: FLUSH (NSS) 1 FLUSH IV (19:53)
--- NOTE | 2025-04-05 22:56 | W.PN.UPDATE ---
Update Note
Progress Note Update
HR 89-90's Afib. BP soft 89/54, Cardizem drip at 2.5mg/hr, repeat BP 103/63 HR 90's.
[2025-04-05] MEDS: MIRALAX 17 GRAMS PO (23:04)
[2025-04-06] VITALS (8 sets, daily range): BP systolic 96–138; BP diastolic 61–84
--- NOTE | 2025-04-06 00:48 | PTCARENOTE ---
Received pt at change of shift resting in bed, family at bedside at the time. Afib with PVC's on tele. HR 80's-90's. Cardizem gtt infusing at 5mL/hr per order. BP 89/59. pt asymptomatic. Jaz Khan PILE DRIVER OPERATOR HELPER made aware. PILE DRIVER OPERATOR HELPER ordered Cardizem gtt
2.5mL/hr--see NOV. pt denies any CP or SOB. Administered miralax per pt request. High fall risk precautions maintained. Bed alarm on and audible. pt requested condom catheter be placed for HS. Educated pt to call director staffing for assistance ambulating.
Call ahn within reach.
[2025-04-06 04:19] LABS: Hematocrit 33.9 % (39.0-52.0); Hemoglobin 11.4 g/dL (13.0-18.0); Mean Corp Hgb Conc. 33.6 g/dL (33.0-37.0); Mean Corpuscular Volume 102.7 fL (80.0-94.0); Platelet Count 65 10^3/uL (130-400); Red Cell Dist. Width 16.6 % (11.5-14.5)
[2025-04-06 04:40] LABS: Blood Urea Nitrogen 25 mg/dl (9-20); Calcium 8.6 mg/dl (8.4-10.2); Carbon Dioxide 28 mmol/L (22-30); Chloride 108 mmol/L (98-107); Estimated Creatinine Clearance 71 ml/min; Glucose 104 mg/dl (70-99); Potassium 3.9 mmol/L (3.5-5.1); Sodium 140 mmol/L (135-145); eGFR > 60.00
[2025-04-06] MEDS: SYMBICORT 80/4.5 MCG INHALER 2 PUFF INH ×2 (07:27→19:41)
[2025-04-06] MEDS: SPIRIVA RESPIMAT 2.5 MCG 2 PUFF INH (07:27)
--- NOTE | 2025-04-06 08:00 | PTCARENOTE ---
Assumed care of pt from prev nursing shift; Pt AAOx3 w/no c/o CP or SOB. Pt's speech slurred & mildly garbled at baseline. Assisted pt w/denture care but pt leaving dentures out for now until finished procedure this AM. Pt's HR in the 100's-110's,
w/BP 114/74 this AM. Pt in Afib on telemetry monitoring. Pt w/IV Cardizem drip infusing through pt's accessed R chest wall SQ port as ordered. Pt repositioned for comfort. Call ahn within reach & plan of care ongoing.
--- NOTE | 2025-04-06 09:22 | W.PN.CARDCBS ---
Addendum entered and electronically signed by Diogenes Frias MD 04/06/25 13:50:
I saw and examined the patient.
The Integrated Logistics Operations Manager's note was reviewed and I agree with the note.
Comment: Briefly, 79-year-old man presenting with acute heart failure with preserved ejection fraction and rapid atrial fibrillation
Underwent successful cardioversion earlier today and is back in sinus rhythm
Stop Cardizem drip
Continue Coreg for rate control
Eliquis for risk reduction of cardioembolic stroke
Appears euvolemic on exam today
Chronic orthostasis makes standing diuretic dosing challenging - continue as needed oral Lasix on discharge
Not reporting any chest discomfort
Troponin elevation was low-level and flat
Suspect nonischemic myocardial injury troponin elevation is due to acute heart failure and rapid A-fib
Stable cardiac status, we will arrange outpatient follow-up
Original Note:
Today's Communication / Plan
-
CV today
continue coreg, eliquis, midodrine
Impression / Plan
-
PCP: Dr. Jarrell
Cable Driller: Dr. Juan
Impression:
Presented with SOB
Paroxysmal atrial fibrillation w/ RVR
Acute HFpEF
Elevated troponin, suspected nonischemic myocardial injury
Chronic Eliquis AC
HTN
Orthostasis
MDS
Stage 4 esophageal cancer
h/o GIB
Echo 11/20/2024: EF 50-55%, GLS -17.5%, mild MR, mild AR, mild TR, estimated PAP 25-30 mmHg
Echo 03/21/2025: EF 55-60%, GLS -14.5%, mild cLVH, mild MR, mild AR
Plan:
- Remains with some dyspnea. Has been diuresed with some improvement, weight trending down if accurate. Creatinine stable at 0.9. Was on Lasix as needed as outpatient
- Remains in atrial fibrillation with heart rates in 90s to 100s on review of telemetry overnight and occasional PVCs versus aberrant complexes.
- Increase to 6.25 mg every morning and 3.125 mg every afternoon. He does have history of orthostasis maintained on midodrine 5 mg 3 times daily which may limit further up titration of rate control Coreg dose has been
- N.p.o. for cardioversion today. He has been on Eliquis without missed doses as an outpatient
- Hemoglobin and platelets have been stable per oncology
- TSH WNL
- Echo 03/21/25 noted preserved EF with mild MR and mild AR as noted above. No need to repeat at this time.
- Elevated troponin of 0.071, stable on repeat at 0.070. Suspect nonischemic myocardial injury in the setting of rapid atrial fibrillation.
- PT evaluation
- d/w patient and at bedside.
HPI: Tapan is a 79 year old male with PMH of paroxysmal atrial fibrillation, HTN, orthostasis, MDS, and stage IV esophageal cancer. He had been doing well from a cardiac standpoint, however a few days ago notes that he started to have trouble
breathing. He denies any chest pain, palpitations, dizziness, lightheadedness, or LE edema. He has been following weight and denies any weight gain. Weight is actually down 9lbs compared to last OV from 09/2024. In ER, he was found to be in rapid
atrial fibrillation. He has known h/o paroxysmal atrial fibrillation, however has not had any recent episodes. He was given a dose of 10mg IV cardizem in ER and became hypotensive with improvement in his heart rates. He notes he has been compliant
as OP wit his Eliquis and denies any missed or skipped doses.
Progress Note - Cable Driller
Subjective
Date of Service: April 06, 2025
For cardioversion today. Reports breathing somewhat improved overnight.
Objective
Labs:
04/06/25 03:52
04/06/25 03:52
Labs
Hgb 11.4 g/dL (13.0-18.0) L 04/06/25 03:52
Hct 33.9 % (39.0-52.0) L 04/06/25 03:52
Plt Count 65 10^3/uL (130-400) L 04/06/25 03:52
Sodium 140 mmol/L (135-145) 04/06/25 03:52
Potassium 3.9 mmol/L (3.5-5.1) 04/06/25 03:52
BUN 25 mg/dl (9-20) H 04/06/25 03:52
Creatinine 0.9 mg/dL (0.7-1.3) 04/06/25 03:52
Glucose 104 mg/dl (70-99) H 04/06/25 03:52
Troponins
04/03/25 04/04/25 04/04/25
20:24 02:49 06:45
Troponin I 0.071 H* 0.070 H* Cancelled
04/04/25 04/04/25
12:45 18:45
Troponin I Cancelled Cancelled
Vital Signs and I&O:
Vital Signs
Temp Pulse Resp BP Pulse Ox
97.6 F 106 16 114/74 95
04/06/25 07:29 04/06/25 08:00 04/06/25 07:31 04/06/25 07:30 04/06/25 07:29
Vital Signs
Temp Pulse Resp BP Pulse Ox
97.6 F 106 16 114/74 95
04/06/25 07:29 04/06/25 08:00 04/06/25 07:31 04/06/25 07:30 04/06/25 07:29
Intake & Output
04/04/25 04/05/25 04/06/25 04/07/25
07:59 07:59 07:59 07:59
Intake Total 530 / 530 480 / 480
Output Total 300 / 300 1700 / 1700 850 / 850
Balance -300 / -300 -1170 / -1170 -370 / -370
Physical Exam
Physical Exam
GEN: No distress, awake, alert, oriented x3.
HEENT: supple, anicteric, mmm, EOMI
LUNGS: CTA B/L, no wheezes
CV: Irreg, S1/S2, no murmur
ABD: soft, BS+, NT/ND
EXT: No cyanosis, clubbing, edema
NEURO: Gross non-focal
SKIN: Warm, pink, dry. No rash. R chest port
[2025-04-06] MEDS: PROTONIX 40 MG PO (09:43)
[2025-04-06] MEDS: ZYLOPRIM 300 MG PO (09:43)
[2025-04-06] MEDS: COREG 6.25 MG PO (09:44)
[2025-04-06] MEDS: ELIQUIS 5 MG PO ×2 (09:44→20:21)
[2025-04-06] MEDS: PROSCAR 5 MG PO (09:44)
[2025-04-06] MEDS: DESENEX/MITRAZOL/ZEASORB 1 APPLIC TOPICAL ×2 (09:44→20:21)
--- NOTE | 2025-04-06 13:55 | CM ---
Reviewed chart. Met with and Mrs. Ngo to review discharge plans. We reviewed VNA Services, outpatient rehab. and SNF/Rehab. Mrs. Ngo wanted to know if [facility] bed if SNF was the recommendation. Telephone call to [facility] Liaison to check on bed availability. [facility] referral to [facility]. IF SNF Rehab. indicated he would need pre-cert with his insurance. They are hoping he will be able to return home to the apartment with resumption of
his outpatient therapy. Will need to see how he arvizu in therapies to make final decision Prior to admission they resides in a fourth apartment with an elevator access. Prior to admission he was using the wheelchair for mobility most of the time. He
has a walker, rollator and wheelchair at home. He is current with outpatient therapy. He has been in the SNF and had [facility] Services in the past. He has a prescription plan and uses [facility]. Medical work-up in progress. The
discharge plan is to return home with his spouse and resumption of outpatient VNA verses SNF/Rehab. if indicated when medically stable.
--- NOTE | 2025-04-06 14:55 | W.PN.HOSP.TC ---
Today's Communication/Plan
-
Assessment / Plan
Assessment / Plan
General: No Apparent Distress, Comfortable and Conversant
HEENT: NormoCephalic, Moist mucous membranes, Atraumatic
Respiratory: Mild crackles right base, Non Labored Respirations
Cardiac: S1/S2, A-fib with heart rate fluctuating between 100-120
GI: Soft, Non Tender, Non Distended and Normal Bowel Sounds
Musculoskeletal: No Edema, no deformity
Skin: Warm and dry
Neuro: Awake, Alert, Nonfocal/grossly intact
Psych: Calm and cooperative
Mr. 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
CVA who presented with shortness of breath. He was found to be in rapid A-fib in the ED. He he was given a dose of IV Cardizem with proved his heart rate but subsequently became hypotensive. His blood pressure has now improved and he has been
started on a Cardizem drip. He has been admitted for further evaluation and management.
A-fib with RVR:
- Continue diltiazem drip
- Increase carvedilol and wean diltiazem drip as able
- Started on anticoagulation with Eliquis
- Planning electrical cardioversion today
- No repeat echo needed at this time, recent echo on 03/21/2025
- Elevated troponin is likely nonischemic injury due to rapid A-fib
Right pleural effusion:
- With mild dyspnea, not hypoxic
- Given a dose of Lasix, will monitor
- Scheduled Lasix may be challenging due to orthostasis requiring midodrine
Pancytopenia:
- Suspect due to MDS and chemotherapy, currently appears stable
- Monitor, transfuse as needed
DVT prophylaxis: Eliquis
CODE STATUS: DNR
Total time spent on today's encounter was 40 minutes
Anticipated Discharge: 24 - 48 hours
Subjective/Interval History
-
Date of Service: April 06, 2025
Patient was seen and examined at bedside this morning. Continues to have shortness of breath and A-fib with RVR. Planning electrical cardioversion this morning.
Objective Data
-
Labs:
Laboratory Results
04/06/25
03:52
WBC 6.1
Hgb 11.4 L
Hct 33.9 L
Plt Count 65 L
Sodium 140
Potassium 3.9
Chloride 108 H
Carbon Dioxide 28
BUN 25 H
Creatinine 0.9
Glucose 104 H
Calcium 8.6
Vital Signs:
Vital Signs
Temp Pulse Resp BP Pulse Ox
97.6 F 71 18 138/79 96
04/06/25 12:58 04/06/25 13:00 04/06/25 12:58 04/06/25 14:12 04/06/25 12:58
I&O
04/05/25 04/06/25 04/07/25
06:59 06:59 06:59
Intake Total 530 / 530 480 / 480
Output Total 1700 / 1700 750 / 750 300 / 300
Balance -1170 / -1170 -270 / -270 -300 / -300
Review of Systems
-
History Source: Patient
All other systems: Reviewed and negative
Respiratory: Reports Trouble Breathing
Physical Exam
-
General: Appears Chronically Ill
[2025-04-06] MEDS: SILVADENE 1 APPLIC TOPICAL (18:05)
[2025-04-06] MEDS: FLOMAX 0.4 MG PO (20:21)
--- NOTE | 2025-04-06 21:43 | PTCARENOTE ---
Received patient at change of shift. SR on the monitor, HR in the 70s. VSS on room air. Contact precautions in place. No complaints from pt at this time, call ahn within reach.
[2025-04-06] MEDS: COREG 3.125 MG PO (22:52)
[2025-04-07 02:22] VITALS: BP 112/69
[2025-04-07 02:26] VITALS: BMI 26.0
[2025-04-07 07:37] VITALS: BP 134/76
--- NOTE | 2025-04-07 07:50 | W.PN.CARDCBS ---
Addendum entered and electronically signed by Rebel Cummings MD 04/07/25 10:15:
Admitted with paroxysmal atrial fibrillation with resultant acute HFpEF, underwent cardioversion yesterday.
PMH: PAF, hypertension, orthostasis, MDS, stage IV esophageal cancer, orthostasis, history of GI bleeding
Current meds: Midodrine 5 3 times daily, tamsulosin 0.4, allopurinol, apixaban, finasteride, Symbicort, pantoprazole 40-day, Spiriva, heparin, carvedilol 6.2 5 AM 3.12 5 PM
134/75, pulse 75, respirate 16, afebrile, weight is 84.6 kg, down 0.8 kg, on admission weight was 88.2 kg offers no complaints, seems somewhat fatigued but conversant, at bedside, lungs are clear, regular rate and rhythm soft murmur, not much
edema JVD modestly elevated
proBNP was 3200 on admission, troponin was 0.071, yesterday potassium was 3.9, BUN and creatinine were 25 and 0.9
ECG sinus rhythm, low voltage, possible inferior VT
Impression:
Plan:
Note below reviewed in detail. Agree, except as noted below regarding discharge medications.
Overall, he appears stable now back in normal sinus rhythm.
HFpEF seems improved. He has used furosemide in the past. Would recommend that he be discharged on furosemide 20 mg daily with potassium.
He is a poor candidate for spironolactone given hypotension and with esophageal cancer utility of SGLT2 antagonist may be limited.
We considered initiation of amiodarone to reduce likelihood of recurrence. Will hold off for now and begin if he has additional episodes.
Recommended cardiac medications at discharge:
Carvedilol 3.125 mg twice daily
Eliquis 5 mg twice daily
Furosemide 20 mg daily (new)
Potassium 10 mill equivalents daily (new
Midodrine 5 mg p.o. 3 times daily
Please get BMP in 1 week
Cardiac follow-up arranged
Original Note:
Today's Communication / Plan
-
check BMP. will plan for IV lasix today and continue 20mg po lasix PRN upon DC given orthostasis history
remains in SR s/p CV 04/06
continue coreg 6.25mg QAM and 3.125mg QPM, eliquis
OP cardiac follow up arranged
PT
Impression / Plan
-
PCP: Dr. Jarrell
Fire Battalion Chief: Dr. Juan
Impression:
Presented with SOB
Paroxysmal atrial fibrillation w/ RVR
Acute HFpEF
Elevated troponin, suspected nonischemic myocardial injury
Chronic Eliquis AC
HTN
Orthostasis
MDS
Stage 4 esophageal cancer
h/o GIB
Echo 11/20/2024: EF 50-55%, GLS -17.5%, mild MR, mild AR, mild TR, estimated PAP 25-30 mmHg
Echo 03/21/2025: EF 55-60%, GLS -14.5%, mild cLVH, mild MR, mild AR
Plan:
- Reports breathing is okay. Weight down 3 pounds from admission with diuresis if accurate. Creatinine stable as of 04/06. check bmp and would plan for dose of IV lasix again today. Was on Lasix as needed as outpatient.
- Remains in sinus rhythm on review of telemetry overnight status post cardioversion 04/06
- Continue Coreg at increased dose of 6.25 mg every morning and 3.125 mg every afternoon. He does have history of orthostasis maintained on midodrine 5 mg 3 times daily which may limit further up titration of rate control
- continue eliquis. Hemoglobin and platelets have been stable per oncology
- TSH WNL
- Echo 03/21/25 noted preserved EF with mild MR and mild AR as noted above
- Elevated troponin of 0.071, stable on repeat at 0.070. Suspect nonischemic myocardial injury in the setting of rapid atrial fibrillation.
- PT fpllowing
- OP cardiac follow up arranged
- likely for DC later today
HPI: Tapan is a 79 year old male with PMH of paroxysmal atrial fibrillation, HTN, orthostasis, MDS, and stage IV esophageal cancer. He had been doing well from a cardiac standpoint, however a few days ago notes that he started to have trouble
breathing. He denies any chest pain, palpitations, dizziness, lightheadedness, or LE edema. He has been following weight and denies any weight gain. Weight is actually down 9lbs compared to last OV from 09/2024. In ER, he was found to be in rapid
atrial fibrillation. He has known h/o paroxysmal atrial fibrillation, however has not had any recent episodes. He was given a dose of 10mg IV cardizem in ER and became hypotensive with improvement in his heart rates. He notes he has been compliant
as OP wit his Eliquis and denies any missed or skipped doses.
Progress Note - Fire Battalion Chief
Subjective
Date of Service: April 07, 2025
reports breathing is 'ok'
Objective
Labs:
04/06/25 03:52
04/06/25 03:52
Labs
Hgb 11.4 g/dL (13.0-18.0) L 04/06/25 03:52
Hct 33.9 % (39.0-52.0) L 04/06/25 03:52
Plt Count 65 10^3/uL (130-400) L 04/06/25 03:52
Sodium 140 mmol/L (135-145) 04/06/25 03:52
Potassium 3.9 mmol/L (3.5-5.1) 04/06/25 03:52
BUN 25 mg/dl (9-20) H 04/06/25 03:52
Creatinine 0.9 mg/dL (0.7-1.3) 04/06/25 03:52
Glucose 104 mg/dl (70-99) H 04/06/25 03:52
Troponins
04/04/25 04/04/25 04/04/25
06:45 12:45 18:45
Troponin I Cancelled Cancelled Cancelled
Vital Signs and I&O:
Vital Signs
Temp Pulse Resp BP Pulse Ox
98 F 79 20 112/69 93
04/07/25 07:37 04/07/25 02:22 04/07/25 07:37 04/07/25 02:22 04/07/25 07:37
Vital Signs
Temp Pulse Resp BP Pulse Ox
98 F 79 20 112/69 93
04/07/25 07:37 04/07/25 02:22 04/07/25 07:37 04/07/25 02:22 04/07/25 07:37
Intake & Output
04/04/25 04/05/25 04/06/25 04/07/25
07:59 07:59 07:59 07:59
Intake Total 530 / 530 480 / 480 840 / 840
Output Total 300 / 300 1700 / 1700 850 / 850 320 / 320
Balance -300 / -300 -1170 / -1170 -370 / -370 520 / 520
Physical Exam
Physical Exam
GEN: No distress, awake, alert, oriented x3
HEENT: supple, anicteric, mmm, EOMI
LUNGS: CTA B/L, no wheezes
CV: Reg, S1/S2, no murmur
ABD: soft, BS+, NT/ND
EXT: No cyanosis, clubbing, edema
NEURO: Gross non-focal
SKIN: Warm, pink, dry. No rash. R chest port
[2025-04-07] MEDS: SYMBICORT 80/4.5 MCG INHALER 2 PUFF INH (08:04)
[2025-04-07] MEDS: SPIRIVA RESPIMAT 2.5 MCG 2 PUFF INH (08:04)
[2025-04-07] MEDS: PROTONIX 40 MG PO (09:15)
[2025-04-07] MEDS: COREG 6.25 MG PO (09:15)
[2025-04-07] MEDS: PROSCAR 5 MG PO (09:15)
[2025-04-07] MEDS: DESENEX/MITRAZOL/ZEASORB 1 APPLIC TOPICAL (09:15)
[2025-04-07] MEDS: ELIQUIS 5 MG PO (09:15)
[2025-04-07] MEDS: ZYLOPRIM 300 MG PO (09:15)
--- NOTE | 2025-04-07 09:58 | PTCARENOTE ---
Discussed the importance of being oob, ambulating to bedside commode. Discussed modified exercises that pt could do in the bed and chair. Will monitor.
[2025-04-07 11:30] VITALS: BP 122/65
[2025-04-07 11:36] LABS: Blood Urea Nitrogen 21 mg/dl (9-20); Calcium 8.7 mg/dl (8.4-10.2); Carbon Dioxide 27 mmol/L (22-30); Chloride 106 mmol/L (98-107); Estimated Creatinine Clearance 80 ml/min; Glucose 135 mg/dl (70-99); Potassium 4.0 mmol/L (3.5-5.1); Sodium 139 mmol/L (135-145); eGFR > 60.00
[2025-04-07 11:47] VITALS: BP 122/65; PULSE 78
[2025-04-07] MEDS: LASIX 20 MG IV (11:56)
--- NOTE | 2025-04-07 12:19 | CM ---
Addendum entered by Nay Ramos 04/07/25 14:06:
Telephone call to [facility] Intake who confirms ability to accept case.
Original Note:
Reviewed chart. Met with and Mrs. Ngo to review discharge plans. Mr. Ngo participated in therapy today with the spouse there. They both feel comfortable that they can manage at home. Reviewed [facility]NA Services for RN and therapies. They
are agreeable to VNA Services and they have selected [facility]. Telephone call to [facility] Intake to make the referral. Left message. Sent referral to [facility]. Awaiting their decision if they can accept. Family feels
comfortable transporting to home. She has his wheelchair in the car. Prior to admission they resides in an apartment with an elevator access in [facility]. Prior to admission he uses a walker for very short distances and
mostly uses the wheelchair fo mobility.He has a wheelchair, walker and rollator at home. Telephone call to [facility] Liaison Monse to updated her and not needing the SNF bed. He has a prescription plan and uses [facility]. Medical work-up in progress. The discharge plan is to return home with his spouse and [facility] when medically stable.
--- NOTE | 2025-04-07 13:05 | W.DCSUMMARY ---
Discharge Summary
Discharge Data
Date of Admission: 04/03/25
Date of Discharge: 04/07/25
Total time spent discharging patient (in min): 35
-
Pending Results: No
Hospital Course
Mr. 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
CVA who presented with shortness of breath. He was found to be in rapid A-fib in the ED. He he was given a dose of IV Cardizem with proved his heart rate but subsequently became hypotensive. His blood pressure improved and he was started on a
Cardizem drip. He was admitted for further evaluation and management.
His beta-barney dose was increased without improvement in his heart rate or symptoms. He ultimately required electrical cardioversion which he underwent successfully on 04/06. He remained in normal sinus rhythm after cardioversion with a heart
rate around 75. His symptoms dramatically improved. He was restarted on his home beta-barney dose of carvedilol 3.125 mg twice daily. He was started on a low-dose of Lasix for fluid overload including right pleural effusion. He was started on
oral potassium supplementation as well. He will need repeat blood work in 1 week to monitor his electrolytes. He will also need close follow-up with his media promoter.
General: No Apparent Distress, Comfortable, chronically ill-appearing
HEENT: NormoCephalic, Moist mucous membranes, Atraumatic
Respiratory: Clear and Non Labored Respirations
Cardiac: S1/S2 and Regular Rhythm; No Rub or Gallop
GI: Soft, Non Tender, Non Distended and Normal Bowel Sounds
Musculoskeletal: No Edema, no deformity
: NO Gaffney
Neuro: Awake, Alert, Nonfocal/grossly intact
Psych: Calm and cooperative
Discharge Plan
-
Patient Disposition: Home with Home Care
Discharge Diagnosis/Procedures: A-fib with RVR
Diet: 2 Gram Sodium
Blood Work: BMP in 1 week
Specialty Instructions: Weigh Daily- Call MD for wt gain/loss 3 lbs overnight/5 lbs in 1 week
Activity Restrictions/Additional Instructions:
Mr. 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
CVA who presented with shortness of breath. He was found to be in rapid A-fib in the ED. He he was given a dose of IV Cardizem with proved his heart rate but subsequently became hypotensive. His blood pressure improved and he was started on a
Cardizem drip. He was admitted for further evaluation and management.
His beta-barney dose was increased without improvement in his heart rate or symptoms. He ultimately required electrical cardioversion which he underwent successfully on 04/06. He remained in normal sinus rhythm after cardioversion with a heart
rate around 75. His symptoms dramatically improved. He was restarted on his home beta-barney dose of carvedilol 3.125 mg twice daily. He was started on a low-dose of Lasix for fluid overload including right pleural effusion. He was started on
oral potassium supplementation as well. He will need repeat blood work in 1 week to monitor his electrolytes. He will also need close follow-up with his media promoter.
Instructions: *[facility] Heart Failure Instructions
Referrals:
[facility] [Other]
Referral Note: Fax number is [phone].
Kody Juan MD [Active, Cardiology] - 04/27/25 10:20 am
Referral Note: You have a cardiology follow-up appointment at the [facility]. Time has changed slightly to 10:20 AM. please call with questions
UNKNOWN - PT DOES,NOT KNOW [Family Provider]
Prescriptions:
New
silver sulfadiazine 1 % Cream
1 applic topical BIDPRN PRN (Reason: pain) Qty: 1 0RF
furosemide 20 mg Tablet
20 mg PO DAILY 30 Days Qty: 30 0RF
potassium chloride 10 mEq capsule, extended release
10 meq PO DAILY Qty: 30 0RF
Continued
allopurinol 300 MG tablet
300 mg PO DAILY
cyanocobalamin (vitamin B-12) 1,000 MCG tablet
1,000 mcg PO DAILY
multivitamin with folic acid [Tab-A-Estrella] 1 TABLET tablet
1 tab PO DAILY
pantoprazole 40 MG tablet,delayed release (DR/EC)
40 mg PO DAILY Qty: 30 0RF
carvedilol [Coreg] 3.125 mg Tablet
3.125 mg PO BID
methenamine hippurate 1 gram Tablet
1 g PO DAILY
finasteride 5 mg Tablet
5 mg PO DAILY
alfuzosin 10 mg Tablet Extended Release 24 Hr
10 mg PO DAILY@1999
Eliquis 5 MG tablet
5 mg PO BID
polyethylene glycol 3350 [Miralax] 17 gram Powder In Packet
17 g PO DAILYPRN PRN (Reason: constipation)
ferrous sulfate 325 mg (65 mg iron) Tablet
325 mg PO DAILY
docusate sodium [Colace] 100 mg Capsule
100 mg PO DAILYPRN PRN (Reason: constipation )
Trelegy Ellipta 100-62.5-25 mcg Blister With Device
1 inh INHALATION R DAILY
cholecalciferol (vitamin D3) 50 mcg (2,000 unit) Tablet
50 mcg PO DAILY
miconazole nitrate [Miconazorb AF] 2 % Powder
1 applic topical BID Qty: 0 0RF
acetaminophen 500 mg Tablet
500 mg PO TID Qty: 0 0RF
midodrine 5 mg Tablet
5 mg PO TID
albuterol 90 mcg/actuation Aerosol
90 mcg INHALATION PRN PRN (Reason: SOB)
Discharge Orders:
Discharge Patient (As Directed); Ordered 04/07/25
Ordered By: Pedro Luis Espino
Care Plan Goals
Care Plan Goals:
Problem: Readiness for enhanced knowledge related to diagnosis and treatment plan
Goal: Understand your diagnosis and treatment plan needs, including medications if applicable.
Instructions: Know your diagnosis, underlying causes and treatment plan options, including medications if applicable. Consult with your health care team to learn about your diagnosis and treatment plan, including medications if applicable.
Discharge Date and Time
Print Language: CHADIAN
== END 2025-04-07 15:26 | disposition home health service (06) | DRG 291 ==
LOC: IVU 23:11
PROVIDERS: Internal Medicine; Nurse Practitioner Gerontology; Physician Assistant; ADMITTING PHYSICIAN Hospitalist; ATTENDING PHYSICIAN Internal Medicine; CONSULT PHYSICIAN Nuclear Medicine Nuclear Cardiology; EMERGENCY PHYSICIAN Emergency Medicine
PROC: 5A2204Z Restoration of Cardiac Rhythm, Single (ICD-10-PCS; 2025-04-06)
DX: I11.0 Hypertensive heart disease with heart failure (principal); D61.810 Antineoplastic chemotherapy induced pancytopenia; I50.33 Acute on chronic diastolic (congestive) heart failure; C15.9 Malignant neoplasm of esophagus, unspecified; C78.00 Secondary malignant neoplasm of unspecified lung; C78.7 Secondary malignant neoplasm of liver and intrahepatic bile duct; I48.0 Paroxysmal atrial fibrillation; I5A Non-ischemic myocardial injury (non-traumatic); I25.10 Atherosclerotic heart disease of native coronary artery without angina pectoris; J44.89 Other specified chronic obstructive pulmonary disease; I95.1 Orthostatic hypotension; M10.9 Gout, unspecified; N40.0 Benign prostatic hyperplasia without lower urinary tract symptoms; D50.9 Iron deficiency anemia, unspecified; R31.29 Other microscopic hematuria; D69.59 Other secondary thrombocytopenia; T45.1X5A Adverse effect of antineoplastic and immunosuppressive drugs, initial encounter; Z66 Do not resuscitate; E78.00 Pure hypercholesterolemia, unspecified; D46.9 Myelodysplastic syndrome, unspecified; Z92.21 Personal history of antineoplastic chemotherapy; Z86.73 Personal history of transient ischemic attack (TIA), and cerebral infarction without residual deficits; Z87.440 Personal history of urinary (tract) infections; Z11.52 Encounter for screening for COVID-19; Z87.891 Personal history of nicotine dependence; Z79.01 Long term (current) use of anticoagulants
CPT/HCPCS: 71045; 71046; 80048; 80053; 81003; 81015; 83880; 84439; 84443; 84484; 85025; 85027; 87086; 87502; 87811; 92960; 93005; 94640; 97110; 97116; 97162

== ENCOUNTER 2025-04-19 23:33 | Emergency (ER) | payer MEDICARE, SELFPAY ==
[2025-04-19 23:37] VITALS: BP 114/70
[2025-04-20 00:34] LABS: ALT (SGPT) 23 U/L (0-50); AST (SGOT) 31 U/L (17-59); Albumin 4.2 g/dl (3.5-5.0); Alkaline Phosphatase 65 U/L (38-126); Blood Urea Nitrogen 35 mg/dl (9-20); Calcium 9.1 mg/dl (8.4-10.2); Carbon Dioxide 28 mmol/L (22-30); Chloride 108 mmol/L (98-107); Glucose 118 mg/dl (70-99); Hematocrit 35.4 % (39.0-52.0); Hemoglobin 12.2 g/dL (13.0-18.0); Mean Corp Hgb Conc. 34.5 g/dL (33.0-37.0); Mean Corpuscular Volume 102.0 fL (80.0-94.0); Nucleated Red Blood Cells % 0 % (-); Platelet Count 73 10^3/uL (130-400); Potassium 4.3 mmol/L (3.5-5.1); Red Cell Dist. Width 15.4 % (11.5-14.5); Sodium 141 mmol/L (135-145); Total Protein 6.8 g/dl (6.3-8.2); eGFR > 60.00
[2025-04-20 03:02] VITALS: BP 145/68
[2025-04-20 03:03] VITALS: BMI 26.3
[2025-04-20 04:00] VITALS: BP 129/56
[2025-04-20 05:00] VITALS: BP 132/54
--- NOTE | 2025-04-20 05:51 | ED.GENMED ---
History of Present Illness
General
Chief Complaint: Weakness
Source: patient
Exam Limitations: none
Time Seen by Provider: 04/20/25 04:12
Nursing documentation reviewed up to this point in time: agreed with
History of Present Illness
History of Present Illness:
79-year-old male past ministry of recently diagnosed A-fib previously went through cardioversion currently on Eliquis and carvedilol, CHF hypertension presenting to the emergency department today with concerns at home when his heart rate recorded in
the 40s with a pulse ox. At the time he complained to his he had some shortness of breath. He denies any ongoing symptoms at this point he claims that at the time he felt okay and did not have any major concerns at this denies any specific
chest pain currently.
Past History
Past History
ED Past Medical History: Arrthythmia (atrial fibrillation), CAD, Cancer, CHF, COPD, CVA, HTN, Hypercholesterolemia, Other (streptococcal sepsis, paraspinal abscess), Other (GI bleed s/p polypectomy 2017 s/p embolization of ileocecal branch of SMA)
and Other (gout)
ED Past Surgical History: Orthopedic (C7 cadaveric implant, laminectomy anterior approach) and Other (Parathyroid adenoma resection); Negative Cardiac
Social History
Tobacco: Former smoker
Alcohol: Occasional
Drug: None
Personal:
Living: with family
Employment: Retired
Family History
Family History: CAD and Cancer; Negative Diabetes, Hypertension or Asthma
Review of Systems
Review of Systems
Allergies reviewed?: Yes
All Other Systems: ROS reviewed and negative except as documented in HPI and ROS
Phy Exam
Physical Exam
Physical Exam:
GENERAL: Alert , in no apparent distress
EYE: pupils equal and reactive
NECK: Supple, no significant adenopathy.
ENT: o/p clr, mmm.
CARDIAC: irRegular regular rate and rhythm .
LUNGS: Clear breath sounds bilaterally, no acute respiratory distress, no wheezes/rales/rhonchi
ABDOMEN: Soft, without focal tenderness, no r/g, no cvat
NEUROLOGICAL: Alert and oriented, no focal neuro deficits
SKIN: Warm and dry, skin intact.
MUSCULOSKELETAL: No edema, well perfused.
PSYCH: Normal and appropriate interaction.
Course
Orders/Labs/Results
Orders:
Orders
04/19/25 23:39
EKG- Treatment ONCE
Complete Blood Count/With Diff Urgent
Comprehensive Metabolic Panel Urgent
04/20/25
Electrocardiogram (*1) Stat
Reason for Study: Chest Pain
Comment: DONE IN ER
04/20/25 04:59
EKG [Electrocardiogram (*1)] Urgent
Reason for Study: Palpitations
EKG- Treatment ONCE
04/20/25 05:43
Chest [CR Chest - 2 Views ] Urgent
Comment:
Reason For Exam: sob
Abnormal Lab Results
04/20/25
00:01
RBC 3.47 L 10^6/uL
(4.70-6.10)
Hgb 12.2 L g/dL
(13.0-18.0)
Hct 35.4 L %
(39.0-52.0)
MCV 102.0 H fL
(80.0-94.0)
MCH 35.2 H pg
(27.0-31.0)
RDW 15.4 H %
(11.5-14.5)
Plt Count 73 L 10^3/uL
(130-400)
MPV 11.8 H fL
(7.4-10.4)
Chloride 108 H mmol/L
(98-107)
BUN 35 H mg/dl
(9-20)
Glucose 118 H mg/dl
(70-99)
Total Bilirubin 1.8 H mg/dl
(0.2-1.3)
04/20/25 00:01
04/20/25 00:01
Vital Signs
Initial and Last Documented VS:
Initial Vital Signs
Temp Pulse Resp BP Pulse Ox
97.1 F 80 20 114/70 97
04/19/25 23:37 04/19/25 23:37 04/19/25 23:37 04/19/25 23:37 04/19/25 23:37
Last Documented Vital Signs
Temp Pulse Resp BP Pulse Ox
97.1 F 80 20 145/68 97
04/19/25 23:37 04/19/25 23:37 04/19/25 23:37 04/20/25 03:02 04/20/25 05:54
MDM/Problems Addressed
MDM/Problems Addressed:
79-year-old male presenting department today after his got a reading of 40 bpm with a pulse ox at home. On arrival heart rate in the 70s does have frequent PACs labs showing elevated BUN to creatinine ratio but otherwise no emergent findings.
He denies any chest pain he claims that he has no symptoms at this time. No obvious emergent process at this time considering asymptomatic no emergent EKG changes labs unremarkable other than potential slight dehydration, he is able to tolerate by
mouth. Stable for close cardiology follow-up. Return precautions given.
*Pulse Oximetry
SaO2: 97
Oxygen Mode of Delivery: Room air
ED Attending Note
-
Portions of this chart may have been created with voice recognition software.� Occasional wrong word or��sound alike� substitutions may have occurred due to the inherent limitations of voice recognition software.
Discharge Plan
Departure
Patient Disposition: Home (Routine Discharge)
Date of Disposition: 04/20/25
Time of Disposition: 06:46
Patient with high blood pressure during this ER visit?: No
Condition: Good
Covid-19: Not Applicable
Discharge Problem:
Weakness
Instructions: Generalized Weakness (DC)
Prescriptions:
No Action
allopurinol 300 MG tablet
300 mg PO DAILY
cyanocobalamin (vitamin B-12) 1,000 MCG tablet
1,000 mcg PO DAILY
multivitamin with folic acid [Tab-A-Estrella] 1 TABLET tablet
1 tab PO DAILY
pantoprazole 40 MG tablet,delayed release (DR/EC)
40 mg PO DAILY Qty: 30 0RF
carvedilol [Coreg] 3.125 mg Tablet
3.125 mg PO BID
methenamine hippurate 1 gram Tablet
1 g PO DAILY
finasteride 5 mg Tablet
5 mg PO DAILY
alfuzosin 10 mg Tablet Extended Release 24 Hr
10 mg PO DAILY@1999
Eliquis 5 MG tablet
5 mg PO BID
polyethylene glycol 3350 [Miralax] 17 gram Powder In Packet
17 g PO DAILYPRN PRN (Reason: constipation)
ferrous sulfate 325 mg (65 mg iron) Tablet
325 mg PO DAILY
docusate sodium [Colace] 100 mg Capsule
100 mg PO DAILYPRN PRN (Reason: constipation )
Trelegy Ellipta 100-62.5-25 mcg Blister With Device
1 inh INHALATION R DAILY
cholecalciferol (vitamin D3) 50 mcg (2,000 unit) Tablet
50 mcg PO DAILY
miconazole nitrate [Miconazorb AF] 2 % Powder
1 applic topical BID Qty: 0 0RF
acetaminophen 500 mg Tablet
500 mg PO TID Qty: 0 0RF
midodrine 5 mg Tablet
5 mg PO TID
albuterol 90 mcg/actuation Aerosol
90 mcg INHALATION PRN PRN (Reason: SOB)
silver sulfadiazine 1 % Cream
1 applic topical BIDPRN PRN (Reason: pain) Qty: 1 0RF
furosemide 20 mg Tablet
20 mg PO DAILY 30 Days Qty: 30 0RF
potassium chloride 10 mEq capsule, extended release
10 meq PO DAILY Qty: 30 0RF
Referrals:
Marlen Jarrell MD [Family Provider, Internal Medicine]
Activity Restrictions/Additional Instructions:
Here you had a reassuring assessment. Please closely with cardiology. Return for any worsening, new or concerning symptoms.
Interventions
Interventions:
*Risk Screen - Suicide Last Done: 04/20/25 03:04
*General Assessment Last Done: 04/20/25 03:04
*Neglect/Abuse Screening Last Done: 04/20/25 03:04
*ED- Fall Risk Assessment Last Done: 04/20/25 03:04
*ED COVID-19 Vaccine History Last Done: 04/20/25 03:04
ED- Cardiac Assessment Last Done: 04/20/25 03:04
ED- Neurological Assessment Last Done: 04/20/25 03:04
ED- Pulmonary Assessment Last Done: 04/20/25 03:04
Discharge Date and Time
Print Language: HEBREW
[2025-04-20 06:00] VITALS: BP 98/49
== END 2025-04-20 07:45 | disposition home or self-care (01) ==
LOC: EMR 23:33
PROVIDERS: EMERGENCY PHYSICIAN Student in an Organized Health Care Education/Training Program; FAMILY PHYSICIAN Internal Medicine Geriatric Medicine
DX: R53.1 Weakness (principal); I48.91 Unspecified atrial fibrillation; I25.10 Atherosclerotic heart disease of native coronary artery without angina pectoris; I11.0 Hypertensive heart disease with heart failure; I50.9 Heart failure, unspecified; E78.00 Pure hypercholesterolemia, unspecified; I49.1 Atrial premature depolarization; J44.9 Chronic obstructive pulmonary disease, unspecified; M10.9 Gout, unspecified; Z79.01 Long term (current) use of anticoagulants; Z86.73 Personal history of transient ischemic attack (TIA), and cerebral infarction without residual deficits; Z87.891 Personal history of nicotine dependence; Z82.49 Family history of ischemic heart disease and other diseases of the circulatory system; Z82.5 Family history of asthma and other chronic lower respiratory diseases
CPT/HCPCS: 99284; 71046; 80053; 85025; 93005

== ENCOUNTER → 2025-07-14 14:52 | Outpatient (REF) | payer MEDICARE, SELFPAY | LOC: RCS 14:52 | PROVIDERS: ATTENDING PHYSICIAN Internal Medicine Hematology & Oncology; FAMILY PHYSICIAN Internal Medicine Geriatric Medicine | DX: D46.9 Myelodysplastic syndrome, unspecified (principal); C15.5 Malignant neoplasm of lower third of esophagus; C78.7 Secondary malignant neoplasm of liver and intrahepatic bile duct; C78.00 Secondary malignant neoplasm of unspecified lung; D50.9 Iron deficiency anemia, unspecified | CPT/HCPCS: 93306 ==

== ENCOUNTER → 2025-07-28 07:09 | Outpatient (REF) | payer MEDICARE, SELFPAY | LOC: MRI 07:09 | PROVIDERS: ATTENDING PHYSICIAN Specialist; FAMILY PHYSICIAN Internal Medicine Geriatric Medicine | DX: R26.2 Difficulty in walking, not elsewhere classified (principal); G31.84 Mild cognitive impairment of uncertain or unknown etiology | CPT/HCPCS: 70551 ==